=== PATIENT | female | born 1950 | race Caucasian/White ===

== ENCOUNTER 2020-05-11 16:07 | Outpatient (REF) | payer MEDICARE, MEDICAID, SELFPAY ==
[2020-05-11 16:42] LABS: Abs Immature Grans 0.05 10^3/uL (0.0-0.06); Absolute Basophil Count 0.07 10^3/uL (0.0-0.2); Absolute Eosinophil Count 0.31 10^3/uL (0.0-0.7); Absolute Lymphocyte Count 1.84 10^3/uL (1.2-3.4); Absolute Monocyte Count 1.27 10^3/uL (0.1-0.8); Absolute Neutrophil Count 8.41 10^3/uL (1.2-6.7); Basophils % 0.6; Eosinophils % 2.6; HCT 31.5 % (36.0-46.0); HGB 9.3 g/dL (11.2-15.7); Immature Grans % 0.4; Lymphocytes % 15.4; MCH 32.6 pg (27.0-33.0); MCHC 29.5 % (32.0-36.0); MCV 110.5 fL (80-95); MPV 12.6 fL (8.0-11.0); Monocytes % 10.6; Neutrophils % 70.4; Nucleated RBC 0 %; Platelet Count 266 10^3/uL (130-400); RBC 2.85 10^6/uL (3.93-5.22); RDW 16.9 % (11.7-14.6); RDW-SD 69.7 fL; Reticulocyte 2.5 % (0.5-2.4); WBC 11.95 10^3/uL (4.4-10.8)
[2020-05-11 16:58] LABS: Iron 27 ug/dL (50-170); Total Iron Binding Capacity 192 ug/dL (250-450); Transferrin Sat 14 % (15-50)
[2020-05-11 17:25] LABS: ALT 12 U/L (14-59); AST 16 U/L (15-37); Albumin 2.2 g/dL (3.4-5.0); Alkaline Phosphatase 156 U/L (46-116); Anion Gap 1.7 mmol/L (3-11); BUN 20 mg/dL (7-18); Bilirubin, Total 0.4 mg/dL (0.2-1.0); CO2 35.3 mmol/L (21.0-32.0); CREATININE 1.13 mg/dL (0.55-1.02); Calcium 9.4 mg/dL (8.5-10.1); Chloride 108 mmol/L (98-107); Estimated GFR 47.47 (mL/min/1.73m2); Glucose 121 mg/dL (74-106); Potassium 4.3 mmol/L (3.5-5.1); Sodium 145 mmol/L (136-145); Total Protein 6.4 g/dL (6.4-8.2); Vitamin B12 443 pg/mL (193-986)
[2020-05-11 17:36] LABS: Diff Comment RBC Morph Reviewed
[2020-05-11 17:37] LABS: Macrocytosis 2+; Polychromasia Present
== END 2020-05-11 16:27 ==
LOC: LBN 16:07
PROVIDERS: Visit Provider Family Medicine
DX: D50.0 Iron deficiency anemia secondary to blood loss (chronic) (principal); M62.81 Muscle weakness (generalized); J44.1 Chronic obstructive pulmonary disease with (acute) exacerbation; J96.11 Chronic respiratory failure with hypoxia; I10 Essential (primary) hypertension; I73.9 Peripheral vascular disease, unspecified
CPT/HCPCS: 80053; 82607; 82746; 83540; 83550; 85025; 85045

== ENCOUNTER 2020-05-13 14:53 | Outpatient (REF) | payer MEDICARE, MEDICAID, SELFPAY ==
[2020-05-14 16:48] LABS: COVID-19 RT-PCR Result Not Detected ((See Note))
== END 2020-05-13 15:13 ==
LOC: LBN 14:53
PROVIDERS: Visit Provider Family Medicine
DX: Z11.52 Encounter for screening for COVID-19 (principal)
CPT/HCPCS: U0003

== ENCOUNTER 2020-05-20 14:00 | Outpatient (REF) | payer MEDICARE, MEDICAID, SELFPAY ==
[2020-05-20 14:41] LABS: Abs Immature Grans 0.06 10^3/uL (0.0-0.06); Absolute Basophil Count 0.08 10^3/uL (0.0-0.2); Absolute Lymphocyte Count 2.18 10^3/uL (1.2-3.4); Absolute Monocyte Count 1.09 10^3/uL (0.1-0.8); Absolute Neutrophil Count 9.38 10^3/uL (1.2-6.7); Anion Gap 0.8 mmol/L (3-11); BUN 17 mg/dL (7-18); Basophils % 0.6; CO2 38.2 mmol/L (21.0-32.0); CREATININE 1.14 mg/dL (0.55-1.02); Calcium 9.4 mg/dL (8.5-10.1); Chloride 107 mmol/L (98-107); Estimated GFR 46.99 (mL/min/1.73m2); Glucose 113 mg/dL (74-106); HCT 33.3 % (36.0-46.0); Immature Grans % 0.5; Lymphocytes % 16.5; MCH 33.1 pg (27.0-33.0); MCV 110.3 fL (80-95); MPV 12.4 fL (8.0-11.0); Monocytes % 8.3; Neutrophils % 71.1; Nucleated RBC 1 %; Platelet Count 322 10^3/uL (130-400); Potassium 3.9 mmol/L (3.5-5.1); RBC 3.02 10^6/uL (3.93-5.22); RDW 16.6 % (11.7-14.6); RDW-SD 66.2 fL; Sodium 146 mmol/L (136-145); WBC 13.19 10^3/uL (4.4-10.8)
== END 2020-05-20 14:20 ==
LOC: LBN 14:00
PROVIDERS: Visit Provider Nurse Practitioner Gerontology
DX: L03.115 Cellulitis of right lower limb (principal); L03.116 Cellulitis of left lower limb
CPT/HCPCS: 80048; 85025

== ENCOUNTER 2020-05-21 11:09 | Inpatient (IN) | payer MEDICARE, MEDICAID, SELFPAY ==
[2020-05-21] VITALS (78 sets, daily range): BP systolic 72–138; BP diastolic 18–101; PULSE 62–143; RESP 7–24; TEMP 36.6–37.4; O2SAT 86–98
--- NOTE | 2020-05-21 11:00 | RT.EKG_ITS ---
APPROVED REPORT Exam: Resting ECG Patient Location: E HR:79 bpm ECG Measurements Heart Rate 79 AXIS HI 196 P 0 QRSd 125 QRS 5 QT 432 T 62 QTc 498 Conclusion Sinus rhythm...normal P axis, V-rate 60- 99 Ventricular premature complex...V complex w/ short R-R interval Nonspecific intraventricular conduction delay...QRSd >115mS, not LBBB/RBBB Abnrm T, consider ischemia, anterolateral lds...T <-0.20mV, I aVL V2-V6. Significant artifact. No STEMI. I have reviewed and interpreted ECG and agree with software generated interpretation.
--- NOTE | 2020-05-21 11:39 | W.ED.GENAD ---
Discharge Plan Disposition Patient Disposition: [facility] INPATIENT Condition: Stable Discharge Details Clinical Impression: Cellulitis of left leg, Chronic acquired lymphedema, Morbid obesity, Hypoxia Admit Date/Time: 05/21/20 12:08 Admit Provider: Per Mc Attending Provider: Per Mc Primary Care Provider: Unknown,Unknown ED Provider: Louann Fishman Discharge Data Discharge Date/Time-TO BE ENTERED AT DEPARTURE: 05/21/20 16:34 Medical Decision Making 69-year-old female with a history of morbid obesity, congestive heart failure, lymphedema, COPD chronically on nasal cannula oxygen who presents from the [facility] for left leg cellulitis and hypoxia today. The [facility] have reported that patient's oxygen saturation is normally 88 to 92% on 4 L, but was 86% on CPAP. EMS reported patient on CPAP in route and oxygen saturation mid to high 80s. Upon arrival to ED, patient noted to be on 4 L nasal cannula and oxygen saturation 100%. She was decreased to 1 L and oxygen saturation 97%. Patient complaining only of left leg pain. She denies any cough, shortness of breath or chest pain. Left lower extremity appears erythematous extending from left medial thigh down to left lower leg. She has bilateral lower extremity edema and lymphedema, worse on left side. Distal pulses intact. She has fine crackles in the bases bilaterally but otherwise no wheezing. EKG notes a rate of 79, sinus. There is significant artifact but no obvious ST ischemic findings. We will start IV clindamycin and IV vancomycin for left leg cellulitis. Will obtain screening labs, chest x-ray and bilateral Doppler ultrasound of lower extremities. Case discussed with hospitalist accepts patient for admission for IV antibiotics. Labs reviewed. White blood cell count 23. Hemoglobin 10. Lactate 1. Troponin 0.13, suspect demand ischemia. Chest x-ray suboptimal but no obvious consolidation, possible fluid overload. 2 view chest x-ray notes fluid overload. Patient appears hemodynamically stable and in no acute respiratory distress. Medical Records Medical records reviewed: Yes I reviewed the patient's medical records. Imaging Data Radiologic Study: Radiologist's impression: XR PORTABLE CHEST AP CLINICAL HISTORY: hypoxia, r/o acute disease TECHNIQUE: 2D digital imaging was performed. COMPARISON: CR XR CHEST PORTABLE from 01/24/2016 FINDINGS: Examination is suboptimal due to patient position and poor inspiration. MEDIASTINUM: There is prominence of the left hilum. This may be due to pulmonary vasculature and patient positioning. Pulmonary infiltrate or mass cannot be excluded. HEART: Mildly enlarged. PULMONARY VASCULATURE: There is prominence of the pulmonary vasculature. LUNGS: Increased interstitial markings are present in the lungs. PLEURAL SPACE: No pleural effusion or pneumothorax. BONE:Within normal limits for the patient's age. OTHER FINDINGS:Normal. IMPRESSION: 1. Suboptimal examination due to poor inspiration and patient positioning. 2. Findings suspicious for congestive heart failure/fluid overload. 3. Fullness of the left hilum. This may be due to patient positioning but hilar adenopathy, infiltrate, enlarged pulmonary vasculature or mass cannot be excluded. A repeat PA and lateral view of the chest within the department should be considered for further evaluation. XR CHEST 2V PA LATERAL CLINICAL HISTORY: hypoxia, r/o acute disease TECHNIQUE: 2D digital imaging was performed. COMPARISON: No exams were available for comparison FINDINGS: MEDIASTINUM: Normal. HEART: Heart size is mildly enlarged. PULMONARY VASCULATURE: There is prominence of the pulmonary vasculature suggesting venous congestion. LUNGS: Prominent interstitial markings are seen throughout the lungs. PLEURAL SPACE: There is possible blunting of the left costophrenic angle suggesting a small pleural effusion. No pneumothorax. BONE:Within normal limits for the patient's age. OTHER FINDINGS:Normal. IMPRESSION: Findings suggestive of congestive heart failure/fluid overload. Findings were discussed with the emergency department on the date of the examination. Lab Data Lab results reviewed: Yes I reviewed the patient's lab results. ECG Data Attestation: I personally reviewed and interpreted this ECG (s) as follows: Interpretation: #1 --Rate of 79, sinus, artifact, no acute ST elevation or depression. TX 1-6. QRS 125. QTc 498. #2 --Rate of 86, sinus, no acute ST elevation or depression. QRS 104. QTc 499. HPI General Mode of arrival: EMS. Date/Time Provider Initiated Documentation: 05/21/20 11:48. Limitations to Documentation: altered mental status and physical limitation. Information obtained by: patient and RN/MD. HPI Narrative: Patient is a 69-year-old female with a history of morbid obesity, congestive heart failure, obstructive sleep apnea, COPD chronically on nasal cannula oxygen and chronic lymphedema presents from the [facility] for left leg cellulitis and hypoxia. Patient was noted to have left medial thigh erythema at times yesterday for which she was started on Augmentin. Staff notes today that she has extending erythema to her left lower leg. They state that she also has baseline oxygen saturations around 88 to 92% on 4 L and that she was 86% on CPAP today. They also note that she has decreased mental status per her baseline. Patient denies any chest pain, shortness of breath or cough to me. She is complaining of left leg pain but otherwise denies any other acute complaints. Related Data Home Medications Medication Instructions Recorded Confirmed albuterol sulfate [Ventolin Hfa] 2 puff INHALATION PRN PRN 05/02/16 05/21/20 aspirin [Aspir 81] 2 tab PO DAILY 05/02/16 05/21/20 furosemide 1 tab PO DAILY 05/02/16 05/21/20 lisinopril 1 tab PO HS 05/02/16 05/21/20 omeprazole 1 tab PO BID 05/02/16 05/21/20 simvastatin 40 mg PO HS 05/02/16 05/21/20 Lactobacillus acidoph-L.bulgar 1 tab PO TID 05/21/20 05/21/20 [Lactinex] acetaminophen 650 mg PO QID 05/21/20 05/21/20 amoxicillin-pot clavulanate 1 tab PO Q12H 05/21/20 05/21/20 [Augmentin] calcium gluconate [Calcium and 500 mg PO DAILY 05/21/20 05/21/20 Eggshell Chelated] docusate sodium [Colace] 50 mg PO BID 05/21/20 05/21/20 enoxaparin [Lovenox] 40 mg SUBCUT Q12H 05/21/20 05/21/20 ferrous sulfate [Iron (ferrous 325 mg PO TID 05/21/20 05/21/20 sulfate)] gabapentin [Neurontin] 200 mg PO TID 05/21/20 05/21/20 ipratropium-albuterol [Combivent] 1 spray INHALATION QID 05/21/20 05/21/20 lidocaine 2 patch TOPICAL DAILY 05/21/20 05/21/20 mometasone 2 puff INHALATION BID 05/21/20 05/21/20 potassium chloride 20 meq PO DAILY 05/21/20 05/21/20 sertraline 150 mg PO DAILY 05/21/20 05/21/20 vitamin [id number] acid 1 tab SUBLINGUAL DAILY 05/21/20 05/21/20 Allergies Allergy/AdvReac Type Severity Reaction Status Date / Time codeine Allergy Unverified 05/21/20 13:39 pentazocine AdvReac Unknown unknown Unverified 05/21/20 13:40 General Stated Complaint: Cellulitis TATIANA: 3 Review of Systems All systems reviewed & are unremarkable except as noted in HPI and below Constitutional Constitutional: Reports as per HPI, Denies chills and Denies fever(s) Eyes Eyes: Denies blurry vision ENT Ears, Nose, Mouth, and Throat: Denies dizziness, Denies sore throat and Denies throat swelling Cardiovascular Cardiovascular: Denies chest pain and Denies dyspnea Respiratory Respiratory: Denies cough and Denies dyspnea Gastrointestinal Gastrointestinal: Denies abdominal pain, Denies diarrhea and Denies vomiting Genitourinary Genitourinary: Denies hematuria and Denies dysuria Musculoskeletal Musculoskeletal: Denies back pain and Denies numbness Integumentary/Breasts Skin/Breast: Denies lesions and Denies rash Neurologic Neurologic: Denies dizziness, Denies localized weakness, Denies numbness and Reports other (L leg redness, pain, swelling) Allergic/Immunologic Allergic/Immunologic: Denies throat swelling FOR[facility]LY [facility] Medical History (Updated 05/25/20 @ 12:25 by Rosa Elena Curtis MD) COPD (chronic obstructive pulmonary disease) Depression Lymphedema Morbid obesity Social History Smoking/Tobacco Use Status: Former Tobacco Use Smoking risk assessment performed?: Yes Alcohol Intake: former Substance use type: marijuana Do you feel safe at home: Yes Do you feel safe in your relationship?: Yes Additional Social history: resident @ [facility] H&R Exam Const General: cooperative, no acute distress and ill appearing chronically Nutritional Appearance: obese morbidly obese [facility] Head: normal to inspection Face and sinus: normal facial exam Mouth: mucous membranes dry Eyes General: appearance normal, both eyes and all related structures Pupils: PERRL EOM: EOM intact bilaterally Neck Neck: normal visual inspection and No submandibular swelling Lymphatic: no lymphadenopathy noted Chest Chest: normal inspection of the chest and no tenderness Resp Effort & Inspection: normal respiratory effort and able to speak in complete sentences Auscultation: clear to auscultation bilaterally Cardio Rate: regular rate Rhythm: regular rhythm GI Inspection: normal to inspection and obesity Palpation: soft, not firm, not rigid and nontender Auscultation: normal bowel sounds Back/Spine/Pelvis Pelvis: no pain with anterior-posterior compression Skin General skin exam: no rashes or lesions noted Neuro General: patient alert, patient awake and patient oriented x3 Cognition: normal cognition Speech: speech normal Motor: muscle tone normal throughout Sensory Exam: no sensory deficits noted Extrem Upper/lower leg/hip images: 1. Erythema 2. Erythema, edema. [place] peel like skin. 1+ pitting edema left lower extremity. Chronic lymphedema of legs bilaterally, worse on left side. Distal pulses intact. Psych Appearance: grossly normal Mental Status: mental status grossly normal Speech and Movement: speech and movement normal Affect: normal affect Course Vital Signs Vital signs: Vital Signs Temperature 99.3 F 05/21/20 11:14 Pulse 80 05/21/20 11:14 Respiratory Rate 19 05/21/20 11:14 Blood Pressure 115/101 H 05/21/20 11:14 Pulse Oximetry 94 05/21/20 11:14 Temperature 99.3 F 05/21/20 11:14 Temperature Source Skin 05/21/20 11:14 Pulse 80 05/21/20 11:14 Respiratory Rate 19 05/21/20 11:14 Blood Pressure 115/101 H 05/21/20 11:14 Blood Pressure Position Sitting 05/21/20 11:14 Pulse Oximetry 94 05/21/20 11:14 Oxygen Delivery Method Nasal Cannula 05/21/20 11:14 Oxygen Flow Rate 1 05/21/20 11:14 Pain Level 0 05/21/20 11:14 Lab/Test Results Lab/Test Results: 05/21/20 11:27 Blood Blood Culture - Pending 05/21/20 11:27 Blood Blood Culture - Pending
--- NOTE | 2020-05-21 11:45 | DI.RAD_ITS ---
EXAM: XR PORTABLE CHEST AP CLINICAL HISTORY: hypoxia, r/o acute disease TECHNIQUE: 2D digital imaging was performed. COMPARISON: CR XR CHEST PORTABLE from 01/24/2016 FINDINGS: Examination is suboptimal due to patient position and poor inspiration. MEDIASTINUM: There is prominence of the left hilum. This may be due to pulmonary vasculature and pat ient positioning. Pulmonary infiltrate or mass cannot be excluded. HEART: Mildly enlarged. PULMONARY VASCULATURE: There is prominence of the pulmonary vasculature. LUNGS: Increased interstitial markings are present in the lungs. PLEURAL SPACE: No pleural effusion or pneumothorax. BONE:Within normal limits for the patient's age. OTHER FINDINGS:Normal. IMPRESSION: 1. Suboptimal examination due to poor inspiration and patient positioning. 2. Findings suspicious for congestive heart failure/fluid overload. 3. Fullness of the left hilum. This may be due to patient positioning but hilar adenopathy, infiltra te, enlarged pulmonary vasculature or mass cannot be excluded. A repeat PA and lateral view of the c hest within the department should be considered for further evaluation. DATA REPOSITORY: RADIATION DOSE DELIVERED:
[2020-05-21] MEDS: Albuterol/Ipratropium 3 ML UPD VIAL (11:56)
--- NOTE | 2020-05-21 12:00 | DI.US_ITS ---
EXAM: US EXTREMITY VENOUS BI CLINICAL HISTORY: L leg pain/redness, b/l leg swelling. TECHNIQUE: Bilateral lower extremity venous ultrasound performed using grayscale, color-flow, and sp ectral Doppler analysis. COMPARISON: No exams were available for comparison FINDINGS: The bilateral common femoral, femoral and popliteal veins demonstrate normal compressibility, augment ation, and color Doppler. There is limited visualization of the posterior tibialis veins bilaterally. The saphenofemoral junctions are unremarkable. There is no evidence of a Cox's cyst. The soft tis sues are unremarkable. IMPRESSION: Right: Negative for DVT Left: Negative for DVT DATA REPOSITORY:
--- NOTE | 2020-05-21 12:10 | HPE_ITS ---
Date of service: 05/21/20 Time of Service: 12:10 Assessment and Plan Assessment and plan (1) Congestive heart failure: Status: Chronic Assessment and plan: admit to ICU BNP 535 which is in normal range for her age. CXR indicates pulmonary edema Hypoxic on 5L O2 with BiPAP Lasix 40mg IV now. (2) Elevated troponin: Status: Acute Assessment and plan: In setting of episode of hypoxia, UTI and LE cellulitis. Trop of 0.13. Will trend. No STEMI on EKG; possible NSTEMI/demand ischemia (3) Left leg cellulitis: Status: Acute Assessment and plan: admit to med/surg, elevate as much as possible during the day IV clindamycin and Vancomycin initiated in the ED UTI now dxd as well so will d/c clindamycin and start Zosyn. blood cultures pending (4) COPD (chronic obstructive pulmonary disease): Status: Inactive Assessment and plan: appears stable at this time cxr pending sob and hypoxia resolved. continue to closely monitor routine covid testing pending (5) DVT prophylaxis: Status: Acute Assessment and plan: heparin sq (6) Discharge planning issues: Status: Acute Assessment and plan: will discharge back to the [facility] once medically stable (7) TRINH (obstructive sleep apnea): Status: Chronic Assessment and plan: Severe. Uses CPAP. Respiratory therapy involved. (8) Acute and chronic respiratory failure with hypoxia: Status: Acute Assessment and plan: Normally on 4L supplemental O2 with saturations in the 88-92% range. Now more hypoxic. Likely d/t pulmonary edema. Uses CPAP but not consistent and there is a question of an adequately fitting mask. Now on BiPAP with O2 bled in. History of Present Illness History of Present Illness Chief Complaint: left lower extremity pain and redness Narrative: This is a 69 yo female that is residing at the [facility] who has a h/o morbid obesity, TRINH, lymphedema, COPD. She presents to the ED from the [facility] for c/o increased pain and redness of left lower extremity, work up in the ED was most consistent with cellulitis, no suspicion of necrotizing fascitis, not septic. started on vanco and clindamycin. No report of CP/palpitations, F/C, cough/sputum. also with reports of SOB which have resolved. On 4L O2 per NC on arrival; decreased to 1L with a saturation of 97%. W/U revealed a UTI as well. Troponin elevated at 0.13. No STEMI on EKG. CXR was suboptimal d/t body habitus/poor inspiration/positioning. Findings were suspicious for fluid overload. BNP was 535 which is in the normal range of <900 for her age. [facility] Medical History (Updated 05/21/20 @ 17:44 by Per Mc MD) COPD (chronic obstructive pulmonary disease) Depression Lymphedema Morbid obesity Social History Smoking/Tobacco Use Status: Former Tobacco Use Smoking risk assessment performed?: Yes Alcohol Intake: former Substance use type: marijuana Do you feel safe at home: Yes Do you feel safe in your relationship?: Yes Additional Social history: resident @ [facility] Home Medications and Allergies Home Medications Medication Instructions Recorded Confirmed Type albuterol sulfate [Ventolin Hfa] 2 puff INHALATION PRN PRN 05/02/16 05/21/20 History aspirin [Aspir 81] 2 tab PO DAILY 05/02/16 05/21/20 History furosemide 1 tab PO DAILY 05/02/16 05/21/20 History lisinopril 1 tab PO HS 05/02/16 05/21/20 History omeprazole 1 tab PO BID 05/02/16 05/21/20 History simvastatin 40 mg PO HS 05/02/16 05/21/20 History Lactobacillus acidoph-L.bulgar 1 tab PO TID 05/21/20 05/21/20 History [Lactinex] acetaminophen 650 mg PO QID 05/21/20 05/21/20 History amoxicillin-pot clavulanate 1 tab PO Q12H 05/21/20 05/21/20 History [Augmentin] calcium gluconate [Calcium and 500 mg PO DAILY 05/21/20 05/21/20 History Eggshell Chelated] docusate sodium [Colace] 50 mg PO BID 05/21/20 05/21/20 History enoxaparin [Lovenox] 40 mg SUBCUT Q12H 05/21/20 05/21/20 History ferrous sulfate [Iron (ferrous 325 mg PO TID 05/21/20 05/21/20 History sulfate)] gabapentin [Neurontin] 200 mg PO TID 05/21/20 05/21/20 History ipratropium-albuterol [Combivent] 1 spray INHALATION QID 05/21/20 05/21/20 History lidocaine 2 patch TOPICAL DAILY 05/21/20 05/21/20 History mometasone 2 puff INHALATION BID 05/21/20 05/21/20 History potassium chloride 20 meq PO DAILY 05/21/20 05/21/20 History sertraline 150 mg PO DAILY 05/21/20 05/21/20 History vitamin [id number] acid 1 tab SUBLINGUAL DAILY 05/21/20 05/21/20 History Allergies Allergy/AdvReac Type Severity Reaction Status Date / Time codeine Allergy Unverified 05/21/20 13:39 pentazocine AdvReac Unknown unknown Unverified 05/21/20 13:40 Exam Narrative Exam Narrative: Pt in ICU; supine. BiPAP. Const General: no acute distress Nutritional Appearance: obese Orientation: other (asleep) HENIN Head: normocephalic and atraumatic Results Labs Result diagrams: 05/21/20 12:45 05/21/20 12:45 Last Vital Signs Temp 37.4 C 05/21/20 11:14 Pulse 75 05/21/20 12:02 Resp 19 05/21/20 12:02 BP 108/66 05/21/20 12:02 Pulse Ox 98 05/21/20 12:02 COVID-19 Screening Have you, or household traveled for leisure in last 14 days?: No Had IN PERSON contact w/suspected or confirmed C-19 person: No
[2020-05-21 12:59] LABS: Abs Immature Grans 0.25 10^3/uL (0.0-0.06); Basophils % 0.3; Eosinophils % 0.8; HCT 33.5 % (36.0-46.0); Immature Grans % 1.1; Lymphocytes % 10.7; MCH 32.6 pg (27.0-33.0); MCHC 29.9 % (32.0-36.0); MCV 109.1 fL (80-95); MPV 11.6 fL (8.0-11.0); Monocytes % 3.8; Neutrophils % 83.3; Nucleated RBC 1 %; Platelet Count 320 10^3/uL (130-400); RBC 3.07 10^6/uL (3.93-5.22); RDW 16.2 % (11.7-14.6); RDW-SD 64.9 fL; WBC 23.09 10^3/uL (4.4-10.8)
[2020-05-21 13:07] LABS: ALT 7 U/L (14-59); AST 12 U/L (15-37); Absolute Basophil Count 0.07 10^3/uL (0.0-0.2); Absolute Eosinophil Count 0.18 10^3/uL (0.0-0.7); Absolute Lymphocyte Count 2.47 10^3/uL (1.2-3.4); Absolute Monocyte Count 0.88 10^3/uL (0.1-0.8); Absolute Neutrophil Count 19.23 10^3/uL (1.2-6.7); Albumin 2.1 g/dL (3.4-5.0); Alkaline Phosphatase 138 U/L (46-116); Anion Gap -0.6 mmol/L (3-11); BUN 18 mg/dL (7-18); Bilirubin, Total 0.6 mg/dL (0.2-1.0); CO2 38.6 mmol/L (21.0-32.0); CREATININE 1.25 mg/dL (0.55-1.02); Calcium 9.4 mg/dL (8.5-10.1); Chloride 106 mmol/L (98-107); Estimated GFR 42.25 (mL/min/1.73m2); Glucose 119 mg/dL (74-106); Magnesium 1.8 mg/dL (1.8-2.4); Sodium 144 mmol/L (136-145); Total Protein 7.2 g/dL (6.4-8.2)
[2020-05-21 13:11] LABS: Troponin I 0.13 ng/mL (<0.06)
[2020-05-21] MEDS: Normal Saline Flush 10 ML SYR IVP ×2 (13:17→18:01)
[2020-05-21] MEDS: Normal Saline 500 ML IV (13:17)
[2020-05-21] MEDS: CLINDAMYCIN 900 MG/50 ML BAG 50 MG IVPB (13:17)
[2020-05-21 13:23] LABS: INR 1.2 (0.9-1.1); PTT Activated 35.7 sec (21.0-27.5); Prothrombin Time 11.8 sec (9.3-11.0)
--- NOTE | 2020-05-21 13:30 | RT.EKG_ITS ---
APPROVED REPORT Exam: Resting ECG Patient Location: E HR:86 bpm ECG Measurements Heart Rate 86 AXIS GA 216 P 77 QRSd 104 QRS 1 QT 419 T 76 QTc 499 Conclusion Sinus rhythm...normal P axis, V-rate 60- 99 Ventricular premature complex...V complex w/ short R-R interval Aberrant conduction of SV complex(es)...aberrant shape, GA 80-220 Borderline prolonged GA interval...GA >212, V-rate 50- 90 Probable lateral infarct, old...Q>35mS, abnormal ST-T, V5-6 I aVL. Artifact. No STEMI. I have reviewed and interpreted ECG and agree with software generated interpretation.
[2020-05-21 14:04] LABS: BE 14 mmol/L (-2-3); HCO3 39 mmol/L (22-26); pH 7.35 (7.35-7.45); pO2 61 mmHg (80-105); sO2 91 % (95-98); tCO2 38 mmol/L (23-27)
[2020-05-21 14:08] LABS: FIO2L 2 L; Site Left Radial; pCO2 72 mmHg (35-45)
[2020-05-21 14:23] LABS: NT-proBNP 535 pg/mL (<300)
[2020-05-21 14:54] LABS: Procalcitonin 0.2 ng/mL
--- NOTE | 2020-05-21 15:18 | DI.RAD_ITS ---
EXAM: XR CHEST 2V PA LATERAL CLINICAL HISTORY: hypoxia, r/o acute disease TECHNIQUE: 2D digital imaging was performed. COMPARISON: No exams were available for comparison FINDINGS: MEDIASTINUM: Normal. HEART: Heart size is mildly enlarged. PULMONARY VASCULATURE: There is prominence of the pulmonary vasculature suggesting venous congestion. LUNGS: Prominent interstitial markings are seen throughout the lungs. PLEURAL SPACE: There is possible blunting of the left costophrenic angle suggesting a small pleural e ffusion. No pneumothorax. BONE:Within normal limits for the patient's age. OTHER FINDINGS:Normal. IMPRESSION: Findings suggestive of congestive heart failure/fluid overload. [place] [facility] [place] [place] the date of the examination. DATA REPOSITORY: RADIATION DOSE DELIVERED:
[2020-05-21] MEDS: VANCOMYCIN/WATER (PEG) 2 GM/400 ML BAG IVPB (16:02)
[2020-05-21 16:47] LABS: Troponin I 0.13 ng/mL (<0.06)
[2020-05-21] MEDS: Furosemide 40 MG/4 ML VIAL IVP (18:00)
[2020-05-21 18:06] LABS: Source Nasopharynx
[2020-05-21 18:44] LABS: Bilirubin Negative (Negative); Blood Moderate (Negative); Clarity Clear (Clear); Glucose Negative (Negative); Ketones Negative (Negative); Leukocyte Esterase Small (Negative); Nitrite Negative (Negative); Urobilinogen 0.2 EU/dL (Up TO 0.2); pH 5.5 (5-8)
[2020-05-21 19:17] LABS: Bacteria Moderate HPF (Negative); C & S Indicated? Yes; Crystals Negative HPF (Negative); Epithelial Cells Negative HPF (Negative); Mucus Negative (Negative); Other Cells Few Renal (Negative); WBC >50 HPF (0-5)
[2020-05-21] MEDS: PIPERACILLIN/TAZO 3.375 GM in Normal Saline 50 ML IVPB (19:38)
[2020-05-21 19:41] LABS: COVID-19 PCR Negative (Negative); Influenza A PCR Negative (Negative); Influenza B PCR Negative (Negative); RSV PCR Negative (Negative)
[2020-05-22] VITALS (20 sets, daily range): BP systolic 87–132; BP diastolic 42–109; PULSE 65–150; RESP 4–22; TEMP 36.5–36.9; O2SAT 81–94
[2020-05-22] MEDS: PIPERACILLIN/TAZO 3.375 GM in Normal Saline 50 ML IVPB ×4 (01:13→18:34)
[2020-05-22 06:57] LABS: Absolute Monocyte Count 0.99 10^3/uL (0.1-0.8); Absolute Neutrophil Count 14.19 10^3/uL (1.2-6.7); Basophils % 0.3; Eosinophils % 1.2; HCT 31.1 % (36.0-46.0); HGB 9.3 g/dL (11.2-15.7); Immature Grans % 0.6; Lymphocytes % 10.3; MCH 32.6 pg (27.0-33.0); MCHC 29.9 % (32.0-36.0); MCV 109.1 fL (80-95); MPV 12.2 fL (8.0-11.0); Monocytes % 5.7; Neutrophils % 81.9; Nucleated RBC 1 %; Platelet Count 256 10^3/uL (130-400); RBC 2.85 10^6/uL (3.93-5.22); RDW 16.2 % (11.7-14.6); RDW-SD 64.4 fL; WBC 17.33 10^3/uL (4.4-10.8)
[2020-05-22 07:04] LABS: Absolute Basophil Count 0.05 10^3/uL (0.0-0.2); Absolute Eosinophil Count 0.21 10^3/uL (0.0-0.7); Absolute Lymphocyte Count 1.78 10^3/uL (1.2-3.4)
[2020-05-22 07:12] LABS: Anion Gap 5.2 mmol/L (3-11); BUN 20 mg/dL (7-18); CO2 34.8 mmol/L (21.0-32.0); CREATININE 1.25 mg/dL (0.55-1.02); Calcium 9.2 mg/dL (8.5-10.1); Chloride 106 mmol/L (98-107); Estimated GFR 42.25 (mL/min/1.73m2); Glucose 94 mg/dL (74-106); Potassium 4.1 mmol/L (3.5-5.1); Sodium 146 mmol/L (136-145)
[2020-05-22] MEDS: Albuterol/Ipratropium 3 ML UPD VIAL UPD ×3 (07:56→21:52)
[2020-05-22] MEDS: Docusate Sodium 100 MG/10 ML CUP 50 MG PO (08:31)
[2020-05-22] MEDS: Potassium Chloride 20 MEQ TABCR PO (08:33)
[2020-05-22] MEDS: Aspirin E.C. 81 MG TABEC 162 MG PO (08:33)
[2020-05-22] MEDS: Gabapentin 100 MG CAP 200 MG PO ×2 (08:33→15:42)
[2020-05-22] MEDS: Sertraline 50 MG TAB 150 MG PO (08:33)
[2020-05-22] MEDS: Omeprazole 20 MG CAPCR 40 MG PO (08:34)
[2020-05-22] MEDS: Enoxaparin 40 MG/0.4 ML SYR SC (08:34)
[2020-05-22] MEDS: Furosemide 40 MG/4 ML VIAL IVP (08:35)
--- NOTE | 2020-05-22 09:49 | PDOC.CMIN ---
- If Service Date Differs Date of service: 05/22/20 Time of Service: 09:49 Care Management Initial Assess REASON FOR HOSPITALIZATION:: LE Cellulitis PAST MEDICAL HISTORY/PAST SURGICAL HISTORY:: COPD, Depression, lymphedema, morbid obesity PREVIOUS FUNCTIONAL STATUS/SOCIAL/FAMILY SUPPORTS:: Michelle was placed at the [facility] recently from [facility] for rehabiliation. She utilizes oxygen at baseline; 4L. CURRENT FUNCTIONAL STATUS:: Michelle is currently in the ICU being monitored and treated. [facility] ADVANCE DIRECTIVES:: None on file. Has patient been provided with info about the portal/API?: No Did the patient sign up for the portal?: No CODE STATUS:: Full Code INSURANCE COVERAGE / FINANCIAL ISSUES:: [facility]. [place] CURRENT HOME/COMMUNITY SERVICES/EQUIPMENT:: Resident at [facility], 4L O2 at baseline. [facility]. [facility] reports Michelle had skilled RN services prior to her admission to the [facility]. POTENTIAL DISCHARGE NEEDS:: Coordinated return to the [facility]. PATIENT/FAMILY EDUCATION NEEDS:: Review of discharge instructions, discuss [employer]. ANTICIPATED BARRIERS TO DISCHARGE:: None identified. TRANSPORTATION:: Via [facility] due to lack of transportation at the [facility]. PLAN:: Michelle continues to be closely monitored and treated. She will return to the [facility] once medically stable via RCT. CM continues to follow.
[2020-05-22] MEDS: Mometasone 220 MCG 14 DOSE INHALER 1 PUFF IH (10:00)
--- NOTE | 2020-05-22 13:22 | W.NUTCONSULT ---
Date of service: 05/22/20 Time of Service: 13:22 Nutritional Consult ASSESSMENT: 69 year old resident of [facility] admitted with acute respiratory failure, hypoxia, CHF, COPD, cellulitis of left thigh, lymphedema, morbid obesity with UTI. Met with Michelle today. She is endentulous, nursing reports coughing with breakfast today. Diet downgraded to minced and moist today at lunch, [employer] consult pending. Discussed with Michelle importance of adequate intake for optimal healing, she is wiling to take liquid protein supplements TID. Due to large size, will need supplemental protein to maintain lean body mass and support healing/immune system. NUTRITIONAL DIAGNOSIS: Increased nutrient needs in view cellulitis and high BMI INTERVENTION: Low sodium, minced and moist diet supplemented with liquid protein 1 oz TID MONITORING AND EVALUATION: po intake, labs, healing, weight Time Spent in Nutritional Counseling and Treatment: 10 min
--- NOTE | 2020-05-22 14:28 | PGE_ITS ---
Date of Service Date of service: 05/22/20 Time of Service: 10:28 Assessment and Plan Assessment and plan (1) Acute and chronic respiratory failure with hypoxia: Status: Acute Assessment and plan: Now back to baseline on 4L per NC with O2 saturations in the low 90's. Pulmonary edema noted on CXR; 40mg IV lasix daily. (2) Cellulitis of left leg: Status: Acute Assessment and plan: Improving erythema. She is on Zosyn and Vancomycin. Blood cultures pending. (3) Chronic acquired lymphedema: Status: Acute Assessment and plan: Risk factor for cellulitis / possibly lymphangitis. (4) Morbid obesity: Status: Acute Assessment and plan: Large panus and skin folds of legs. LIkely intertrigo of the popliteal fossa bilateral. Nystatin powder (5) TRINH (obstructive sleep apnea): Status: Chronic Assessment and plan: On CPAP. She endorsed issues with her mask. Did well on CPAP overnight last night. (6) UTI (urinary tract infection): Status: Acute Assessment and plan: Ruled out; culture growing mixed gram neg and gram postive reji all in < 10,000 cfu's. Subjective Subjective Patient reports: feels better and afebrile; denies nausea and vomiting Interval history since last seen: Patient is slow to respond to questions. States she is hungry. On oxymask and states her breathing is comfortable. Exam Narrative Exam Narrative: Morbidly obese female lying in bed. Const General: cooperative and no acute distress Nutritional Appearance: obese Orientation: alert and other (Oriented to person, place. Earlier was not clear on place.) Eyes Sclera: sclerae normal Pupils: PERRL Neck Neck: full ROM and no JVD Resp Effort & Inspection: normal respiratory effort (Has oxymask in place.) Auscultation: clear to auscultation bilaterally Cardio Rate: regular rate Rhythm: regular rhythm Heart Sounds: S1 normal and S2 normal GI Inspection: large pannus and obesity Palpation: soft and nontender Skin Full body images: 1. Erythema; improved. No lesions or open areas 2. mild erythema; venous stasis 3. Moist, erythema. Extrem General: no calf tenderness and edema Laterality: bilateral (lymphedema of BLEs and BUEs) Objective Last Vital Signs Temp 36.5 C 05/22/20 08:12 Pulse 72 05/22/20 14:17 Resp 16 05/22/20 14:17 BP 132/109 H 05/22/20 00:00 Pulse Ox 93 05/22/20 14:17 Laboratory Results - last 24 hr 05/21/20 05/21/20 05/21/20 12:45 13:08 16:20 WBC RBC Hgb Hct MCV MCH MCHC RDW Plt Count MPV Immature Gran % Neutrophils % Lymphocytes % Monocytes % Eosinophils % Basophils % Nucleated RBC % Absolute Neutrophils Absolute Lymphocytes Absolute Monocytes Absolute Eosinophils Absolute Basophils Sodium Potassium Chloride Carbon Dioxide Anion Gap BUN Creatinine Estimated GFR/1.73 m2 Glucose Uric Acid Calcium Troponin I 0.13 H* Procalcitonin 0.2 Urine Color Urine Clarity Urine pH Ur Specific Webster Urine Protein Urine Ketones Urine Blood Urine Nitrite Urine Bilirubin Urine Urobilinogen Ur Leukocyte Esterase Urine RBC Urine WBC Ur Epithelial Cells Urine Crystals Urine Bacteria Urine Casts Urine Mucus Urine Other Ur Culture Indicated? Urine Glucose COVID-19 Source SARS-CoV-2 (PCR) Cancelled Nasopharyn COVID-19 PCR Cancelled Influenza Type A (PCR) Influenza Type B (PCR) RSV (PCR) Ref Test Perform Site Cancelled 05/21/20 05/21/20 05/22/20 17:30 18:05 06:25 WBC RBC Hgb Hct MCV MCH MCHC RDW Plt Count MPV Immature Gran % Neutrophils % Lymphocytes % Monocytes % Eosinophils % Basophils % Nucleated RBC % Absolute Neutrophils Absolute Lymphocytes Absolute Monocytes Absolute Eosinophils Absolute Basophils Sodium 146 H Potassium 4.1 Chloride 106 Carbon Dioxide 34.8 H Anion Gap 5.2 BUN 20 H Creatinine 1.25 H Estimated GFR/1.73 m2 42.25 Glucose 94 Uric Acid Calcium 9.2 Troponin I Procalcitonin Urine Color Yellow Urine Clarity Clear Urine pH 5.5 Ur Specific Webster 1.020 Urine Protein Negative Urine Ketones Negative Urine Blood Moderate H Urine Nitrite Negative Urine Bilirubin Negative Urine Urobilinogen 0.2 Ur Leukocyte Esterase Small H Urine RBC 10-20 H Urine WBC >50 H Ur Epithelial Cells Negative Urine Crystals Negative Urine Bacteria Moderate Urine Casts 5-10 wbc Urine Mucus Negative Urine Other Few renal Ur Culture Indicated? Yes Urine Glucose Negative COVID-19 Source Nasopharynx SARS-CoV-2 (PCR) Negative Nasopharyn COVID-19 PCR Influenza Type A (PCR) Negative Influenza Type B (PCR) Negative RSV (PCR) Negative Ref Test Perform Site 05/22/20 05/22/20 06:25 09:27 WBC 17.33 H RBC 2.85 L Hgb 9.3 L Hct 31.1 L MCV 109.1 H MCH 32.6 MCHC 29.9 L RDW 16.2 H Plt Count 256 MPV 12.2 H Immature Gran % 0.6 Neutrophils % 81.9 Lymphocytes % 10.3 Monocytes % 5.7 Eosinophils % 1.2 Basophils % 0.3 Nucleated RBC % 1 Absolute Neutrophils 14.19 H Absolute Lymphocytes 1.78 Absolute Monocytes 0.99 H Absolute Eosinophils 0.21 Absolute Basophils 0.05 Sodium Potassium Chloride Carbon Dioxide Anion Gap BUN Creatinine Estimated GFR/1.73 m2 Glucose Uric Acid Cancelled Calcium Troponin I Procalcitonin Urine Color Urine Clarity Urine pH Ur Specific Webster Urine Protein Urine Ketones Urine Blood Urine Nitrite Urine Bilirubin Urine Urobilinogen Ur Leukocyte Esterase Urine RBC Urine WBC Ur Epithelial Cells Urine Crystals Urine Bacteria Urine Casts Urine Mucus Urine Other Ur Culture Indicated? Urine Glucose COVID-19 Source SARS-CoV-2 (PCR) Nasopharyn COVID-19 PCR Influenza Type A (PCR) Influenza Type B (PCR) RSV (PCR) Ref Test Perform Site
[2020-05-22] MEDS: Protein Nutritional Supplement 16 GM 1 OUNCE PACKET PO (15:42)
[2020-05-22] MEDS: Normal Saline Flush 10 ML SYR IVP ×2 (15:43→18:35)
[2020-05-22] MEDS: Simvastatin 20 MG TAB 40 MG PO (21:51)
[2020-05-22] MEDS: Lisinopril 20 MG TAB PO (21:51)
[2020-05-22] MEDS: Nystatin POWDER 60 GM JAR TP (21:51)
[2020-05-23] VITALS (14 sets, daily range): BP systolic 96–131; BP diastolic 59–71; PULSE 70–101; RESP 8–22; TEMP 36.4–38.6; O2SAT 87–97
[2020-05-23] MEDS: Enoxaparin 40 MG/0.4 ML SYR SC ×3 (00:04→20:19)
[2020-05-23] MEDS: PIPERACILLIN/TAZO 3.375 GM in Normal Saline 50 ML IVPB ×2 (02:53→08:51)
[2020-05-23] MEDS: Normal Saline Flush 10 ML SYR IVP ×3 (02:55→20:20)
[2020-05-23] MEDS: Mometasone 220 MCG 14 DOSE INHALER 1 PUFF IH ×2 (07:56→20:27)
[2020-05-23] MEDS: Nystatin POWDER 60 GM JAR TP ×2 (08:51→20:28)
[2020-05-23] MEDS: Docusate Sodium 100 MG/10 ML CUP 50 MG PO ×2 (08:52→20:18)
[2020-05-23] MEDS: Furosemide 40 MG/4 ML VIAL IVP (08:52)
[2020-05-23] MEDS: Protein Nutritional Supplement 16 GM 1 OUNCE PACKET PO ×3 (08:52→20:20)
[2020-05-23] MEDS: Aspirin E.C. 81 MG TABEC 162 MG PO (08:53)
[2020-05-23] MEDS: Sertraline 50 MG TAB 150 MG PO (08:54)
[2020-05-23] MEDS: Gabapentin 100 MG CAP 200 MG PO ×3 (08:54→20:19)
[2020-05-23] MEDS: Omeprazole 20 MG CAPCR 40 MG PO ×2 (08:54→20:18)
[2020-05-23] MEDS: Potassium Chloride 20 MEQ TABCR PO (08:54)
[2020-05-23 08:57] LABS: Abs Immature Grans 0.05 10^3/uL (0.0-0.06); Absolute Eosinophil Count 0.44 10^3/uL (0.0-0.7); Absolute Monocyte Count 1.01 10^3/uL (0.1-0.8); Basophils % 0.5; Eosinophils % 3.4; HCT 30.3 % (36.0-46.0); HGB 9.2 g/dL (11.2-15.7); Immature Grans % 0.4; Lymphocytes % 17.7; MCH 33.1 pg (27.0-33.0); MCHC 30.4 % (32.0-36.0); MPV 11.6 fL (8.0-11.0); Monocytes % 7.8; Neutrophils % 70.2; Nucleated RBC 1 %; Platelet Count 261 10^3/uL (130-400); RBC 2.78 10^6/uL (3.93-5.22); RDW-SD 63.6 fL; WBC 13.01 10^3/uL (4.4-10.8)
[2020-05-23 08:59] LABS: Absolute Basophil Count 0.07 10^3/uL (0.0-0.2); Absolute Neutrophil Count 9.13 10^3/uL (1.2-6.7)
[2020-05-23 09:09] LABS: Anion Gap 3.7 mmol/L (3-11); BUN 26 mg/dL (7-18); CO2 34.3 mmol/L (21.0-32.0); CREATININE 1.55 mg/dL (0.55-1.02); Calcium 9.2 mg/dL (8.5-10.1); Chloride 104 mmol/L (98-107); Estimated GFR 32.96 (mL/min/1.73m2); Glucose 118 mg/dL (74-106); Magnesium 1.9 mg/dL (1.8-2.4); Potassium 3.9 mmol/L (3.5-5.1); Sodium 142 mmol/L (136-145)
[2020-05-23 09:10] LABS: Diff Comment RBC Morph Reviewed; Macrocytosis 2+; Polychromasia Present
[2020-05-23] MEDS: Albuterol/Ipratropium 3 ML UPD VIAL UPD ×2 (11:07→20:21)
--- NOTE | 2020-05-23 11:26 | CMPROGNOTE_ITS ---
- If Service Date Differs Date of service: 05/23/20 Time of Service: 11:26 Care Management Progress Note S/O: Michelle was asleep for much of the day. CM met with her briefly but Michelle would only engage long enough to say the she was really tired. She stated that she did not sleep last night. She did participate in a PT consult and a recommendation for continues exercise for strengthening. At this point she is transfer with a mechanical device only.CM to [facility]. A: Michelle is a 69 year old woman admitted on 05/21/20 with cellulitis P: Michelle will return to the [facility] where she resides when medically cleared. She will follow up with the facility provider and plan of care. Michelle will transport either by ambulance or RCt depending on progress. CM will continue to support Michelle and her discharge needs.
--- NOTE | 2020-05-23 11:31 | PT.INIE ---
Date of service: 05/23/20 Time of Service: 11:15 PT Notes Visit Reasons: Cellulitis Inpatient Physical Therapy Evaluation Date: 05/23/20 Referring Doctor: Rosa Elena Curtis PT Orders: PT CONSULT: Limited Ability, evaluate and Treat Precautions: Standard, Fall risk Patient Profile/Admitting Diagnosis: Orders received for this 69-year-old female with history of morbid obesity and ambulatory despite. Patient has recently transferred from [facility] for which she is a current resident. Patient has been having any pain in the left lower extremity and was brought to the emergency department with a diagnosis of cellulitis. He has a history of COPD, acute respiratory failure. Patient states that at baseline she rarely gets out of bed and has recently been having trouble transferring from bed to wheelchair due to fall risk. PMHX: Medical History (Updated 05/21/20 @ 17:44 by Per Mc MD) COPD (chronic obstructive pulmonary disease) Depression Lymphedema Morbid obesity Social History/Home Situation: Patient currently resides in the following which she was transferred to from [facility][1] Equipment Owned/DME: Wheelchair for transport Subjective: Patient states she does not feel like getting out of bed Objective: Well oriented alert pleasant female who appears of stated age she is morbidly obese lying flat in bed head of bed to 20 IV placed in the right upper extremity. Nasal cannula Mental Status: Well oriented alert to person place and time Pain: Left lower extremity pain 4-10 ROM: Right Upper Extremity: Shoulder flexion 90 degrees, elbow range of motion within normal Left Upper Extremity: Shoulder flexion to 90 degrees with active assist, elbow flexion within normal Right Lower Extremity: Hip flexion to 80 degrees, knee flexion to 90, Left Lower Extremity: Hip flexion to 80 degrees, knee flexion to 90 Strength: Right Upper Extremity: Grossly 4+ out of 5 Left Upper Extremity: Shoulder flexion severely limited due to pain, elbow flexion 4+ out of 5, triceps 4+ out of 5, office clerk routine strength strong Right Lower Extremity: Grossly 4+ out of 5 Left Lower Extremity: Grossly 4+ out of 5 Bed Mobility/Transfers: Patient currently refuses out of bed transfer Gait: Not assessed Balance: Static Sitting: NA Dynamic Sitting: NA Static Standing:NA Dynamic Standing: NA Special Tests: Mobility Limitations Standardized Measure [facility]-PAC 6 clicks Basic Mobility Inpatient Short Form: Raw Score: 7 Standardized Score: 26.42 CMS Score: 92.36% Therapeutic exercise: Abdominal Crunch Elbow flexion Hip flexion Ankle pumps. Informed Consent/Education: Patient instructed in purpose of PT consult and plan of care. ASSESSMENT: Patient is a 69-year-old female with history of ambulatory morbid obesity Admitted with left lower extremity cellulitis, chronic respiratory failure, exacerbation of COPD Patient presents with the following impairment level findings: Limited ability for bed rolling, limited ability for transferring particularly supine to sit and sit to stand, pain with movements of the left lower extremity, left upper extremity Pt will benefit from skilled therapy intervention in order to remedy their functional limitations and restore patient to a more appropriate and stable functional level. Impairments are contributing to the following functional limitations: AMPAC score 92.36% Patient will most likely be requiring use of either require or the STEADY lift. Patient is assessed as a high complexity initial evaluation 59229 based on the following: History: see above Examination: see above Presentation: Unstable Decision Making: High due to antifactor 93.36% Goals: Goals X1 week 1. Supine-Sit Mod Assist x 1 2. Sit-Supine Mod Assist x 1 3. Sit-Stand Max x 2 4. Stand-Sit Max x 2 Plan of Care/Treatment Plan: 1-2x/day, 7 days/week x 1 week. Plan of care has been reviewed with the TIN RECOVERY WORKER providing the service under Physical Therapy direction. Initiate Physical Therapy intervention for strengthening, bed mobility, transfers, gait, stairs, balance training, use of assistive device. Will most likely require huy or Steady lift for transport to chair or wheelchair. Working up to max assist DISCHARGE RECOMMENDATIONS: Prolonged senior care facility care unless functional mobility makes drastic and unexpected improvement TREATMENT CODE/TIME: High complexity initial evaluation 49899 treatment 1115, 15 minutes of direct care [facility]
[2020-05-23] MEDS: ceFAZolin 2 GM/50 ML BAG IVPB (14:27)
--- NOTE | 2020-05-23 16:23 | PGE_ITS ---
Date of Service Date of service: 05/23/20 Time of Service: 16:23 Assessment and Plan Assessment and plan (1) Acute on chronic respiratory failure with hypoxia and hypercapnia: Status: Acute Assessment and plan: I have reviewed the patient's sleep study from 2018, when her BMI was 51. At that time, she qualified for CPAP. However, her BMI is now 58. Given appearance of her ABG, I think BiPAP needs to be considered. We will trial this here tonight. I will discuss the case with her regional agronomist on Monday. (2) Acute CHF: Status: Acute Assessment and plan: I do not have records of her echo results. Obtain echo. Continue furosemide Monitor I/O's and daily weights. (3) Cellulitis of left leg: Status: Acute Assessment and plan: Improving. Given ZUHAIR, will change zosyn to cefazolin. Continue vancomyin. Blood cultures with NGTD (4) ZUHAIR (acute kidney injury): Status: Acute Assessment and plan: ?due to combo of vanco/zosyn vs cardiorenal vs due to diuresis. Change abx to vanco/ancef. Check echo. Change to BiPAP. Do not change dose of lasix today. Monitor Cr, I/O's, daily weights. (5) Chronic acquired lymphedema: Status: Chronic Assessment and plan: Risk factor for cellulitis. Would benefit from lymphedema therapy. (6) TRINH (obstructive sleep apnea): Status: Chronic Assessment and plan: On CPAP at the [facility]. Read above. Trial BiPAP tonight. (7) Morbid obesity: Status: Chronic Assessment and plan: BMI up to 58 from 51 1 year ago. I think this could be affecting the prescription for her respiratory device. Will discuss with pulmonology. (8) UTI (urinary tract infection): Status: Ruled-out Assessment and plan: Ruled out; mixed cx with less than 10,000 CFU. (9) DVT prophylaxis: Status: Acute Assessment and plan: lovenox 40 mg SC BID (10) Discharge planning issues: Status: Acute Assessment and plan: Full code Consult palliative care Subjective Subjective Interval history since last seen: Ms Lindsay states her leg is feeling better today. She denies dizziness, chest pain, shortness of breath, nausea. Resting without CPAP on. Exam Narrative Exam Narrative: General: Obese female, sleeping without CPAP on, somewhat difficult to wake up HEENT: EOMI, MMM Heart: RRR, no m/r/g Lungs: coarse breath sounds B Abdomen: soft, nontender, nondistended Extremities: BLE lymphedema, RLE area of cellulitis distally. Objective Last Vital Signs Temp 36.4 C L 05/23/20 15:26 Pulse 76 05/23/20 15:26 Resp 18 05/23/20 15:26 BP 131/64 05/23/20 15:26 Pulse Ox 91 L 05/23/20 15:26 Laboratory Results - last 24 hr 05/23/20 05/23/20 08:50 08:50 WBC 13.01 H RBC 2.78 L Hgb 9.2 L Hct 30.3 L MCV 109.0 H MCH 33.1 H MCHC 30.4 L RDW 16.0 H Plt Count 261 MPV 11.6 H Immature Gran % 0.4 Neutrophils % 70.2 Lymphocytes % 17.7 Monocytes % 7.8 Eosinophils % 3.4 Basophils % 0.5 Nucleated RBC % 1 Absolute Neutrophils 9.13 H Absolute Lymphocytes 2.30 Absolute Monocytes 1.01 H Absolute Eosinophils 0.44 Absolute Basophils 0.07 RBC Morphology See below Polychromasia Present Macrocytosis 2+ Sodium 142 Potassium 3.9 Chloride 104 Carbon Dioxide 34.3 H Anion Gap 3.7 BUN 26 H Creatinine 1.55 H Estimated GFR/1.73 m2 32.96 Glucose 118 H Calcium 9.2 Magnesium 1.9
[2020-05-23] MEDS: Simvastatin 20 MG TAB 40 MG PO (20:28)
[2020-05-23] MEDS: Lisinopril 20 MG TAB PO (20:28)
[2020-05-23] MEDS: Acetaminophen 325 MG TAB 650 MG PO (20:28)
[2020-05-24] VITALS (13 sets, daily range): BP systolic 106–123; BP diastolic 55–72; PULSE 54–74; RESP 8–28; TEMP 36.1–36.6; O2SAT 92–100
--- NOTE | 2020-05-24 | DI.US_ITS ---
EXAM: US RENAL CLINICAL HISTORY: ZUHAIR TECHNIQUE: Ultrasound of both kidneys performed using standard protocol. COMPARISON: US US EXTREMITY VENOUS BI from 05/21/2020 FINDINGS: RIGHT KIDNEY: Measures 11 cm in length. There is a 2.1 x 1.8 centimeter midpole cyst. Normal cortical thickness an d corticomedullary differentiation .No solid masses No intrarenal calculi nor hydronephrosis. LEFT KIDNEY: Measures 10 cm in length. There is a solid 5 by 4.9 centimeter mass at the midpole level suspicious for malignancy. There are shadowing calculi in the lower pole of the left kidney. The largest of th chiki measures approximately 1.5 centimetres. No hydronephrosis. No perinephric fluid. URINARY BLADDER: Decompressed and not evaluated. IMPRESSION: 1. There is a 5 x 4.9 centimetres solid mass at the midpole level the left kidney, suspicious for re nal cell malignancy. Recommend CT scan follow-up. There also shadowing calculi in the lower pole of the left kidney also noted. 2. Benign midpole cyst in the opposite-right kidney. No solid lesions in the right kidney. There is no hydronephrosis on either side. DATA REPOSITORY:
[2020-05-24] MEDS: Normal Saline Flush 10 ML SYR IVP ×2 (02:16→23:30)
[2020-05-24] MEDS: ceFAZolin 2 GM/50 ML BAG IVPB ×2 (02:16→14:14)
[2020-05-24 07:27] LABS: Abs Immature Grans 0.06 10^3/uL (0.0-0.06); Absolute Basophil Count 0.08 10^3/uL (0.0-0.2); Absolute Eosinophil Count 0.56 10^3/uL (0.0-0.7); Absolute Lymphocyte Count 2.39 10^3/uL (1.2-3.4); Absolute Monocyte Count 0.82 10^3/uL (0.1-0.8); Absolute Neutrophil Count 5.71 10^3/uL (1.2-6.7); Basophils % 0.8; Eosinophils % 5.8; HCT 30.8 % (36.0-46.0); Immature Grans % 0.6; Lymphocytes % 24.8; MCH 32.5 pg (27.0-33.0); MCHC 29.2 % (32.0-36.0); MCV 111.2 fL (80-95); Monocytes % 8.5; Neutrophils % 59.5; Nucleated RBC 1 %; Platelet Count 271 10^3/uL (130-400); RBC 2.77 10^6/uL (3.93-5.22); RDW 16.2 % (11.7-14.6); RDW-SD 66.3 fL; WBC 9.62 10^3/uL (4.4-10.8)
[2020-05-24] MEDS: Mometasone 220 MCG 14 DOSE INHALER 1 PUFF IH ×2 (07:27→20:05)
[2020-05-24 07:37] LABS: Anion Gap 0.7 mmol/L (3-11); BUN 25 mg/dL (7-18); CO2 37.3 mmol/L (21.0-32.0); CREATININE 1.46 mg/dL (0.55-1.02); Calcium 8.9 mg/dL (8.5-10.1); Chloride 105 mmol/L (98-107); Estimated GFR 35.32 (mL/min/1.73m2); Glucose 76 mg/dL (74-106); Magnesium 2.1 mg/dL (1.8-2.4); Potassium 4.3 mmol/L (3.5-5.1); Sodium 143 mmol/L (136-145)
[2020-05-24 07:42] LABS: Iron 38 ug/dL (50-170); Total Iron Binding Capacity 174 ug/dL (250-450); Transferrin Sat 22 % (15-50)
[2020-05-24 08:00] LABS: BE 13 mmol/L (-2-3); HCO3 38 mmol/L (22-26); pH 7.36 (7.35-7.45); pO2 50 mmHg (80-105); sO2 85 % (95-98); tCO2 36 mmol/L (23-27)
[2020-05-24 08:00] LABS: Ferritin 121 ng/mL (8-252)
[2020-05-24 08:05] LABS: FIO2L 4 L; Site Left Radial; pCO2 68 mmHg (35-45)
[2020-05-24 08:09] LABS: Folate 7.4 ng/mL (8.6-20.0); Vitamin B12 615 pg/mL (193-986)
[2020-05-24] MEDS: Protein Nutritional Supplement 16 GM 1 OUNCE PACKET PO ×3 (08:52→20:04)
[2020-05-24] MEDS: Furosemide 40 MG/4 ML VIAL IVP (08:52)
[2020-05-24] MEDS: Enoxaparin 40 MG/0.4 ML SYR SC ×2 (08:54→20:04)
[2020-05-24] MEDS: Docusate Sodium 100 MG/10 ML CUP 50 MG PO ×2 (08:54→20:03)
[2020-05-24] MEDS: Aspirin E.C. 81 MG TABEC 162 MG PO (08:55)
[2020-05-24] MEDS: Potassium Chloride 20 MEQ TABCR PO (08:55)
[2020-05-24] MEDS: Sertraline 50 MG TAB 150 MG PO (08:55)
[2020-05-24] MEDS: Gabapentin 100 MG CAP 200 MG PO ×3 (08:55→20:02)
[2020-05-24] MEDS: Nystatin POWDER 60 GM JAR TP ×2 (08:55→20:05)
[2020-05-24] MEDS: Omeprazole 20 MG CAPCR 40 MG PO ×2 (08:55→20:02)
--- NOTE | 2020-05-24 09:58 | PDOC.CMPRO ---
- If Service Date Differs Date of service: 05/24/20 Time of Service: 09:58 Care Management Progress Note S/O: Michelle was much more awake and interactive today. She requested a book to read, preferably a [place]. CM was able to provide her with several options from the [employer]. Michelle also requested assistance with calling her sister which CM provided. She did state that she is feeling better. Last night she spent the night on bipap which the provider determined was beneficial. Michelle worked with PT today performing bed exercises. She is a huy lift for transfers. A: Michelle is a 69 year old woman admitted on 05/21/20 with cellulitis P: Michelle will return to the [facility] where she resides when medically cleared. She will follow up with the facility provider and plan of care. Michelle will transport either by ambulance or RCt depending on progress. CM will continue to support Michelle and her discharge needs.
--- NOTE | 2020-05-24 13:03 | PT.INTREAT ---
Date of service: 05/24/20 Time of Service: 09:25 PT Notes Visit Reasons: Cellulitis Inpatient Physical Therapy Treatment Note [facility] Date: 05/24/2020 PRECAUTIONS: Standard, Fall SUBJECTIVE: Stated she is good with trying the bed exercises today. Feeling a little better today. OBJECTIVE: PAIN: Left lower leg continues to be painful, right is not as bad. Instructed that transfers to chair were to be performed with Tyrell lift. Discussed this with nursing staff. THEREX: Performed bed exercises only today. This included bilateral ankle pumps, supine hip flexion bilaterally, hip abd/ adduction on the right only, rolling of legs in and out, abdominal and elbow flexion/ extension and shoulder IR/ER x 5 to 10 each. See flow sheet for details. ASSESSMENT: Tolerated exercise well with good effort given. PLAN: Continue with current POC with focus on improved ADL function. TREATMENT CODE/TIME: [id number], 9:25 to 9:45 (20')
[2020-05-24 15:07] LABS: Vancomycin, Trough 36.1 ug/mL (10.0-20.0)
--- NOTE | 2020-05-24 16:14 | W.PM.PROGNOT ---
Documented by User: Akosua Porras NP 05/24/20 16:53 Date of Service Date of service: 05/24/20 Time of Service: 16:14 Assessment and Plan Assessment and plan (1) Left renal mass: Start date: 05/24/20 Start time: 16:50 Status: Acute Assessment and plan: Patient found to have 4.9 cm left renal mass suspicious for renal cell carcinoma. Recommend renal CT. will wait for creatinine to improve (2) Acute on chronic respiratory failure with hypoxia and hypercapnia: Start date: 05/24/20 Start time: 16:21 Status: Acute Assessment and plan: Dr. Curtis reviewed the patient's sleep study from 2019, when her BMI was 51. At that time, she qualified for CPAP. However, her BMI is now 58. Given appearance of her ABG, she thinks BiPAP needs to be considered. We will trial this here tonight. Dr. Curtis will discuss the case with her irrigation equipment installer on Monday. (3) Acute CHF: Start date: 05/24/20 Start time: 16:22 Status: Acute Assessment and plan: No records echo. Obtain echo on Monday Continue furosemide Monitor I/O's and daily weights. (4) Cellulitis of left leg: Start date: 05/24/20 Start time: 16:24 Status: Acute Assessment and plan: Improving. Given ZUHAIR, will change zosyn to cefazolin. Continue vancomyin. Blood cultures with NGTD (5) ZUHAIR (acute kidney injury): Start date: 05/24/20 Status: Acute Assessment and plan: improving, continue to monitor (6) Chronic acquired lymphedema: Start date: 05/24/20 Start time: 16:44 Status: Chronic Assessment and plan: Risk factor for cellulitis. Would benefit from lymphedema therapy. (7) TRINH (obstructive sleep apnea): Start date: 05/24/20 Start time: 16:44 Status: Chronic Assessment and plan: On CPAP at the [facility]. Read above. Trial BiPAP tonight. (8) Morbid obesity: Start date: 05/24/20 Start time: 16:44 Status: Chronic Assessment and plan: BMI up to 58 from 51 1 year ago. I think this could be affecting the prescription for her respiratory device. Will discuss with pulmonology. (9) DVT prophylaxis: Start date: 05/24/20 Start time: 16:49 Status: Acute Assessment and plan: lovenox 40 mg SC BID (10) Discharge planning issues: Start date: 05/24/20 Start time: 16:49 Status: Acute Assessment and plan: Full code Consult palliative care above case discussed with Dr. Curtis Subjective Subjective Patient reports: no new complaints Interval history since last seen: lying in bed no new complaints. eating and drinking without complaints Exam Narrative Exam Narrative: General: Obese female, lying in bed awake, alert calm and cooperative HEENT: EOMI, MMM Heart: RRR, no m/r/g Lungs: coarse breath sounds B Abdomen: soft, nontender, nondistended Extremities: BLE lymphedema, LLE area of cellulitis distally improving. Objective Last Vital Signs Temp 36.5 C 05/24/20 07:37 Pulse 62 05/24/20 07:37 Resp 20 05/24/20 07:37 BP 123/72 05/24/20 07:37 Pulse Ox 97 05/24/20 07:37 Laboratory Results - last 24 hr 05/24/20 05/24/20 05/24/20 06:50 06:50 06:50 WBC 9.62 RBC 2.77 L Hgb 9.0 L Hct 30.8 L MCV 111.2 H MCH 32.5 MCHC 29.2 L RDW 16.2 H Plt Count 271 MPV 12.0 H Immature Gran % 0.6 Neutrophils % 59.5 Lymphocytes % 24.8 Monocytes % 8.5 Eosinophils % 5.8 Basophils % 0.8 Nucleated RBC % 1 Absolute Neutrophils 5.71 Absolute Lymphocytes 2.39 Absolute Monocytes 0.82 H Absolute Eosinophils 0.56 Absolute Basophils 0.08 ABG Sample Site ABG pH ABG pCO2 ABG pO2 ABG HCO3 ABG Total CO2 ABG O2 Saturation ABG Base Excess Oxygen Liter Flow Sodium 143 Potassium 4.3 Chloride 105 Carbon Dioxide 37.3 H Anion Gap 0.7 L BUN 25 H Creatinine 1.46 H Estimated GFR/1.73 m2 35.32 Glucose 76 Calcium 8.9 Magnesium 2.1 Iron 38 L TIBC 174 L Transferrin % Sat 22 Ferritin 121 Vitamin B12 Folate Vancomycin Trough 05/24/20 05/24/20 05/24/20 06:50 08:00 14:40 WBC RBC Hgb Hct MCV MCH MCHC RDW Plt Count MPV Immature Gran % Neutrophils % Lymphocytes % Monocytes % Eosinophils % Basophils % Nucleated RBC % Absolute Neutrophils Absolute Lymphocytes Absolute Monocytes Absolute Eosinophils Absolute Basophils ABG Sample Site Left radial ABG pH 7.36 ABG pCO2 68 H* ABG pO2 50 L ABG HCO3 38 H ABG Total CO2 36 H ABG O2 Saturation 85 L ABG Base Excess 13 H Oxygen Liter Flow 4 Sodium Potassium Chloride Carbon Dioxide Anion Gap BUN Creatinine Estimated GFR/1.73 m2 Glucose Calcium Magnesium Iron TIBC Transferrin % Sat Ferritin Vitamin B12 615 Folate 7.4 L Vancomycin Trough 36.1 H* Documented by User: Rosa Elena Curtis MD 05/25/20 12:18
--- NOTE | 2020-05-24 16:43 | DI.VRAD_ITS ---
Addendum created by Mireille Aranda MD on 05/24/2020 4:47:44 PM EST: The study was personally discussed on the telephone with Akosua Oliveros on 05/24/2020 4:47 PM EST. The results were understood and acknowledged. Initial report created on 05/24/2020 4:43:21 PM EST: PROCEDURE INFORMATION: Exam: US Retroperitoneal; Complete; Kidneys and Bladder Exam date and time: 05/24/2020 4:14 PM Age: 69 years old Clinical indication: Other: Oral TECHNIQUE: Imaging protocol: Real-time ultrasound of the retroperitoneum with image documentation. Complete exam focused on the kidneys and bladder. COMPARISON: No relevant prior studies available. FINDINGS: Right kidney: The right kidney measures 11.3 x 4.3 x 6.1 cm. Right interpolar 2.1 x 1.8 x 2.2 cm simple renal cyst. Left kidney: The left kidney measures 10.0 x 4.4 x 4.5 cm. The left kidney contains a 4.9 x 4.3 x 3.8 cm interpolar hypoechoic mass with hypervascularity worrisome for renal cell carcinoma. Multiple echogenic left lower pole renal collecting system calculi identified as well with the longest linear calcification measuring 1.5 cm. The smaller calcification measures 1.1 cm. Urinary bladder: The bladder was not evaluated due to decompression. IMPRESSION: 1. Left renal mass measuring 4.9 x 4.3 x 3.8 cm. Findings suspicious for renal cell carcinoma. Recommend CT or MRI renal mass protocol for evaluation. 2. Left lower pole renal calculi. The largest measures 1.5 cm. 3. Simple right interpolar 2.1 x 1.8 x 2.2 cm renal cyst. 4. No renal hydronephrosis. Dictated and Authenticated by: Mireille Aranda MD. Ordering:AURELIO Cuba MD
[2020-05-24] MEDS: Folic Acid 1 MG TAB PO (17:20)
[2020-05-24] MEDS: Albuterol/Ipratropium 3 ML UPD VIAL UPD ×2 (19:30→23:30)
[2020-05-24] MEDS: Simvastatin 20 MG TAB 40 MG PO (21:45)
[2020-05-24] MEDS: Lisinopril 20 MG TAB PO (21:45)
[2020-05-25] VITALS (11 sets, daily range): BP systolic 90–100; BP diastolic 55–62; PULSE 66–95; RESP 1–20; TEMP 36.6–37; O2SAT 88–97
--- NOTE | 2020-05-25 | DI.RAD_ITS ---
EXAM: XR PORTABLE CHEST AP CLINICAL HISTORY: follow up pulmonary edema. TECHNIQUE: 2D digital imaging was performed. COMPARISON: CR XR CHEST 2V PA LATERAL from 05/21/2020 FINDINGS: Mild cardiomegaly is again noted. Mediastinum unchanged Pulmonary venous hypertension pattern again noted but there is also some mild confluent infiltrate in the right midlung and now evident. Persistent left lower lobe infiltrate. Small left pleural effus ion. IMPRESSION: Slight further deterioration as detailed above.Also small left pleural effusion. Recommend nonportab le PA and lateral views when clinically possible or CT scan. DATA REPOSITORY: RADIATION DOSE DELIVERED:
[2020-05-25] MEDS: ceFAZolin 2 GM/50 ML BAG IVPB ×2 (01:40→14:32)
[2020-05-25] MEDS: Albuterol/Ipratropium 3 ML UPD VIAL UPD ×3 (06:01→18:55)
[2020-05-25 07:37] LABS: Abs Immature Grans 0.06 10^3/uL (0.0-0.06); Absolute Basophil Count 0.08 10^3/uL (0.0-0.2); Absolute Monocyte Count 1.06 10^3/uL (0.1-0.8); Basophils % 0.7; Eosinophils % 5.9; HCT 32.4 % (36.0-46.0); HGB 9.5 g/dL (11.2-15.7); Immature Grans % 0.5; Lymphocytes % 29.7; MCH 32.3 pg (27.0-33.0); MCHC 29.3 % (32.0-36.0); MCV 110.2 fL (80-95); MPV 12.4 fL (8.0-11.0); Monocytes % 9.3; Neutrophils % 53.9; Nucleated RBC 1 %; Platelet Count 256 10^3/uL (130-400); RBC 2.94 10^6/uL (3.93-5.22); RDW-SD 64.8 fL; WBC 11.44 10^3/uL (4.4-10.8)
[2020-05-25 07:38] LABS: Absolute Eosinophil Count 0.67 10^3/uL (0.0-0.7); Absolute Neutrophil Count 6.17 10^3/uL (1.2-6.7)
[2020-05-25] MEDS: Protein Nutritional Supplement 16 GM 1 OUNCE PACKET PO ×3 (07:45→20:21)
[2020-05-25] MEDS: Omeprazole 20 MG CAPCR 40 MG PO ×2 (07:45→20:19)
[2020-05-25] MEDS: Sertraline 50 MG TAB 150 MG PO (07:45)
[2020-05-25] MEDS: Potassium Chloride 20 MEQ TABCR PO (07:45)
[2020-05-25] MEDS: Gabapentin 100 MG CAP 200 MG PO ×3 (07:45→20:19)
[2020-05-25] MEDS: Aspirin E.C. 81 MG TABEC 162 MG PO (07:45)
[2020-05-25] MEDS: Acetaminophen 325 MG TAB 650 MG PO (07:45)
[2020-05-25] MEDS: Furosemide 40 MG/4 ML VIAL IVP (07:46)
[2020-05-25] MEDS: Docusate Sodium 100 MG/10 ML CUP 50 MG PO ×2 (07:46→20:20)
[2020-05-25] MEDS: Normal Saline Flush 10 ML SYR IVP (07:46)
[2020-05-25] MEDS: Enoxaparin 40 MG/0.4 ML SYR SC ×2 (07:46→20:21)
[2020-05-25] MEDS: Nystatin POWDER 60 GM JAR TP ×2 (07:46→20:22)
[2020-05-25] MEDS: Folic Acid 1 MG TAB PO (07:49)
--- NOTE | 2020-05-25 08:00 | DI.US_ITS ---
APPROVED REPORT EXAM: Comprehensive 2D, Doppler, and color-flow Echocardiogram Patient Location: In-Patient Room/Bed: 206 Corporate Representative: Elizabet Medina RDCS (AE) Indications: CHF Other Information Study Quality: Fair. Technically limited study due to body habitus, inability to position patient. Conclusion This is a technically limited study due to body habitus. Left Ventricle : The left ventricle is normal size. The left ventricular systolic function is normal. The left ventricular ejection fraction is within the normal range. Mild concentric left ventricular hypertrophy. There is discrete upper septal wall thickening. There appears to be a slight increase i n the LVOT gradient beyond what was measured. Valsalva was not done. There is normal LV segmental wa ll motion. Diastolic function is indeterminate. LVEF is 60%. The LV appears to be hyperdynamic with total obliteration of the cavity during systole. Right Ventricle : Right ventricle is not well visualized. Right ventricular systolic function could n ot be assessed. The RVSP is 30.9mmHg. Atria : The left atrium size is normal. Right atrium is not well visualized. Mitral Valve : Moderate mitral annular calcification. Mild mitral regurgitation. No evidence of les l valve stenosis. Great Vessels : The aortic root is normal in size. The ascending aorta is mildly dilated. Aortic arch is not well visualized. IVC is normal in size and collapses >50% with inspiration. Compared to study at [facility] from 05/21/2018, the estimated PA pressure has decreased slightly. Wall motion Left Ventricle The left ventricle is normal size. The left ventricular systolic function is normal. The left ventric ular ejection fraction is within the normal range. Mild concentric left ventricular hypertrophy. Ther e is discrete upper septal wall thickening. There appears to be a slight increase in the LVOT gradien t. Valsalva was not done. There is normal LV segmental wall motion. Diastolic function is indetermina te. There is no ventricular septal defect visualized. LVEF is 60%. The LV appears to be hyperdynamic with total obliteration of the cavity during systole. Right Ventricle Right ventricle is not well visualized. Right ventricular systolic function could not be assessed. Th e RVSP is 30.9mmHg. Atria The left atrium size is normal. Right atrium is not well visualized. The interatrial septum is intact with no evidence for an atrial septal defect. Aortic Valve The aortic valve is normal in structure. Aortic valve is trileaflet. No hemodynamically significant v alvular aortic stenosis. Not well-visualized. Mitral Valve Moderate mitral annular calcification. No evidence of mitral valve stenosis. Mild mitral regurgitatio n. Tricuspid Valve The tricuspid valve is normal in structure. There is no tricuspid valve stenosis. Mild tricuspid regu rgitation. Pulmonic Valve Pulmonic valve is not well visualized. There is no pulmonic valvular stenosis. Trace pulmonic regurgi tation. Great Vessels The aortic root is normal in size. The ascending aorta is mildly dilated. Aortic arch is not well vis ualized. IVC is normal in size and collapses >50% with inspiration. Pericardium There is no pericardial effusion. 2D Dimensions IVSD d PLAX 1.13 cm F: 0.6-1.0 LV Vol A2C d MOD 163.3 mL LVPW d PLAX 1.16 cm F: 0.6 - 1.0 LV Vol A4C d MOD 176.9 mL LVID d PLAX 4.67 cm F: 3.8 - 5.2 LV EF A4C MOD 63.7 % LVDs 3.15 cm F: 2.2 - 3.5 LV EF A2C MOD 58.0 % Ao Root d 3.07 cm F: 2.7 - 3.3 LV EF Biplane MOD 63.5 % Ao Asc Diam d 3.57 cm F: 2.3 - 3.1 SV 118.80 mL LV EF Teichholz 59.7 % SV Index 48.59 mL/m2 LVEF (Alexander's) 63.46 % F: 54 - 74 LV Volume 131.88 mL F: 46 - 106 LV Volume Index 54.04 mL/m2 F: 29 - 61 LV Vol Biplane MOD 187.2 mL FS 31.70 % M-Mode TAPSE 3.03 cm (M/F) >1.7 LV Diastology MV E' medial 0.106 (>0.07 m/s) E/A Ratio 1.2 LV E/e MED 12.85 (<14) MV E Vmax 1.37 (0.4-1.3 m/s) MV E' lateral 0.077 (>0.1 m/s) MV A Vmax 1.15 (0.4-1.3 m/s) LV E/e LAT 17.75 (<14) MV E/A Ratio 1.14 MV E/E' medial 12.86 MV E/E' lateral 17.76 Aortic Valve LVOT Area 3.12 cm2 AoV Area Vmax 2.30 cm2 LVOT Vmax 1.67 m/s AoV Area/ BSA (Vmax) 0.94 cm2/m2 LVOT Mean Eddie. 1.33 m/s LALO Mean Eddie. 2.11 cm2 LVOT Peak Grad 11.1 mmHg LALO Mean Eddie. Index 0.86 cm2/m2 LVOT Mean Grad 7.7 mmHg LVOT VTI 0.352 m LVOT Diam s 1.95 cm AoV Vmax 2.26 m/s Velocity Ratio 0.73 AoV Mean Eddie. 1.96 m/s AoV Peak Grad 20.5 mmHg LVOT SV 109.81 mL AoV Mean Grad 15.8 mmHg AoV VTI 0.560 m AoV Area VTI 1.96 cm2 AoV Area/ BSA (VTI) 0.80 cm/m2 Mitral Valve MV DT 316 (160-240 msec) MV PHT 92 msec MV Area PHT 2.40 cm2 MV VTI 0.479 m MV VTI Annulus 0.497 m MV Area VTI 2.38 (4.0-6.0 cm2) Pulmonary Valve PV Vmax 1.54 (0.5-1.5 m/s) RVOT Peak Gr. 4.99 mmHg PV Peak Grad 9.5 mmHg RVOT Mean Gr. 2.45 mmHg PV Mean Grad 5.2 mmHg RVOT VTI 0.227 m PV VTI 0.298 m RVOT Vmax 1.12 m/s Tricuspid Valve TR Peak Grad 27.8 mmHg TR Vmax 2.64 m/s RA Pressure 3.00 mmHg RVSP (TR) 30.9 mmHg
[2020-05-25 09:00] LABS: Anion Gap 0.6 mmol/L (3-11); BUN 26 mg/dL (7-18); CO2 37.4 mmol/L (21.0-32.0); CREATININE 1.45 mg/dL (0.55-1.02); Calcium 9.5 mg/dL (8.5-10.1); Chloride 104 mmol/L (98-107); Glucose 98 mg/dL (74-106); Potassium 3.7 mmol/L (3.5-5.1); Sodium 142 mmol/L (136-145)
[2020-05-25] MEDS: Mometasone 220 MCG 14 DOSE INHALER 1 PUFF IH ×2 (09:45→20:22)
[2020-05-25 10:37] LABS: C Diff PCR Negative (Negative)
--- NOTE | 2020-05-25 12:19 | PGE_ITS ---
Date of Service Date of service: 05/25/20 Time of Service: 12:19 Assessment and Plan Assessment and plan (1) Acute on chronic respiratory failure with hypoxia and hypercapnia: Status: Acute Assessment and plan: Clinically improved with lasix and BiPAP in place of CPAP. I suspect this is primarily due to fluid overload. Repeat CXR. 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 (sleep study from 2019, when her BMI was 51, qualified her for CPAP. BMI is now 58.) (2) Acute CHF: Status: Acute Assessment and plan: Await echo read. Continue furosemide, BiPAP at night/when asleep Monitor I/O's and daily weights. (3) Bilateral lower leg cellulitis: Status: Acute Assessment and plan: With patches of redness on the right and more confluent erythema on the left, with lymphedema in the background. Improving on vancomycin/cefazolin. Continue current abx. (4) ZUHAIR (acute kidney injury): Status: Acute Assessment and plan: ?due to combo of vanco/zosyn vs cardiorenal vs due to diuresis. There is also a finding of the L renal mass (?renal cell ca). Continue lasix as Cr is stable. Consult urology. Monitor Cr, I/O's, daily weights. (5) Chronic acquired lymphedema: Status: Chronic Assessment and plan: Risk factor for cellulitis. Would benefit from lymphedema therapy. (6) TRINH (obstructive sleep apnea): Status: Chronic Assessment and plan: [place] [facility] [place] Read above. Awaiting call back from pulmonology. (7) Morbid obesity: Status: Chronic Assessment and plan: BMI up to 58 from 51 1 year ago. I think this could be affecting the prescription for her respiratory device. Awaiting pulmonology consult. (8) UTI (urinary tract infection): Status: Ruled-out Assessment and plan: Ruled out; mixed cx with less than 10,000 CFU. (9) DVT prophylaxis: Status: Acute Assessment and plan: lovenox 40 mg SC BID (10) Discharge planning issues: Status: Acute Assessment and plan: Full code await palliative care consult. Subjective Subjective Interval history since last seen: Ms Lindsay had 1 bout of diarrhea today - per nursing, it looked like C.Diff. C.Diff test is pending. The patient is not aware that she has been having diarrhea. She denies dizziness, chest pain, shortness of breath, nausea, abdominal pain. She spent the night on our BiPAP machine which she tolerated very well. Renal US is showing a L renal mass - awaiting urology consult. Exam Narrative Exam Narrative: General: Obese female, awake, eating lunch, looks more alert and interactive than when I first met her on 05/23/2020. HEENT: EOMI, MMM Heart: RRR, no m/r/g Lungs: coarse breath sounds B, but improved from 05/23/2020 Abdomen: soft, nontender, nondistended Extremities: BLE lymphedema, RLE area of cellulitis distally has improved. Objective Last Vital Signs Temp 36.6 C 05/25/20 07:29 Pulse 72 05/25/20 11:37 Resp 12 05/25/20 11:37 BP 100/62 05/25/20 07:29 Pulse Ox 97 05/25/20 11:37 Laboratory Results - last 24 hr 05/24/20 05/25/20 05/25/20 14:40 06:50 08:10 WBC 11.44 H RBC 2.94 L Hgb 9.5 L Hct 32.4 L MCV 110.2 H MCH 32.3 MCHC 29.3 L RDW 16.0 H Plt Count 256 MPV 12.4 H Immature Gran % 0.5 Neutrophils % 53.9 Lymphocytes % 29.7 Monocytes % 9.3 Eosinophils % 5.9 Basophils % 0.7 Nucleated RBC % 1 Absolute Neutrophils 6.17 Absolute Lymphocytes 3.40 Absolute Monocytes 1.06 H Absolute Eosinophils 0.67 Absolute Basophils 0.08 Sodium 142 Potassium 3.7 Chloride 104 Carbon Dioxide 37.4 H Anion Gap 0.6 L BUN 26 H Creatinine 1.45 H Estimated GFR/1.73 m2 35.60 Glucose 98 Calcium 9.5 Magnesium 2.0 Stl C.difficile Tox PCR Vancomycin Trough 36.1 H* 05/25/20 09:30 WBC RBC Hgb Hct MCV MCH MCHC RDW Plt Count MPV Immature Gran % Neutrophils % Lymphocytes % Monocytes % Eosinophils % Basophils % Nucleated RBC % Absolute Neutrophils Absolute Lymphocytes Absolute Monocytes Absolute Eosinophils Absolute Basophils Sodium Potassium Chloride Carbon Dioxide Anion Gap BUN Creatinine Estimated GFR/1.73 m2 Glucose Calcium Magnesium Stl C.difficile Tox PCR Negative Vancomycin Trough Objective Narrative Objective Narrative: US renal: 1. There is a 5 x 4.9 centimetres solid mass at the midpole level the left kidney, suspicious for renal cell malignancy. Recommend CT scan follow-up. There also shadowing calculi in the lower pole of the left kidney also noted. 2. Benign midpole cyst in the opposite-right kidney. No solid lesions in the right kidney. CXR pending Echo pending
--- NOTE | 2020-05-25 14:43 | PDOC.CMPRO ---
Care Management Progress Note S/O: Michelle hung up the phone when another staff member entered the room. Michelle continues to be closely monitored and treated. She is being trialed on BIPVITA-MD to consult Michelle's pulmonogist re: respiratory treatment plan upon discharge. IV ABX treatment of cellulitis-remains on cefazolin and vanco. Palliative consult ordered-anticipate she will follow up post discharge at the [facility]. Michelle requires max assist with [facility] for transfers at this time, PT consult continues-MD recommending lymphedema therapy. Awaiting consults from Urology (renal mass) Pulmonology ([id number]), Palliative Care (Code Status) and continued PT for discharge planning considerations. C.Diff culture pending as well. CM continues to follow. A: Michelle is a 69 year old woman admitted on 05/21/20 with cellulitis P: Michelle will return to the [facility] where she resides when medically cleared. She will follow up with the facility provider and plan of care. Michelle will likely transport via EMS. CM will continue to support Michelle and her discharge needs.
--- NOTE | 2020-05-25 15:11 | PTTR_ITS ---
Date of service: 05/25/20 Time of Service: 14:10 PT Notes Visit Reasons: Cellulitis Inpatient Physical Therapy Treatment Note [facility] Date: 05/25/2020 PRECAUTIONS: Activity as Tolerated SUBJECTIVE: Alexa is pleasant and agreeable to participating in PT. She reports that she has not walked in about a month, since she was admitted at [facility], prior to her admission to the [facility]. She did state that she would like to walk again. OBJECTIVE: PAIN: Patient c/o L shoulder pain with movement and to touch BED MOBILITY/TRANSFERS Rolling to R: Mod A GAIT: Unable VITALS: SaO2: 84-92% on 5L O2 with activity THEREX: Patient was instructed in an UE and LE strengthening program, in a supine position, as per flow sheet. She requires rests between exercises due to SOB with exertion. She was unable to complete any exercises involving the L shoulder due to pain and weakness. ASSESSMENT: Patient tolerated session with increased SOB with exertion, requiring rests between exercises. She requires cueing for appropriate breathing techniques during ther ex completion. PLAN: Continue with global strengthening and potential progression to bed mobility and transfer training, if appropriate. TREATMENT CODE/TIME: 30 minutes; 63239 x2
--- NOTE | 2020-05-25 15:54 | UCONE_ITS ---
Date of service: 05/25/20 Time of Service: 15:54 Assessment and Plan Assessment and plan (1) Left renal mass: Status: Acute Assessment and plan: I was able to begin reviewing her [facility] urology records. Her renal masses have been evaluated with biopsies. One mass that was found to have renal cell carcinoma was treated with radiofrequency ablation. 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 Last year's imaging order was faxed to [facility], but the patient is unsure as to whether or not she actually had her scan done last year. I will work on getting a hold of the [facility] scan if it was done. In any event, she is likely due for a CT of the abdomen and pelvis this year to monitor her known renal masses. If the masses seem to be increasing in size, I can contact her [facility] urology providers to see if either a repeat biopsy would be helpful History of Present Illness History of Present Illness Chief Complaint: Renal mass Narrative: This is a 69-year-old woman who is currently admitted with acute and chronic respiratory issues. I have been asked to see her due to a solid renal mass identified on her left kidney. The patient is somewhat unclear in terms of her past urologic history, but she tells me that she thinks she has been told about a mass on one of her kidneys previously. She has not had any prior renal imaging at our facility. She tells me that she has spent quite a bit of time in the hospital at [facility] in some time at [facility] in [place] as well. She admits to some low back pain but no flank pain. She tells me that she did have gross hematuria in the past, but that she has not seen any blood in the urine recently. The gross hematuria improved with what she believes was a treatment for a precancerous finding. She could not tell me if that finding was in the bladder or in the kidneys. I do not have access to records from [facility] (but I did ask my office staff to obtain them). I do have access to [facility]'s urology records and they were fairly extensive. Apparently, in 2017, the patient had a chest CT and was found to have indeterminate renal masses. Later on in her records, there is mention that these lesions had grown since a prior scan in November 2014. 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 Later that year, she underwent percutaneous biopsies of 2 masses on the left kidney. An upper pole lateral renal mass was found to be renal cell carcinoma. 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 Recommendation was made for genetic testing of the patient. I am not sure about the results of the genetic testing. She then underwent radiofrequency ablation of the renal cell carcinoma. The plan was observation of the oncocytoma with yearly CT scans. Her last CT of the abdomen and pelvis at [facility] was done in July 2018. The treated left lateral upper pole renal mass measured 2.3 x 2.7 cm and had surrounding inflammatory stranding consistent with the recent ablation. There was some peripheral nodular enhancement in the ablated lesion. The biopsy- proven left posterior interpolar oncocytoma measured 3.5 x 3.7 mm at that time. There was a request and an order placed for a CT of the abdomen and pelvis to be done for the patient at [facility] in early 2019. The patient is not sure if that CT scan was accomplished. Her follow-up appointment with the urology team at [facility] did not occur as it was scheduled during the lockdown period for [facility]. Review of Systems Constitutional Constitutional: Denies chills and Denies fever(s) Cardiovascular Cardiovascular: Denies chest pain and Reports dyspnea on exertion Respiratory Respiratory: Denies hemoptysis and Reports dyspnea on exertion Neurologic Neurologic: Denies convulsions [facility] Medical History (Updated 05/26/20 @ 07:23 by Qasim Orellana MD) COPD (chronic obstructive pulmonary disease) Depression Lymphedema Morbid obesity Oncocytoma Renal cell carcinoma Social History Smoking/Tobacco Use Status: Former Tobacco Use Smoking risk assessment performed?: Yes Alcohol Intake: former Substance use type: marijuana Do you feel safe at home: Yes Do you feel safe in your relationship?: Yes Additional Social history: resident @ [facility] Exam Narrative Exam Narrative: She is an obese woman seen at the bedside She does not appear septic or toxic Her abdomen is obese but soft with no masses. There is no guarding or rebound tenderness She is awake and alert Results Last Vital Signs Temp 36.6 C 05/25/20 07:29 Pulse 72 05/25/20 11:37 Resp 12 05/25/20 11:37 BP 100/62 05/25/20 07:29 Pulse Ox 93 05/25/20 15:30 Labs Result diagrams: 05/25/20 06:50 05/25/20 08:10 Labs: Laboratory Results - last 24 hr 05/25/20 05/25/20 05/25/20 06:50 08:10 09:30 WBC 11.44 H RBC 2.94 L Hgb 9.5 L Hct 32.4 L MCV 110.2 H MCH 32.3 MCHC 29.3 L RDW 16.0 H Plt Count 256 MPV 12.4 H Immature Gran % 0.5 Neutrophils % 53.9 Lymphocytes % 29.7 Monocytes % 9.3 Eosinophils % 5.9 Basophils % 0.7 Nucleated RBC % 1 Absolute Neutrophils 6.17 Absolute Lymphocytes 3.40 Absolute Monocytes 1.06 H Absolute Eosinophils 0.67 Absolute Basophils 0.08 Sodium 142 Potassium 3.7 Chloride 104 Carbon Dioxide 37.4 H Anion Gap 0.6 L BUN 26 H Creatinine 1.45 H Estimated GFR/1.73 m2 35.60 Glucose 98 Calcium 9.5 Magnesium 2.0 Stl C.difficile Tox PCR Negative
[2020-05-25] MEDS: Simvastatin 20 MG TAB 40 MG PO (21:55)
[2020-05-25] MEDS: Lisinopril 20 MG TAB PO (21:56)
[2020-05-26] VITALS (18 sets, daily range): BP systolic 111–122; BP diastolic 68–81; PULSE 67–87; RESP 1–24; TEMP 36.5–37; O2SAT 72–98
[2020-05-26] MEDS: Albuterol/Ipratropium 3 ML UPD VIAL UPD ×5 (00:58→23:15)
[2020-05-26] MEDS: ceFAZolin 2 GM/50 ML BAG IVPB ×2 (01:00→14:30)
[2020-05-26 07:45] LABS: Absolute Basophil Count 0.07 10^3/uL (0.0-0.2); Absolute Eosinophil Count 0.56 10^3/uL (0.0-0.7); Absolute Monocyte Count 1.23 10^3/uL (0.1-0.8); Basophils % 0.5; Eosinophils % 4.1; HCT 30.6 % (36.0-46.0); HGB 9.2 g/dL (11.2-15.7); Immature Grans % 0.7; Lymphocytes % 27.8; MCH 32.5 pg (27.0-33.0); MCHC 30.1 % (32.0-36.0); MCV 108.1 fL (80-95); MPV 12.3 fL (8.0-11.0); Neutrophils % 57.9; Nucleated RBC 1 %; Platelet Count 262 10^3/uL (130-400); RBC 2.83 10^6/uL (3.93-5.22); RDW 15.8 % (11.7-14.6); RDW-SD 61.7 fL; WBC 13.65 10^3/uL (4.4-10.8)
[2020-05-26 07:47] LABS: Anion Gap 1.8 mmol/L (3-11); BUN 35 mg/dL (7-18); CO2 35.2 mmol/L (21.0-32.0); CREATININE 1.49 mg/dL (0.55-1.02); Calcium 9.7 mg/dL (8.5-10.1); Chloride 105 mmol/L (98-107); Glucose 108 mg/dL (74-106); Magnesium 2.2 mg/dL (1.8-2.4); Potassium 4.1 mmol/L (3.5-5.1); Sodium 142 mmol/L (136-145)
[2020-05-26] MEDS: Furosemide 40 MG/4 ML VIAL IVP ×2 (07:47→16:19)
[2020-05-26] MEDS: Docusate Sodium 100 MG/10 ML CUP 50 MG PO ×2 (07:47→20:04)
[2020-05-26] MEDS: Aspirin E.C. 81 MG TABEC 162 MG PO (07:47)
[2020-05-26] MEDS: Protein Nutritional Supplement 16 GM 1 OUNCE PACKET PO ×3 (07:47→20:05)
[2020-05-26] MEDS: Enoxaparin 40 MG/0.4 ML SYR SC ×2 (07:47→20:05)
[2020-05-26] MEDS: Normal Saline Flush 10 ML SYR IVP ×2 (07:47→16:19)
[2020-05-26] MEDS: Sertraline 50 MG TAB 150 MG PO (07:48)
[2020-05-26] MEDS: Gabapentin 100 MG CAP 200 MG PO ×3 (07:48→20:07)
[2020-05-26] MEDS: Acetaminophen 325 MG TAB 650 MG PO (07:48)
[2020-05-26] MEDS: Potassium Chloride 20 MEQ TABCR PO (07:49)
[2020-05-26] MEDS: Folic Acid 1 MG TAB PO (07:49)
[2020-05-26] MEDS: Omeprazole 20 MG CAPCR 40 MG PO ×2 (07:49→20:06)
[2020-05-26] MEDS: Nystatin POWDER 60 GM JAR TP ×2 (07:49→20:07)
[2020-05-26 07:50] LABS: Absolute Lymphocyte Count 3.79 10^3/uL (1.2-3.4)
[2020-05-26] MEDS: Mometasone 220 MCG 14 DOSE INHALER 1 PUFF IH ×2 (08:05→20:05)
[2020-05-26 08:39] LABS: C-Reactive Protein 4.48 mg/dL (0.0-0.3)
[2020-05-26 09:00] LABS: Procalcitonin 0.2 ng/mL
--- NOTE | 2020-05-26 14:16 | PT.INTREAT ---
Date of service: 05/26/20 Time of Service: 11:00 PT Notes Visit Reasons: Cellulitis Inpatient Physical Therapy Treatment Note [facility] Date: 05/26/2020 PRECAUTIONS: Fall SUBJECTIVE: Michelle is pleasant and agreeable to participating in PT. She would like to try to get up to sit in the chair and is agreeable to utilizing STEDY lift for assist. OBJECTIVE: PAIN: Patient c/o minimal B LE pain with [id number] transfer out of STEDY into recliner in a.m.; no c/o pain in p.m. BED MOBILITY/TRANSFERS Rolling L/R: Min A Supine-sit: Min A with HOB at 30 degrees Sit-supine: Mod A x3 with HOB flat Sit-stand: Mod A x3 with STEDY in a.m.; Min A x3 with STEDY in p.m. Stand-sit: Min A x3 with STEDY in a.m.; CGA x2 with STEDY in p.m. Bed-Chair: STEDY with SBA x3 Chair-bed: STEDY with SBA x3 GAIT: Unable THEREX: Patient was instructed in ankle pumps, glute sets, and quad sets in both a.m. and p.m., performed in a long-sitting position in a.m. and supine position in p.m., as per flow sheet. She also performed heels slide exercise x2 in p.m. ASSESSMENT: Patient tolerated session with c/o increased B LE pain in a.m. and B shoulder pain in p.m., with transfers with STEDY lift. She requires significant assist at this time for bed mobility and transfers, although most likely this is due to her self-reported immobility over the past month or so. PLAN: Continue with light strengthening and bed mobility and transfer training for improved mobility and activity tolerance. TREATMENT CODE/TIME: Session 1: 45 minutes; 89608 x2, [id number] Session 2: 30 minutes; [id number], [id number]
--- NOTE | 2020-05-26 15:39 | W.PM.PROGNOT ---
Date of Service Date of service: 05/26/20 Time of Service: 15:39 Assessment and Plan Assessment and plan (1) Acute on chronic respiratory failure with hypoxia and hypercapnia: Status: Acute Assessment and plan: Clinically improved with lasix and BiPAP in place of CPAP. I suspect this is primarily due to fluid overload. However, CXR worse. Increase lasix. BiPAP as above. (2) Acute CHF: Status: Acute Assessment and plan: EF 60%, diastolic function indeterminate, RVSP 30.9 mmHg. Increase furosemide, continue BiPAP at night/when asleep Monitor I/O's and daily weights. (3) Bilateral lower leg cellulitis: Status: Acute Assessment and plan: With patches of redness on the right and more confluent erythema on the left, with lymphedema in the background. Today I think this is worse, and her leucocytosis and procalcitonin are not improving. Change back to vancomycin/zosyn. (4) ZUHAIR (acute kidney injury): Status: Acute Assessment and plan: I think this is cardiorenal. Monitor Cr with increased dose of lasix. Renall mass is less likely related and will need outpatient follow up. Monitor Cr, I/O's, daily weights. (5) Chronic acquired lymphedema: Status: Chronic Assessment and plan: Risk factor for cellulitis. Would benefit from lymphedema therapy. (6) TRINH (obstructive sleep apnea): Status: Chronic Assessment and plan: On CPAP at the [facility]. Read above. Switching to bipap on discharge with above settings. (7) Morbid obesity: Status: Chronic Assessment and plan: BMI up to 58 from 51 1 year ago. BiPAP required on discharge - needs an outpatient titration study. (8) UTI (urinary tract infection): Status: Ruled-out Assessment and plan: Ruled out; mixed cx with less than 10,000 CFU. (9) DVT prophylaxis: Status: Acute Assessment and plan: lovenox 40 mg SC BID (10) Discharge planning issues: Status: Acute Assessment and plan: Full code await palliative care consult. Subjective Subjective Interval history since last seen: Ms Lindsay is asleep with BiPAP on today when I came to see her. She awakes but then falls right back asleep - I let her rest. MAXWELL, per nursing, but did have a harder time keeping the BiPAP on yesterday. Discussed case with Dr Gallo: recommends BiPAP settings of exp max of 22, inspiratory min of 10, pressure support of 4 and sleep clinic follow up for a titration study. Exam Narrative Exam Narrative: General: Obese female, asleep with BiPAP on HEENT: EOMI, MMM Heart: RRR, no m/r/g Lungs: coarse breath sounds B with sounds of BiPAP leak Abdomen: soft, nontender, nondistended Extremities: BLE lymphedema, RLE area of cellulitis distally has improved, LLE cellulitis unchanged to worse Objective Last Vital Signs Temp 36.7 C 05/26/20 15:37 Pulse 67 05/26/20 15:37 Resp 12 05/26/20 15:37 BP 111/70 05/26/20 15:37 Pulse Ox 98 05/26/20 15:37 Laboratory Results - last 24 hr 05/26/20 05/26/20 05/26/20 06:52 06:52 06:52 WBC 13.65 H RBC 2.83 L Hgb 9.2 L Hct 30.6 L MCV 108.1 H MCH 32.5 MCHC 30.1 L RDW 15.8 H Plt Count 262 MPV 12.3 H Immature Gran % 0.7 Neutrophils % 57.9 Lymphocytes % 27.8 Monocytes % 9.0 Eosinophils % 4.1 Basophils % 0.5 Nucleated RBC % 1 Absolute Neutrophils 7.90 H Absolute Lymphocytes 3.79 H Absolute Monocytes 1.23 H Absolute Eosinophils 0.56 Absolute Basophils 0.07 Sodium 142 Potassium 4.1 Chloride 105 Carbon Dioxide 35.2 H Anion Gap 1.8 L BUN 35 H D Creatinine 1.49 H Estimated GFR/1.73 m2 34.50 Glucose 108 H Calcium 9.7 Magnesium 2.2 C-Reactive Protein 4.48 H Procalcitonin 0.2
[2020-05-26] MEDS: VANCOMYCIN/WATER (PEG) 1 GM/200 ML BAG IV (16:23)
--- NOTE | 2020-05-26 17:01 | PDOC.CMPRO ---
Care Management Progress Note S/O: Michelle continues to be closely monitored and treated. Michelle requires max assist with huy for transfers at this time, but she has goals of wanting to walk again and is participating well with PT. CM continues to follow. A: Michelle is a 69 year old woman admitted on 05/21/20 with cellulitis P: Michelle will return to the [facility] where she resides when medically cleared. She will follow up with the facility provider and plan of care. recommending lymphedema therapy and new BiPap for discharge-CM supported coordination with RT, MD and Beverly at the [facility]. She will also follow up with Palliative Care. Michelle will likely transport via EMS. CM will continue to support Michelle and her discharge needs.
[2020-05-26] MEDS: PIPERACILLIN/TAZO 3.375 GM in Normal Saline 50 ML IVPB ×2 (18:29→23:15)
[2020-05-26] MEDS: Lisinopril 20 MG TAB PO (23:14)
[2020-05-26] MEDS: Simvastatin 20 MG TAB 40 MG PO (23:14)
[2020-05-27] VITALS (14 sets, daily range): BP systolic 96–103; BP diastolic 63–68; PULSE 66–77; RESP 5–20; TEMP 36.6–36.9; O2SAT 84–97
[2020-05-27] MEDS: Albuterol/Ipratropium 3 ML UPD VIAL UPD ×3 (05:39→17:06)
[2020-05-27] MEDS: PIPERACILLIN/TAZO 3.375 GM in Normal Saline 50 ML IVPB ×3 (05:40→18:28)
[2020-05-27] MEDS: Normal Saline Flush 10 ML SYR IVP ×2 (05:40→10:41)
[2020-05-27 07:13] LABS: Abs Immature Grans 0.07 10^3/uL (0.0-0.06); Absolute Eosinophil Count 0.59 10^3/uL (0.0-0.7); Absolute Lymphocyte Count 2.68 10^3/uL (1.2-3.4); Absolute Monocyte Count 1.04 10^3/uL (0.1-0.8); Absolute Neutrophil Count 6.65 10^3/uL (1.2-6.7); Basophils % 0.5; Eosinophils % 5.3; HCT 29.9 % (36.0-46.0); HGB 8.7 g/dL (11.2-15.7); Immature Grans % 0.6; Lymphocytes % 24.2; MCH 31.9 pg (27.0-33.0); MCHC 29.1 % (32.0-36.0); MCV 109.5 fL (80-95); MPV 12.3 fL (8.0-11.0); Monocytes % 9.4; Nucleated RBC 1 %; Platelet Count 301 10^3/uL (130-400); RBC 2.73 10^6/uL (3.93-5.22); RDW-SD 64.3 fL; WBC 11.08 10^3/uL (4.4-10.8)
[2020-05-27 07:18] LABS: Absolute Basophil Count 0.06 10^3/uL (0.0-0.2)
[2020-05-27 07:28] LABS: Anion Gap 0.8 mmol/L (3-11); BUN 37 mg/dL (7-18); C-Reactive Protein 3.08 mg/dL (0.0-0.3); CO2 37.2 mmol/L (21.0-32.0); CREATININE 1.47 mg/dL (0.55-1.02); Calcium 9.7 mg/dL (8.5-10.1); Chloride 105 mmol/L (98-107); Estimated GFR 35.04 (mL/min/1.73m2); Glucose 96 mg/dL (74-106); Magnesium 2.2 mg/dL (1.8-2.4); Potassium 4.3 mmol/L (3.5-5.1); Sodium 143 mmol/L (136-145)
[2020-05-27] MEDS: Enoxaparin 40 MG/0.4 ML SYR SC ×2 (08:26→19:29)
[2020-05-27] MEDS: Protein Nutritional Supplement 16 GM 1 OUNCE PACKET PO ×3 (08:26→19:28)
[2020-05-27] MEDS: Aspirin E.C. 81 MG TABEC 162 MG PO (08:26)
[2020-05-27] MEDS: Docusate Sodium 100 MG/10 ML CUP 50 MG PO ×2 (08:26→19:28)
[2020-05-27] MEDS: Sertraline 50 MG TAB 150 MG PO (08:27)
[2020-05-27] MEDS: Gabapentin 100 MG CAP 200 MG PO ×3 (08:27→19:30)
[2020-05-27] MEDS: Folic Acid 1 MG TAB PO (08:28)
[2020-05-27] MEDS: Omeprazole 20 MG CAPCR 40 MG PO ×2 (08:28→19:30)
[2020-05-27] MEDS: Nystatin POWDER 60 GM JAR TP ×2 (08:28→19:30)
[2020-05-27] MEDS: Potassium Chloride 20 MEQ TABCR PO (08:28)
--- NOTE | 2020-05-27 08:36 | PHA.REVIEW ---
Pharmacy Admission Review - Admission Clinical Review (Last Updated 05/26/20 @ 07:23 by Qasim Orellana MD) Bilateral lower leg cellulitis (Acute) Left renal mass (Acute) ZUHAIR (acute kidney injury) (Acute) Acute CHF (Acute) Acute on chronic respiratory failure with hypoxia and hypercapnia (Acute) Hypoxia (Acute) Acute and chronic respiratory failure with hypoxia (Acute) Elevated troponin (Acute) Cellulitis of left leg (Acute) Discharge planning issues (Acute) DVT prophylaxis (Acute) Left leg cellulitis (Acute) codeine Allergy (Unverified 05/21/20 13:39) pentazocine Adverse Reaction (Unknown, Unverified 05/21/20 13:40) unknown Height 5 ft 4 in Weight 153.4 kg CELLULITIS, ZUHAIR - Comments Comments/Follow Ups: BMI>50, oxygen @ 4L/min, wt unchanged from admission, on Lasix for acute CHF, Scr about the same, H/H down today, Procalcitonin 0.2 on 05/26, C-reactive protein down a bit, Micro urine: <10K, Micro blood no growth, Midline placed today - Renal Dosing Renal Dosing: BUN 37 mg/dL (7-18) H 05/27/20 06:15 Creatinine 1.47 mg/dL (0.55-1.02) H 05/27/20 06:15 CrCl~30ml/min (improved 05/27/20) Medications needing adjustments: Reviewed (Jozef Lee...BMI>50 (Vanco dc'd 05/27/20) CrCl is 52ml/min Adjusted body weight) - Anticoagulation Anticoagulation: Hgb 8.7 g/dL (11.2-15.7) L 05/27/20 06:15 Hct 29.9 % (36.0-46.0) L 05/27/20 06:15 Plt Count 301 10^3/uL (130-400) 05/27/20 06:15 INR 1.2 (0.9-1.1) H 05/21/20 12:45 Creatinine 1.47 mg/dL (0.55-1.02) H 05/27/20 06:15 DVT Prohphylaxis: Reviewed Medications: Enoxaparin (FOR BMI>50; up to date recommends Lovenox 40mg sc BID; MD aware) - Opiate Usage Evaluate Pain Scale/Pains Meds: N/A - Relevant Labs Sodium 143 mmol/L (136-145) 05/27/20 06:15 Potassium 4.3 mmol/L (3.5-5.1) 05/27/20 06:15 Chloride 105 mmol/L (98-107) 05/27/20 06:15 Magnesium 2.2 mg/dL (1.8-2.4) 05/27/20 06:15 C-Reactive Protein 3.08 mg/dL (0.0-0.3) H 05/27/20 06:15 Electrolytes, C-Reactive P, ESR: Reviewed (K-dur 20mq daily) - DM Control DM Control: Glucose 96 mg/dL (74-106) 05/27/20 06:15 Insulin Dosing: N/A - Heart Failure/CT Heart Failure/CT: Troponin I 0.13 ng/mL (<0.06) H* 05/21/20 16:20 NT-Pro-B Natriuret Pep 535 pg/mL (<300) H 05/21/20 12:45 EF%, GUY's, B-Blockers, Diuretics: Reviewed (Lasix, Lisinopril) - BP Control BP Control: Blood Pressure 103/68 Blood Pressure 122/81 - Qtc Review If Elevated: Reviewed (QTC 498 (Sertraline 150mg daily)) - IV to PO Switch IV Medications: Reviewed (IV Lasix) - Home Meds Relevent Home Meds Not ordered & why?: Iron, Vit B12 Antibiotic Activity - Pharmacy Antibiotic Review Pharmacy Antibiotic Activity: Antibiotic de-escalation (Zosyn for severe bilateral cellulitis, no improvement on Cefazolin) - Antibiotic Information Antibiotic Review Info: JOZEF Lara'wisam, patient was not improving on Cefazolin, changed to Zosyn
[2020-05-27] MEDS: Mometasone 220 MCG 14 DOSE INHALER 1 PUFF IH ×2 (09:06→19:30)
[2020-05-27] MEDS: Furosemide 40 MG/4 ML VIAL IVP ×2 (10:40→16:49)
--- NOTE | 2020-05-27 12:33 | PT.INTREAT ---
Date of service: 05/27/20 Time of Service: 07:45 PT Notes Visit Reasons: Cellulitis Inpatient Physical Therapy Treatment Note [facility] Date: 05/27/2020 PRECAUTIONS: Fall SUBJECTIVE: Michelle is pleasant and agreeable to participating in PT. She would like to try to get up to sit in the chair and is agreeable to utilizing STEDY lift for assist. OBJECTIVE: PAIN: Patient c/o minimal B LE and L shoulder pain with [id number] transfer out of STEDY into recliner BED MOBILITY/TRANSFERS Rolling L/R: Min A Supine-sit: Min A with HOB at 30 degrees Sit-supine: Mod A x2 with HOB flat Sit-stand: Min A x2 with STEDY in a.m.; CGA x2 with STEDY in p.m. Stand-sit: SBA x2 with STEDY Bed-Chair: STEDY with SBA x2 Chair-bed: STEDY with SBA x2 GAIT: Unable THEREX: Patient was instructed in ankle pumps, LAQ, and functional [id number] (in STEDY) exercises, as per flow sheet. Refused ther ex in p.m. ASSESSMENT: Patient tolerated session with c/o increased B LE and L shoulder pain with transfers with STEDY lift. She requires decreased assist assist at this time for bed mobility and transfers. PLAN: Continue with light strengthening and bed mobility and transfer training for improved mobility and activity tolerance. TREATMENT CODE/TIME: Session 1: 30 minutes; [id number], [id number] Session 2: 10 minutes; [id number]
--- NOTE | 2020-05-27 14:58 | CHAPLAIN ---
Michelle was in bed when I visited. She said she is ok at the moment. She easily engaged in conversation and shared some personal history.
--- NOTE | 2020-05-27 16:49 | CMPROGNOTE_ITS ---
- If Service Date Differs Date of service: 05/27/20 Time of Service: 16:49 Care Management Progress Note S/O: Michelle was sitting up in bed when CM met with her. She stated that she feels good and that she continues to work with PT. On Monday she told PT, when CM was present, that she has not walked in a couple of months but hopes to be able to do so again. Dr. Christensen saw Michelle for a palliative care consult today. Dr. Christensen spent a long time talking with her but Michelle was unable to make the decisions that would need to be made to complete a COLST form. CM asked chaplain Jacqui, to see her to encourage conversation about spiritual areas that Michelle has questions about. A: Michelle is a 69 year old woman admitted on 05/21/20 with cellulitis P: Michelle will return to the [facility] where she resides when medically cleared. She will follow up with the facility provider and plan of care. MD recommending lymphedema therapy and new BiPap for discharge-CM supported coordination with RT, MD and Beverly at the [facility]. She will also follow up with Palliative Care. Michelle will likely transport via EMS. CM will continue to support Michelle and her discharge needs.
--- NOTE | 2020-05-27 17:00 | PGE_ITS ---
Date of Service Date of service: 05/27/20 Time of Service: 17:00 Assessment and Plan Assessment and plan (1) Acute on chronic respiratory failure with hypoxia and hypercapnia: Status: Acute Assessment and plan: Clinically improved with lasix and BiPAP in place of CPAP. I suspect this is primarily due to fluid overload. However, CXR worse yesterday. Continue increased dose of lasix. BiPAP settings on discharge Insp max: 22, exp min of 10, pressure support of 4 (2) Acute CHF: Status: Acute Assessment and plan: EF 60%, diastolic function indeterminate, RVSP 30.9 mmHg. Continue increased dose of furosemide, continue BiPAP at night/when asleep Monitor I/O's and daily weights. (3) Bilateral lower leg cellulitis: Status: Acute Assessment and plan: With patches of redness on the right and more confluent erythema on the left, with lymphedema in the background. Worse clinically today, but we did just switch antibiotics yesterday. Her CRP and WBC are improving. Continue vanco/zosyn. (4) ZUHAIR (acute kidney injury): Status: Acute Assessment and plan: I think this is cardiorenal. Cr stable with increased dose of lasix. Renall mass is less likely related and will need outpatient follow up. Monitor Cr, I/O's, daily weights. (5) Chronic acquired lymphedema: Status: Chronic Assessment and plan: Risk factor for cellulitis. Would benefit from lymphedema therapy. (6) TRINH (obstructive sleep apnea): Status: Chronic Assessment and plan: On CPAP at the [facility]. Read above. Switching to bipap on discharge with above settings. (7) Morbid obesity: Status: Chronic Assessment and plan: BMI up to 58 from 51 1 year ago. BiPAP required on discharge - needs an outpatient titration study. (8) UTI (urinary tract infection): Status: Ruled-out Assessment and plan: Ruled out; mixed cx with less than 10,000 CFU. (9) DVT prophylaxis: Status: Acute Assessment and plan: lovenox 40 mg SC BID (10) Discharge planning issues: Status: Acute Assessment and plan: Full code palliative care consulted. Subjective Subjective Interval history since last seen: Ms Lindsay states she thinks she is feeling better. Her legs are tender to touch. She denies dizziness, chest pain, shortness of breath, nausea. Exam Narrative Exam Narrative: General: Obese female, asleep without BiPAP, easily arouses HEENT: EOMI, MMM Heart: RRR, no m/r/g Lungs: diminished anterior breath sounds B Abdomen: soft, nontender, nondistended Extremities: BLE lymphedema, RLE area of cellulitis distally is worse today, LLE cellulitis worse today Objective Last Vital Signs Temp 36.6 C 05/27/20 15:47 Pulse 72 05/27/20 15:47 Resp 20 05/27/20 15:47 BP 96/63 L 05/27/20 15:47 Pulse Ox 95 05/27/20 15:47 Laboratory Results - last 24 hr 05/27/20 05/27/20 06:15 06:15 WBC 11.08 H RBC 2.73 L Hgb 8.7 L Hct 29.9 L MCV 109.5 H MCH 31.9 MCHC 29.1 L RDW 16.0 H Plt Count 301 MPV 12.3 H Immature Gran % 0.6 Neutrophils % 60.0 Lymphocytes % 24.2 Monocytes % 9.4 Eosinophils % 5.3 Basophils % 0.5 Nucleated RBC % 1 Absolute Neutrophils 6.65 Absolute Lymphocytes 2.68 Absolute Monocytes 1.04 H Absolute Eosinophils 0.59 Absolute Basophils 0.06 Sodium 143 Potassium 4.3 Chloride 105 Carbon Dioxide 37.2 H Anion Gap 0.8 L BUN 37 H Creatinine 1.47 H Estimated GFR/1.73 m2 35.04 Glucose 96 Calcium 9.7 Magnesium 2.2 C-Reactive Protein 3.08 H
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
[2020-05-27] MEDS: Lachydrin 12% LOTION 225 GM BTL TP (19:29)
[2020-05-27] MEDS: Normal Saline Flush 10 ML SYR 20 ML IVP (19:29)
[2020-05-27] MEDS: Simvastatin 20 MG TAB 40 MG PO (22:26)
[2020-05-27] MEDS: Lisinopril 20 MG TAB PO (22:26)
[2020-05-28] VITALS (10 sets, daily range): BP systolic 88–107; BP diastolic 53–68; PULSE 63–92; RESP 1–20; TEMP 36.8–37.2; O2SAT 82–98
[2020-05-28] MEDS: PIPERACILLIN/TAZO 3.375 GM in Normal Saline 50 ML IVPB ×5 (06:31→23:26)
[2020-05-28 07:08] LABS: Abs Immature Grans 0.09 10^3/uL (0.0-0.06); Absolute Basophil Count 0.05 10^3/uL (0.0-0.2); Absolute Eosinophil Count 0.63 10^3/uL (0.0-0.7); Absolute Lymphocyte Count 2.14 10^3/uL (1.2-3.4); Absolute Monocyte Count 1.05 10^3/uL (0.1-0.8); Absolute Neutrophil Count 9.39 10^3/uL (1.2-6.7); Basophils % 0.4; Eosinophils % 4.7; HCT 29.5 % (36.0-46.0); HGB 8.5 g/dL (11.2-15.7); Immature Grans % 0.7; MCH 31.8 pg (27.0-33.0); MCHC 28.8 % (32.0-36.0); MCV 110.5 fL (80-95); MPV 12.1 fL (8.0-11.0); Monocytes % 7.9; Neutrophils % 70.3; Nucleated RBC 1 %; Platelet Count 304 10^3/uL (130-400); RBC 2.67 10^6/uL (3.93-5.22); RDW 16.1 % (11.7-14.6); RDW-SD 65.3 fL; WBC 13.35 10^3/uL (4.4-10.8)
[2020-05-28 07:18] LABS: Anion Gap 0.8 mmol/L (3-11); BUN 40 mg/dL (7-18); C-Reactive Protein 2.42 mg/dL (0.0-0.3); CO2 36.2 mmol/L (21.0-32.0); CREATININE 1.46 mg/dL (0.55-1.02); Calcium 9.3 mg/dL (8.5-10.1); Chloride 105 mmol/L (98-107); Estimated GFR 35.32 (mL/min/1.73m2); Glucose 87 mg/dL (74-106); Magnesium 1.9 mg/dL (1.8-2.4); Potassium 4.1 mmol/L (3.5-5.1); Sodium 142 mmol/L (136-145)
[2020-05-28] MEDS: Mometasone 220 MCG 14 DOSE INHALER 1 PUFF IH ×2 (07:59→20:02)
[2020-05-28 08:52] LABS: Bilirubin Negative (Negative); Blood Trace-intact (Negative); Clarity Cloudy (Clear); Glucose Negative (Negative); Ketones Negative (Negative); Leukocyte Esterase Small (Negative); Nitrite Negative (Negative); Specific Gravity 1.015 (1.005-1.025); Urobilinogen 0.2 EU/dL (Up TO 0.2); pH 5.5 (5-8)
[2020-05-28] MEDS: Aspirin E.C. 81 MG TABEC 162 MG PO (09:03)
[2020-05-28] MEDS: Acetaminophen 325 MG TAB 650 MG PO ×2 (09:03→15:22)
[2020-05-28] MEDS: Protein Nutritional Supplement 16 GM 1 OUNCE PACKET PO ×3 (09:03→20:03)
[2020-05-28 09:04] LABS: Epithelial Cells Negative HPF (Negative)
[2020-05-28] MEDS: Potassium Chloride 20 MEQ TABCR PO (09:04)
[2020-05-28] MEDS: Gabapentin 100 MG CAP 200 MG PO ×3 (09:04→20:04)
[2020-05-28] MEDS: Furosemide 40 MG/4 ML VIAL IVP (09:04)
[2020-05-28] MEDS: Sertraline 50 MG TAB 150 MG PO (09:04)
[2020-05-28 09:05] LABS: Bacteria Few HPF (Negative); Crystals Negative HPF (Negative); Mucus Negative (Negative)
[2020-05-28] MEDS: Omeprazole 20 MG CAPCR 40 MG PO ×2 (09:05→20:04)
[2020-05-28] MEDS: Folic Acid 1 MG TAB PO (09:05)
[2020-05-28] MEDS: Lachydrin 12% LOTION 225 GM BTL TP ×2 (09:05→20:02)
[2020-05-28] MEDS: Enoxaparin 40 MG/0.4 ML SYR SC ×2 (09:05→20:03)
[2020-05-28 09:06] LABS: C & S Indicated? C&S Done As Ordered; Casts Negative LPF (Negative)
[2020-05-28] MEDS: Normal Saline Flush 10 ML SYR 20 ML IVP ×2 (09:06→20:03)
[2020-05-28] MEDS: Nystatin POWDER 60 GM JAR TP ×2 (09:06→20:03)
--- NOTE | 2020-05-28 09:46 | CMPROGNOTE_ITS ---
Care Management Progress Note S/O: Per MD, labs showed rising WBC-therefore UA will be collected. No change to overall plan. Michelle continues to work with PT, and will further explore decision making (COLST) with Care Transition Coordinator prior to completing with Palliative Care, who will continue to follow as outpatient. CM continues to follow. A: Michelle is a 69 year old woman admitted on 05/21/20 with cellulitis P: Michelle will return to the [facility] where she resides when medically cleared. She will follow up with the facility provider and plan of care. MD recommending lymphedema therapy and new BiPap for discharge-CM supported coordination with RT, MD and Beverly at the [facility]. She will also follow up with Palliative Care. Michelle will likely transport via EMS. CM will continue to support Michelle and her discharge needs.
--- NOTE | 2020-05-28 11:20 | PT.INTREAT ---
Date of service: 05/28/20 Time of Service: 08:50 PT Notes Visit Reasons: Cellulitis Inpatient Physical Therapy Treatment Note [facility] Date: 05/28/2020 PRECAUTIONS: Fall SUBJECTIVE: Michelle states that she is not feeling well today. She doesn't feel herself. OBJECTIVE: Hold OOB activities in p.m., per nursing, due to edema in pt's B LEs. PAIN: Patient c/o B LE and L shoulder pain with [id number] transfer into and out of STEDY BED MOBILITY/TRANSFERS Rolling L/R: Mod A in a.m.; Min A to R + Mod A to L in p.m. Sit-supine: Max A x2 with HOB flat Sit-stand: Mod A x3 with STEDY Stand-sit: Mod A x2 with STEDY Chair-bed: STEDY with CGA x2 Static borough coordinator STEDY x2 minutes with CGA x2 GAIT: Unable THEREX: Patient unable to participate in ther ex in a.m. due to not feeling well and needing to use the bed pena. In p.m., patient completed a LE strengthening program, in a supine position, tolerating a progression in her program, performing increased reps for all exercises, as per flow sheet. She also completes bicep curls, bilaterally, and punch ups on R. TOILETING: Patient toileted using bed pena, requiring Max A for care and Min-Mod A for rolling. ASSESSMENT: Patient tolerated session with c/o increased B LE and L shoulder pain with transfers with STEDY lift. She is requiring increased assist at this time with bed mobility and transfers, most likely due to her not feeling well today. PLAN: Continue with light strengthening and bed mobility and transfer training for improved mobility and activity tolerance, as tolerated. TREATMENT CODE/TIME: Session 1: 15 minutes; 16600 Session 2: 25 minutes; 55364 x2
--- NOTE | 2020-05-28 12:00 | W.PM.PROGNOT ---
Date of Service Date of service: 05/28/20 Time of Service: 12:01 Assessment and Plan Assessment and plan (1) Acute on chronic respiratory failure with hypoxia and hypercapnia: Status: Acute Assessment and plan: Clinically, this is worse today. Increase lasix to 60 mg IV BID. Continue BiPAP. Consider ABG if mental status deteriorates today. Consider repeat CXR. BiPAP settings on discharge planned to be: Insp max: 22, exp min of 10, pressure support of 4 (2) Acute CHF: Status: Acute Assessment and plan: EF 60%, diastolic function indeterminate, RVSP 30.9 mmHg. Increase lasix, continue BiPAP at night/when asleep Monitor I/O's and daily weights. (3) Bilateral lower leg cellulitis: Status: Acute Assessment and plan: With patches of redness on the right and more confluent erythema on the left, with lymphedema in the background. I think that this is getting better. Continue vanco/zosyn. (4) ZUHAIR (acute kidney injury): Status: Acute Assessment and plan: I think this is cardiorenal. Monitor Cr now that we are increasing lasix. Renall mass is less likely related and will need outpatient follow up. Monitor Cr, I/O's, daily weights. (5) Chronic acquired lymphedema: Status: Chronic Assessment and plan: Risk factor for cellulitis. Would benefit from lymphedema therapy. (6) TRINH (obstructive sleep apnea): Status: Chronic Assessment and plan: On CPAP at the [facility]. Read above. On BiPAP at our facility which she is tolerating well. Switching to bipap on discharge with above settings. (7) Morbid obesity: Status: Chronic Assessment and plan: BMI up to 58 from 51 1 year ago. BiPAP required on discharge - needs an outpatient titration study. (8) UTI (urinary tract infection): Status: Ruled-out Assessment and plan: Ruled out again today. (9) DVT prophylaxis: Status: Acute Assessment and plan: lovenox 40 mg SC BID (10) Discharge planning issues: Status: Acute Assessment and plan: Full code palliative care consulted. Subjective Subjective Interval history since last seen: Ms Lindsay's nursing states that she is just not herself today - more lethargic. She has been sleeping a lot - with her BiPAP on. She denies dizziness, endorses midsternal chest pain (which I am able to reproduce with palpation), denies shortness of breath, endorses cough productive of brownish sputum, denies n/v. Her BLEs are about to be wrapped. They do hurt. Exam Narrative Exam Narrative: General: Obese female, asleep with BiPAP on, arouses slowly, does appear slightly dyspneic when laying flat, does seem to be slower to respond than yesterday HEENT: EOMI, MMM Heart: RRR, JUDY Lungs: crackles at B bases Abdomen: soft, nontender, nondistended Extremities: BLE lymphedema, RLE area of cellulitis distally is slightly better, LLE cellulitis better Objective Last Vital Signs Temp 37.2 C 05/28/20 07:30 Pulse 92 H 05/28/20 07:30 Resp 19 05/28/20 07:30 BP 107/68 05/28/20 07:30 Pulse Ox 93 05/28/20 11:11 Laboratory Results - last 24 hr 05/28/20 05/28/20 05/28/20 06:30 06:30 08:05 WBC 13.35 H RBC 2.67 L Hgb 8.5 L Hct 29.5 L MCV 110.5 H MCH 31.8 MCHC 28.8 L RDW 16.1 H Plt Count 304 MPV 12.1 H Immature Gran % 0.7 Neutrophils % 70.3 Lymphocytes % 16.0 Monocytes % 7.9 Eosinophils % 4.7 Basophils % 0.4 Nucleated RBC % 1 Absolute Neutrophils 9.39 H Absolute Lymphocytes 2.14 Absolute Monocytes 1.05 H Absolute Eosinophils 0.63 Absolute Basophils 0.05 Sodium 142 Potassium 4.1 Chloride 105 Carbon Dioxide 36.2 H Anion Gap 0.8 L BUN 40 H Creatinine 1.46 H Estimated GFR/1.73 m2 35.32 Glucose 87 Calcium 9.3 Magnesium 1.9 C-Reactive Protein 2.42 H Urine Color Yellow Urine Clarity Cloudy Urine pH 5.5 Ur Specific [place] 1.015 Urine Protein 30 H Urine Ketones Negative Urine Blood Trace-intact H Urine Nitrite Negative Urine Bilirubin Negative Urine Urobilinogen 0.2 Ur Leukocyte Esterase Small H Urine RBC Urine WBC 5-10 Ur Epithelial Cells Negative Urine Crystals Negative Urine Bacteria Few Urine Casts Negative Urine Mucus Negative Urine Other Many yeast Ur Culture Indicated? C&s done as ordered Urine Glucose Negative
[2020-05-28] MEDS: Albuterol/Ipratropium 3 ML UPD VIAL UPD ×2 (13:20→18:35)
--- NOTE | 2020-05-28 13:56 | PGE_ITS ---
Date of Service Date of service: 05/28/20 Time of Service: 13:56 Assessment and Plan Assessment and plan (1) Left renal mass: Status: Acute Assessment and plan: Knowing that her renal masses have been previously worked up and that she is in a monitoring situation, I do not think we need to arrange for a biopsy of her mass. I would suggest a CT of the abdomen and pelvis with and without contrast if her serum creatinine is adequate. The scan can either be done while she is in the hospital or can be done as an outpatient. I will then arrange to have the films pushed down to [facility] and ask their urology and radiology team to compare our more recent films to their previous films. If the mass seems to be increasing in size, a repeat biopsy can be considered. Subjective Subjective Interval history since last seen: My office staff was able to obtain imaging reports from [facility]. The patient never had her CT of the abdomen and pelvis that was ordered by the providers at [facility]. I suspect that the scheduling was disrupted by the onset of the Covid pandemic. The only imaging studies that we can obtain from [facility] were chest x-rays. Exam Narrative Exam Narrative: She is in no current distress. She does not appear septic or toxic Her vital signs are documented elsewhere She is a and alert Objective Last Vital Signs Temp 37.2 C 05/28/20 07:30 Pulse 92 H 05/28/20 07:30 Resp 19 05/28/20 07:30 BP 107/68 05/28/20 07:30 Pulse Ox 93 05/28/20 11:11 Laboratory Results - last 24 hr 05/28/20 05/28/20 05/28/20 06:30 06:30 08:05 WBC 13.35 H RBC 2.67 L Hgb 8.5 L Hct 29.5 L MCV 110.5 H MCH 31.8 MCHC 28.8 L RDW 16.1 H Plt Count 304 MPV 12.1 H Immature Gran % 0.7 Neutrophils % 70.3 Lymphocytes % 16.0 Monocytes % 7.9 Eosinophils % 4.7 Basophils % 0.4 Nucleated RBC % 1 Absolute Neutrophils 9.39 H Absolute Lymphocytes 2.14 Absolute Monocytes 1.05 H Absolute Eosinophils 0.63 Absolute Basophils 0.05 Sodium 142 Potassium 4.1 Chloride 105 Carbon Dioxide 36.2 H Anion Gap 0.8 L BUN 40 H Creatinine 1.46 H Estimated GFR/1.73 m2 35.32 Glucose 87 Calcium 9.3 Magnesium 1.9 C-Reactive Protein 2.42 H Urine Color Yellow Urine Clarity Cloudy Urine pH 5.5 Ur Specific [place] 1.015 Urine Protein 30 H Urine Ketones Negative Urine Blood Trace-intact H Urine Nitrite Negative Urine Bilirubin Negative Urine Urobilinogen 0.2 Ur Leukocyte Esterase Small H Urine RBC Urine WBC 5-10 Ur Epithelial Cells Negative Urine Crystals Negative Urine Bacteria Few Urine Casts Negative Urine Mucus Negative Urine Other Many yeast Ur Culture Indicated? C&s done as ordered Urine Glucose Negative
[2020-05-28] MEDS: Furosemide 40 MG/4 ML VIAL 60 MG IVP (15:22)
[2020-05-28] MEDS: Docusate Sodium 100 MG/10 ML CUP 50 MG PO (20:03)
[2020-05-28] MEDS: Simvastatin 20 MG TAB 40 MG PO (21:52)
[2020-05-28] MEDS: Lisinopril 20 MG TAB PO (21:53)
[2020-05-29] VITALS (20 sets, daily range): BP systolic 92–119; BP diastolic 57–73; PULSE 66–91; RESP 1–22; TEMP 36.6–37.1; O2SAT 87–100
[2020-05-29] MEDS: PIPERACILLIN/TAZO 3.375 GM in Normal Saline 50 ML IVPB ×4 (06:00→23:42)
[2020-05-29] MEDS: Albuterol/Ipratropium 3 ML UPD VIAL UPD ×4 (06:00→23:41)
[2020-05-29 07:50] LABS: Abs Immature Grans 0.08 10^3/uL (0.0-0.06); Absolute Eosinophil Count 0.67 10^3/uL (0.0-0.7); Absolute Lymphocyte Count 2.92 10^3/uL (1.2-3.4); Basophils % 0.6; Eosinophils % 4.7; HCT 28.5 % (36.0-46.0); HGB 8.3 g/dL (11.2-15.7); Immature Grans % 0.6; Lymphocytes % 20.6; MCH 32.4 pg (27.0-33.0); MCHC 29.1 % (32.0-36.0); MCV 111.3 fL (80-95); MPV 11.8 fL (8.0-11.0); Monocytes % 7.3; Neutrophils % 66.2; Nucleated RBC 0 %; Platelet Count 303 10^3/uL (130-400); RBC 2.56 10^6/uL (3.93-5.22); RDW-SD 65.9 fL; WBC 14.19 10^3/uL (4.4-10.8)
[2020-05-29 07:53] LABS: Absolute Basophil Count 0.09 10^3/uL (0.0-0.2); Absolute Monocyte Count 1.04 10^3/uL (0.1-0.8); Absolute Neutrophil Count 9.39 10^3/uL (1.2-6.7)
[2020-05-29 08:03] LABS: Anion Gap 0.3 mmol/L (3-11); BUN 45 mg/dL (7-18); C-Reactive Protein 4.09 mg/dL (0.0-0.3); CO2 36.7 mmol/L (21.0-32.0); CREATININE 1.5 mg/dL (0.55-1.02); Calcium 9.5 mg/dL (8.5-10.1); Chloride 107 mmol/L (98-107); Estimated GFR 34.23 (mL/min/1.73m2); Glucose 91 mg/dL (74-106); Magnesium 2.1 mg/dL (1.8-2.4); Sodium 144 mmol/L (136-145)
--- NOTE | 2020-05-29 08:09 | PDOC.CMPRO ---
Care Management Progress Note S/O: Michelle was unable to engage today due to increased fatigue-MD attributes to not wearing her BIPAP through the night. No change to overall plan. Michelle continues to work with PT, and will further explore decision making (COLST) with Development Architect prior to completing with Palliative Care, who will continue to follow as outpatient. CM will discuss with Michelle and her family who she would like to be consulted with decision-making. CM continues to follow. A: Michelle is a 69 year old woman admitted on 05/21/20 with cellulitis P: Michelle will return to the [facility] where she resides when medically cleared. She will follow up with the facility provider and plan of care. MD recommending lymphedema therapy and new BiPap for discharge-CM supported coordination with RT, MD and Beverly at the [facility]. She will also follow up with Palliative Care. Michelle will likely transport via EMS. CM will continue to support Michelle and her discharge needs.
[2020-05-29 08:13] LABS: Anisocytosis 1+; Basophilic Stippling Present; Diff Comment RBC Morph Reviewed; Macrocytosis 3+; Polychromasia Present
[2020-05-29] MEDS: Mometasone 220 MCG 14 DOSE INHALER 1 PUFF IH (08:23)
[2020-05-29] MEDS: Docusate Sodium 100 MG/10 ML CUP 50 MG PO ×2 (08:27→21:40)
[2020-05-29] MEDS: Aspirin E.C. 81 MG TABEC 162 MG PO (08:27)
[2020-05-29] MEDS: Enoxaparin 40 MG/0.4 ML SYR SC ×2 (08:27→19:44)
[2020-05-29] MEDS: Folic Acid 1 MG TAB PO (08:27)
[2020-05-29] MEDS: Protein Nutritional Supplement 16 GM 1 OUNCE PACKET PO ×3 (08:27→21:40)
[2020-05-29] MEDS: Sertraline 50 MG TAB 150 MG PO (08:27)
[2020-05-29] MEDS: Gabapentin 100 MG CAP 200 MG PO ×3 (08:28→21:41)
[2020-05-29] MEDS: Omeprazole 20 MG CAPCR 40 MG PO ×2 (08:28→21:41)
[2020-05-29] MEDS: Furosemide 40 MG/4 ML VIAL 60 MG IVP ×2 (08:28→16:08)
[2020-05-29] MEDS: Potassium Chloride 20 MEQ TABCR PO (08:28)
[2020-05-29] MEDS: Normal Saline Flush 10 ML SYR 20 ML IVP ×2 (08:29→19:45)
[2020-05-29] MEDS: Lachydrin 12% LOTION 225 GM BTL TP (08:31)
[2020-05-29] MEDS: Nystatin POWDER 60 GM JAR TP ×2 (08:31→19:44)
[2020-05-29 08:34] LABS: Poikilocytes 2+
--- NOTE | 2020-05-29 08:38 | PT.INTREAT ---
Date of service: 05/29/20 Time of Service: 07:50 PT Notes Visit Reasons: Cellulitis Inpatient Physical Therapy Treatment Note [facility] Date: 05/29/2020 PRECAUTIONS: Fall SUBJECTIVE: Michelle reports that she continues to not feel well today. She remains pleasant and agreeable to participating in PT. OBJECTIVE: PAIN: Patient c/o B LE and L shoulder pain with [id number] transfer into and out of STEDY BED MOBILITY/TRANSFERS Supine-sit: Mod A x2 with HOB at 40 degrees Sit-stand: Mod A + Min A with STEDY Stand-sit: Min A x2 with STEDY Bed-chair: STEDY with CGA x2 Static linen checker STEDY x4 minutes with CGA x2 GAIT: Unable THEREX: Patient was instructed in ankle pumps and circles, although refused to do all other exercises, as per flow sheet. TOILETING: Patient was incontinent of stool, requiring Max A for care. ASSESSMENT: Patient tolerated session with c/o increased B LE and L shoulder pain with transfers with STEDY lift. She is requiring increased assist at this time with bed mobility and transfers, most likely due to her not feeling well today. PLAN: Continue with light strengthening and bed mobility and transfer training for improved mobility and activity tolerance, as tolerated. TREATMENT CODE/TIME: 30 minutes; 80717 x2
[2020-05-29 08:46] LABS: Procalcitonin 0.2 ng/mL
[2020-05-29 09:32] LABS: BE 7 mmol/L (-2-3); FIO2 NC; FIO2L 4 L; HCO3 33 mmol/L (22-26); Site Left Radial; TCO2 34 mmol/L (23-27); pCO2 59 mmHg (35-45); pH 7.35 (7.35-7.45); pO2 49 mmHg (80-105); sO2 81 % (95-98)
--- NOTE | 2020-05-29 09:59 | DI.RAD_ITS ---
EXAM: XR PORTABLE CHEST AP CLINICAL HISTORY: cencern for pneumonia. TECHNIQUE: 2D digital imaging was performed. COMPARISON: CR XR PORTABLE CHEST AP from 05/25/2020 FINDINGS: Mild cardiomegaly, unchanged. Mediastinum is not widened. There is infiltrate in the left lower lobe. Also infiltrate in the lower right lung field. Also inf iltrate in the right upper lung. Pulmonary venous hypertension pattern but no airspace pulmonary seven ma. No obvious pleural effusions. Chronic left shoulder deformity. IMPRESSION: Bilateral infiltrates as described above. DATA REPOSITORY: RADIATION DOSE DELIVERED:
--- NOTE | 2020-05-29 10:24 | W.NUTRFU ---
Date of service: 05/29/20 Time of Service: 10:24 Nutritional Follow up NOTE: Michelle continues on Low sodium minced and moist meal plan with excellent intake. Meds include MVI and liquid protein - 1 oz TID providing additional 45 g protein to provide additional protein need for healing in view of high BMI. Currently meeting nutrient and fluid requirements to maintain lean body mass and support healing. Will continue to follow. Time Spent in Nutritional Counseling and Treatment: 5min
--- NOTE | 2020-05-29 10:36 | PT.INPN ---
Date of service: 05/29/20 Time of Service: 10:36 PT Notes Visit Reasons: Cellulitis Inpatient Physical Therapy Progress Note Date: 05/29/20 Date of service: 05/23/2020 through 05/29/2020 Precautions: Standard, Fall risk Patient Profile/Admitting Diagnosis: Orders received for this 69-year-old female with history of morbid obesity and ambulatory despite. Patient has recently transferred from [facility] for which she is a current resident. Patient has been having any pain in the left lower extremity and was brought to the emergency department with a diagnosis of cellulitis. He has a history of COPD, acute respiratory failure. Patient states that at baseline she rarely gets out of bed and has recently been having trouble transferring from bed to wheelchair due to fall risk. Subjective: Michelle appears significantly drowsy for this session but was agreeable with B LE girth measurement and placement of compression garment to B legs as ordered by hospitalist. Objective: Morbidly obese. Supine in bed. BiPAP machine in place. Mental Status: Lethargic but able to comprehend instrcutions. Pain: Nodded head when asked about B LE being tender to palpation. EDEMA measurements: Serial girth measurements taken in centimeters L LE R LE Around MTP 26.9 25.5 Around forefoot at medial arch 28.0 26.0 Around heel 35.1 33.9 Smallest ankle 29.9 30.5 Largest calf 64.5 63.5 Around popliteal crease 68.6 69.0 Around largest thigh 91.5 86.2 ROM: Right Upper Extremity: Shoulder flexion 90 degrees, elbow range of motion within normal Left Upper Extremity: Shoulder flexion to 90 degrees with active assist, elbow flexion within normal Right Lower Extremity: Hip flexion to 80 degrees, knee flexion to 90 Left Lower Extremity: Hip flexion to 80 degrees, knee flexion to 90 Strength: Right Upper Extremity: Grossly 3-/5 Left Upper Extremity: Grossly 3-/5 Right Lower Extremity: Grossly 3-/5 Left Lower Extremity: Grossly 3-/5 Bed Mobility/Transfers: NT for this session. Per RESIDENTIAL AIR SEALING TECHNICIAN, patient has needed STEDY lift for all transfers. Patient has been non-ambulatory for a long time as a SNF resident. Gait: N/A. Patient is non-mabulatory. Balance: Static Sitting: NT Dynamic Sitting: NT Static Standing: NT Dynamic Standing: NT Special Tests: Mobility Limitations Standardized Measure [facility] AM-PAC 6 clicks Basic Mobility Inpatient Short Form: Raw Score: 6 Standardized Score: 100% deficit Informed Consent/Education: Patient instructed in purpose of PT consult and plan of care and is agreeable to managing B LE swelling in addition to existing PT plan of care. ASSESSMENT: Lethargic for this session. Unable to fully assess mobility level due to decreased level of alertness. Patient will require use of doubled tubigrips to B legs and feet, GUY wraps done in a figure-8 manner around the foot and ankles are needed to reinforce fluid mobilization off of B feet/ankles while securing foot ends of tubigrips. Nurse Ricardo notified about the plan and nurse Michelle advised about use of said garments. Garments on during the day and off at night. Prognosis for achieving goals is poor to fair due to morbid obesity, long-standing non-ambulatory status, and declining medical condition. Patient continues to present with clinical signs and symptoms consistent with current/admitting diagnoses that have resulted to mobility limitations, gait instability, generalized weakness, and impairment of motor control as demonstrated by the following impairment level findings: 1. Decreased strength to B UE/B LE major muscle groups 2. Impaired sitting/standing balance 3. Decreased activity tolerance 4. Limitation of joint range of motion in B UE/LE 5. Morbid obesity 6. Decreased level of alertness 6. Long-standing edema to B LE Impairments are contributing to the following functional limitations: 1. Dependent bed mobility skills 2. Increased dependence with transfers 3. Inability to ambulate 4. Increased risk for skin breakdown 5. Increased fall risk Patient is assessed as a 63546 high complexity based on the following: History: 69-year-old female with past medical history, functional limitations, and impairment level findings as listed above Examination:Demonstrable impairment in strength, balance, and range of motion with underlying impairments and functional limitations as documented above Presentation: Evolving Decision Makin high complexity Goals: Goals X1 week 1. Supine-Sit Mod Assist x 1 NOT MET 2. Sit-Supine Mod Assist x 1 NOT MET 3. Sit-Stand Max x 2 NOT MET. DISCONTINUE. 4. Stand-Sit Max x 2 NOT MET. DISCONTINUE. 5. Increase sitting tolerance and balance while at edge of bed to 10 minutes without pain nor dyspnea NEW GOAL 6. Increase static standing balance and tolerance to 5 minutes to increase safety of STEDY lift transfers without pain or dyspnea NEW GOAL Plan of Care/Treatment Plan: 1-2x/day, 7 days/week x 1 week. Plan of care has been reviewed with the RESIDENTIAL AIR SEALING TECHNICIAN providing the service under Physical Therapy direction. Initiate Physical Therapy intervention for strengthening, bed mobility, transfers, gait, stairs, balance training, use of assistive device. Will most likely require huy or Steady lift for transport to chair or wheelchair. Working up to max assist DISCHARGE RECOMMENDATIONS: Return to previous SNF residence whenever medically cleared by hospitalist. Continue with lymphedema management by lymphedema therapist at [facility]. Consider procurement of CircAid/ready wraps for patient for easy donning and doffing. No equipment needs at this time. TREATMENT CODE/TIME: 99539 x 48 minutes beginning at 10:36 AM.
[2020-05-29] MEDS: VANCOMYCIN/WATER (PEG) 1.25 GM/250 ML BAG IV (11:02)
--- NOTE | 2020-05-29 12:00 | PGE_ITS ---
Date of Service Date of service: 05/29/20 Time of Service: 12:00 Assessment and Plan Assessment and plan (1) Acute on chronic respiratory failure with hypoxia and hypercapnia: Status: Acute Assessment and plan: Clinically, worse - probably related to not sleeping with BiPAP and having wrong settings on BiPAP this morning. I also cannot rule out a new pneumonia. She is doing better now with correct settings. Continue lasix to 60 mg IV BID. Continue BiPAP. I added levofloxacin to vanco/zosyn. BiPAP settings on discharge planned to be: Insp max: 22, exp min of 10, pressure support of 4 (2) Acute CHF: Status: Acute Assessment and plan: EF 60%, diastolic function indeterminate, RVSP 30.9 mmHg. Continue BiPAP, lasix 60 mg IV BID, continue BiPAP at night/when asleep Monitor I/O's and daily weights. (3) Bilateral lower leg cellulitis: Status: Acute Assessment and plan: Worse. Continue vanco/zosyn. Add levofloxacin. Continue diuresis, compression. (4) ZUHAIR (acute kidney injury): Status: Acute Assessment and plan: I think this is cardiorenal. D/c lisinopril. Monitor Cr now that we are increasing lasix. Renall mass is less likely related and will need outpatient follow up. Monitor Cr, I/O's, daily weights. (5) Chronic acquired lymphedema: Status: Chronic Assessment and plan: Risk factor for cellulitis. Would benefit from lymphedema therapy. (6) TRINH (obstructive sleep apnea): Status: Chronic Assessment and plan: On CPAP at the [facility]. Read above. On BiPAP at our facility which she is tolerating well. Switching to bipap on discharge with above settings. (7) Morbid obesity: Status: Chronic Assessment and plan: BMI up to 58 from 51 1 year ago. BiPAP required on discharge - needs an outpatient titration study. (8) UTI (urinary tract infection): Status: Ruled-out Assessment and plan: Ruled out again today. (9) DVT prophylaxis: Status: Acute Assessment and plan: lovenox 40 mg SC BID (10) Discharge planning issues: Status: Acute Assessment and plan: Full code palliative care consulted. Subjective Subjective Interval history since last seen: Ms Lindsay's breathing is of concern this morning. Evidently, she did not spend the night on BiPAP. Settings on BiPAP were incorrect this morning; now transitioned to a parisa. Apneic spells now resolved. She is arousable, reports no pain, shortness of breath, but falls right back asleep. Exam Narrative Exam Narrative: General: Siginificantly more lethargic elderly Female (prior to BiPAP), Arousable, doing much better with BiPAP on. HEENT: EOMI, MMM Heart: RRR, JUDY Lungs: crackles at B bases Abdomen: soft, nontender, nondistended Extremities: BLE lymphedema, RLE area of cellulitis distally is slightly better, LLE cellulitis looks worse today. Objective Last Vital Signs Temp 37.1 C 05/29/20 07:12 Pulse 78 05/29/20 11:41 Resp 14 05/29/20 11:41 BP 119/73 05/29/20 07:12 Pulse Ox 94 05/29/20 11:41 Laboratory Results - last 24 hr 05/29/20 05/29/20 05/29/20 07:15 07:15 07:15 WBC 14.19 H RBC 2.56 L Hgb 8.3 L Hct 28.5 L MCV 111.3 H MCH 32.4 MCHC 29.1 L RDW 16.0 H Plt Count 303 MPV 11.8 H Immature Gran % 0.6 Neutrophils % 66.2 Lymphocytes % 20.6 Monocytes % 7.3 Eosinophils % 4.7 Basophils % 0.6 Nucleated RBC % 0 Absolute Neutrophils 9.39 H Absolute Lymphocytes 2.92 Absolute Monocytes 1.04 H Absolute Eosinophils 0.67 Absolute Basophils 0.09 RBC Morphology See below Polychromasia Present Poikilocytosis 2+ Basophilic Stippling Present Anisocytosis 1+ Macrocytosis 3+ Sample Site ABG Sample Site ABG pH ABG pCO2 ABG pO2 ABG HCO3 ABG Total CO2 ABG O2 Saturation ABG Base Excess Oxygen Liter Flow FiO2 FiO2 (liters per min) Sodium 144 Potassium 4.0 Chloride 107 Carbon Dioxide 36.7 H Anion Gap 0.3 L BUN 45 H Creatinine 1.5 H Estimated GFR/1.73 m2 34.23 Glucose 91 Calcium 9.5 Magnesium 2.1 C-Reactive Protein 4.09 H Procalcitonin 0.2 05/29/20 05/29/20 08:46 09:15 WBC RBC Hgb Hct MCV MCH MCHC RDW Plt Count MPV Immature Gran % Neutrophils % Lymphocytes % Monocytes % Eosinophils % Basophils % Nucleated RBC % Absolute Neutrophils Absolute Lymphocytes Absolute Monocytes Absolute Eosinophils Absolute Basophils RBC Morphology Polychromasia Poikilocytosis Basophilic Stippling Anisocytosis Macrocytosis Sample Site Left radial ABG Sample Site Cancelled ABG pH Cancelled 7.35 ABG pCO2 Cancelled 59 H ABG pO2 Cancelled 49 L ABG HCO3 Cancelled 33 H ABG Total CO2 Cancelled 34 H ABG O2 Saturation Cancelled 81 L ABG Base Excess Cancelled 7 H Oxygen Liter Flow Cancelled FiO2 Cancelled Nc FiO2 (liters per min) 4 Sodium Potassium Chloride Carbon Dioxide Anion Gap BUN Creatinine Estimated GFR/1.73 m2 Glucose Calcium Magnesium C-Reactive Protein Procalcitonin CXR: There is infiltrate in the left lower lobe. Also infiltrate in the lower right lung field. Also infiltrate in the right upper lung. Pulmonary venous hy pertension pattern but no airspace pulmonary edema. No obvious pleural effusions.
[2020-05-29 12:20] LABS: pH 7.31 (7.35-7.45)
[2020-05-29 12:21] LABS: BE 9 mmol/L (-2-3); FIO2 30%; HCO3 35 mmol/L (22-26); Site Left Radial; TCO2 37 mmol/L (23-27); pCO2 70 mmHg (35-45); pO2 73 mmHg (80-105); sO2 92 % (95-98)
[2020-05-29] MEDS: levoFLOXacin 500 MG/100 ML BAG 100 MG IVPB (14:34)
--- NOTE | 2020-05-29 14:46 | DI.RAD_ITS ---
EXAM: XR PORTABLE CHEST AP CLINICAL HISTORY: aspiration. TECHNIQUE: 2D digital imaging was performed. COMPARISON: CR XR PORTABLE CHEST AP from 05/25/2020 FINDINGS: Heart size is unchanged. Mediastinum is not widened. Pulmonary venous hypertension pattern again no torin. Left lower lobe infiltrate again noted. Also increased markings in the right upper lobe. No obvious pleural effusions IMPRESSION: Minimal change. Recommend upright PA and lateral non portable views when clinically possible. DATA REPOSITORY: RADIATION DOSE DELIVERED:
[2020-05-29 15:29] LABS: BE 10 mmol/L (-2-3); HCO3 36 mmol/L (22-26); pH 7.32 (7.35-7.45); pO2 64 mmHg (80-105); sO2 93 % (95-98); tCO2 35 mmol/L (23-27)
[2020-05-29 15:35] LABS: FIO2 30 %; Site Left Radial; pCO2 69 mmHg (35-45)
--- NOTE | 2020-05-29 15:52 | CHAPLAIN ---
I visited with Michelle this morning. She had her oxygen on but was willing to talk. She told me that she needs to talk with someone about tenriism and I told her I'd be happy to do that with her, but then she said she wants to wait until Monday to talk. I told I was available anytime, and that she can let the nurses know and they can contact me. I will check in with her tomorrow too. Michelle told me about taking care of her mom, who of ALS, and that her mom was put on a ventilator, then taken off and family members wanted her put back on, but Michelle said her mom shook her head no, so they didn't. She talked about how hard it was to follow her mom's wishes, especially when some family members didn't agree. I'll visit again tomorrow.
[2020-05-29] MEDS: methylPREDNISolone SUCC 125 MG VIAL IVP (16:08)
[2020-05-29 17:38] LABS: BE 10 mmol/L (-2-3); HCO3 36 mmol/L (22-26); pH 7.32 (7.35-7.45); pO2 71 mmHg (80-105); sO2 95 % (95-98); tCO2 35 mmol/L (23-27)
[2020-05-29 17:44] LABS: FIO2 30 %; Site Left Radial; pCO2 69 mmHg (35-45)
--- NOTE | 2020-05-29 18:01 | W.PM.PROGNOT ---
Date of Service Date of service: 05/29/20 Time of Service: 18:01 Subjective Subjective Interval history since last seen: The patient has had worsening of her mental status today. She did not wear her BiPAP last night. Having apneic episodes improved with BiPAP on. Her ABG is c/w with worsening both respiratory and metabolic acidoses. 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 She aspirated when trying to have lunch. I think that we need to treat her for aspiration pneumonitis. Abx: vanco/zosyn/levofloxacin. Start steroids. We will continue to adjust BiPAP. NPO until mental status is appropriate for PO intake. Per my conversation with speech therapy tonight: When patient's mental status is appropriate for PO, recommendations are to: Start pureed solids, thin liquids, full assist via tea spoon. Small sips by cup. Oral Care at least 4 x/day before and after any PO. She will reevaluate the patient on Monday. Objective Last Vital Signs Temp 36.7 C 05/29/20 15:57 Pulse 70 05/29/20 16:00 Resp 15 05/29/20 16:00 BP 92/57 L 05/29/20 15:57 Pulse Ox 92 05/29/20 16:00 Laboratory Results - last 24 hr 05/29/20 05/29/20 05/29/20 07:15 07:15 07:15 WBC 14.19 H RBC 2.56 L Hgb 8.3 L Hct 28.5 L MCV 111.3 H MCH 32.4 MCHC 29.1 L RDW 16.0 H Plt Count 303 MPV 11.8 H Immature Gran % 0.6 Neutrophils % 66.2 Lymphocytes % 20.6 Monocytes % 7.3 Eosinophils % 4.7 Basophils % 0.6 Nucleated RBC % 0 Absolute Neutrophils 9.39 H Absolute Lymphocytes 2.92 Absolute Monocytes 1.04 H Absolute Eosinophils 0.67 Absolute Basophils 0.09 RBC Morphology See below Polychromasia Present Poikilocytosis 2+ Basophilic Stippling Present Anisocytosis 1+ Macrocytosis 3+ Sample Site ABG Sample Site ABG pH ABG pCO2 ABG pO2 ABG HCO3 ABG Total CO2 ABG O2 Saturation ABG Base Excess Oxygen Liter Flow FiO2 FiO2 (liters per min) Sodium 144 Potassium 4.0 Chloride 107 Carbon Dioxide 36.7 H Anion Gap 0.3 L BUN 45 H Creatinine 1.5 H Estimated GFR/1.73 m2 34.23 Glucose 91 Calcium 9.5 Magnesium 2.1 C-Reactive Protein 4.09 H Procalcitonin 0.2 05/29/20 05/29/20 05/29/20 08:46 09:15 11:57 WBC RBC Hgb Hct MCV MCH MCHC RDW Plt Count MPV Immature Gran % Neutrophils % Lymphocytes % Monocytes % Eosinophils % Basophils % Nucleated RBC % Absolute Neutrophils Absolute Lymphocytes Absolute Monocytes Absolute Eosinophils Absolute Basophils RBC Morphology Polychromasia Poikilocytosis Basophilic Stippling Anisocytosis Macrocytosis Sample Site Left radial ABG Sample Site Cancelled Cancelled ABG pH Cancelled 7.35 Cancelled ABG pCO2 Cancelled 59 H Cancelled ABG pO2 Cancelled 49 L Cancelled ABG HCO3 Cancelled 33 H Cancelled ABG Total CO2 Cancelled 34 H Cancelled ABG O2 Saturation Cancelled 81 L Cancelled ABG Base Excess Cancelled 7 H Cancelled Oxygen Liter Flow Cancelled Cancelled FiO2 Cancelled Nc Cancelled FiO2 (liters per min) 4 Sodium Potassium Chloride Carbon Dioxide Anion Gap BUN Creatinine Estimated GFR/1.73 m2 Glucose Calcium Magnesium C-Reactive Protein Procalcitonin 05/29/20 05/29/20 05/29/20 12:10 15:30 17:30 WBC RBC Hgb Hct MCV MCH MCHC RDW Plt Count MPV Immature Gran % Neutrophils % Lymphocytes % Monocytes % Eosinophils % Basophils % Nucleated RBC % Absolute Neutrophils Absolute Lymphocytes Absolute Monocytes Absolute Eosinophils Absolute Basophils RBC Morphology Polychromasia Poikilocytosis Basophilic Stippling Anisocytosis Macrocytosis Sample Site Left radial ABG Sample Site Left radial Left radial ABG pH 7.31 L 7.32 L 7.32 L ABG pCO2 70 H* 69 H* 69 H* ABG pO2 73 L 64 L 71 L ABG HCO3 35 H 36 H 36 H ABG Total CO2 37 H 35 H 35 H ABG O2 Saturation 92 L 93 L 95 ABG Base Excess 9 H 10 H 10 H Oxygen Liter Flow Cordelia bipap 14/5 Cordelia bipap 16/5 FiO2 30% 30 30 FiO2 (liters per min) 10/5 Sodium Potassium Chloride Carbon Dioxide Anion Gap BUN Creatinine Estimated GFR/1.73 m2 Glucose Calcium Magnesium C-Reactive Protein Procalcitonin
[2020-05-29] MEDS: methylPREDNISolone SUCC 125 MG VIAL 60 MG IVP (19:44)
--- NOTE | 2020-05-29 20:01 | NUR.NOTE ---
Nursing Note: Did speak to the patients son this afternoon and updated him on his mothers condition. He expressed his concerns, including increased incidence of choking while at home, he is told that speech consult will take place
[2020-05-29] MEDS: Simvastatin 20 MG TAB 40 MG PO (21:42)
[2020-05-30] VITALS (13 sets, daily range): BP systolic 123–146; BP diastolic 67–79; PULSE 70–83; RESP 8–24; TEMP 36.7–36.9; O2SAT 92–98
[2020-05-30] MEDS: methylPREDNISolone SUCC 125 MG VIAL 60 MG IVP ×3 (04:43→21:40)
[2020-05-30] MEDS: PIPERACILLIN/TAZO 3.375 GM in Normal Saline 50 ML IVPB ×2 (05:19→12:20)
[2020-05-30] MEDS: Albuterol/Ipratropium 3 ML UPD VIAL UPD ×3 (05:19→17:48)
[2020-05-30] MEDS: VANCOMYCIN/WATER (PEG) 1.25 GM/250 ML BAG IV (05:57)
[2020-05-30 07:11] LABS: Abs Immature Grans 0.21 10^3/uL (0.0-0.06); Absolute Basophil Count 0.03 10^3/uL (0.0-0.2); Absolute Lymphocyte Count 1.22 10^3/uL (1.2-3.4); Absolute Monocyte Count 0.47 10^3/uL (0.1-0.8); Absolute Neutrophil Count 9.57 10^3/uL (1.2-6.7); Basophils % 0.3; HCT 28.9 % (36.0-46.0); HGB 8.4 g/dL (11.2-15.7); Immature Grans % 1.8; Lymphocytes % 10.6; MCH 31.9 pg (27.0-33.0); MCHC 29.1 % (32.0-36.0); MCV 109.9 fL (80-95); MPV 12.1 fL (8.0-11.0); Monocytes % 4.1; Neutrophils % 83.2; Nucleated RBC 1 %; Platelet Count 308 10^3/uL (130-400); RBC 2.63 10^6/uL (3.93-5.22); RDW 15.8 % (11.7-14.6); RDW-SD 63.6 fL
[2020-05-30 07:23] LABS: Anion Gap 4.4 mmol/L (3-11); BUN 49 mg/dL (7-18); CO2 33.6 mmol/L (21.0-32.0); CREATININE 1.7 mg/dL (0.55-1.02); Calcium 9.6 mg/dL (8.5-10.1); Chloride 104 mmol/L (98-107); Estimated GFR 29.63 (mL/min/1.73m2); Glucose 191 mg/dL (74-106); Potassium 3.7 mmol/L (3.5-5.1); Sodium 142 mmol/L (136-145)
[2020-05-30 07:37] LABS: Anisocytosis 1+; Basophilic Stippling Present; Diff Comment Diff Reviewed; Hypochromasia 2+; Macrocytosis 2+; Polychromasia Present
[2020-05-30 07:38] LABS: Poikilocytes 2+
[2020-05-30] MEDS: Normal Saline Flush 10 ML SYR 20 ML IVP ×2 (08:05→19:24)
[2020-05-30] MEDS: Nystatin POWDER 60 GM JAR TP ×2 (08:05→19:27)
[2020-05-30] MEDS: Lachydrin 12% LOTION 225 GM BTL TP ×2 (08:05→19:28)
[2020-05-30] MEDS: Mometasone 220 MCG 14 DOSE INHALER 1 PUFF IH ×2 (08:09→19:30)
[2020-05-30] MEDS: Folic Acid 1 MG TAB PO (08:11)
[2020-05-30] MEDS: Omeprazole 20 MG CAPCR 40 MG PO ×2 (08:12→19:27)
[2020-05-30] MEDS: Sertraline 50 MG TAB 150 MG PO (08:12)
[2020-05-30] MEDS: Gabapentin 100 MG CAP 200 MG PO ×3 (08:12→19:26)
[2020-05-30] MEDS: Potassium Chloride 20 MEQ TABCR PO (08:13)
[2020-05-30] MEDS: Docusate Sodium 100 MG/10 ML CUP 50 MG PO ×2 (08:13→19:25)
[2020-05-30] MEDS: Protein Nutritional Supplement 16 GM 1 OUNCE PACKET PO ×3 (08:13→19:25)
--- NOTE | 2020-05-30 10:08 | PTTR_ITS ---
Date of service: 05/30/20 Time of Service: 10:08 PT Notes Visit Reasons: Cellulitis 05/30/2020 SUBJECTIVE: Donnalee stating she is very fatigued. She refuses out of bed this morning. OBJECTIVE: 61209 Rolling: Mod A x 2 for cleaning TRANSFERS: Refused THEREX: Supine UE/LE bed exercises as noted on flow sheet. ASSESSMENT: Pt refusing standing today in the STEDY lift. Will attempt to perform this tomorrow. Good effort with bed exercises. PLAN: Continue current POC. Treatment time: 10' Inna Leyva PTA Clinic location: [facility] [place], [place]
--- NOTE | 2020-05-30 12:12 | NUR.NOTE ---
MD is aware of 6 bloody stools with clot present
[2020-05-30] MEDS: levoFLOXacin 250 MG/50 ML BAG 50 MG IVPB (13:54)
--- NOTE | 2020-05-30 16:19 | PGE_ITS ---
Date of Service Date of service: 05/30/20 Time of Service: 16:19 Assessment and Plan Assessment and plan (1) Acute on chronic respiratory failure with hypoxia and hypercapnia: Start date: 05/30/20 Start time: 16:27 Status: Acute Assessment and plan: Improving today, she would be a great candidate for trilogy. Clinically she is AAO x 3 she is doing purse lipped breathing She has a net deficit and not requiring lasix drip therefore with worsening creatinine it is being dcd She will be on amoxicillin and doxy po likely for up to 4 weeks, for lungs levaquin po q 48 hours and cellulitis in addition to amoxicillin and doxy for cellulitis as given lymphedema this will take longer to recover, bc with no growth (2) Left renal mass: Start date: 05/30/20 Start time: 16:25 Status: Acute Assessment and plan: Patient found to have 4.9 cm left renal mass suspicious for renal cell carcinoma. Recommend renal CT. will wait for creatinine to improve (3) Acute CHF: Start date: 05/30/20 Start time: 16:36 Status: Acute Assessment and plan: EF 60 % with moderate PHTN, will continue her lasix bid dosing, creatinine up to 1.7 will monitor. When baseline will order renal ct (4) Cellulitis of left leg: Start date: 05/30/20 Start time: 16:37 Status: Acute Assessment and plan: Improving. On amoxicillin and doxy and monitor over 24-48 hours (5) ZUHAIR (acute kidney injury): Start date: 05/30/20 Start time: 16:42 Status: Acute Assessment and plan: worsened d/t lasix drip however overall improved from admission will continue to monitor (6) Chronic acquired lymphedema: Start date: 05/30/20 Start time: 16:43 Status: Chronic Assessment and plan: Risk factor for cellulitis. Would benefit from lymphedema therapy. (7) TRINH (obstructive sleep apnea): Start date: 05/30/20 Start time: 16:43 Status: Chronic Assessment and plan: On CPAP at the [facility]. Read above. Transitioned to Bipap (8) DVT prophylaxis: Start date: 05/30/20 Start time: 16:44 Status: Acute Assessment and plan: due to hematocheza enoxaparin dcd and asa dcd, monitor h/h (9) Discharge planning issues: Start date: 05/30/20 Start time: 16:44 Status: Acute Assessment and plan: Full code Consult palliative care above case discussed with Dr. Macario Subjective Subjective Patient reports: feels better Interval history since last seen: Sitting up right in bed stating she is feeling much better though she does appear to be SOB, she does not feel it. We will place her on bipap for a short time. She would benefit from trilogy and I think she would like this more. Lasix drip stopped. Levaquin 750 every 48 hours. she will need to be on this for longer duration due to cellulitis. BC negative. Lymphedema present. She does not appear overly dry, likely to be discharged in a day or 2. LS diminished, start tapering steroids. Exam Narrative Exam Narrative: General: Awake alert oriented, talkative, stating she feels great, did not like the purred food. HEENT: EOMI, MMM Heart: RRR, JUDY Lungs: LS diminished Abdomen: soft, nontender, nondistended Extremities: BLE lymphedema, RLE improving, LLE cellulitis looks improving, will require longer course of antibiotics due to lymphedema. Objective Last Vital Signs Temp 36.8 C 05/30/20 08:44 Pulse 70 05/30/20 12:03 Resp 18 05/30/20 12:03 BP 146/67 H 05/30/20 08:44 Pulse Ox 93 05/30/20 12:03 Laboratory Results - last 24 hr 05/29/20 05/30/20 05/30/20 17:30 06:25 06:25 WBC 11.50 H RBC 2.63 L Hgb 8.4 L Hct 28.9 L MCV 109.9 H MCH 31.9 MCHC 29.1 L RDW 15.8 H Plt Count 308 MPV 12.1 H Immature Gran % 1.8 Neutrophils % 83.2 Lymphocytes % 10.6 Monocytes % 4.1 Eosinophils % 0.0 Basophils % 0.3 Nucleated RBC % 1 Absolute Neutrophils 9.57 H Absolute Lymphocytes 1.22 Absolute Monocytes 0.47 Absolute Eosinophils 0.00 Absolute Basophils 0.03 RBC Morphology See below Polychromasia Present Hypochromasia 2+ Poikilocytosis 2+ Basophilic Stippling Present Anisocytosis 1+ Macrocytosis 2+ ABG Sample Site Left radial ABG pH 7.32 L ABG pCO2 69 H* ABG pO2 71 L ABG HCO3 36 H ABG Total CO2 35 H ABG O2 Saturation 95 ABG Base Excess 10 H Oxygen Liter Flow Cordelia bipap 16/5 FiO2 30 Sodium 142 Potassium 3.7 Chloride 104 Carbon Dioxide 33.6 H Anion Gap 4.4 BUN 49 H Creatinine 1.7 H Estimated GFR/1.73 m2 29.63 Glucose 191 H D Calcium 9.6 Magnesium 2.0
[2020-05-30] MEDS: Furosemide 40 MG TAB PO (16:27)
[2020-05-30] MEDS: levoFLOXacin 500 MG/100 ML BAG 100 MG IV (16:28)
--- NOTE | 2020-05-30 18:23 | CMPROGNOTE_ITS ---
- If Service Date Differs Date of service: 05/30/20 Time of Service: 18:23 Care Management Progress Note S/O: Michelle remains acute at this time. Per report, she is improving today from a respiratory standpoint. She is reported to be a good candidate for trilogy. She is a penitentiary resident at the [facility], which could interfere with her receiving a trilogy machine, if she is able to be stabilized with a CPAP or BIPAP. She may need penitentiary IV abx. CM will continue to follow. A: Michelle is a 69 year old woman admitted on 05/21/20 with cellulitis P: Michelle will return to the [facility] where she resides when medically cleared. She will follow up with the facility provider and plan of care. MD recommending lymphedema therapy and new BiPap for discharge-CM supported coordination with RT, MD and Beverly at the [facility]. She will also follow up with Palliative Care. Michelle will likely transport via EMS. CM will continue to support Michelle and her discharge needs.
[2020-05-30] MEDS: Simvastatin 20 MG TAB 40 MG PO (21:41)
[2020-05-30] MEDS: Normal Saline Flush 10 ML SYR IVP (21:41)
[2020-05-31] VITALS (9 sets, daily range): BP systolic 151–173; BP diastolic 78–98; PULSE 63–85; RESP 1–20; TEMP 36.1–36.9; O2SAT 89–99
[2020-05-31] MEDS: Albuterol/Ipratropium 3 ML UPD VIAL UPD ×3 (00:25→19:58)
[2020-05-31 07:31] LABS: Anion Gap 5.1 mmol/L (3-11); BUN 53 mg/dL (7-18); CO2 32.9 mmol/L (21.0-32.0); CREATININE 1.7 mg/dL (0.55-1.02); Calcium 9.9 mg/dL (8.5-10.1); Chloride 106 mmol/L (98-107); Estimated GFR 29.63 (mL/min/1.73m2); Glucose 172 mg/dL (74-106); Potassium 3.9 mmol/L (3.5-5.1); Sodium 144 mmol/L (136-145)
[2020-05-31 07:39] LABS: C-Reactive Protein 2.28 mg/dL (0.0-0.3)
[2020-05-31] MEDS: Potassium Chloride 20 MEQ TABCR PO (07:59)
[2020-05-31] MEDS: Sertraline 50 MG TAB 150 MG PO (07:59)
[2020-05-31] MEDS: Folic Acid 1 MG TAB PO (07:59)
[2020-05-31] MEDS: Gabapentin 100 MG CAP 200 MG PO ×3 (07:59→20:25)
[2020-05-31] MEDS: Furosemide 40 MG TAB PO (07:59)
[2020-05-31] MEDS: Omeprazole 20 MG CAPCR 40 MG PO (07:59)
[2020-05-31] MEDS: Protein Nutritional Supplement 16 GM 1 OUNCE PACKET PO ×3 (07:59→20:25)
[2020-05-31] MEDS: Normal Saline Flush 10 ML SYR 20 ML IVP ×2 (08:00→20:24)
[2020-05-31] MEDS: Lachydrin 12% LOTION 225 GM BTL TP (08:01)
[2020-05-31] MEDS: Nystatin POWDER 60 GM JAR TP ×2 (08:01→20:25)
[2020-05-31 08:15] LABS: HGB 8.4 g/dL (11.2-15.7); MCH 32.2 pg (27.0-33.0); MCV 107.3 fL (80-95); Platelet Count 321 10^3/uL (130-400); RBC 2.61 10^6/uL (3.93-5.22); RDW 15.6 % (11.7-14.6); RDW-SD 61.3 fL; WBC 13.34 10^3/uL (4.4-10.8)
[2020-05-31] MEDS: Mometasone 220 MCG 14 DOSE INHALER 1 PUFF IH ×2 (08:27→20:25)
[2020-05-31] MEDS: Normal Saline 250 ML IV (08:35)
[2020-05-31 09:06] LABS: Procalcitonin 0.1 ng/mL
--- NOTE | 2020-05-31 09:25 | W.PM.PROGNOT ---
Date of Service Date of service: 05/31/20 Time of Service: 09:25 Assessment and Plan Assessment and plan (1) GI bleed: Start date: 05/31/20 Start time: 09:51 Status: Chronic Assessment and plan: Was on enoxaparin BID dosing during this admission now having melena stools, all anticoagulants on held asa on held, protonix IV BID, carafate and clear liquid diet, consider consult to surgery if continues (2) Acute on chronic respiratory failure with hypoxia and hypercapnia: Start date: 05/31/20 Start time: 09:45 Status: Acute Assessment and plan: Improving, she would be a great candidate for trilogy. Clinically she is AAO x 3 she is doing purse lipped breathing She was narrowed down to levaquin for both lungs and cellulitis she will likely need a longer duration due to q 48 hour dosing (3) Left renal mass: Start date: 05/31/20 Start time: 09:46 Status: Acute Assessment and plan: Patient found to have 4.9 cm left renal mass suspicious for renal cell carcinoma. Recommend renal CT. will wait for creatinine to improve continues to be 1.7, will give 250 ns bolus, hold lasix at this time and monitor for volume overload (4) Acute CHF: Start date: 05/31/20 Start time: 09:48 Status: Suspected Assessment and plan: EF 60 % with moderate PHTN, Holding lasix in setting of elevated creatinine, would like to get a renal CT on patient when creatinine is baseline (5) Cellulitis of left leg: Start date: 05/31/20 Start time: 09:49 Status: Acute Assessment and plan: Improving. Levaquin (6) ZUHAIR (acute kidney injury): Start date: 05/31/20 Start time: 09:50 Status: Acute Assessment and plan: no improvement, as above (7) Chronic acquired lymphedema: Start date: 05/31/20 Start time: 09:51 Status: Chronic Assessment and plan: Risk factor for cellulitis. Would benefit from lymphedema therapy. (8) TRINH (obstructive sleep apnea): Start date: 05/31/20 Start time: 09:51 Status: Chronic Assessment and plan: On CPAP at the [facility]. Read above. Transitioned to Bipap (9) DVT prophylaxis: Start date: 05/31/20 Start time: 09:51 Status: Acute Assessment and plan: due to hematocheza enoxaparin dcd and asa dcd, monitor h/h (10) Discharge planning issues: Start date: 05/31/20 Start time: 09:51 Status: Acute Assessment and plan: Full code Consult palliative care above case discussed with Dr. Macario Subjective Subjective Patient reports: no new complaints Interval history since last seen: Patient states she is feeling ok today. She has been narrowed down to levaquin IV q 48 at this time for both lungs and cellulitis. She is having melena stools, BID enoxaparin dcd and, bowel meds held, lasix held at this time she is being given 250 normal saline bolus, clear diet. protonix bid IV with carafate, will see if stools slow down or better overnight if not consider consulting surgery. Also she needs a renal CT for possible carcinoma when renal function is at baseline this should be considered. Exam Narrative Exam Narrative: General: Awake alert oriented, she did wear bipap overnight she was able to sit up for me to listen to her lungs. HEENT: EOMI, MMM Heart: RRR, JUDY Lungs: LS diminished, rales bilaterally at bases Abdomen: soft, nontender, nondistended Extremities: BLE lymphedema, RLE improving, LLE cellulitis looks improving, will require longer course of antibiotics due to lymphedema. Objective Last Vital Signs Temp 36.1 C L 05/31/20 07:31 Pulse 85 05/31/20 07:31 Resp 20 05/31/20 07:31 BP 151/89 H 05/31/20 07:31 Pulse Ox 94 05/31/20 07:31 Laboratory Results - last 24 hr 05/31/20 05/31/20 05/31/20 06:55 06:55 06:55 WBC 13.34 H RBC 2.61 L Hgb 8.4 L Hct 28.0 L MCV 107.3 H MCH 32.2 MCHC 30.0 L RDW 15.6 H Plt Count 321 MPV 12.0 H Sodium 144 Potassium 3.9 Chloride 106 Carbon Dioxide 32.9 H Anion Gap 5.1 BUN 53 H Creatinine 1.7 H Estimated GFR/1.73 m2 29.63 Glucose 172 H Calcium 9.9 Magnesium 2.0 C-Reactive Protein 2.28 H Procalcitonin 0.1
[2020-05-31] MEDS: methylPREDNISolone SUCC 125 MG VIAL 60 MG IVP ×2 (10:05→21:30)
[2020-05-31] MEDS: Pantoprazole 40 MG VIAL 80 MG IVP (10:05)
[2020-05-31] MEDS: Normal Saline Flush 10 ML SYR IVP ×2 (10:06→20:24)
--- NOTE | 2020-05-31 10:11 | PT.INTREAT ---
Date of service: 05/31/20 Time of Service: 10:11 PT Notes Visit Reasons: Cellulitis 05/31/2020 SUBJECTIVE: Donnalee stating she was up all night with diarrhea. She is refusing OOB or sitting EOB because every time she moves she has a bowel movement. She is agreeable to PT exercises in bed. OBJECTIVE: 22025m0 TRANSFERS/GAIT: Not assessed THEREX: Supine LE strengthening as noted on flow sheet. Able to do active SLR bilaterally but with minimal elevated. See flow sheet for specifics. ASSESSMENT: Refusing to transfer today due to fear of having bowel movement. Good effort put forth with strengthening exercises. PLAN: Continue current POC. Treatment time: 15' Inna Leyva PTA Clinic location: [facility] [place], [place]
[2020-05-31] MEDS: Sucralfate 1 GM TAB PO ×3 (12:31→21:29)
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
[2020-05-31] MEDS: Acetaminophen 325 MG TAB 650 MG PO (15:51)
--- NOTE | 2020-05-31 16:29 | CMPROGNOTE_ITS ---
- If Service Date Differs Date of service: 05/31/20 Time of Service: 16:29 Care Management Progress Note S/O: Michelle was lying in bed when CM met with her. She stated that she is feeling better than she was previously. She stated that she cannot read her book because her reading glasses are at the [facility]. CM stated that if it looks like she will remain at [facility] past this weekend, CM can call the [facility] and request that they are brought to [facility]. Per report, she has been having blood in her sto ol. Surgical consult may be placed, if her H&H drops. The provider would like her to be seen by Palliative Care again, if possible. CM will continue to follow. A: Michelle is a 69 year old woman admitted on 05/21/20 with cellulitis P: Michelle will return to the [facility] where she resides when medically cleared. She will follow up with the facility provider and plan of care. MD recommending lymphedema therapy and new BiPap for discharge-CM supported coordination with RT, MD and Beverly at the [facility]. She will also follow up with Palliative Care. Michelle will likely transport via EMS. CM will continue to support Michelle and her discharge needs.
[2020-05-31] MEDS: Pantoprazole 40 MG VIAL IVP (20:22)
[2020-05-31] MEDS: Simvastatin 20 MG TAB 40 MG PO (21:29)
[2020-06-01] VITALS (11 sets, daily range): BP systolic 132–157; BP diastolic 76–89; PULSE 68–96; RESP 1–22; TEMP 36.3–36.9; O2SAT 93–98
[2020-06-01] MEDS: Albuterol/Ipratropium 3 ML UPD VIAL UPD ×4 (00:45→18:04)
[2020-06-01] MEDS: Mometasone 220 MCG 14 DOSE INHALER 1 PUFF IH ×2 (08:07→20:16)
[2020-06-01] MEDS: Lachydrin 12% LOTION 225 GM BTL TP ×2 (09:14→20:18)
[2020-06-01] MEDS: Nystatin POWDER 60 GM JAR TP ×2 (09:14→20:17)
[2020-06-01] MEDS: Gabapentin 100 MG CAP 200 MG PO ×3 (09:15→20:17)
[2020-06-01] MEDS: Folic Acid 1 MG TAB PO (09:15)
[2020-06-01] MEDS: Pantoprazole 40 MG VIAL IVP ×2 (09:15→20:17)
[2020-06-01] MEDS: methylPREDNISolone SUCC 125 MG VIAL 60 MG IVP ×2 (09:15→23:02)
[2020-06-01] MEDS: Protein Nutritional Supplement 16 GM 1 OUNCE PACKET PO ×3 (09:15→20:16)
[2020-06-01] MEDS: Potassium Chloride 20 MEQ TABCR PO (09:15)
[2020-06-01] MEDS: Sucralfate 1 GM TAB PO ×4 (09:15→23:02)
[2020-06-01] MEDS: Sertraline 50 MG TAB 150 MG PO (09:15)
[2020-06-01] MEDS: Normal Saline Flush 10 ML SYR 20 ML IVP ×2 (09:16→20:17)
[2020-06-01] MEDS: Normal Saline Flush 10 ML SYR IVP ×2 (09:16→20:17)
--- NOTE | 2020-06-01 10:06 | CMPROGNOTE_ITS ---
Care Management Progress Note S/O: Michelle remains acute at this time. CM notified [facility] of her request to have her glasses delivered. Per report, she has been having blood in her stool. Surgical consult may be placed, if her H&H drops. The provider would like her to be seen by Palliative Care again, if possible. CM will continue to follow. A: Michelle is a 69 year old woman admitted on 05/21/20 with cellulitis P: Michelle will return to the [facility] where she resides when medically cleared. She will follow up with the facility provider and plan of care. MD recommending lymphedema therapy and new BiPap for discharge-CM supported coordination with RT, MD and Beverly at the [facility]. She will also follow up with Palliative Care. Michelle will likely transport via EMS. CM will continue to support Michelle and her discharge needs.
[2020-06-01 10:20] LABS: Abs Immature Grans 0.21 10^3/uL (0.0-0.06); Absolute Basophil Count 0.01 10^3/uL (0.0-0.2); Absolute Lymphocyte Count 1.73 10^3/uL (1.2-3.4); Absolute Monocyte Count 0.88 10^3/uL (0.1-0.8); Basophils % 0.1; HCT 27.5 % (36.0-46.0); HGB 8.4 g/dL (11.2-15.7); Immature Grans % 1.8; Lymphocytes % 14.9; MCH 32.4 pg (27.0-33.0); MCHC 30.5 % (32.0-36.0); MCV 106.2 fL (80-95); MPV 11.6 fL (8.0-11.0); Monocytes % 7.6; Neutrophils % 75.6; Nucleated RBC 1 %; Platelet Count 317 10^3/uL (130-400); RBC 2.59 10^6/uL (3.93-5.22); RDW 15.8 % (11.7-14.6); RDW-SD 61.6 fL; WBC 11.62 10^3/uL (4.4-10.8)
[2020-06-01 10:22] LABS: Absolute Neutrophil Count 8.78 10^3/uL (1.2-6.7)
[2020-06-01 10:29] LABS: Diff Comment RBC Morph Reviewed; Macrocytosis 2+
[2020-06-01 10:30] LABS: Anion Gap 5.8 mmol/L (3-11); BUN 51 mg/dL (7-18); Basophilic Stippling Present; CO2 32.2 mmol/L (21.0-32.0); CREATININE 1.8 mg/dL (0.55-1.02); Calcium 9.8 mg/dL (8.5-10.1); Chloride 103 mmol/L (98-107); Estimated GFR 27.74 (mL/min/1.73m2); Glucose 199 mg/dL (74-106); Poikilocytes 2+; Polychromasia Present; Potassium 3.7 mmol/L (3.5-5.1); Sodium 141 mmol/L (136-145)
[2020-06-01] MEDS: Acetaminophen 325 MG TAB 650 MG PO (12:10)
--- NOTE | 2020-06-01 12:52 | W.PM.PROGNOT ---
Date of Service Date of service: 06/01/20 Time of Service: 12:52 Assessment and Plan Assessment and plan (1) GI bleed: Status: Chronic Assessment and plan: Was on enoxaparin BID dosing during this admission then began having melena stools, all anticoagulants continue to be on hold asa on held, H&H now stable continue protonix IV BID, carafate and advance diet, consider consult to surgery if continues (2) Acute on chronic respiratory failure with hypoxia and hypercapnia: Status: Acute Assessment and plan: Improving, she would be a great candidate for trilogy. Clinically she is AAO x 3 she is doing purse lipped breathing She was narrowed down to levaquin for both lungs and cellulitis she will likely need a longer duration due to q 48 hour dosing (3) Left renal mass: Status: Acute Assessment and plan: Patient found to have 4.9 cm left renal mass suspicious for renal cell carcinoma. Recommend renal CT. will wait for creatinine to improve continues to be 1.7, will give 250 ns bolus, continue to hold lasix at this time and monitor for volume overload (4) Acute CHF: Status: Suspected Assessment and plan: EF 60 % with moderate PHTN, Holding lasix in setting of elevated creatinine, would like to get a renal CT on patient when creatinine is baseline (5) Cellulitis of left leg: Status: Acute Assessment and plan: Improving. Levaquin (6) ZUHAIR (acute kidney injury): Status: Acute Assessment and plan: no improvement, as above (7) Chronic acquired lymphedema: Status: Chronic Assessment and plan: Risk factor for cellulitis. Would benefit from lymphedema therapy. (8) TRINH (obstructive sleep apnea): Status: Chronic Assessment and plan: On CPAP at the [facility]. Read above. Transitioned to Bipap (9) DVT prophylaxis: Status: Acute Assessment and plan: due to hematocheza enoxaparin dcd and asa dcd, monitor h/h (10) Discharge planning issues: Status: Acute Assessment and plan: Full code Consult palliative care above case discussed with Dr. Macario Subjective Subjective Patient reports: no new complaints, feels better, tolerating liquids well, bowel movement, diarrhea (2 episodes overnight of bloody stool, none today) and blood in stool Interval history since last seen: denies lightheadedness or nausea/vomiting. requesting diet advanced. labs show stable H&H. hemodynamically has been stable. Exam Const Orientation: alert, awake, oriented to person and oriented to place [facility] Head: normocephalic and atraumatic General nose exam: external nose normal Face and sinus: normal facial exam and face symmetric Teeth and gingiva: edentulous Eyes Conjunctivae: conjunctivae normal Resp Effort & Inspection: normal respiratory effort and able to speak in complete sentences GI Auscultation: hypoactive bowel sounds Skin General skin exam: dry skin and ecchymosis Rashes: rashes noted (left lower extremity, well within skin markings) Hair: general thinning Nails: clubbing Neuro General: patient alert and patient awake Motor: strength abnormal Extrem General: no calf tenderness, clubbing, edema and muscle atrophy Psych Appearance: disheveled Speech and Movement: delayed speech and slowed movement Mood: anxious mood Affect: anxious affect Attitude: cooperative Thought Process: impoverished Thought Content: phobias Insight: limited Judgment: limited Objective Last Vital Signs Temp 36.9 C 06/01/20 11:55 Pulse 68 06/01/20 11:55 Resp 19 06/01/20 11:55 BP 152/85 H 06/01/20 11:55 Pulse Ox 94 06/01/20 11:55 Laboratory Results - last 24 hr 06/01/20 06/01/20 10:00 10:00 WBC 11.62 H RBC 2.59 L Hgb 8.4 L Hct 27.5 L MCV 106.2 H MCH 32.4 MCHC 30.5 L RDW 15.8 H Plt Count 317 MPV 11.6 H Immature Gran % 1.8 Neutrophils % 75.6 Lymphocytes % 14.9 Monocytes % 7.6 Eosinophils % 0.0 Basophils % 0.1 Nucleated RBC % 1 Absolute Neutrophils 8.78 H Absolute Lymphocytes 1.73 Absolute Monocytes 0.88 H Absolute Eosinophils 0.00 Absolute Basophils 0.01 RBC Morphology See below Polychromasia Present Poikilocytosis 2+ Basophilic Stippling Present Macrocytosis 2+ Sodium 141 Potassium 3.7 Chloride 103 Carbon Dioxide 32.2 H Anion Gap 5.8 BUN 51 H Creatinine 1.8 H Estimated GFR/1.73 m2 27.74 Glucose 199 H Calcium 9.8
--- NOTE | 2020-06-01 13:48 | EVALE_ITS ---
Date of service: 06/01/20 Time of Service: 13:48 Speech Therapy Evaluation Referring Provider Referring Provider:: Rosa Elena Curtis MD Note: Clinical (Bedside) Swallow Evaluation Speech Language Pathology VAMP STITCHER Orders: 'swallow eval, one time only. patient chokes frequently with food, she does eat too rapidly' Precautions: Full code HPI: Pt is a 69 year old female admitted with acute respiratory failure, hypoxia, CHF, COPD, cellulitis of left thigh, lymphedema, morbid obesity with UTI. Patient had previous episode of difficulty with soup (mixed consistency, chunks of potato) during which RT reports suctioning had to be used; RT states patient was observed tilting head posteriorly when ingesting this. When alert and seated upright, pt has otherwise been tolerating IDDSI Level 5 - minced/moist solids and 0 - thin liquids with excellent intake. PMHx: COPD, Depression, lymphedema, morbid obesity Social History/Home Situation: Resident at [facility], 4L O2 at baseline. [facility]. [facility] reports Michelle had skilled RN services prior to her admission to the [facility]. SUBJECTIVE: Patient received alert, seated upright, agreeable to evaluation, able to communicate wants/needs effectively; able to demonstrate comprehension of recommendations for safe p.o. intake upon discharge once deemed medically stable. Pt states she is looking forward to returning to eating solids foods. Able to state okay, small sips from now on during motivational interview/education with VAMP STITCHER. OBJECTIVE: Predisposing dysphagia risk factors: CHF, COPD, edentulous status Clinical signs of possible chronic dysphagia: cough with po intake Precipitating dysphagia risk factors / triggering event: cellulitis, respiratory difficulties Temp: 97.9 F Sp02: 94% RR: 20 / oxygen Cranial nerve exam / Oral Motor: CN V: facial sensation intact to LT; labial protrusion - symmetrical; labial coordination/ROM - WFL CN VII: WFL CN IX/X: palatal elevation - symmetrical; VQ WFL CN XII: Intact b/l Dentition/Oral Structures/Hygiene: edentulous; oral hygiene appears fair, however could be improved with friction based approach with use of toothrbrush (vs sponge toothette) Language: verbal expression/fluency, naming, repetition, and auditory comprehension WF Hearing: [facility] Mental Status: AAOx3, recall of current events intact Speech: WFL Laryngeal function exam: Secretions: WFL Vocal quality: WFL MPT: DNT S/Z ratio: DNT Pitch range: WFL Cough: (volitional) perceptually WFL PO intake IDDSI 0: thin liquids via cup sip and straw (overt s/s + with straw, - with instruction to take small sips via straw) IDDSI 4: pureed solid [place] Swallow Protocol: Pass IMPRESSIONS: Patient is at low-moderate risk for aspiration-related pulmonary complication, given COPD, hx of pna, adequate oral hygiene, & presumed immunocompetence; improvements in physical mobility, overall pulmonary function, and adherence to risk management as outlined below likely to further reduce this risk. Provided education to re: anatomy/physiology of swallowing mechanism, overt s/sx to monitor for re: potential aspiration of food/liquids, recommendations for improved oral care to reduce likelihood of recurrent pna (ie, oral care with toothbrush; written on whiteboard also), relationship between respiratory functi on changes and deglutition, and importance of allowing her respiratory system to catch up before taking subsequent bite or sip No further VAMP STITCHER services warranted at this time; please re-consult PRN. Please see recommendations below. PLAN: Instrumentation: N/A Diet recommendation: IDDSI Level 5-Minced & Moist / Level 0 - thin liquids via cup sip and/or small volumes via straw Solid food level to be upgraded as tolerated/pending available use of dentures for adequate mastication while on unit. Transitional solids appropriate (eg, small bites of soft/moistened pancake). See [email or web address].org/IDDSI/media/[email or web address] for further details re: IDDSI transitional solids Risk management: Oral hygiene before/after to po intake as outlined, using friction with toothbrush on all oral structures as tolerated (patient able to teachback with return demonstration today). Verbal cues for reduced volume/rate of intake. HOB upright as tolerated; Encourage physical mobility as tolerated. Specialist referrals: N/A Ancillary tests: N/A Therapy: N/A Goal: N/A Please feel free to contact me with any questions. Cintia Feng MA CCC-VAMP STITCHER [phone] VAMP STITCHER CPT Code: 65179 Clinical Swallowing Evaluation
--- NOTE | 2020-06-01 14:26 | PT.INTREAT ---
Date of service: 06/01/20 Time of Service: 14:26 PT Notes Visit Reasons: Cellulitis Inpatient Physical Therapy Note Date: 06/01/20 Precautions: Standard. Fall risk. Subjective: Agreeable to both sessions in the morning and afternoon. Reported fatigue and discomfort in B legs and B knees during ambulation activity and manual lymphatic drainage. Objective: Morbidly obese. Mittal catheter in place. Skin to B legs significantly less erythematous. Mental Status: Alert and oriented x4 Pain: B legs to palpation and B knees during ambulation activity. Bed Mobility/Transfers: Minimal to moderate assist of 3 for sit to supine. Gait: Verbally cued and physically assisted patient with transfer and ambulation activity from bedside recliner to bed. She tolerated 8 feet + 1 turn + 2 step backs using bariatric front-wheeled walker with assist of this PT, Nurse Cramer, and reclining chair follow by BRITTNEE Nj. Patient demonstrated instability x 2 due to bilateral knee pain. Denies chest pain, but did demonstrate increased shortness of breath after activity. Gait wide-based. Zaina significantly reduced. Moderate verbal cueing given for walker management, directional change, and safe gait pattern. Both Nurse Cramer and BRITTNEE Nj assisted with sit>supine and patient repositioning in bed for comfort. Manual therapy: MLD to clear B LE performed for patient prior to rewrapping B legs. Patient's uniqu limb shape and increased edema pose difficulty with limiting rolling down lymphedema wraps. Reported tenderness to palpation in B legs. Balance: Static Sitting: Good Dynamic Sitting: Fair Static Standing: Poor Dynamic Standing: Poor ASSESSMENT: Greatest improvement in mobility level achieved today since hospital admission. Patient's ability to perform transfer and ambulation tasks today was limited by pain in bilateral knees, shortness of breath, and morbid obesity. Will continue to benefit from services in order to achieve highest mobility level with use of bariatric front wheeled walker. DISCHARGE RECOMMENDATIONS: Return to previous SNF residence whenever medically cleared by hospitalist. Continue with lymphedema management by lymphedema therapist at [facility]. Consider procurement of CircAid/ready wraps for patient for easy donning and doffing. No equipment needs at this time. TREATMENT CODE/TIME: Session 1??9753 0x40, 9711 0x20 beginning at 10:40 AM session 2??22879 x 25 minutes, 29081 x 30 minutes beginning at 14:26 PM.
[2020-06-01] MEDS: levoFLOXacin 750 MG/150 ML BAG 100 MG IV (17:00)
[2020-06-01] MEDS: Simvastatin 20 MG TAB 40 MG PO (23:02)
[2020-06-02] MEDS: Albuterol/Ipratropium 3 ML UPD VIAL UPD ×3 (00:26→12:05)
[2020-06-02 07:15] VITALS: BP 153/81; PULSE 75; RESP 18; TEMP 36.8; O2SAT 97
[2020-06-02 07:50] VITALS: O2SAT 93
[2020-06-02] MEDS: Mometasone 220 MCG 14 DOSE INHALER 1 PUFF IH (07:52)
[2020-06-02 07:55] VITALS: RESP 16
[2020-06-02] MEDS: Protein Nutritional Supplement 16 GM 1 OUNCE PACKET PO (07:55)
[2020-06-02] MEDS: Acetaminophen 325 MG TAB 650 MG PO (07:55)
[2020-06-02] MEDS: Folic Acid 1 MG TAB PO (07:55)
[2020-06-02] MEDS: Potassium Chloride 20 MEQ TABCR PO (07:56)
[2020-06-02] MEDS: Gabapentin 100 MG CAP 200 MG PO (07:56)
[2020-06-02] MEDS: Sucralfate 1 GM TAB PO ×2 (07:56→11:17)
[2020-06-02] MEDS: Lachydrin 12% LOTION 225 GM BTL TP (07:56)
[2020-06-02] MEDS: Pantoprazole 40 MG VIAL IVP (07:56)
[2020-06-02] MEDS: Sertraline 50 MG TAB 150 MG PO (07:56)
[2020-06-02] MEDS: Normal Saline Flush 10 ML SYR 20 ML IVP (07:57)
[2020-06-02] MEDS: Nystatin POWDER 60 GM JAR TP (07:57)
--- NOTE | 2020-06-02 10:27 | CMDISCH_ITS ---
LACE Index Scoring Tool - Questions: Length of Stay (in days): 7 - 13 Acuity (Admit via E.D.?): Yes Comorbidities: Chronic Pulmonary Disease, Any Tumor E.D. Visits: 1 - Answers: Total Score: 14 Risk of Readmission: High Risk Care Management Discharge Reason for Hospitalization: LE Cellulitis Discharge Plan: Michelle will return to the [facility] where she resides when medically cleared. MD recommending lymphedema therapy and new BiPAP for discharge-CM supported coordination with RT, MD and Beverly at the [facility]. She will also follow up with Palliative Care re: COLST form completion. Michelle will transport via [facility]. Patient/Family Education Needs: Review discharge instructions, discuss Ask Me Three. Services Needed at Discharge: [facility]way Facility ([facility] ), Transportation ([facility] )
--- NOTE | 2020-06-02 11:08 | W.PM.DS.N ---
Date of service: 06/02/20 Time of Service: 11:08 DS: Diagnosis Discharge Diagnosis (1) GI bleed: Status: Chronic Asessment and Plan: stopped since lovenox discontinued. H&H stable. outpatient general surgery referral (2) Acute on chronic respiratory failure with hypoxia and hypercapnia: Status: Acute Asessment and Plan: stable on bipap. RT discussed with DR Huntley with recommendations for home settings of 19/02, orders sent accordingly, [place] to adjust her unit upon discharge (3) Left renal mass: Status: Acute Asessment and Plan: Patient found to have 4.9 cm left renal mass suspicious for renal cell carcinoma. Recommend renal CT. outpatient referral to IR for biopsy as her kidney function will not support CT imaging. (4) Acute CHF: Status: Suspected Asessment and Plan: stable (5) Cellulitis of left leg: Status: Acute Asessment and Plan: resolving, complete 14 days of levaquin q48 hours on odd days, tomorrow dose due (on odd days) through 06/11/20. (6) ZUHAIR (acute kidney injury): Status: Acute Asessment and Plan: ? new baseline of 1.7-1.8 electrolytes normal, continue to follow outpatient (7) Chronic acquired lymphedema: Status: Chronic Asessment and Plan: Risk factor for cellulitis. Would benefit from lymphedema therapy. (8) TRINH (obstructive sleep apnea): Status: Chronic Asessment and Plan: setting changes to home unit as directed Discharge Plan Disposition Patient Disposition: SNF (LEVEL 1) [facility] Condition: Stable Discharge Details Reason For Visit: CELLULITIS Admit Date/Time: 05/21/20 12:08 Admit Provider: Per Mc Attending Provider: Per Mc Primary Care Provider: Unknown,Unknown Home Meds and New Rx's Prescriptions: New sucralfate 1 gram Tablet 1 g PO AC & HS Qty: 120 RF: 0 Phlexy-Vits Packet 1 oz PO TID Qty: 90 RF: 0 levofloxacin 750 mg tablet 750 mg PO Q48H Qty: 5 RF: 0 prednisone 10 mg tablet 40 mg PO DAILY Qty: 60 RF: 0 Continued omeprazole 40 MG capsule,delayed release(DR/EC) 1 tab PO BID RF: 0 simvastatin 20 MG tablet 40 mg PO HS RF: 0 albuterol sulfate [Ventolin HFA] 60 PUFF HFA aerosol inhaler 2 puff Inhalation PRN PRNRF: 0 docusate sodium 50 mg/5 mL Liquid 50 mg PO BID RF: 0 acetaminophen 325 mg Tablet 650 mg PO QID RF: 0 sertraline 100 mg Tablet 150 mg PO DAILY RF: 0 ferrous sulfate [Iron (ferrous sulfate)] 325 mg (65 mg iron) Tablet 325 mg PO TID RF: 0 lidocaine 5 % Adhesive Patch,Medicated 2 patch TOPICAL DAILY RF: 0 gabapentin [Neurontin] 100 mg Capsule 200 mg PO TID RF: 0 ipratropium-albuterol 18-103 mcg/actuation Aerosol 1 spray INHALATION QID RF: 0 calcium gluconate 500 mg Tablet 500 mg PO DAILY RF: 0 Lactinex 1 million cell Tablet,Chewable 1 tab PO TID RF: 0 vitamin Z70-ffrot acid 1,000-400 mcg Tablet, Sublingual 1 tab SUBLINGUAL DAILY RF: 0 potassium chloride 20 mEq Tablet Extended Release 20 meq PO DAILY RF: 0 mometasone 100 mcg/actuation Hfa Aerosol Inhaler 2 puff INHALATION BID RF: 0 Discontinued lisinopril 20 MG tablet 1 tab PO HS RF: 0 aspirin [Aspir-81] 81 MG tablet,delayed release (DR/EC) 2 tab PO DAILY RF: 0 furosemide 80 MG tablet 1 tab PO DAILY RF: 0 amoxicillin-pot clavulanate [Augmentin] 875-125 mg Tablet 1 tab PO Q12H RF: 0 enoxaparin [Lovenox] 40 mg/0.4 mL Syringe 40 mg SUBCUT Q12H RF: 0 Discharge Instructions Instructions: Gastrointestinal Bleeding (DC), Cellulitis (DC) Additional Instructions: continue to hold lasix and lisinopril until instructed by your pcp. hold asa. recheck blood work on June. taper prednsione 40 mg daily for 3 days, 30 mg daily for 3 days, 20 mg daily for 3 days, 10 mg daily for 3 days, 5 mg daily for 3 days then stop. Stand Alone Forms: Nursing Discharge Form Referrals: Unknown,Unknown [Primary Care Provider] - (follow up with pcp per routine) Activity:: Activity as Tolerated Equipment/Supplies:: No Equipment Needed Diet:: Low Sodium Discharge Orders Discharge Orders: Discharge Order (Routine); Ordered 06/02/20 Ordered By: Shereen Payne Other Ambulatory Orders: Basic Metabolic Panel (Routine) Timeframe: 20200604 Location: None Selected Ordered By: Shereen Payne Complete Blood Count w/Diff (Routine) Timeframe: 20200604 Location: None Selected Ordered By: Shereen Payne Discharge Data Discharge Date/Time-TO BE ENTERED AT DEPARTURE: 06/02/20 13:22 DS: Summary Time Spent with Patient providing and/or coordinating discharge services: Greater than 30 minutes Status at Discharge Functional status at discharge: bed bound Overall status at discharge: patient is back to baseline Mental Status: mental status grossly normal (cognitive impairment at baseline) Speech and Movement: delayed speech and slowed movement Mood: anxious mood Affect: anxious affect Exam Const Orientation: alert, awake, oriented to person and oriented to place HENTN Head: normocephalic and atraumatic General nose exam: external nose normal Face and sinus: normal facial exam and face symmetric Teeth and gingiva: edentulous Eyes Conjunctivae: conjunctivae normal Resp Effort & Inspection: normal respiratory effort and able to speak in complete sentences GI Auscultation: hypoactive bowel sounds Skin General skin exam: dry skin and ecchymosis Rashes: rashes noted (left lower extremity, well within skin markings) Hair: general thinning Nails: clubbing Neuro General: patient alert and patient awake Motor: strength abnormal Extrem General: no calf tenderness, clubbing, edema and muscle atrophy Psych Appearance: disheveled Speech and Movement: delayed speech and slowed movement Mood: anxious mood Affect: anxious affect Attitude: cooperative Insight: limited Judgment: limited DS: Data Vitals/I&O Vitals and I&O: Vital Signs Temperature 36.8 C 06/02/20 07:15 Temperature Source Tympanic 06/02/20 07:15 Pulse 75 06/02/20 07:15 Pulse Rhythm Irregular 06/02/20 03:17 Pulse 66 05/22/20 01:40 Respiratory Rate 18 06/02/20 07:15 Respiratory Effort 06/02/20 03:17 Respiratory Depth Normal 06/02/20 03:17 Respiratory Pattern Normal 06/02/20 03:17 Blood Pressure 153/81 H 06/02/20 07:15 Blood Pressure Mean 113 05/22/20 00:00 Blood Pressure Position Supine 05/22/20 08:12 Pulse Oximetry 93 06/02/20 07:50 Oxygen Delivery Method Nasal Cannula 06/02/20 07:50 Oxygen Flow Rate 2 06/02/20 07:50 Fraction of Inspired Oxygen (FIO2) 30 06/02/20 07:55 Pain Level 2 06/02/20 07:55 Comment 05/29/20 21:29 Intake & Output 06/01/20 06/01/20 06/02/20 11:59 23:59 11:59 Intake Total 270 / 1410 1140 / 1410 240 / 240 Output Total 850 / 850 1100 / 1100 Balance 270 / 560 290 / 560 -860 / -860 Weight 154.9 kg Intake: IV 20 / 320 300 / 320 Oral 250 / 1090 840 / 1090 240 / 240 Output: Urine 850 / 850 1100 / 1100 Other: Urine Color Yellow Yellow Yellow Urine Appearance Clear Clear Clear Stool Occult Blood Positive Stool Size Moderate Moderate Moderate Stool Characteristics Liquid Liquid Liquid Black Black Bloody Bloody Data Completed and Pending Labs on day of discharge: Labs from last 24 hours 05/29/20 07:15 Path Cons Comment See comment Preliminary micro results at discharge 05/28/20 12:55 Blood Culture - Preliminary Blood NO GROWTH 96 HOURS 05/28/20 12:45 Blood Culture - Preliminary Blood NO GROWTH 96 HOURS [facility] Medical History (Updated 05/31/20 @ 09:51 by Akosua Porras NP) Anxiety about health Avoidance coping COPD (chronic obstructive pulmonary disease) Depression Generalized weakness Goals of care, counseling/discussion Low-level of literacy Lymphedema Morbid obesity group home resident Oncocytoma Palliative care patient Renal cell carcinoma Family History (Updated 05/27/20 @ 19:20 by Rocio Christensen MD) Son No problems noted. Son No problems noted. Son No problems noted. Mother , of ALS age 63 ALS (amyotrophic lateral sclerosis) Father , of lung cancer age 70 heavy smoker Lung cancer Smoker Sister No problems noted. Sister No problems noted. Sister No problems noted. Sister No problems noted. Sister No problems noted. Brother , older brother doesn't know how he No problems noted. Brother No problems noted. 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 Pets and animals: No Current gender identity: female What is your relationship status?: How often do you talk on the phone with friends or family?: once per week How often do you get together with friends or relatives?: never Panel score (0-1 are the most socially isolated patients): 0 What type of physical activity do you participate in: none, bed-bound, sedentary lifestyle and wheelchair-bound Special alysha needs: No Seatbelt use: always Water heater temp set <120 deg: Yes Working smoke detector in home: Yes Fire extinguisher in home: Yes Firearms in home: No Do you feel safe at home: Yes Do you feel safe in your relationship?: Yes Additional Social history: resident @ [facility]. Was living in [facility] until her legs gave out all of a sudden and I couldn't walk. [facility] was in [place], run by her son's best friend and his . Prior to living in [facility], lived on her own in [facility], where she lived for many years. She has one son in [facility], one son in [facility], and one son in [place], [place]. She tells me she knows her memory is getting worse. Sometimes I just black out. She has never filled out a COLST form. She can't tell me which of her sons is her DPOA.
[2020-06-02] MEDS: methylPREDNISolone SUCC 125 MG VIAL 60 MG IVP (11:16)
--- NOTE | 2020-06-02 11:37 | PT.INTREAT ---
Date of service: 06/02/20 Time of Service: 07:45 PT Notes Visit Reasons: Cellulitis Inpatient Physical Therapy Treatment Note [facility] Date: 06/02/2020 PRECAUTIONS: Fall, activity as tolerated SUBJECTIVE: Alexa is pleasant and agreeable to participating in PT. She states that she is nervous about walking, but is willing to give it a try. OBJECTIVE: PAIN: Patient complains of calf pain with pressure BED MOBILITY/TRANSFERS Supine-sit: Mod A with HOB at 40 degrees Sit-supine: Max A x6 with rolling board assist Sit-stand: CGA x2 from elevated bed surface in a.m.; Mod A x2 from recliner chair surface Stand-sit: CGA x2 in a.m.; Mod A x2 in p.m. Bed-Chair: Min A + CGA Chair-bed: Max A x6 with rolling board assist GAIT Assistive Device: Bariatric FWW Weight bearing: Full Assist: Min A + CGA Distance: 5' + 1 turn on left + 3 steps backward in a.m.; 1 step forward/backward Deviation: Chair follow, wobbly knees, unsteady THEREX: Patient was instructed in a LE strengthening program, while seated at the EOB, as per flow sheet. ASSESSMENT: Patient tolerated session with increased SOB with activity. She demonstrated significant weakness during p.m. session, demonstrating an inability to participate in gait training with FWW. She required Max A x6 with rolling board assist to transfer from recliner chair to bed for safety. PLAN: Continue with global strengthening, gait and transfer training at SNF level rehab upon discharge. TREATMENT CODE/TIME: Session 1: 25 minutes; 46525, [id number] Session 2: 20 minutes; 23128
[2020-06-02 12:07] VITALS: RESP 8
[2020-06-02] MEDS: Bacitracin 1 PACKET (12:48)
--- NOTE | 2020-06-02 13:59 | W.PALPGNOTE ---
Date of service: 06/02/20 Time of Service: 13:05 Assessment and Plan Assessment and plan (1) senior living resident: Status: Chronic Assessment and plan: Michelle returned to the [facility] after our visit. She was anxious about this change. Likely will be a resident there for the rest of her life. (2) Generalized weakness: Status: Chronic Assessment and plan: She told me she couldn't stand at all; her INSPECTOR PACKAGER, Nils, who worked with her quite a bit during this admission, told me she stood well this am and was able to help with getting dressed, etc. She can do more than she admits to being able to do, it the consensus. She was hoping that IF she couldn't care for herself, she would be able to stay as an inpatient. (3) Avoidance coping: Status: Chronic Assessment and plan: I was very impressed with Michelle's ability to talk about hard things at my first meeting with her last week. If given time and space, I think she could make hard decisions as she needs to. (4) Low-level of literacy: Status: Chronic Assessment and plan: I suspect that she reads at a lower than 8th grade level, though she did show an ability to reason and remember re: her mother. (5) Goals of care, counseling/discussion: Status: Acute Assessment and plan: Still an unfinished conversation, in terms of what she wants medically. Her overall life wishes seem unrealistic: she wants to live alone again, down in [place], where she is from. She wants to leave the [facility]. She wants to drive again. Subjective Subjective Patient reports: nausea Interval history since last seen: Michelle was returning to the [facility] soon after my visit. She was upset by this. She wanted to stay in the hospital longer. She said she was feeling rushed and not ready. She does not do well with changes. She's an anxious person at baseline. I was hoping that she would be ready today to finish our COLST discussion and fill out paperwork. I reminded her of our conversation about her decision to extubate her mother in keeping with her mother's wishes, even though it made her siblings mad at her. I asked if she'd thought more about what she wanted for herself. She changed the topic to why she wasn't ready to go back to the [facility]. I do recommend that the CORN CUTTER at the [facility], or the medical record librarian, continue this conversation with her. She did seem open to addressing her wishes, and changing them to DNR/DNI. Please see my initial consult from last week. Exam Const Orientation: alert, awake, oriented to person and oriented to place HENMO Head: normocephalic and atraumatic General nose exam: external nose normal Face and sinus: normal facial exam and face symmetric Teeth and gingiva: edentulous Eyes Conjunctivae: conjunctivae normal Resp Effort & Inspection: normal respiratory effort and able to speak in complete sentences GI Auscultation: hypoactive bowel sounds Skin General skin exam: dry skin and ecchymosis Rashes: rashes noted (left lower extremity, well within skin markings) Hair: general thinning Nails: clubbing Neuro General: patient alert and patient awake Motor: strength abnormal Extrem General: no calf tenderness, clubbing, edema and muscle atrophy Psych Appearance: disheveled Speech and Movement: delayed speech and slowed movement Mood: anxious mood Affect: anxious affect Attitude: cooperative Thought Process: impoverished Thought Content: phobias Insight: limited Judgment: limited Objective Last Vital Signs Temp 98.2 F 06/02/20 07:15 Pulse 75 06/02/20 07:15 Resp 18 06/02/20 07:15 BP 153/81 H 06/02/20 07:15 Pulse Ox 93 06/02/20 07:50 Laboratory Results - last 24 hr 05/29/20 07:15 Path Cons Comment See comment
--- NOTE | 2020-06-02 16:08 | PT.INDS ---
Date of service: 06/02/20 Time of Service: 16:09 PT Notes Visit Reasons: Cellulitis Physical Therapy Inpatient Discharge Summary Date: 06/02/20 Date of service: 05/23/2020 through 06/02/2020 This is a clinical summary of care provided on the duration of dates listed above. No charge was made in the completion of this documentation. Precautions: Standard, Fall risk Patient Profile/Admitting Diagnosis: Orders received for this 69-year-old female with history of morbid obesity and ambulatory despite. Patient has recently transferred from [facility] for which she is a current resident. Patient has been having any pain in the left lower extremity and was brought to the emergency department with a diagnosis of cellulitis. He has a history of COPD, acute respiratory failure. Patient states that at baseline she rarely gets out of bed and has recently been having trouble transferring from bed to wheelchair due to fall risk. Subjective: NT. See most recent COMPUTER APPLICATIONS ENGINEER notes. Objective: NT. See most recent COMPUTER APPLICATIONS ENGINEER notes. Mental Status: NT. See most recent COMPUTER APPLICATIONS ENGINEER notes. Pain: NT. See most recent COMPUTER APPLICATIONS ENGINEER notes.. EDEMA measurements: Serial girth measurements taken in centimeters L LE R LE Around MTP 26.9 25.5 Around forefoot at medial arch 28.0 26.0 Around heel 35.1 33.9 Smallest ankle 29.9 30.5 Largest calf 64.5 63.5 Around popliteal crease 68.6 69.0 Around largest thigh 91.5 86.2 ROM: Right Upper Extremity: Shoulder flexion 90 degrees, elbow range of motion within normal Left Upper Extremity: Shoulder flexion to 90 degrees with active assist, elbow flexion within normal Right Lower Extremity: Hip flexion to 80 degrees, knee flexion to 90 Left Lower Extremity: Hip flexion to 80 degrees, knee flexion to 90 Strength: Right Upper Extremity: Grossly 3-/5 Left Upper Extremity: Grossly 3-/5 Right Lower Extremity: Grossly 3-/5 Left Lower Extremity: Grossly 3-/5 Bed Mobility/Transfers: NT for this session. Per COMPUTER APPLICATIONS ENGINEER, patient has needed STEDY lift for all transfers. Patient has been non-ambulatory for a long time as a SNF resident. Gait: Now able to tolerate up to 8 feet of short distance level ambulation using bariatric front wheeled walker with full weight bearing on BUE/LE with moderate assist of 2 and reclining chair followed by a third person for safety. Reports pain in bilateral knees for which contributes to her instability and decreased self-confidence. Gait wide-based. Balance: Static Sitting: Good Dynamic Sitting: Fair Static Standing: Poor Dynamic Standing: Poor ASSESSMENT: Michelle demonstrated improved ability with sitting and standing balance/tolerance as well as performing short distance ambulation from chair to bedside. She will continue to benefit from PT services for functional mobility retraining and lymphedema management at the [facility]. Patient continues to present with clinical signs and symptoms consistent with current/admitting diagnoses that have resulted to mobility limitations, gait instability, generalized weakness, and impairment of motor control as demonstrated by the following impairment level findings: 1. Decreased strength to B UE/B LE major muscle groups 2. Impaired sitting/standing balance 3. Decreased activity tolerance 4. Limitation of joint range of motion in B UE/LE 5. Morbid obesity 6. Decreased level of alertness 6. Long-standing lymphedema to B LE Impairments are contributing to the following functional limitations: 1. Dependent bed mobility skills 2. Increased dependence with transfers 3. Inability to ambulate 4. Increased risk for skin breakdown 5. Increased fall risk Goals: Goals X1 week 1. Supine-Sit Mod Assist x 1 NOT MET 2. Sit-Supine Mod Assist x 1 NOT MET 3. Sit-Stand Max x 2 NOT MET 4. Stand-Sit Max x 2 NOT MET 5. Increase sitting tolerance and balance while at edge of bed to 10 minutes without pain nor dyspnea NEW GOAL 6. Increase static standing balance and tolerance to 5 minutes to increase safety of STEDY lift transfers without pain or dyspnea NEW GOAL DISCHARGE RECOMMENDATIONS: Return to previous SNF residence whenever medically cleared by hospitalist. Continue with lymphedema management by lymphedema therapist at SNF. Consider procurement of CircAid/ready wraps for patient for easy donning and doffing. No equipment needs at this time. TREATMENT CODE/TIME:NC. Thank you for the opportunity to participate in the care of this patient. Karuna Chilel PT, DPT, CLT [facility] [place], [place]
== END 2020-06-02 13:22 | disposition skilled nursing facility (03) | DRG 602 ==
LOC: ER 13:19 → ICU 16:40 → MS 05-22 14:56
PROVIDERS: Internal Medicine; Nurse Practitioner Acute Care; Nurse Practitioner Family; Admitting Provider Family Medicine; Emergency Provider Physician Assistant; Visit Provider Family Medicine
DX: L03.116 Cellulitis of left lower limb (principal); J96.21 Acute and chronic respiratory failure with hypoxia; J69.0 Pneumonitis due to inhalation of food and vomit; J96.22 Acute and chronic respiratory failure with hypercapnia; Z68.43 Body mass index [BMI] 50.0-59.9, adult; N17.9 Acute kidney failure, unspecified; C64.2 Malignant neoplasm of left kidney, except renal pelvis; E87.2 Acidosis; K92.1 Melena; I50.9 Heart failure, unspecified; J44.9 Chronic obstructive pulmonary disease, unspecified; G47.33 Obstructive sleep apnea (adult) (pediatric); E66.01 Morbid (severe) obesity due to excess calories; F32.9 Major depressive disorder, single episode, unspecified; I89.0 Lymphedema, not elsewhere classified; L30.4 Erythema intertrigo; D30.02 Benign neoplasm of left kidney; I27.20 Pulmonary hypertension, unspecified; Z99.81 Dependence on supplemental oxygen
CPT/HCPCS: 36410; 36415; 76770; 80048; 80053; 82803; 82805; 84145; 85027; 87040; 87081; 87493; 93005; 93306; 94640; 96361; 96365; 97110; 97140; 97163; 97530; 99223; 99232; 99233; 99239; 99255; 99285; J1650; NC; U0003; 36600; 71045; 71046; 80202; 81003; 81015; 82272; 82607; 82728; 82746; 83540; 83550; 83605; 83735; 83880; 84484; 84550; 85025; 85610; 85730; 86140; 87086; 93010; 93970; 94660; J0690; J1940; J1956; J2543; J2930; J7620

== ENCOUNTER 2020-06-03 16:07 | Outpatient (REF) | payer MEDICARE, MEDICAID, SELFPAY ==
[2020-06-03 17:55] LABS: Potassium 3.6 mmol/L (3.5-5.1)
[2020-06-04 12:07] LABS: ALT 13 U/L (14-59); AST 12 U/L (15-37); Albumin 2.4 g/dL (3.4-5.0); Alkaline Phosphatase 108 U/L (46-116); Anion Gap 7.3 mmol/L (3-11); BUN 51 mg/dL (7-18); Bilirubin, Total 0.2 mg/dL (0.2-1.0); CO2 29.7 mmol/L (21.0-32.0); CREATININE 1.4 mg/dL (0.55-1.02); Calcium 10.2 mg/dL (8.5-10.1); Chloride 108 mmol/L (98-107); Estimated GFR 37.07 (mL/min/1.73m2); Glucose 165 mg/dL (74-106); Magnesium 2.2 mg/dL (1.8-2.4); Potassium 3.6 mmol/L (3.5-5.1); Sodium 145 mmol/L (136-145); Total Protein 6.4 g/dL (6.4-8.2)
[2020-06-04 14:57] LABS: COVID-19 RT-PCR Result Not Detected ((See Note))
== END 2020-06-03 16:08 | disposition home or self-care (01) ==
LOC: NCHCN 16:07
PROVIDERS: Nurse Practitioner Gerontology; Visit Provider Family Medicine
DX: I50.9 Heart failure, unspecified (principal); E87.8 Other disorders of electrolyte and fluid balance, not elsewhere classified; J44.1 Chronic obstructive pulmonary disease with (acute) exacerbation; Z11.52 Encounter for screening for COVID-19
CPT/HCPCS: 80053; U0003; U0005; 83735; 84132

== ENCOUNTER 2020-06-09 19:34 | Outpatient (REF) | payer MEDICARE, MEDICAID, SELFPAY ==
[2020-06-09 18:25] LABS: Abs Immature Grans 0.03 10^3/uL (0.0-0.06); Absolute Basophil Count 0.06 10^3/uL (0.0-0.2); Absolute Eosinophil Count 0.63 10^3/uL (0.0-0.7); Absolute Lymphocyte Count 1.82 10^3/uL (1.2-3.4); Absolute Monocyte Count 1.03 10^3/uL (0.1-0.8); Absolute Neutrophil Count 6.23 10^3/uL (1.2-6.7); Basophils % 0.6; Eosinophils % 6.4; HCT 27.8 % (36.0-46.0); HGB 8.4 g/dL (11.2-15.7); Immature Grans % 0.3; Lymphocytes % 18.6; MCH 32.9 pg (27.0-33.0); MCHC 30.2 % (32.0-36.0); MPV 12.7 fL (8.0-11.0); Monocytes % 10.5; Neutrophils % 63.6; Nucleated RBC 0 %; Platelet Count 258 10^3/uL (130-400); RBC 2.55 10^6/uL (3.93-5.22); RDW-SD 64.6 fL
[2020-06-09 18:37] LABS: ALT 16 U/L (14-59); AST 12 U/L (15-37); Albumin 2.2 g/dL (3.4-5.0); Alkaline Phosphatase 110 U/L (46-116); BUN 21 mg/dL (7-18); Bilirubin, Total 0.3 mg/dL (0.2-1.0); CREATININE 1.2 mg/dL (0.55-1.02); Calcium 9.6 mg/dL (8.5-10.1); Chloride 112 mmol/L (98-107); Estimated GFR 44.29 (mL/min/1.73m2); Glucose 117 mg/dL (74-106); Potassium 4.5 mmol/L (3.5-5.1); Sodium 148 mmol/L (136-145); Total Protein 5.8 g/dL (6.4-8.2)
[2020-06-09 19:30] LABS: Diff Comment RBC Morph Reviewed; Macrocytosis 3+
== END 2020-06-09 19:35 | disposition home or self-care (01) ==
LOC: LBN 19:34
PROVIDERS: Visit Provider Family Medicine
DX: J44.1 Chronic obstructive pulmonary disease with (acute) exacerbation (principal); L03.116 Cellulitis of left lower limb; F41.1 Generalized anxiety disorder; I50.9 Heart failure, unspecified; N28.89 Other specified disorders of kidney and ureter; I11.0 Hypertensive heart disease with heart failure
CPT/HCPCS: 80053; 85025

== ENCOUNTER 2020-06-15 16:13 | Outpatient (REF) | payer MEDICARE, MEDICAID, SELFPAY ==
[2020-06-15 14:29] LABS: Abs Immature Grans 0.01 10^3/uL (0.0-0.06); Absolute Basophil Count 0.07 10^3/uL (0.0-0.2); Absolute Eosinophil Count 0.47 10^3/uL (0.0-0.7); Absolute Lymphocyte Count 2.11 10^3/uL (1.2-3.4); Absolute Monocyte Count 0.92 10^3/uL (0.1-0.8); Basophils % 0.9; Eosinophils % 5.9; HCT 27.7 % (36.0-46.0); HGB 8.3 g/dL (11.2-15.7); Immature Grans % 0.1; Lymphocytes % 26.4; MCH 31.8 pg (27.0-33.0); MCV 106.1 fL (80-95); MPV 12.6 fL (8.0-11.0); Monocytes % 11.5; Neutrophils % 55.2; Nucleated RBC 0 %; Platelet Count 223 10^3/uL (130-400); RBC 2.61 10^6/uL (3.93-5.22); RDW 15.8 % (11.7-14.6); WBC 7.98 10^3/uL (4.4-10.8)
[2020-06-15 14:34] LABS: Anion Gap 2.7 mmol/L (3-11); BUN 19 mg/dL (7-18); CO2 33.3 mmol/L (21.0-32.0); CREATININE 1.1 mg/dL (0.55-1.02); Calcium 9.6 mg/dL (8.5-10.1); Chloride 109 mmol/L (98-107); Estimated GFR 48.96 (mL/min/1.73m2); Glucose 91 mg/dL (74-106); Potassium 4.2 mmol/L (3.5-5.1); Sodium 145 mmol/L (136-145)
== END 2020-06-15 16:14 | disposition home or self-care (01) ==
LOC: NCHCN 16:13
PROVIDERS: Visit Provider Family Medicine
DX: I10 Essential (primary) hypertension (principal); N28.89 Other specified disorders of kidney and ureter; I50.9 Heart failure, unspecified; J44.1 Chronic obstructive pulmonary disease with (acute) exacerbation; L03.116 Cellulitis of left lower limb; F41.1 Generalized anxiety disorder
CPT/HCPCS: 80048; 85025

== ENCOUNTER 2020-06-20 08:41 | Outpatient (REF) | payer MEDICARE, MEDICAID, SELFPAY ==
[2020-06-20 08:53] LABS: Abs Immature Grans 0.01 10^3/uL (0.0-0.06); Absolute Basophil Count 0.05 10^3/uL (0.0-0.2); Absolute Lymphocyte Count 2.33 10^3/uL (1.2-3.4); Absolute Monocyte Count 0.74 10^3/uL (0.1-0.8); Absolute Neutrophil Count 3.82 10^3/uL (1.2-6.7); Basophils % 0.7; Eosinophils % 6.7; HGB 8.5 g/dL (11.2-15.7); Immature Grans % 0.1; Lymphocytes % 31.3; MCH 31.7 pg (27.0-33.0); MCHC 30.4 % (32.0-36.0); MCV 104.5 fL (80-95); MPV 12.4 fL (8.0-11.0); Monocytes % 9.9; Neutrophils % 51.3; Nucleated RBC 0 %; Platelet Count 212 10^3/uL (130-400); RBC 2.68 10^6/uL (3.93-5.22); RDW 15.6 % (11.7-14.6); RDW-SD 60.7 fL; WBC 7.45 10^3/uL (4.4-10.8)
[2020-06-20 09:02] LABS: Anion Gap 5.8 mmol/L (3-11); BUN 16 mg/dL (7-18); CO2 33.2 mmol/L (21.0-32.0); CREATININE 1.2 mg/dL (0.55-1.02); Calcium 9.4 mg/dL (8.5-10.1); Chloride 108 mmol/L (98-107); Estimated GFR 44.29 (mL/min/1.73m2); Glucose 80 mg/dL (74-106); Sodium 147 mmol/L (136-145)
== END 2020-06-20 08:42 | disposition home or self-care (01) ==
LOC: NCHCN 08:41
PROVIDERS: Visit Provider Family Medicine
DX: N28.89 Other specified disorders of kidney and ureter (principal); I89.0 Lymphedema, not elsewhere classified; R60.0 Localized edema; E66.01 Morbid (severe) obesity due to excess calories; J44.1 Chronic obstructive pulmonary disease with (acute) exacerbation
CPT/HCPCS: 80048; 85025

== ENCOUNTER 2020-07-01 13:34 | Inpatient (IN) | payer MEDICARE, MEDICAID, SELFPAY ==
[2020-07-01] VITALS (61 sets, daily range): BP systolic 103–182; BP diastolic 65–139; PULSE 73–109; RESP 13–30; TEMP 36.3–36.6; O2SAT 78–96
--- NOTE | 2020-07-01 13:15 | RT.EKG_ITS ---
APPROVED REPORT Exam: Resting ECG Patient Location: E HR:94 bpm ECG Measurements Heart Rate 94 AXIS NY 215 P 66 QRSd 104 QRS 21 QT 371 T 6 QTc 465 Conclusion Sinus rhythm...normal P axis, V-rate 60- 99 Prolonged NY interval...NY >215, V-rate 91-120 Probable left ventricular hypertrophy...multiple LVH criteria Nonspecific T abnormalities, lateral leads...T <-0.10mV, I aVL V5 V6
--- NOTE | 2020-07-01 13:23 | DI.CT_ITS ---
EXAM: CT CHEST PE ABD PELVIS W CLINICAL HISTORY: short of breath and hypoxia. TECHNIQUE: Imaging Protocol: Axial CT angiography was performed with multi-slice acquisition and mu lti-planar and/or 3D reconstructions. CONTRAST MATERIAL: Intravenous: Omnipaque 350 Contrast volume:100 mL COMPARISON: No exams were available for comparison FINDINGS: The examination is limited due to patient motion artifact. CHEST: Pulmonary Arteries: No evidence of filling defect to suggest pulmonary emboli. Tracheobronchial tree: Patent where visualized. Mediastinum and Katerina: No dominant adenopathy or fluid collection. Moderate hiatal hernia. Pulmonary parenchyma: There consolidations in the lower lobes bilaterally and the right upper lobe. No architectural distortion. Pleura: There are moderate bilateral pleural effusions. No pneumothorax. Heart: Cardiomegaly. Mild coronary artery calcification. No pericardial effusion. Aorta: Thoracic aorta non-dilated. Atherosclerosis. Bones: Degenerative changes. Tubes, Catheters, and Lines: The left central venous catheter terminates in the brachiocephalic vein. ABDOMEN: Liver: Normal density. There are several hypodense lesions seen within the liver. There are nonspeci fic. Portal, Superior Mesenteric, and Splenic Veins: Unremarkable. Note is made of a portosystemic shunt c onnecting the SMV to the IVC. Gallbladder and Biliary Tract: No radiodense calculus or dilation. Pancreas: Normal density, no abnormal calcifications or inflammatory process. There is a 4.48 cm soft tissue mass at the tail of the pancreas. Spleen: Absent spleen. Adrenals: There are bilateral adrenal nodules. The right adrenal nodule measures 1.3 cm. The left a drenal nodule measures 1.9 cm. Kidneys: Normal size, contour and axis. No radiodense stones or obstructive uropathy. Is a 4.5 x 4.5 cm mass at the posterior aspect of the lower pole of the left kidney. The finding is most suspicious for renal cell carcinoma. There also appears to be a right renal pelvic mass measuring 1.8 cm. Are bilateral hypodensities seen within the kidneys which are too small for further characterization but likely reflect cysts. There is a 2.9 cm staghorn calculus in the lower pole of the left kidney. No hydronephrosis. Abdominal Aorta: Abdominal portion non-dilated. Atherosclerosis. Bowel: No obstruction or bowel wall thickening. No evidence of acute appendicitis. There is a modera te hiatal hernia. There is diverticulosis seen in the sigmoid colon but no evidence of acute diverti culitis. There is a midline anterior abdominal wall hernia containing an unremarkable loop of transv erse colon. Peritoneal Cavity: No ascites, collection or mesenteric inflammatory response. Lymph Nodes: Within normal limits. Bones: Degenerative changes seen throughout the thoracic and lumbar spine. Soft Tissues: Fat containing bilateral inguinal hernia are noted. PELVIS: Bladder: Bladder is not distended. There is a Mittal catheter in place. Reproductive Organs: Unremarkable as visualized. Lymph Nodes: Within normal limits. Bones: Please see above. IMPRESSION: 1. No evidence of pulmonary embolism or thoracic aortic dissection. 2. Bilateral pulmonary infiltrates and pleural effusions. 3. Bilateral renal masses. The largest is in the lower pole of the left kidney measures 4.5 cm. The findings are suspicious for multifocal renal cell carcinoma. 4. 4.8 cm pancreatic tail mass. Neoplasm should be excluded. 5. Bilateral adrenal gland masses. Metastatic disease versus adenoma. 6. 2.9 cm left lower pole staghorn calculus. No evidence of hydronephrosis. 7. Midline ventral hernia containing an unremarkable loop of transverse colon. 8. Absent spleen. 9. Portosystemic shunt connecting the SMV to the IVC. RADIATION DOSE DELIVERED: 4,828.4mGy.cm Total DLP 4,828.4mGy.cm Total DLP DATA REPOSITORY: All CT scans at this facility are submitted to the National Radiology Data Registry (NRDR) Dose Index Registry (DIR) with the [employer] (A[employer]). RADIATION OPTIMIZATION: All CT scans at this facility use at least one of these dose optimization te chniques: automated exposure control; mA and/or kV adjustment per patient size (includes targeted exa ms where dose is matched to clinical indication); or iterative reconstruction.
--- NOTE | 2020-07-01 14:25 | W.ED.GENAD ---
Discharge Plan Disposition Patient Disposition: [facility] INPATIENT Condition: Serious Discharge Details Clinical Impression: Difficult intravenous access, Shortness of breath, Urinary tract infection, Aspiration pneumonia of both lungs Admit Date/Time: 07/01/20 18:45 Admit Provider: Caesar Khan Attending Provider: Caesar Khan Primary Care Provider: Lucia Mckeon ED Provider: Levi Treviño Medical Decision Making <Yony Bhandari MD - Last Filed: 07/01/20 14:49> 69 yo female with hx of copd, morbid obesety, recent diagnosis of renal cell carcinoma comes in with ems after the [facility] noticed her short of breath and they checked her oxygen saturation and it was 60% per ems and ems noted an oxygen saturation in the low 80's. She arrives on cpap stating she feels short of breath but otherwise no complaints. She is able to speak in 3-4 word sentences and is in the mid 90's once on our bipap. She denies chest pain, abdominal pain, vomit, fevers. She has diffuse wheezing bilaterally on exam, no jvd. She was supposed to have a follow up CT this morning to follow up on her renal cancer but they were unable to place the IV and ems states she was not this short of breath earlier. Given exam findings will treat as possible copd with nebulizer and steroids. No chest pain or pressure so unlikely acs. Given the renal cell carcinoma feel she requires CTA to evaluate for PE. Nursing unable to place IV. I was unable to find a vein suitable for IV access with the ultrasound due to patient's habitus. Given need for imaging and labs feel she requires central line at this point. Will try fem given I do not feel she would tolerate recumbent position well. She is caox4 and gives verbal consent to have this done after being explained risks and benefits. She remains hemodynamically stable and states she is feeling better since having nebulizer and being on our bipap. Unable to place femoral line partly due to patient's habitus and having significant pannus. Given I have attempted multiple times and she is hemodynamically stable consulted Dr. Ash who will evaluate for central access. Dr. Ash was successful placing central line, will order xray to confirm and ua consistent with likely uti vs colonization from the sen, will treat with ceftriaxone while labs and ct pending Differential Diagnosis Differential Diagnosis: Pe, pna, copd, chf Medical Records Medical records reviewed: Yes I reviewed the patient's medical records. ECG Data Attestation: I personally reviewed and interpreted this ECG (s) as follows: <Levi Treviño MD - Last Filed: 07/01/20 22:41> Received signout from Dr. Bhandari. Portable chest x-ray following central line placement shows line in adequate position with no evidence of pneumothorax. Patient has had positive elevated troponins in the past and again today at 0.21, with repeat of 0.23. She also has persistent and chronic hypernatremia sodium of 149 today. Potassium 2.9 and supplemented in the emergency department. CT of the chest, abdomen, pelvis obtained: This notes bilateral aspiration pneumonias left greater than right with small pleural effusions. Abdominal imaging with bilateral renal masses, pancreatic mass, please see formal report. Patient is improved and able to eat a meal on her own. Will discuss admission with Dr. Khan Lab Data Lab results reviewed: Yes I reviewed the patient's lab results. Labs: Laboratory Results - last 24 hr 07/01/20 07/01/20 07/01/20 14:13 14:25 15:04 WBC RBC Hgb Hct MCV MCH MCHC RDW Plt Count MPV Immature Gran % Neutrophils % Lymphocytes % Monocytes % Eosinophils % Basophils % Nucleated RBC % Absolute Neutrophils Absolute Lymphocytes Absolute Monocytes Absolute Eosinophils Absolute Basophils PT INR APTT Sodium 149 H Potassium 2.9 L Chloride 107 Carbon Dioxide 39.0 H Anion Gap 3.0 BUN 16 Creatinine 1.1 H Estimated GFR/1.73 m2 48.96 Glucose 97 Calcium 9.8 Magnesium 1.8 Total Bilirubin 0.4 AST 12 L ALT 9 L Alkaline Phosphatase 161 H Troponin I 0.21 H* NT-Pro-B Natriuret Pep 924 H Total Protein 7.2 Albumin 2.5 L Urine Color Yellow Urine Clarity Cloudy Urine pH 7.0 Ur Specific Keystone 1.020 Urine Protein 100 H Urine Ketones Negative Urine Blood Small H Urine Nitrite Negative Urine Bilirubin Negative Urine Urobilinogen 0.2 Ur Leukocyte Esterase Small H Urine RBC Not Applicable Urine WBC >50 H Ur Epithelial Cells Not Applicable Urine Crystals Not Applicable Urine Bacteria Urine Mucus Not Applicable Ur Culture Indicated? Yes Urine Glucose Negative COVID-19 Source Nasopharyx 07/01/20 07/01/20 15:04 15:04 WBC 15.03 H RBC 3.28 L Hgb 10.2 L Hct 34.2 L MCV 104.3 H MCH 31.1 MCHC 29.8 L RDW 15.4 H Plt Count 360 D MPV 11.8 H Immature Gran % 0.5 Neutrophils % 75.7 Lymphocytes % 13.2 Monocytes % 8.5 Eosinophils % 1.7 Basophils % 0.4 Nucleated RBC % 0 Absolute Neutrophils 11.38 H Absolute Lymphocytes 1.98 Absolute Monocytes 1.28 H Absolute Eosinophils 0.26 Absolute Basophils 0.06 PT 11.1 H INR 1.1 APTT 27.2 Sodium Potassium Chloride Carbon Dioxide Anion Gap BUN Creatinine Estimated GFR/1.73 m2 Glucose Calcium Magnesium Total Bilirubin AST ALT Alkaline Phosphatase Troponin I NT-Pro-B Natriuret Pep Total Protein Albumin Urine Color Urine Clarity Urine pH Ur Specific Keystone Urine Protein Urine Ketones Urine Blood Urine Nitrite Urine Bilirubin Urine Urobilinogen Ur Leukocyte Esterase Urine RBC Urine WBC Ur Epithelial Cells Urine Crystals Urine Bacteria Urine Mucus Ur Culture Indicated? Urine Glucose COVID-19 Source HPI <Yony Bhandari MD - Last Filed: 07/01/20 14:49> General Mode of arrival: EMS. Date/Time Provider Initiated Documentation: 07/01/20 13:57. Limitations to Documentation: no limitations. Information obtained by: patient. History of Present Illness 69 year old F presents to the emergency department with the chief complaint of short of breath, described as moderate, and it has been constant. No relieving factors improve symptom(s), No exacerbating factors reported . Patient did receive the following treatments prior to arrival, none Related Data Home Medications Medication Instructions Recorded Confirmed albuterol sulfate [Ventolin HFA] 2 puff INHALATION PRN PRN 05/02/16 07/01/20 omeprazole 1 tab PO BID 05/02/16 07/01/20 simvastatin 40 mg PO HS 05/02/16 07/01/20 Lactinex 1 tab PO TID 05/21/20 07/01/20 acetaminophen 650 mg PO QID 05/21/20 07/01/20 calcium gluconate 500 mg PO DAILY 05/21/20 07/01/20 ferrous sulfate [Iron (ferrous 325 mg PO TID 05/21/20 07/01/20 sulfate)] gabapentin [Neurontin] 300 mg PO TID 05/21/20 07/01/20 ipratropium-albuterol 1 spray INHALATION QID 05/21/20 07/01/20 lidocaine 2 patch TOPICAL DAILY 05/21/20 07/01/20 mometasone 2 puff INHALATION BID 05/21/20 07/01/20 vitamin G28-qcmha acid 1 tab SUBLINGUAL DAILY 05/21/20 07/01/20 sucralfate 1 g PO AC & HS #120 tab 06/02/20 07/01/20 folic acid 1 mg PO DAILY 07/01/20 07/01/20 furosemide 60 mg PO DAILY 07/01/20 07/01/20 polyethylene glycol 3350 [Miralax] 17 g PO DAILY 07/01/20 07/01/20 sertraline 100 mg PO 5XW 07/01/20 07/01/20 Previous Rx's Medication Instructions Recorded sucralfate 1 g PO AC & HS #120 tab 06/02/20 Allergies Allergy/AdvReac Type Severity Reaction Status Date / Time codeine Allergy Unverified 05/21/20 13:39 pentazocine AdvReac Unknown unknown Unverified 05/21/20 13:40 General Stated Complaint: SOB TATIANA: 1 Review of Systems <Yony Bhandari MD - Last Filed: 07/01/20 14:49> All systems reviewed & are unremarkable except as noted in HPI and below Constitutional Constitutional: Denies chills, Denies fever(s) and Denies weakness Cardiovascular Cardiovascular: Denies chest pain Respiratory Respiratory: Denies cough Gastrointestinal Gastrointestinal: Denies abdominal pain, Denies nausea and Denies vomiting Integumentary/Breasts Skin/Breast: Denies rash Neurologic Neurologic: Denies weakness Psychiatric Psychiatric: Denies depression [facility] <Yony Bhandari MD - Last Filed: 07/01/20 14:49> Medical History Anxiety about health Avoidance coping COPD (chronic obstructive pulmonary disease) Depression Generalized weakness Goals of care, counseling/discussion Low-level of literacy Lymphedema Morbid obesity correction resident Oncocytoma Palliative care patient Renal cell carcinoma Family History Son No problems noted. Son No problems noted. Son No problems noted. Mother , of ALS age 63 ALS (amyotrophic lateral sclerosis) Father , of lung cancer age 70 heavy smoker Lung cancer Smoker Sister No problems noted. Sister No problems noted. Sister No problems noted. Sister No problems noted. Sister No problems noted. Brother , older brother doesn't know how he No problems noted. Brother No problems noted. 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 Pets and animals: No Current gender identity: female What is your relationship status?: How often do you talk on the phone with friends or family?: once per week How often do you get together with friends or relatives?: never Panel score (0-1 are the most socially isolated patients): 0 What type of physical activity do you participate in: none, bed-bound, sedentary lifestyle and wheelchair-bound Special alysha needs: No Seatbelt use: always Water heater temp set <120 deg: Yes Working smoke detector in home: Yes Fire extinguisher in home: Yes Firearms in home: No Do you feel safe at home: Yes Do you feel safe in your relationship?: Yes Additional Social history: resident [facility]. Was living in [facility] until her legs gave out all of a sudden and I couldn't walk. [facility] was in [place], run by her son's best friend and his . Prior to living in [facility], lived on her own in [facility], where she lived for many years. She has one son in [facility], one son in [facility], and one son in [place], [place]. She tells me she knows her memory is getting worse. Sometimes I just black out. She has never filled out a [employer] form. She can't tell me which of her sons is her DPOA. Exam <Yony Bhandari MD - Last Filed: 07/01/20 14:49> Const General: in distress Orientation: alert HENCA Head: normal to inspection Ears: external ears normal General nose exam: external nose normal Mouth: moist mucous membranes Eyes General: appearance normal, both eyes and all related structures Neck Neck: normal visual inspection Resp Effort & Inspection: respiratory distress Cardio Rate: regular rate Skin General skin exam: no rashes or lesions noted Neuro General: patient alert and patient oriented x3 Extrem General: normal to inspection Psych Mental Status: mental status grossly normal Course <Yony Bhandari MD - Last Filed: 07/01/20 14:49> Vital Signs Vital signs: Vital Signs Temperature 36.6 C 07/01/20 13:28 Pulse 99 H 07/01/20 13:28 Respiratory Rate 24 07/01/20 13:28 Pulse Oximetry 84 L 07/01/20 13:28 Temperature 36.6 C 07/01/20 13:28 Pulse 99 H 07/01/20 13:28 Respiratory Rate 21 07/01/20 13:40 Respiratory Effort 07/01/20 13:40 Respiratory Depth Deep 07/01/20 13:40 Respiratory Pattern Tachypnea 07/01/20 13:40 Pulse Oximetry 84 L 07/01/20 13:28 Oxygen Delivery Method Cpap 07/01/20 13:28 Pain Level 0 07/01/20 13:28 Lab/Test Results Lab/Test Results: Laboratory Tests Range/Units 07/01/20 14:25 COVID-19 Source Nasopharyx Sign Out <Yony Bhandari MD - Last Filed: 07/01/20 14:49> Sign Out Data: Sign Out Comment: 69 yo female resident of the [facility] was supposed to have renal CT done today but they were unable to obtain IV access (morbid obesity and CT was follow up on renal cell carcinoma). Apparently at baseline has shortness of breath but increased at the [facility] and they reported oxygen saturation of 70%. On arrival was speaking in 3-4 word sentences and was 80% and improved to 95% on bipap. Very difficult access, unable to place femoral line so Nilsa consulted who placed right infraclavicular line. Pending CTA of the chest for PE and labs, did improve after duoneb as well. Will likely need admission for copd with hypoxia even if cta is negative Last updated by Yony Bhandari MD at 07/01/20 14:58
[2020-07-01 14:30] LABS: Bilirubin Negative (Negative); Blood Small (Negative); Clarity Cloudy (Clear); Glucose Negative (Negative); Ketones Negative (Negative); Leukocyte Esterase Small (Negative); Nitrite Negative (Negative); Urobilinogen 0.2 EU/dL (Up TO 0.2)
[2020-07-01 14:39] LABS: WBC >50 HPF (0-5)
[2020-07-01 14:40] LABS: C & S Indicated? Yes
--- NOTE | 2020-07-01 15:14 | SCONE_ITS ---
Date of service: 07/01/20 Time of Service: 15:30 History of Present Illness History of Present Illness Chief Complaint: Need for IV access Narrative: 69 yo female with hx of copd, morbid obesety, recent diagnosis of renal cell carcinoma comes in with ems after the [facility] noticed her short of breath and they checked her oxygen saturation and it was 60% per ems and ems noted an oxygen saturation in the low 80's. She arrives on cpap stating she feels short of breath but otherwise no complaints. She is able to speak in 3-4 word sentences and is in the mid 90's once on our bipap. She denies chest pain, abdominal pain, vomit, fevers. She has diffuse wheezing bilaterally on exam, no jvd. She was supposed to have a follow up CT this morning to follow up on her renal cancer but they were unable to place the IV and ems states she was not this short of breath earlier. Dr. Bhandari attempted to place an IV but was unsuccesful. I was asked to place a central line so they could draw blood and do a CT scan. Patient is laying in bed with her head elevated and on Cpap. I discussed the placement of the subclavian central line and she gave me verbal consent to place it. Consults Consult date: 07/01/20 Requesting physician: Yony Bhandari [facility] Medical History (Updated 07/01/20 @ 14:49 by Yony Bhandari MD) Anxiety about health Avoidance coping COPD (chronic obstructive pulmonary disease) Depression Generalized weakness Goals of care, counseling/discussion Low-level of literacy Lymphedema Morbid obesity pen[facility]iary resident Oncocytoma Palliative care patient Renal cell carcinoma Family History (Updated 05/27/20 @ 19:20 by Rocio Christensen MD) Son No problems noted. Son No problems noted. Son No problems noted. Mother , of ALS age 63 ALS (amyotrophic lateral sclerosis) Father , of lung cancer age 70 heavy smoker Lung cancer Smoker Sister No problems noted. Sister No problems noted. Sister No problems noted. Sister No problems noted. Sister No problems noted. Brother , older brother doesn't know how he No problems noted. Brother No problems noted. 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 Pets and animals: No Current gender identity: female What is your relationship status?: How often do you talk on the phone with friends or family?: once per week How often do you get together with friends or relatives?: never Panel score (0-1 are the most socially isolated patients): 0 What type of physical activity do you participate in: none, bed-bound, sedentary lifestyle and wheelchair-bound Special alysha needs: No Seatbelt use: always Water heater temp set <120 deg: Yes Working smoke detector in home: Yes Fire extinguisher in home: Yes Firearms in home: No Do you feel safe at home: Yes Do you feel safe in your relationship?: Yes Additional Social history: resident @ [facility]. Was living in [facility] until her legs gave out all of a sudden and I couldn't walk. [facility] was in [place], run by her son's best friend and his . Prior to living in [facility], lived on her own in [facility], where she lived for many years. She has one son in [facility], one son in [facility], and one son in [place], [place]. She tells me she knows her memory is getting worse. Sometimes I just black out. She has never filled out a COLST form. She can't tell me which of her sons is her DPOA. Exam Const General: cooperative and comfortable Orientation: alert and oriented x3 HENMT Head: normocephalic and atraumatic Resp Effort & Inspection: other (On Cpap) Results Last Vital Signs Temp 97.9 F 07/01/20 13:28 Pulse 85 07/01/20 15:05 Resp 25 H 07/01/20 15:05 BP 159/87 H 07/01/20 15:05 Pulse Ox 90 L 07/01/20 15:01 Labs Result diagrams: 07/01/20 15:04 07/01/20 15:04 Labs: Laboratory Results - last 24 hr 07/01/20 07/01/20 14:13 14:25 Urine Color Yellow Urine Clarity Cloudy Urine pH 7.0 Ur Specific [place] 1.020 Urine Protein 100 H Urine Ketones Negative Urine Blood Small H Urine Nitrite Negative Urine Bilirubin Negative Urine Urobilinogen 0.2 Ur Leukocyte Esterase Small H Urine RBC Not Applicable Urine WBC >50 H Ur Epithelial Cells Not Applicable Urine Crystals Not Applicable Urine Bacteria Urine Mucus Not Applicable Ur Culture Indicated? Yes Urine Glucose Negative COVID-19 Source Nasopharyx Procedures Central Line Placement Left SC: Time out performed: Yes Patient placed on monitor/pulse ox: Yes MD prep: mask, gown and gloves Central line prep: Chlorhexidine scrub and sterile drapes applied Local anesthesia used: lidocaine 1% Amount of anesthesia used (ml): 15 Ultrasound used for placement: No Central line lumen inserted: triple Post procedure: sutured in place, good blood return, all ports aspirated, flushed, capped and sterile dressing applied Post procedure x-ray: tip of catheter in good position and no pneumothorax seen Patient tolerated procedure: well Complications: none Additional comments: After informed consent was obtained the patient was placed in a supine position on her bed. The head of the bed was lowered. A time out was done and her name, and procedure to be done were reviewed. Sharps were counted. The left chest wall was then prepped and draped in a standard fashion with chlorhexidine. Next 10 cc of 1% Lidocaine was injected into the dermis and subcutaneous tissue along the left clavicle. The introducer needle was then slowly advanced into the subclavian vein. Once I was able to pull venous blood into the syringe, the syringe was removed from the needle. The guidewire was then placed easily without resistance into the subclavian vein. The needle was removed. A small incision was made with an 11 blade next to the guidewire. The dilator was then placed over the guidewire into the vein. The dilator was removed and the tripple lumen cather was placed over the guidewire into the vein to 16 cm. The guidewire was removed and needless valves were placed on each lumen. Each lumen was then aspirated and flushed with sterile saline. The Central line was then secured in place with 2-0 silk suture. The skin was cleaned and dried and an antibiotic wheel was applied at the skin entrance. An occlusive dressing was then applied. The drapes were removed. Sharps were counted and were correct at the end of the procedure. The patient tolerated the procedure well. Stat CXR was ordered and was pending at the time of this dictation.
--- NOTE | 2020-07-01 15:18 | DI.RAD_ITS ---
EXAM: XR PORTABLE CHEST AP CLINICAL HISTORY: s/p line placement TECHNIQUE: 2D digital imaging was performed. COMPARISON: CR XR PORTABLE CHEST AP from 05/29/2020 FINDINGS: MEDIASTINUM: Normal. HEART: Normal. PULMONARY VASCULATURE: Normal. LUNGS: Bilateral pulmonary infiltrates are present. PLEURAL SPACE: No pleural effusion or pneumothorax. BONE:Within normal limits for the patient's age. OTHER FINDINGS:A left-sided subclavian central venous catheter is in place. The tip is seen just dis lana to the junction of the subclavian veins the superior vena cava. IMPRESSION: 1. Tip of the central venous catheter is in good position in the superior vena cava. 2. Bilateral pulmonary infiltrates. 3. Findings were discussed with the emergency department on the date of the examination. DATA REPOSITORY: RADIATION DOSE DELIVERED:
[2020-07-01 15:20] LABS: BE (Venous) 14 mmol/L (-2-3); HCO3 (Venous) 40 mmol/L (23-28); TCO2 (Venous) 37 mmol/L (24-29); pH (Venous) 7.38 (7.31-7.41); pO2 (Venous) 50 mmHg
[2020-07-01 15:21] LABS: O2 Sat (Venous) 85 %
[2020-07-01] MEDS: cefTRIAXone 2 GM/50 ML BAG IVPB (15:22)
[2020-07-01] MEDS: methylPREDNISolone SUCC 125 MG VIAL IVP (15:22)
[2020-07-01 15:24] LABS: Abs Immature Grans 0.07 10^3/uL (0.0-0.06); Absolute Basophil Count 0.06 10^3/uL (0.0-0.2); Absolute Monocyte Count 1.28 10^3/uL (0.1-0.8); Absolute Neutrophil Count 11.38 10^3/uL (1.2-6.7); Basophils % 0.4; Eosinophils % 1.7; HCT 34.2 % (36.0-46.0); HGB 10.2 g/dL (11.2-15.7); Immature Grans % 0.5; Lymphocytes % 13.2; MCH 31.1 pg (27.0-33.0); MCHC 29.8 % (32.0-36.0); MCV 104.3 fL (80-95); MPV 11.8 fL (8.0-11.0); Monocytes % 8.5; Neutrophils % 75.7; Nucleated RBC 0 %; Platelet Count 360 10^3/uL (130-400); RBC 3.28 10^6/uL (3.93-5.22); RDW 15.4 % (11.7-14.6); RDW-SD 58.8 fL; WBC 15.03 10^3/uL (4.4-10.8)
[2020-07-01 15:27] LABS: Absolute Eosinophil Count 0.26 10^3/uL (0.0-0.7); Absolute Lymphocyte Count 1.98 10^3/uL (1.2-3.4)
[2020-07-01 15:35] LABS: INR 1.1 (0.9-1.1); PTT Activated 27.2 sec (21.0-27.5); Prothrombin Time 11.1 sec (9.3-11.0)
[2020-07-01 15:42] LABS: ALT 9 U/L (14-59); AST 12 U/L (15-37); Albumin 2.5 g/dL (3.4-5.0); Alkaline Phosphatase 161 U/L (46-116); BUN 16 mg/dL (7-18); Bilirubin, Total 0.4 mg/dL (0.2-1.0); CREATININE 1.1 mg/dL (0.55-1.02); Calcium 9.8 mg/dL (8.5-10.1); Chloride 107 mmol/L (98-107); Estimated GFR 48.96 (mL/min/1.73m2); Glucose 97 mg/dL (74-106); Magnesium 1.8 mg/dL (1.8-2.4); NT-proBNP 924 pg/mL (<300); Sodium 149 mmol/L (136-145); Total Protein 7.2 g/dL (6.4-8.2)
[2020-07-01 15:46] LABS: Potassium 2.9 mmol/L (3.5-5.1)
[2020-07-01 15:47] LABS: Troponin I 0.21 ng/mL (<0.06)
--- NOTE | 2020-07-01 16:25 | NUR.NOTE ---
Nursing Note: Patient found to be on bedpan from [facility] upon arrival to ED. Bedpan removed. Will monitor for any pressure errors. Nursing Note:
[2020-07-01] MEDS: POTASSIUM CHLORIDE 20 MEQ/100 ML BAG 50 MEQ IVPB (17:17)
[2020-07-01] MEDS: Omnipaque 350 MG/ML 50 ML BTL 100 ML IJ (17:19)
[2020-07-01] MEDS: Normal Saline - Diluent 50 ML VIAL 100 ML IV (17:21)
--- NOTE | 2020-07-01 17:38 | RESPIRATORY ---
Pt biba after having sats in the 50's at the [facility]. In ER pt has the rescuer cpap on with an sp02 of 87, although mask does not have a good seal and is likely only giving o2, not cpap. Pt placed on bipap and initially 16/8 50% and is tolerating well but MV is 70-80. Titrated down to 10/5 and MV is still 70-80, Volumes reaching 2000. Changed to cpap and pt is tolerating very well, still maintaining volumes over 700, sp02 @98.
--- NOTE | 2020-07-01 17:55 | DI.VRAD_ITS ---
PROCEDURE INFORMATION: Exam: CT Angiography Chest With Contrast Exam date and time: 07/01/2020 4:03 PM Age: 69 years old Clinical indication: Other: Short of breath and hypoxia; Patient HX: Morbidly obese PT, included 5 minute delay per doctor TECHNIQUE: Imaging protocol: Computed tomographic angiography of the chest with contrast. 3D rendering (Not supervised by radiologist): MIP and/or 3D reconstructed images were created by the technologist. Radiation optimization: All CT scans at this facility use at least one of these dose optimization techniques: automated exposure control; mA and/or kV adjustment per patient size (includes targeted exams where dose is matched to clinical indication); or iterative reconstruction. Contrast material: OMNIPAQUE 350; Contrast volume: 100 ml; Contrast route: INTRAVENOUS (IV); Other contrast: 25ml visipaque 320; COMPARISON: CR XR PORTABLE CHEST AP 07/01/2020 3:00 PM FINDINGS: Tubes, catheters and devices: Left central venous catheter terminates in the brachiocephalic vein. Pulmonary arteries: Contrast fills the pulmonary artery and its branch vessels satisfactorily. No intraluminal filling defect to suggest pulmonary embolism. Aorta: Unremarkable. No aortic aneurysm. No aortic dissection. Lungs: Bilateral lower lobe aspiration pneumonias and adjacent small effusions. Right upper lobe consolidation representing an additional focus of pneumonia. Pleural spaces: Unremarkable. No pneumothorax. No pleural effusion. Heart: Dense mitral annular calcifications and mild coronary artery calcifications. Cardiomegaly. Mediastinal space: Moderate size hiatal hernia. Lymph nodes: Unremarkable. No enlarged lymph nodes. Bones/joints: Severe bilateral degenerative changes in the shoulder joints. Soft tissues: Unremarkable. IMPRESSION: 1. No pulmonary embolism. 2. Bilateral aspiration pneumonias with adjacent small pleural effusions. PROCEDURE INFORMATION: Exam: CT Angiography Abdomen With Contrast Exam date and time: 07/01/2020 4:03 PM Age: 69 years old Clinical indication: Other: Short of breath and hypoxia; Patient HX: Morbidly obese PT, included 5 minute delay per doctor TECHNIQUE: Imaging protocol: Computed tomographic angiography images of the abdomen with intravenous contrast material. 3D rendering (Not supervised by radiologist): MIP and/or 3D reconstructed images were created by the technologist. Radiation optimization: All CT scans at this facility use at least one of these dose optimization techniques: automated exposure control; mA and/or kV adjustment per patient size (includes targeted exams where dose is matched to clinical indication); or iterative reconstruction. Contrast material: OMNIPAQUE 350; Contrast volume: 100 ml; Contrast route: INTRAVENOUS (IV); Other contrast: 25ml visipaque 320; COMPARISON: CR XR PORTABLE CHEST AP 07/01/2020 3:00 PM FINDINGS: Tubes, catheters and devices: Decompressed urinary bladder with Mittal catheter balloon within. Aorta: No aortic aneurysm. No aortic dissection. Celiac trunk and mesenteric arteries: Atherosclerotic calcification of the celiac artery origin as well as in the SMA proximally with mild to moderate SMA stenosis. THANIA is patent. Renal arteries: No occlusion or significant stenosis. Inferior vena cava: Incidental note is made of a portosystemic shunt from the left wall of the SMV coursing behind the aorta into the IVC. Finding may the related to splenectomy. Liver: Multiple subcentimeter hypodensities throughout the liver likely representing cysts versus hemangiomas. Gallbladder and bile ducts: Normal. No calcified stones. No ductal dilation. Pancreas: Large lobulated 4.8 cm pancreatic tail mass. No ductal dilation. Spleen: Absent spleen. Adrenals: Bilateral adrenal gland nodularity. Largest right adrenal gland nodule measures 1.3 cm. The largest left adrenal gland nodule measures 1.9 cm. Kidneys and ureters: Large 2.9 cm left lower pole renal staghorn calculus. Posterior left lower pole renal mass measuring 4.5 cm, renal cell carcinoma. Right renal pelvic mass measuring 2.7 cm. Exophytic anteromedial right upper pole cortical mass measuring 1.8 cm. The remainder of the hypodense findings throughout the cortex of both kidneys likely represent small simple cysts. On the delayed phase imaging, there is bilateral symmetric excretion of contrast from the collecting systems along the near midline ureters into the urinary bladder. Stomach and bowel: Ventral hernia with transverse colon loop within and omental fat but no evidence for bowel distress at this time. Sigmoid diverticula. Lymph nodes: Unremarkable. No enlarged lymph nodes. Intraperitoneal space: Unremarkable. No free air. No significant fluid collection. Bones/joints: Multilevel moderate to severe degenerative changes in the thoracic and lumbar spine. No suspicious lytic or blastic osseous lesion. Soft tissues: Subcutaneous edema in the lateral and anterior right thigh. Bilateral fat containing inguinal hernias without evidence for bowel involvement. IMPRESSION: 1. Bilateral renal masses suspicious for multifocal renal cell carcinoma. The largest left lower pole mass measures 4.5 cm. 2. Large 2.9 cm left lower pole staghorn calculus. 3. Large pancreatic tail 4.8 cm mass. 4. Large ventral hernia with loop of transverse colon and omental fat within but no evidence for bowel distress at this time. Bilateral fat containing inguinal hernias without evidence for bowel wall thickening. 5. Bilateral adrenal gland masses, left greater than right. 6. Sigmoid diverticulosis. No diverticulitis. 7. 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 8. Anterior and lateral right thigh a subcutaneous edema. 9. Small to moderate size hiatal hernia. The study was personally discussed on the telephone with Dr. MELENDEZ on 07/01/2020 5:50 PM EST. The results were understood and acknowledged. Dictated and Authenticated by: Mireille Aranda MD. Ordering:FARIDEH Bhakta MD
[2020-07-01 17:57] LABS: Troponin I 0.23 ng/mL (<0.06)
[2020-07-01] MEDS: Aspirin 325 MG TAB PO (18:07)
[2020-07-01 18:11] LABS: pCO2 (Venous) 66 mmHg (41-51)
[2020-07-01 18:19] LABS: COVID-19 PCR Negative (Negative)
--- NOTE | 2020-07-01 18:26 | NUR.NOTE ---
PATIENT ON 10L NC FOR DINNER. AT REST WITH NO MOVEMENT SPO2 RANGING FROM 88-91%. WITH ANY MOVEMENT SPO2 RANGING 83-87%. DINNER FINISHED AND PLACED BACK ON CPAP 10, 40%. RT NOTIFIED. Nursing Note:
--- NOTE | 2020-07-01 18:27 | HPE_ITS ---
Date of service: 07/01/20 Time of Service: 18:27 Assessment and Plan Assessment and plan (1) Shortness of breath: Status: Acute Assessment and plan: I think this is largely COPD exacerbation (perhaps br ought on by aspiration event) as manifested by rapid turnaround. Probably an infectious component (viz, pneumonia). Likely an element of demand ischemia as well. Will continue updrafts and steroids and will broaden antibiotic coverage to Zosyn. Would consider further broadening given [facility]iary residence as well as recent hospitalization but patient seems to be doing considerably better already. COPD: steroids and updrafts, supplemental O2 Pneumonia: Zosyn, consider broaden coverage Demand ischemia: complete troponin series. Hypokalemia: replace and track Pyuria, presumed UTI. Zosyn as above, await culture History of Present Illness History of Present Illness Chief Complaint: SOB Narrative: 69 female resident Janny, with COPD and multiple problems. Became acutely SOB today brought to ER with sats low 80s and tachypneic. Diffuse wheezing noted. Given updraft an solumedrol with marked improvement. W/U notable for white count 15, K 2.9, CTA neg for PE but demonstrating bilateral pneumonitis c/w aspiration, first and second troponin 0.21 and 0.23, and EKG without ischemic changes. Incidental pyuria. Given [place] and potassium and admitted for further management. Patient states she feels back to baseline, has no c/o at present. Review of Systems All systems reviewed & are unremarkable except as noted in HPI and below PFSH Medical History Anxiety about health Avoidance coping COPD (chronic obstructive pulmonary disease) Depression Generalized weakness Goals of care, counseling/discussion Low-level of literacy Lymphedema Morbid obesity long-term resident Oncocytoma Palliative care patient Renal cell carcinoma Family History Son No problems noted. Son No problems noted. Son No problems noted. Mother , of ALS age 63 ALS (amyotrophic lateral sclerosis) Father , of lung cancer age 70 heavy smoker Lung cancer Smoker Sister No problems noted. Sister No problems noted. Sister No problems noted. Sister No problems noted. Sister No problems noted. Brother , older brother doesn't know how he No problems noted. Brother No problems noted. 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 Pets and animals: No Current gender identity: female What is your relationship status?: How often do you talk on the phone with friends or family?: once per week How often do you get together with friends or relatives?: never Panel score (0-1 are the most socially isolated patients): 0 What type of physical activity do you participate in: none, bed-bound, sedentary lifestyle and wheelchair-bound Special alysha needs: No Seatbelt use: always Water heater temp set <120 deg: Yes Working smoke detector in home: Yes Fire extinguisher in home: Yes Firearms in home: No Do you feel safe at home: Yes Do you feel safe in your relationship?: Yes Additional Social history: resident [facility]. Was living in [facility] until her legs gave out all of a sudden and I couldn't walk. [facility] was in [place], run by her son's best friend and his . Prior to living in [facility], lived on her own in [facility], where she lived for many years. She has one son in [facility], one son in [facility], and one son in [place], [place]. She tells me she knows her memory is getting worse. Sometimes I just black out. She has never filled out a COLST form. She can't tell me which of her sons is her DPOA. Meds Home Medications and Allergies Allergies Allergy/AdvReac Type Severity Reaction Status Date / Time codeine Allergy Unverified 05/21/20 13:39 pentazocine AdvReac Unknown unknown Unverified 05/21/20 13:40 Home Medications Medication Instructions Recorded Confirmed Type albuterol sulfate [Ventolin HFA] 2 puff INHALATION PRN PRN 05/02/16 05/21/20 History omeprazole 1 tab PO BID 05/02/16 05/21/20 History simvastatin 40 mg PO HS 05/02/16 05/21/20 History Lactinex 1 tab PO TID 05/21/20 05/21/20 History acetaminophen 650 mg PO QID 05/21/20 05/21/20 History calcium gluconate 500 mg PO DAILY 05/21/20 05/21/20 History docusate sodium 50 mg PO BID 05/21/20 05/21/20 History ferrous sulfate [Iron (ferrous 325 mg PO TID 05/21/20 05/21/20 History sulfate)] gabapentin [Neurontin] 200 mg PO TID 05/21/20 05/21/20 History ipratropium-albuterol 1 spray INHALATION QID 05/21/20 05/21/20 History lidocaine 2 patch TOPICAL DAILY 05/21/20 05/21/20 History mometasone 2 puff INHALATION BID 05/21/20 05/21/20 History potassium chloride 20 meq PO DAILY 05/21/20 05/21/20 History sertraline 150 mg PO DAILY 05/21/20 05/21/20 History vitamin U00-[id number] acid 1 tab SUBLINGUAL DAILY 05/21/20 05/21/20 History levofloxacin 750 mg PO Q48H #5 tab 06/02/20 Rx nutritional supplements 1 oz PO TID #90 ea 06/02/20 Rx [Phlexy-Vits] prednisone 40 mg PO DAILY #60 tab 06/02/20 Rx sucralfate 1 g PO AC & HS #120 tab 06/02/20 Rx Exam Narrative Exam Narrative: 103/88, 98, 36.6, 20, 78 (last recorded. During my visit sats 88-94% on 6L). Sitting in stretcher eating dinner. HEENT atraumatic; neck supple; lungs diminished, scattered wheeze; hear distant but RRR; abdomen soft and NT; extremities chronic lymphedema with 1+ pitting edema as well; neuro Ox3, moves all 4s. Results Labs Result diagrams: 07/01/20 15:04 07/01/20 15:04 Labs: Laboratory Results - last 24 hr 07/01/20 07/01/20 07/01/20 14:13 14:25 15:04 WBC RBC Hgb Hct MCV MCH MCHC RDW Plt Count MPV Immature Gran % Neutrophils % Lymphocytes % Monocytes % Eosinophils % Basophils % Nucleated RBC % Absolute Neutrophils Absolute Lymphocytes Absolute Monocytes Absolute Eosinophils Absolute Basophils PT INR APTT VBG pH VBG pCO2 VBG pO2 VBG HCO3 VBG Total CO2 VBG O2 Saturation VBG Base Excess Sodium 149 H Potassium 2.9 L Chloride 107 Carbon Dioxide 39.0 H Anion Gap 3.0 BUN 16 Creatinine 1.1 H Estimated GFR/1.73 m2 48.96 Glucose 97 Calcium 9.8 Magnesium 1.8 Total Bilirubin 0.4 AST 12 L ALT 9 L Alkaline Phosphatase 161 H Troponin I 0.21 H* NT-Pro-B Natriuret Pep 924 H Total Protein 7.2 Albumin 2.5 L Urine Color Yellow Urine Clarity Cloudy Urine pH 7.0 Ur Specific [place] 1.020 Urine Protein 100 H Urine Ketones Negative Urine Blood Small H Urine Nitrite Negative Urine Bilirubin Negative Urine Urobilinogen 0.2 Ur Leukocyte Esterase Small H Urine RBC Not Applicable Urine WBC >50 H Ur Epithelial Cells Not Applicable Urine Crystals Not Applicable Urine Bacteria Urine Mucus Not Applicable Ur Culture Indicated? Yes Urine Glucose Negative COVID-19 Source Nasopharyx SARS-CoV-2 (PCR) Negative 07/01/20 07/01/20 07/01/20 15:04 15:04 15:04 WBC 15.03 H RBC 3.28 L Hgb 10.2 L Hct 34.2 L MCV 104.3 H MCH 31.1 MCHC 29.8 L RDW 15.4 H Plt Count 360 D MPV 11.8 H Immature Gran % 0.5 Neutrophils % 75.7 Lymphocytes % 13.2 Monocytes % 8.5 Eosinophils % 1.7 Basophils % 0.4 Nucleated RBC % 0 Absolute Neutrophils 11.38 H Absolute Lymphocytes 1.98 Absolute Monocytes 1.28 H Absolute Eosinophils 0.26 Absolute Basophils 0.06 PT 11.1 H INR 1.1 APTT 27.2 VBG pH 7.38 VBG pCO2 66 H* VBG pO2 50 VBG HCO3 40 H VBG Total CO2 37 H VBG O2 Saturation 85 VBG Base Excess 14 H Sodium Potassium Chloride Carbon Dioxide Anion Gap BUN Creatinine Estimated GFR/1.73 m2 Glucose Calcium Magnesium Total Bilirubin AST ALT Alkaline Phosphatase Troponin I NT-Pro-B Natriuret Pep Total Protein Albumin Urine Color Urine Clarity Urine pH Ur Specific [place] Urine Protein Urine Ketones Urine Blood Urine Nitrite Urine Bilirubin Urine Urobilinogen Ur Leukocyte Esterase Urine RBC Urine WBC Ur Epithelial Cells Urine Crystals Urine Bacteria Urine Mucus Ur Culture Indicated? Urine Glucose COVID-19 Source SARS-CoV-2 (PCR) 07/01/20 17:14 WBC RBC Hgb Hct MCV MCH MCHC RDW Plt Count MPV Immature Gran % Neutrophils % Lymphocytes % Monocytes % Eosinophils % Basophils % Nucleated RBC % Absolute Neutrophils Absolute Lymphocytes Absolute Monocytes Absolute Eosinophils Absolute Basophils PT INR APTT VBG pH VBG pCO2 VBG pO2 VBG HCO3 VBG Total CO2 VBG O2 Saturation VBG Base Excess Sodium Potassium Chloride Carbon Dioxide Anion Gap BUN Creatinine Estimated GFR/1.73 m2 Glucose Calcium Magnesium Total Bilirubin AST ALT Alkaline Phosphatase Troponin I 0.23 H* NT-Pro-B Natriuret Pep Total Protein Albumin Urine Color Urine Clarity Urine pH Ur Specific [place] Urine Protein Urine Ketones Urine Blood Urine Nitrite Urine Bilirubin Urine Urobilinogen Ur Leukocyte Esterase Urine RBC Urine WBC Ur Epithelial Cells Urine Crystals Urine Bacteria Urine Mucus Ur Culture Indicated? Urine Glucose COVID-19 Source SARS-CoV-2 (PCR) Last Vital Signs Temp 36.6 C 07/01/20 13:28 Pulse 98 H 07/01/20 18:02 Resp 20 07/01/20 18:02 BP 103/88 07/01/20 18:02 Pulse Ox 78 L 07/01/20 18:02 COVID-19 Screening Have you, or household traveled for leisure in last 14 days?: No Had IN PERSON contact w/suspected or confirmed C-19 person: No
[2020-07-01] MEDS: Potassium Chloride 20 MEQ TABCR PO ×2 (20:37→22:09)
--- NOTE | 2020-07-01 20:38 | RESPIRATORY ---
Pt has decreasing MV (8) and volumes (500) while sleeping (also concerns of apnea with previous visits) so she is placed on bipap instead of cpap for the night and tolerating well.
[2020-07-01] MEDS: PIPERACILLIN/TAZO 4.5 GM in Normal Saline 100 ML IVPB (22:07)
[2020-07-01] MEDS: Normal Saline Flush 10 ML SYR IVP ×2 (22:08→23:26)
[2020-07-01] MEDS: Albuterol/Ipratropium 3 ML UPD VIAL UPD (22:09)
[2020-07-01] MEDS: methylPREDNISolone SUCC 40 MG VIAL IVP (22:09)
[2020-07-01 22:49] LABS: Troponin I 0.24 ng/mL (<0.06)
[2020-07-02] VITALS (11 sets, daily range): BP systolic 158–174; BP diastolic 80–97; PULSE 71–90; RESP 2–24; TEMP 37–37.3; O2SAT 91–96
[2020-07-02] MEDS: Albuterol/Ipratropium 3 ML UPD VIAL UPD ×3 (02:51→15:26)
[2020-07-02] MEDS: PIPERACILLIN/TAZO 4.5 GM in Normal Saline 100 ML IVPB ×4 (02:52→21:33)
[2020-07-02] MEDS: Normal Saline Flush 10 ML SYR IVP ×8 (02:53→21:39)
[2020-07-02] MEDS: methylPREDNISolone SUCC 40 MG VIAL IVP ×3 (05:30→21:35)
[2020-07-02 06:57] LABS: HCT 30.1 % (36.0-46.0); HGB 9.1 g/dL (11.2-15.7); MCH 30.8 pg (27.0-33.0); MCHC 30.2 % (32.0-36.0); MPV 11.8 fL (8.0-11.0); Platelet Count 340 10^3/uL (130-400); RBC 2.95 10^6/uL (3.93-5.22); RDW 15.2 % (11.7-14.6); RDW-SD 56.2 fL; WBC 9.43 10^3/uL (4.4-10.8)
[2020-07-02 07:18] LABS: Anion Gap 3.2 mmol/L (3-11); BUN 18 mg/dL (7-18); CO2 36.8 mmol/L (21.0-32.0); CREATININE 1.1 mg/dL (0.55-1.02); Calcium 9.8 mg/dL (8.5-10.1); Chloride 108 mmol/L (98-107); Estimated GFR 48.96 (mL/min/1.73m2); Glucose 152 mg/dL (74-106); Potassium 3.4 mmol/L (3.5-5.1); Sodium 148 mmol/L (136-145)
[2020-07-02 07:26] LABS: Troponin I 0.21 ng/mL (<0.06)
[2020-07-02] MEDS: Potassium Chloride 20 MEQ TABCR PO ×2 (08:13→21:36)
[2020-07-02] MEDS: Acetaminophen 325 MG TAB 650 MG PO (08:27)
[2020-07-02] MEDS: Furosemide 40 MG/4 ML VIAL IVP ×2 (10:47→16:33)
[2020-07-02] MEDS: Sucralfate 1 GM TAB PO ×3 (11:50→21:37)
[2020-07-02] MEDS: Lidocaine 5% Patch 2 PATCH TP (11:50)
--- NOTE | 2020-07-02 12:36 | PGE_ITS ---
Date of Service Date of service: 07/02/20 Time of Service: 12:36 Assessment and Plan Assessment and plan (1) Acute on chronic respiratory failure with hypoxia and hypercapnia: Status: Acute Assessment and plan: Multifactorial - due to acute exacerbation of COPD triggered by bilateral aspiration pneumonia in addition to fluid overload due to combination of acute on chronic CHFpEF and pulmonary hypertension. Continue empiric zosyn, nebs, systemic steroids, furosemide, Bipap. Wean steroids as tolerated. (2) Aspiration pneumonia of both lungs: Status: Acute Assessment and plan: As above COVID-19 negative. (3) Acute exacerbation of chronic obstructive pulmonary disease (COPD): Status: Acute Assessment and plan: As above (4) (HFpEF) heart failure with preserved ejection fraction: Status: Acute Assessment and plan: As above. Monitor I/O's and daily weights (5) Pulmonary hypertension: Status: Acute Assessment and plan: As above (6) Elevated troponin: Status: Chronic Assessment and plan: The patient has chronic troponinemia. In this case, it was also likely triggered by hypoxia and CHF. There is no ACS. (7) Urinary tract infection: Status: Acute Assessment and plan: Present on admission. Urine C&S with GNR, speciation pending. Await urine C&S. Continue empiric zosyn (8) TRINH (obstructive sleep apnea): Status: Chronic Assessment and plan: Continue BiPAp QHS (9) DVT prophylaxis: Status: Acute Assessment and plan: Chemical DVT ppx is contraindicated due to h/o GI bleeding (10) Discharge planning issues: Status: Acute Assessment and plan: Full code Continues to require hospitalization Subjective Subjective Interval history since last seen: Ms Lindsay states that her breathing is feeling better, but it is not back to normal. She denies dizziness, endorses chest pain on the right side of her chest which is very tender to touch (she jumps). She endorses nausea. Was able to eat at least a half of her lunch. Denies abdominal pain. Reports left leg pain is especially bad today and is worst at left knee. Exam Narrative Exam Narrative: General: Obese female, laying nearly flat in bed, mildly dyspneic, A&Ox3, very interactive/appropriate HEENT: EOMI, MMM Heart: RRR, no m/r/g; R chest extremely TTP. Lungs: Diminished breath sounds anteriorly; dyspneic Abdomen: soft, obese, nontender Extremities: BLE lymphedema; no erythema/swelling over L knee, TTP. Objective Last Vital Signs Temp 37 C 07/02/20 07:47 Pulse 80 07/02/20 09:58 Resp 20 07/02/20 07:47 BP 160/82 H 07/02/20 07:47 Pulse Ox 95 07/02/20 09:58 Laboratory Results - last 24 hr 07/01/20 07/01/20 07/01/20 14:13 14:25 15:04 WBC RBC Hgb Hct MCV MCH MCHC RDW Plt Count MPV Immature Gran % Neutrophils % Lymphocytes % Monocytes % Eosinophils % Basophils % Nucleated RBC % Absolute Neutrophils Absolute Lymphocytes Absolute Monocytes Absolute Eosinophils Absolute Basophils PT INR APTT VBG pH VBG pCO2 VBG pO2 VBG HCO3 VBG Total CO2 VBG O2 Saturation VBG Base Excess Sodium 149 H Potassium 2.9 L Chloride 107 Carbon Dioxide 39.0 H Anion Gap 3.0 BUN 16 Creatinine 1.1 H Estimated GFR/1.73 m2 48.96 Glucose 97 Calcium 9.8 Magnesium 1.8 Total Bilirubin 0.4 AST 12 L ALT 9 L Alkaline Phosphatase 161 H Troponin I 0.21 H* NT-Pro-B Natriuret Pep 924 H Total Protein 7.2 Albumin 2.5 L Urine Color Yellow Urine Clarity Cloudy Urine pH 7.0 Ur Specific [place] 1.020 Urine Protein 100 H Urine Ketones Negative Urine Blood Small H Urine Nitrite Negative Urine Bilirubin Negative Urine Urobilinogen 0.2 Ur Leukocyte Esterase Small H Urine RBC Not Applicable Urine WBC >50 H Ur Epithelial Cells Not Applicable Urine Crystals Not Applicable Urine Bacteria Urine Mucus Not Applicable Ur Culture Indicated? Yes Urine Glucose Negative COVID-19 Source Nasopharyx SARS-CoV-2 (PCR) Negative 07/01/20 07/01/20 07/01/20 15:04 15:04 15:04 WBC 15.03 H RBC 3.28 L Hgb 10.2 L Hct 34.2 L MCV 104.3 H MCH 31.1 MCHC 29.8 L RDW 15.4 H Plt Count 360 D MPV 11.8 H Immature Gran % 0.5 Neutrophils % 75.7 Lymphocytes % 13.2 Monocytes % 8.5 Eosinophils % 1.7 Basophils % 0.4 Nucleated RBC % 0 Absolute Neutrophils 11.38 H Absolute Lymphocytes 1.98 Absolute Monocytes 1.28 H Absolute Eosinophils 0.26 Absolute Basophils 0.06 PT 11.1 H INR 1.1 APTT 27.2 VBG pH 7.38 VBG pCO2 66 H* VBG pO2 50 VBG HCO3 40 H VBG Total CO2 37 H VBG O2 Saturation 85 VBG Base Excess 14 H Sodium Potassium Chloride Carbon Dioxide Anion Gap BUN Creatinine Estimated GFR/1.73 m2 Glucose Calcium Magnesium Total Bilirubin AST ALT Alkaline Phosphatase Troponin I NT-Pro-B Natriuret Pep Total Protein Albumin Urine Color Urine Clarity Urine pH Ur Specific [place] Urine Protein Urine Ketones Urine Blood Urine Nitrite Urine Bilirubin Urine Urobilinogen Ur Leukocyte Esterase Urine RBC Urine WBC Ur Epithelial Cells Urine Crystals Urine Bacteria Urine Mucus Ur Culture Indicated? Urine Glucose COVID-19 Source SARS-CoV-2 (PCR) 07/01/20 07/01/20 07/02/20 17:14 22:10 06:10 WBC RBC Hgb Hct MCV MCH MCHC RDW Plt Count MPV Immature Gran % Neutrophils % Lymphocytes % Monocytes % Eosinophils % Basophils % Nucleated RBC % Absolute Neutrophils Absolute Lymphocytes Absolute Monocytes Absolute Eosinophils Absolute Basophils PT INR APTT VBG pH VBG pCO2 VBG pO2 VBG HCO3 VBG Total CO2 VBG O2 Saturation VBG Base Excess Sodium 148 H Potassium 3.4 L Chloride 108 H Carbon Dioxide 36.8 H Anion Gap 3.2 BUN 18 Creatinine 1.1 H Estimated GFR/1.73 m2 48.96 Glucose 152 H Calcium 9.8 Magnesium Total Bilirubin AST ALT Alkaline Phosphatase Troponin I 0.23 H* 0.24 H* NT-Pro-B Natriuret Pep Total Protein Albumin Urine Color Urine Clarity Urine pH Ur Specific [place] Urine Protein Urine Ketones Urine Blood Urine Nitrite Urine Bilirubin Urine Urobilinogen Ur Leukocyte Esterase Urine RBC Urine WBC Ur Epithelial Cells Urine Crystals Urine Bacteria Urine Mucus Ur Culture Indicated? Urine Glucose COVID-19 Source SARS-CoV-2 (PCR) 07/02/20 07/02/20 06:10 06:10 WBC 9.43 D RBC 2.95 L Hgb 9.1 L Hct 30.1 L MCV 102.0 H MCH 30.8 MCHC 30.2 L RDW 15.2 H Plt Count 340 MPV 11.8 H Immature Gran % Neutrophils % Lymphocytes % Monocytes % Eosinophils % Basophils % Nucleated RBC % Absolute Neutrophils Absolute Lymphocytes Absolute Monocytes Absolute Eosinophils Absolute Basophils PT INR APTT VBG pH VBG pCO2 VBG pO2 VBG HCO3 VBG Total CO2 VBG O2 Saturation VBG Base Excess Sodium Potassium Chloride Carbon Dioxide Anion Gap BUN Creatinine Estimated GFR/1.73 m2 Glucose Calcium Magnesium Total Bilirubin AST ALT Alkaline Phosphatase Troponin I 0.21 H* NT-Pro-B Natriuret Pep Total Protein Albumin Urine Color Urine Clarity Urine pH Ur Specific [place] Urine Protein Urine Ketones Urine Blood Urine Nitrite Urine Bilirubin Urine Urobilinogen Ur Leukocyte Esterase Urine RBC Urine WBC Ur Epithelial Cells Urine Crystals Urine Bacteria Urine Mucus Ur Culture Indicated? Urine Glucose COVID-19 Source SARS-CoV-2 (PCR)
[2020-07-02] MEDS: Lidocaine 5% Patch 1 PATCH TP ×2 (14:02→15:38)
[2020-07-02] MEDS: Gabapentin 300 MG CAP PO ×2 (14:03→21:36)
[2020-07-02] MEDS: Omeprazole 20 MG CAPCR 40 MG PO ×2 (14:03→21:36)
[2020-07-02] MEDS: Ferrous Sulfate 325 MG TAB PO ×2 (14:03→21:37)
--- NOTE | 2020-07-02 14:57 | INITIAL_ITS ---
- If Service Date Differs Date of service: 07/02/20 Time of Service: 17:54 Care Management Initial Assess REASON FOR HOSPITALIZATION:: COPD, Pneumonia PAST MEDICAL HISTORY/PAST SURGICAL HISTORY:: Anxiety about Health, Avoidance coping, COPD, depression, generalized weakness, low level of literacy, lymphedema, morbid obesity, oncocytoma, Palliative Care patient, renal cell carcinoma, TRINH, left renal mass, heart failure with preserved EF, pulmonary hypertension, GI bleed, aspiration pneumonia, CHF, ZUHAIR, UTIs, DVT prophylaxis PREVIOUS FUNCTIONAL STATUS/SOCIAL/FAMILY SUPPORTS:: Michelle was placed at the [facility] recently from [facility] for rehabiliation. This is her second admission at [facility] this year. CURRENT FUNCTIONAL STATUS:: Michelle remains on bedrest, she is utilizing her BIPAP when CM attempts to meet with her. She continues to be closely monitored and treated and followed by Respiratory at this time. CM continues to follow. Has patient been provided with info about the portal/API?: No Did the patient sign up for the portal?: No CODE STATUS:: Full Code INSURANCE COVERAGE / FINANCIAL ISSUES:: Medicare. Medicaid CURRENT HOME/COMMUNITY SERVICES/EQUIPMENT:: Resident at [facility], 2L O2 at baseline. CPAP. [facility] reports Michelle had skilled RN services prior to her admission to the [facility]. PRIMARY CARE PHYSICIAN:: Lucia Mckeon POTENTIAL DISCHARGE NEEDS:: Coordinated return to the [facility]. PATIENT/FAMILY EDUCATION NEEDS:: Review of discharge instructions, discuss Ask Me Three. ANTICIPATED BARRIERS TO DISCHARGE:: None identified. TRANSPORTATION:: Via RCT due to lack of transportation at the [facility]. PLAN:: Michelle continues to be closely monitored and treated. She will return to the [facility] once medically stable via RCT. CM continues to follow.
--- NOTE | 2020-07-02 14:59 | PHA.REVIEW ---
Pharmacy Admission Review - Admission Clinical Review (Last Reviewed 07/01/20 @ 18:33 by Caesar Khan MD) Shortness of breath (Acute) Urinary tract infection (Acute) Aspiration pneumonia of both lungs (Acute) Difficult intravenous access (Acute) Acute on chronic respiratory failure with hypoxia and hypercapnia (Acute) Elevated troponin (Acute) Discharge planning issues (Acute) DVT prophylaxis (Acute) codeine Allergy (Unverified 05/21/20 13:39) pentazocine Adverse Reaction (Unknown, Unverified 05/21/20 13:40) unknown Height 5 ft 3 in Weight 161 kg COPD,ASPIRATION PNEUMONIA - Comments Comments/Follow Ups: From [facility], reviewed med list from the [facility] in patient chart for clarification of some orders. Left leg Pain 12/08, Lidocaine patches for both her back and knees, IV steroids, 4L oxygen @ baseline. Micro urine: >100k colonies, has sen, watch for sensitivities (Zosyn is for Aspiration Pneumonia as well as UTI). Watch SCr closely, if worsens, may need Zosyn interval adjustment. Watch weight/diuresis, repeat chest xray - Renal Dosing Renal Dosing: BUN 18 mg/dL (7-18) 07/02/20 06:10 Creatinine 1.1 mg/dL (0.55-1.02) H 07/02/20 06:10 Medications needing adjustments: Reviewed (CrCl~39ml/min...Zosyn dosing is borderline between Q6h and Q8h, if worsens, will need intervention) - Anticoagulation Anticoagulation: Hgb 9.1 g/dL (11.2-15.7) L 07/02/20 06:10 Hct 30.1 % (36.0-46.0) L 07/02/20 06:10 Plt Count 340 10^3/uL (130-400) 07/02/20 06:10 INR 1.1 (0.9-1.1) 07/01/20 15:04 Creatinine 1.1 mg/dL (0.55-1.02) H 07/02/20 06:10 DVT Prohphylaxis: Reviewed (not ordered, will ask , repositioning) - Opiate Usage Evaluate Pain Scale/Pains Meds: N/A - Relevant Labs Sodium 148 mmol/L (136-145) H 07/02/20 06:10 Potassium 3.4 mmol/L (3.5-5.1) L 07/02/20 06:10 Chloride 108 mmol/L (98-107) H 07/02/20 06:10 Magnesium 1.8 mg/dL (1.8-2.4) 07/01/20 15:04 Electrolytes, C-Reactive P, ESR: Reviewed (Potassium repleting orally, Probnp 924) - DM Control DM Control: Glucose 152 mg/dL (74-106) H 07/02/20 06:10 Insulin Dosing: N/A - Heart Failure/RI Heart Failure/RI: Troponin I 0.21 ng/mL (<0.06) H* 07/02/20 06:10 NT-Pro-B Natriuret Pep 924 pg/mL (<300) H 07/01/20 15:04 EF%, GUY's, B-Blockers, Diuretics: Reviewed (Troponin's positive x4, Lasix 40mg IV BID) - BP Control BP Control: Blood Pressure 160/82 Blood Pressure 164/81 - Qtc Review If Elevated: Reviewed (QTC 465 (Sertraline, Ondansetron QTC prolonging meds)) - IV to PO Switch IV Medications: Reviewed (IV steroids, IV Antibiotic)
--- NOTE | 2020-07-02 16:59 | CHAPLAIN ---
Michelle and I remember each other from previous admissions. She said she's hear because of her breathing. She talked about her three sons, one in [place], [place], one in [place], [place], and on in the assisted in [place], [place]. She said they are all good boys and she teases them that they are all still my babies.
[2020-07-02] MEDS: Sertraline 50 MG TAB 150 MG PO (18:54)
[2020-07-02] MEDS: Normal Saline 500 ML 30 ML IV (21:34)
[2020-07-02] MEDS: Simvastatin 40 MG TAB PO (21:36)
[2020-07-02] MEDS: Mometasone 220 MCG 14 DOSE INHALER 2 PUFF IH (21:37)
[2020-07-02] MEDS: Ipratropium/Albuterol 4 GM 120 PUFF INH IH (21:37)
[2020-07-03] MEDS: PIPERACILLIN/TAZO 4.5 GM in Normal Saline 100 ML IVPB ×4 (01:55→20:15)
[2020-07-03 07:10] LABS: Absolute Basophil Count 0.01 10^3/uL (0.0-0.2); Absolute Lymphocyte Count 0.95 10^3/uL (1.2-3.4); Absolute Monocyte Count 0.71 10^3/uL (0.1-0.8); Basophils % 0.1; HCT 31.3 % (36.0-46.0); HGB 9.3 g/dL (11.2-15.7); Immature Grans % 0.8; MCH 30.1 pg (27.0-33.0); MCHC 29.7 % (32.0-36.0); MCV 101.3 fL (80-95); MPV 11.8 fL (8.0-11.0); Neutrophils % 85.1; Nucleated RBC 0 %; Platelet Count 338 10^3/uL (130-400); RBC 3.09 10^6/uL (3.93-5.22); RDW 15.3 % (11.7-14.6); WBC 11.87 10^3/uL (4.4-10.8)
[2020-07-03 07:23] LABS: Anion Gap 5.3 mmol/L (3-11); BUN 20 mg/dL (7-18); CO2 35.7 mmol/L (21.0-32.0); CREATININE 1.3 mg/dL (0.55-1.02); Calcium 9.7 mg/dL (8.5-10.1); Chloride 104 mmol/L (98-107); Estimated GFR 40.38 (mL/min/1.73m2); Glucose 139 mg/dL (74-106); Potassium 4.2 mmol/L (3.5-5.1); Sodium 145 mmol/L (136-145)
[2020-07-03 08:06] VITALS: BP 195/82; PULSE 78; RESP 24; TEMP 37; O2SAT 90
[2020-07-03] MEDS: Mometasone 220 MCG 14 DOSE INHALER 2 PUFF IH (08:29)
[2020-07-03] MEDS: Ipratropium/Albuterol 4 GM 120 PUFF INH IH ×4 (08:29→20:26)
[2020-07-03] MEDS: methylPREDNISolone SUCC 40 MG VIAL IVP ×2 (09:27→23:26)
[2020-07-03] MEDS: Normal Saline Flush 10 ML SYR IVP ×4 (09:28→23:28)
[2020-07-03] MEDS: Furosemide 40 MG/4 ML VIAL IVP ×2 (09:28→16:09)
[2020-07-03] MEDS: Lidocaine 5% Patch 1 PATCH TP (09:29)
[2020-07-03] MEDS: Lidocaine 5% Patch 2 PATCH TP (09:29)
[2020-07-03] MEDS: Gabapentin 300 MG CAP PO ×3 (09:30→20:30)
[2020-07-03] MEDS: Ferrous Sulfate 325 MG TAB PO ×2 (09:30→14:34)
[2020-07-03] MEDS: Potassium Chloride 20 MEQ TABCR PO (09:30)
[2020-07-03] MEDS: Omeprazole 20 MG CAPCR 40 MG PO ×2 (09:30→20:29)
[2020-07-03] MEDS: Folic Acid 1 MG TAB PO (09:30)
[2020-07-03] MEDS: Sucralfate 1 GM TAB PO ×4 (09:30→23:29)
--- NOTE | 2020-07-03 10:06 | PDOC.CMPRO ---
Care Management Progress Note S/O: Michelle remains on bedrest and continues to utilize her bipap. No change to overall plan, CM continues to follow. A: 69 year old female admitted to [facility] 07/01/20 for COPD, Pneumonia P: Michelle continues to be closely monitored and treated. She will return to the [facility] once medically stable via RCT. CM continues to follow.
--- NOTE | 2020-07-03 12:27 | W.NUTRFU ---
Date of service: 07/03/20 Time of Service: 12:27 Nutritional Follow up NOTE: 69 year old female admitted from SNF for respiratory failure, PNA with hx of COPD and morbid obesity. Following low sodium diet with excellent intake (>75% of meals). Glucose elevated due to steriod use. Currently not at nutritional risk. Will continue to follow. Time Spent in Nutritional Counseling and Treatment: 0
[2020-07-03 15:20] VITALS: BP 194/96; PULSE 77; RESP 18; TEMP 37.2; O2SAT 88
[2020-07-03 15:22] VITALS: O2SAT 94
--- NOTE | 2020-07-03 15:37 | W.PM.PROGNOT ---
Date of Service Date of service: 07/03/20 Time of Service: 15:37 Assessment and Plan Assessment and plan (1) Acute on chronic respiratory failure with hypoxia and hypercapnia: Status: Acute Assessment and plan: Multifactorial - due to acute exacerbation of COPD triggered by bilateral aspiration pneumonia in addition to fluid overload due to combination of acute on chronic CHFpEF and pulmonary hypertension. Continue zosyn, nebs, furosemide, Bipap. Taper steroids. (2) Aspiration pneumonia of both lungs: Status: Acute Assessment and plan: As above COVID-19 negative. (3) Acute exacerbation of chronic obstructive pulmonary disease (COPD): Status: Acute Assessment and plan: As above (4) (HFpEF) heart failure with preserved ejection fraction: Status: Acute Assessment and plan: As above. Monitor I/O's and daily weights (5) Pulmonary hypertension: Status: Acute Assessment and plan: As above (6) Elevated troponin: Status: Chronic Assessment and plan: The patient has chronic troponinemia. In this case, it was also likely triggered by hypoxia and CHF. There is no ACS. (7) Urinary tract infection: Status: Acute Assessment and plan: Present on admission. Urine C&S with E. coli, sensitivities pending. Continue empiric zosyn (8) TRINH (obstructive sleep apnea): Status: Chronic Assessment and plan: Continue BiPAp QHS (9) DVT prophylaxis: Status: Acute Assessment and plan: Chemical DVT ppx is contraindicated due to h/o GI bleeding (10) Discharge planning issues: Status: Acute Assessment and plan: Full code Continues to require hospitalization Subjective Subjective Interval history since last seen: Ms Lindsay states that her right leg is really bothering her right now. She denies dizziness, states she had one episode of the same chest pain as yesterday (musculoskeletal) today so far, states her breathing is better. She has been using vibrapep and states that it is helping. She is not nauseated. She is saturating in the 90s. Used bipap last night. On 3.5 L now (her baseline). Exam Narrative Exam Narrative: General: Obese female, mildly dyspneic but better than yesterday, A&Ox3, very interactive/appropriate HEENT: EOMI, MMM Heart: RRR, no m/r/g; R chest extremely TTP. Lungs: Diminished breath sounds anteriorly Abdomen: soft, obese, nontender Extremities: BLE lymphedema; no erythema/swelling over L knee, TTP. Objective Last Vital Signs Temp 37.2 C 07/03/20 15:20 Pulse 77 07/03/20 15:20 Resp 18 07/03/20 15:20 BP 194/96 H 07/03/20 15:20 Pulse Ox 94 07/03/20 15:22 Laboratory Results - last 24 hr 07/03/20 07/03/20 06:40 06:40 WBC 11.87 H RBC 3.09 L Hgb 9.3 L Hct 31.3 L MCV 101.3 H MCH 30.1 MCHC 29.7 L RDW 15.3 H Plt Count 338 MPV 11.8 H Immature Gran % 0.8 Neutrophils % 85.1 Lymphocytes % 8.0 Monocytes % 6.0 Eosinophils % 0.0 Basophils % 0.1 Nucleated RBC % 0 Absolute Neutrophils 10.10 H Absolute Lymphocytes 0.95 L Absolute Monocytes 0.71 Absolute Eosinophils 0.00 Absolute Basophils 0.01 Sodium 145 Potassium 4.2 D Chloride 104 Carbon Dioxide 35.7 H Anion Gap 5.3 BUN 20 H Creatinine 1.3 H Estimated GFR/1.73 m2 40.38 Glucose 139 H Calcium 9.7 Magnesium 2.0
[2020-07-03] MEDS: Acetaminophen 325 MG TAB 650 MG PO (16:09)
[2020-07-03] MEDS: Normal Saline 500 ML 30 ML IV (20:15)
[2020-07-03] MEDS: Budesonide/Formoterol 160/4.5 6 GM 60 PUFF INH IH (20:18)
[2020-07-03 20:25] VITALS: BP 179/94
[2020-07-03] MEDS: Simvastatin 40 MG TAB PO (23:29)
[2020-07-03 23:43] VITALS: BP 164/97; PULSE 75; RESP 19; TEMP 36.7; O2SAT 93
[2020-07-04] MEDS: PIPERACILLIN/TAZO 4.5 GM in Normal Saline 100 ML IVPB ×4 (02:02→22:02)
[2020-07-04] MEDS: Normal Saline Flush 10 ML SYR IVP ×3 (06:13→22:15)
[2020-07-04 06:42] LABS: Abs Immature Grans 0.13 10^3/uL (0.0-0.06); Absolute Basophil Count 0.01 10^3/uL (0.0-0.2); Absolute Lymphocyte Count 1.07 10^3/uL (1.2-3.4); Absolute Monocyte Count 0.81 10^3/uL (0.1-0.8); Basophils % 0.1; HCT 31.6 % (36.0-46.0); HGB 9.5 g/dL (11.2-15.7); Immature Grans % 1.1; Lymphocytes % 8.8; MCH 30.6 pg (27.0-33.0); MCHC 30.1 % (32.0-36.0); MCV 101.9 fL (80-95); MPV 11.6 fL (8.0-11.0); Monocytes % 6.6; Neutrophils % 83.4; Nucleated RBC 0 %; Platelet Count 324 10^3/uL (130-400); RDW 15.1 % (11.7-14.6); RDW-SD 56.2 fL; WBC 12.21 10^3/uL (4.4-10.8)
[2020-07-04 06:45] LABS: Absolute Neutrophil Count 10.18 10^3/uL (1.2-6.7)
[2020-07-04 06:51] LABS: Anion Gap 4.3 mmol/L (3-11); BUN 23 mg/dL (7-18); CO2 35.7 mmol/L (21.0-32.0); CREATININE 1.4 mg/dL (0.55-1.02); Calcium 9.5 mg/dL (8.5-10.1); Chloride 104 mmol/L (98-107); Estimated GFR 37.07 (mL/min/1.73m2); Glucose 187 mg/dL (74-106); Potassium 3.9 mmol/L (3.5-5.1); Sodium 144 mmol/L (136-145)
[2020-07-04 07:42] VITALS: BP 185/100; PULSE 71; RESP 22; TEMP 36.2; O2SAT 90
[2020-07-04] MEDS: Furosemide 40 MG/4 ML VIAL IVP (07:56)
[2020-07-04] MEDS: Sucralfate 1 GM TAB PO ×4 (07:57→22:13)
[2020-07-04] MEDS: Gabapentin 300 MG CAP PO ×3 (07:57→22:13)
[2020-07-04] MEDS: Potassium Chloride 20 MEQ TABCR PO (07:57)
[2020-07-04] MEDS: predniSONE 20 MG TAB 40 MG PO (07:57)
[2020-07-04] MEDS: Folic Acid 1 MG TAB PO (07:57)
[2020-07-04] MEDS: Sertraline 50 MG TAB 150 MG PO (07:57)
[2020-07-04] MEDS: Acetaminophen 325 MG TAB 650 MG PO ×2 (07:57→14:36)
[2020-07-04] MEDS: Omeprazole 20 MG CAPCR 40 MG PO ×2 (07:57→22:13)
[2020-07-04 08:30] VITALS: O2SAT 93
[2020-07-04] MEDS: Ipratropium/Albuterol 4 GM 120 PUFF INH IH ×4 (08:46→22:16)
[2020-07-04] MEDS: Budesonide/Formoterol 160/4.5 6 GM 60 PUFF INH IH ×2 (08:46→22:16)
[2020-07-04] MEDS: Lidocaine 5% Patch 2 PATCH TP (11:26)
[2020-07-04] MEDS: amLODIPine 2.5 MG TAB PO (11:26)
[2020-07-04] MEDS: Lidocaine 5% Patch 1 PATCH TP (11:27)
--- NOTE | 2020-07-04 11:49 | PGE_ITS ---
Date of Service Date of service: 07/04/20 Time of Service: 12:00 Assessment and Plan Assessment and plan (1) Aspiration pneumonia of both lungs: Status: Acute Assessment and plan: Improving on Zosyn. SOB near baseline. Cough improving, no longer producing sputum. feels wheezy, no wheezing on exam. Her oxygen saturation is 90% on 3.5 lpm, which she is chronically on. Continue to taper steroids. Continue Zosyn which will also cover UTI. (2) Acute exacerbation of chronic obstructive pulmonary disease (COPD): Status: Acute Assessment and plan: Improving as above (3) (HFpEF) heart failure with preserved ejection fraction: Status: Acute Assessment and plan: She appears euvolemic to slightly dry. Her kidney function is at baseline. Transition back to home oral lasix dose tomorrow morning. Continue to monitor I/O's and daily weights as well as BMP. (4) Pulmonary hypertension: Status: Acute Assessment and plan: As above (5) Urinary tract infection: Status: Acute Assessment and plan: Present on admission. Urine C&S with E. coli, ESBL reported by lab today, sensitive to Zosyn. Continue empiric zosyn. (6) Elevated troponin: Status: Chronic Assessment and plan: The patient has chronic troponinemia. In this case, it was also likely triggered by hypoxia and CHF. There is no ACS. (7) TRINH (obstructive sleep apnea): Status: Chronic Assessment and plan: Continue BiPAp QHS (8) Renal cell carcinoma: Status: Acute Assessment and plan: New Dx. Review of her record indicates that this is a recurrence. CT 07/01/20 shows bilateral masses, the largest is a 4.5 cm mass to the lower pole of the left kidney. Also with a 4.8 cm pancreatic tail mass. She is followed by Dr. Orellana. Follow up as an outpatient. (9) DVT prophylaxis: Status: Acute Assessment and plan: Chemical DVT ppx is contraindicated due to h/o GI bleeding (10) Discharge planning issues: Status: Acute Assessment and plan: Full code Return to the [facility] when ready for discharge. Follow up with Dr. Christensen, Palliative as an outpatient. Subjective Subjective Interval history since last seen: Michelle reports that she is chronically on oxygen at 4 lpm. She is always SOB, her breathing is near baseline. She continues to cough, she has not produced any sputum today. Her sputum was yellow. She feels wheezy. Her mouth is dry. Her lower extremity edema has improved. She is eating and drinking and tolerating her diet. Denies N/V. She is no longer constipated since she stopped taking iron. She has a chronic indwelling sen catheter. She does not walk at baseline, she is wheelchair bound. She lives at the [facility]. She wants to get back home. She is from [place] where she lived with a friend/caregiver. Exam Narrative Exam Narrative: General: elderly, obese female, laying in bed, watching TV, in NAD. HEENT: normocephalic, atraumatic, wearing glasses, mucous membranes dry. Neck: supple. +left central line. Cardiovascular: HR regular, + 3/6 murmur noted at RSB. Respiratory: wearing oxygen, respirations appear unlabored, lung sounds are clear throughout. GI: large, obese abdomen, +BS, nontender on palpation. Extremities: +lymphedema to BLEs, wrinkled skin to BLEs, +pedal pulses. Objective Last Vital Signs Temp 36.2 C L 07/04/20 07:42 Pulse 71 07/04/20 07:42 Resp 22 07/04/20 07:42 BP 185/100 H 07/04/20 07:42 Pulse Ox 90 L 07/04/20 07:42 Laboratory Results - last 24 hr 07/04/20 07/04/20 06:30 06:30 WBC 12.21 H RBC 3.10 L Hgb 9.5 L Hct 31.6 L MCV 101.9 H MCH 30.6 MCHC 30.1 L RDW 15.1 H Plt Count 324 MPV 11.6 H Immature Gran % 1.1 Neutrophils % 83.4 Lymphocytes % 8.8 Monocytes % 6.6 Eosinophils % 0.0 Basophils % 0.1 Nucleated RBC % 0 Absolute Neutrophils 10.18 H Absolute Lymphocytes 1.07 L Absolute Monocytes 0.81 H Absolute Eosinophils 0.00 Absolute Basophils 0.01 Sodium 144 Potassium 3.9 Chloride 104 Carbon Dioxide 35.7 H Anion Gap 4.3 BUN 23 H Creatinine 1.4 H Estimated GFR/1.73 m2 37.07 Glucose 187 H Calcium 9.5 Magnesium 2.0
--- NOTE | 2020-07-04 12:38 | PDOC.CMPRO ---
- If Service Date Differs Date of service: 07/04/20 Time of Service: 12:38 Care Management Progress Note S/O: No change in plan. Per provider's note, Michelle remains on Zosyn and her cough continues to improve. A urine culture done 07/01/20 returns positive for E. coli. The plan is to stay the course as the E. coli bacteria is responsive to Zosyn. CM continues to follow. A: Michelle is a 69 year old female admitted to [facility] on 07/01/20 for COPD and Pneumonia. P: No change in plan. Michelle continues to be closely monitored and treated. She will return to the [facility] once medically stable via RCT and will follow up with Palliative Care as an outpatient. CM continues to follow.
[2020-07-04 14:48] VITALS: BP 179/85
[2020-07-04 15:10] VITALS: BP 181/90; PULSE 79; RESP 20; TEMP 37.1; O2SAT 95
[2020-07-04 15:21] VITALS: BP 180/94
[2020-07-04 20:33] VITALS: BP 178/83; PULSE 75; RESP 20; TEMP 37; O2SAT 93
[2020-07-04] MEDS: Normal Saline 500 ML 30 ML IV (22:11)
[2020-07-04] MEDS: Simvastatin 20 MG TAB PO (22:13)
[2020-07-04] MEDS: Ferrous Sulfate 325 MG TAB PO (22:13)
[2020-07-05] MEDS: PIPERACILLIN/TAZO 4.5 GM in Normal Saline 100 ML IVPB ×4 (02:18→19:38)
[2020-07-05 02:53] VITALS: BP 176/100; PULSE 72; RESP 20; TEMP 36.2; O2SAT 93
[2020-07-05] MEDS: Normal Saline Flush 10 ML SYR IVP ×3 (07:29→19:39)
[2020-07-05 07:30] VITALS: BP 171/96; PULSE 82; RESP 22; TEMP 36.5; O2SAT 90
[2020-07-05 07:45] LABS: HCT 31.6 % (36.0-46.0); HGB 9.5 g/dL (11.2-15.7); MCH 30.7 pg (27.0-33.0); MCHC 30.1 % (32.0-36.0); MCV 102.3 fL (80-95); MPV 11.3 fL (8.0-11.0); Platelet Count 314 10^3/uL (130-400); RBC 3.09 10^6/uL (3.93-5.22); RDW-SD 56.5 fL; WBC 12.72 10^3/uL (4.4-10.8)
[2020-07-05 08:08] LABS: Anion Gap 3.3 mmol/L (3-11); BUN 22 mg/dL (7-18); CO2 37.7 mmol/L (21.0-32.0); CREATININE 1.2 mg/dL (0.55-1.02); Calcium 9.5 mg/dL (8.5-10.1); Chloride 104 mmol/L (98-107); Estimated GFR 44.29 (mL/min/1.73m2); Glucose 105 mg/dL (74-106); Potassium 3.5 mmol/L (3.5-5.1); Sodium 145 mmol/L (136-145)
[2020-07-05] MEDS: Budesonide/Formoterol 160/4.5 6 GM 60 PUFF INH IH ×2 (08:19→19:41)
[2020-07-05] MEDS: Ipratropium/Albuterol 4 GM 120 PUFF INH IH ×4 (08:20→19:41)
[2020-07-05] MEDS: Gabapentin 300 MG CAP PO ×3 (09:22→19:41)
[2020-07-05] MEDS: Omeprazole 20 MG CAPCR 40 MG PO ×2 (09:22→19:41)
[2020-07-05] MEDS: Folic Acid 1 MG TAB PO (09:22)
[2020-07-05] MEDS: Sucralfate 1 GM TAB PO ×4 (09:22→22:45)
[2020-07-05] MEDS: Furosemide 20 MG TAB 60 MG PO (09:22)
[2020-07-05] MEDS: Ferrous Sulfate 325 MG TAB PO ×2 (09:22→13:42)
[2020-07-05] MEDS: amLODIPine 2.5 MG TAB 5 MG PO (09:23)
[2020-07-05] MEDS: predniSONE 20 MG TAB 40 MG PO (09:23)
[2020-07-05] MEDS: Sertraline 50 MG TAB 150 MG PO (09:23)
[2020-07-05] MEDS: Potassium Chloride 20 MEQ TABCR PO ×2 (09:23→16:25)
[2020-07-05] MEDS: Lidocaine 5% Patch 1 PATCH TP (09:24)
[2020-07-05] MEDS: Lidocaine 5% Patch 2 PATCH TP (09:25)
[2020-07-05 11:15] VITALS: RESP 13
[2020-07-05] MEDS: Lactobacillus Acidophilus CAP 1 CAP PO ×2 (13:42→19:42)
[2020-07-05 15:40] VITALS: BP 175/94; PULSE 79; RESP 19; TEMP 37.6; O2SAT 95
--- NOTE | 2020-07-05 15:51 | W.PM.PROGNOT ---
Date of Service Date of service: 07/05/20 Time of Service: 15:51 Assessment and Plan Assessment and plan (1) Aspiration pneumonia of both lungs: Status: Acute Assessment and plan: She continues on Zosyn. Her oxygen status is at baseline at 3.5 L/min. Her sats are in the 90+ percent range. Overall clinical course appears stable. (2) Acute exacerbation of chronic obstructive pulmonary disease (COPD): Status: Acute Assessment and plan: Longstanding chronic shortness of breath. She likely has a component of hypercapnia from her obesity as well. Continue nocturnal and as needed BiPAP. (3) (HFpEF) heart failure with preserved ejection fraction: Status: Acute Assessment and plan: She transition to p.o. Lasix today. Urine output appears good. Increase potassium replacement to 20 mEq twice daily. Monitor electrolytes closely. (4) Pulmonary hypertension: Status: Acute Assessment and plan: Likely on the basis of her obstructive sleep apnea, morbid obesity, chronic heart failure. (5) Urinary tract infection: Status: Acute Assessment and plan: She has ESBL in her urine sensitive to Zosyn. Complete course of the Zosyn. Appropriate precautions are being observed. (6) Renal cell carcinoma: Status: Acute Assessment and plan: Recurrence of her renal cell carcinoma. Further follow-up as an outpatient. Palliative care consult to discuss her overall health status with accumulating medical issues and overall deteriorating status. (7) Difficult intravenous access: Status: Acute Assessment and plan: She has a triple-lumen catheter in the left subclavian that appears stable. Subjective Subjective Patient reports: no new complaints Interval history since last seen: Patient feels she is gradually improving. She does not describe air hunger or shortness of breath. Minimal cough. She continues to complain of lower extremity weakness and sensitivity in her lower legs. She remains nonambulatory. Exam Narrative Exam Narrative: On exam she is quite massively obese. She appears to have somewhat labored breathing though denies feeling short of breath. V shaped from marked adipose tissue. They taper down to her ankles. There is some sensitivity on the right lateral lower ankle region that has some overlying venous stasis changes. Otherwise well perfused. Objective Last Vital Signs Temp 37.6 C H 07/05/20 15:40 Pulse 79 07/05/20 15:40 Resp 19 07/05/20 15:40 BP 175/94 H 07/05/20 15:40 Pulse Ox 95 07/05/20 15:40 Laboratory Results - last 24 hr 07/05/20 07/05/20 07:30 07:30 WBC 12.72 H RBC 3.09 L Hgb 9.5 L Hct 31.6 L MCV 102.3 H MCH 30.7 MCHC 30.1 L RDW 15.0 H Plt Count 314 MPV 11.3 H Sodium 145 Potassium 3.5 Chloride 104 Carbon Dioxide 37.7 H Anion Gap 3.3 BUN 22 H Creatinine 1.2 H Estimated GFR/1.73 m2 44.29 Glucose 105 D Calcium 9.5
--- NOTE | 2020-07-05 19:11 | PDOC.CMPRO ---
- If Service Date Differs Date of service: 07/05/20 Time of Service: 19:11 Care Management Progress Note S/O: No change in plan. Per provider's note, Michelle is feeling improved but she continues to be nonambulatory. Her O2 sats are in the 90s on 3.5L of oxygen, which is reportedly her baseline. She continues on Zosyn. Michelle is improving but she continues to require inpatient level of care. CM continues to follow. A: Michelle is a 69 year old female admitted to [facility] on 07/01/20 for COPD and Pneumonia. P: No change in plan. Michelle continues to be closely monitored and treated. She will return to the [facility] once medically stable via RCT and will follow up with Palliative Care as an outpatient. CM continues to follow.
[2020-07-05] MEDS: Simvastatin 20 MG TAB PO (22:45)
[2020-07-06] VITALS (9 sets, daily range): BP systolic 150–165; BP diastolic 76–95; PULSE 8–80; RESP 13–20; TEMP 36.4–37.4; O2SAT 94–100
[2020-07-06] MEDS: PIPERACILLIN/TAZO 4.5 GM in Normal Saline 100 ML IVPB ×4 (02:12→19:23)
[2020-07-06] MEDS: Normal Saline 500 ML 30 ML IV (02:12)
[2020-07-06] MEDS: Normal Saline Flush 10 ML SYR IVP ×4 (06:18→19:12)
[2020-07-06 06:50] LABS: Abs Immature Grans 0.09 10^3/uL (0.0-0.06); Absolute Basophil Count 0.01 10^3/uL (0.0-0.2); Absolute Lymphocyte Count 1.96 10^3/uL (1.2-3.4); Absolute Monocyte Count 1.36 10^3/uL (0.1-0.8); Basophils % 0.1; Eosinophils % 0.8; HCT 30.5 % (36.0-46.0); Immature Grans % 0.8; Lymphocytes % 16.5; MCH 30.1 pg (27.0-33.0); MCHC 29.5 % (32.0-36.0); MPV 11.7 fL (8.0-11.0); Monocytes % 11.4; Neutrophils % 70.4; Nucleated RBC 1 %; Platelet Count 292 10^3/uL (130-400); RBC 2.99 10^6/uL (3.93-5.22); RDW 15.2 % (11.7-14.6); RDW-SD 56.8 fL; WBC 11.89 10^3/uL (4.4-10.8)
[2020-07-06 06:51] LABS: Absolute Neutrophil Count 8.37 10^3/uL (1.2-6.7)
[2020-07-06 07:03] LABS: Anion Gap 1.6 mmol/L (3-11); BUN 22 mg/dL (7-18); CO2 37.4 mmol/L (21.0-32.0); CREATININE 1.3 mg/dL (0.55-1.02); Calcium 9.3 mg/dL (8.5-10.1); Chloride 106 mmol/L (98-107); Estimated GFR 40.38 (mL/min/1.73m2); Glucose 132 mg/dL (74-106); Potassium 3.8 mmol/L (3.5-5.1); Sodium 145 mmol/L (136-145)
[2020-07-06] MEDS: Budesonide/Formoterol 160/4.5 6 GM 60 PUFF INH IH ×2 (09:20→19:12)
[2020-07-06] MEDS: Ipratropium/Albuterol 4 GM 120 PUFF INH IH ×4 (09:20→19:12)
[2020-07-06] MEDS: Polyethylene Glycol 3350 17 GM PACKET PO (09:40)
[2020-07-06] MEDS: Lactobacillus Acidophilus CAP 1 CAP PO ×3 (09:41→19:13)
[2020-07-06] MEDS: Furosemide 20 MG TAB 60 MG PO (09:41)
[2020-07-06] MEDS: Gabapentin 300 MG CAP PO ×3 (09:41→19:13)
[2020-07-06] MEDS: Lidocaine 5% Patch 1 PATCH TP (09:41)
[2020-07-06] MEDS: Ferrous Sulfate 325 MG TAB PO (09:42)
[2020-07-06] MEDS: Sucralfate 1 GM TAB PO ×4 (09:42→21:56)
[2020-07-06] MEDS: Sertraline 50 MG TAB 150 MG PO (09:42)
[2020-07-06] MEDS: predniSONE 20 MG TAB 40 MG PO (09:42)
[2020-07-06] MEDS: amLODIPine 2.5 MG TAB 5 MG PO (09:43)
[2020-07-06] MEDS: Potassium Chloride 20 MEQ TABCR PO ×2 (09:43→15:54)
[2020-07-06] MEDS: Folic Acid 1 MG TAB PO (09:43)
[2020-07-06] MEDS: Omeprazole 20 MG CAPCR 40 MG PO ×2 (09:43→19:13)
--- NOTE | 2020-07-06 09:44 | CMPROGNOTE_ITS ---
Care Management Progress Note S/O: Per provider's note, Michelle appears to be at her baseline, per provider. She will finish her fifth day of IV Zosyn today, and return to the [facility] tomorrow, as planned. Palliative consult ordered; anticipate she will connect with Dr. Branch today. CM notified facility of discharge plan. CM continues to follow. A: Michelle is a 69 year old female admitted to [facility] on 07/01/20 for COPD and Pneumonia. P: Michelle continues to be closely monitored and treated. She will return to the [facility] once medically stable via EMS. CM continues to follow.
[2020-07-06] MEDS: Lidocaine 5% Patch 2 PATCH TP (09:45)
--- NOTE | 2020-07-06 12:55 | W.PALLCONSUL ---
Date of service: 07/06/20 Time of Service: 18:55 History of Present Illness Narrative: From H and P: History of Present Illness History of Present Illness Chief Complaint: SOB Narrative: 69 female resident Janny, with COPD and multiple problems. Became acutely SOB today brought to ER with sats low 80s and tachypneic. Diffuse wheezing noted. Given updraft an solumedrol with marked improvement. W/U notable for white count 15, K 2.9, CTA neg for PE but demonstrating bilateral pneumonitis c/w aspiration, first and second troponin 0.21 and 0.23, and EKG without ischemic changes. Incidental pyuria. Given Rocpehin and potassium and admitted for further management. Patient states she feels back to baseline, has no c/o at present. Consults Consult date: 07/06/20 Requesting physician: Rosa Elena Curtis [facility] Medical History (Updated 07/04/20 @ 13:12 by Tenisha Sandra NP) Anxiety about health Avoidance coping COPD (chronic obstructive pulmonary disease) Depression Generalized weakness Goals of care, counseling/discussion Low-level of literacy Lymphedema Morbid obesity longterm resident Oncocytoma Palliative care patient Renal cell carcinoma Family History Son No problems noted. Son No problems noted. Son No problems noted. Mother , of ALS age 63 ALS (amyotrophic lateral sclerosis) Father , of lung cancer age 70 heavy smoker Lung cancer Smoker Sister No problems noted. Sister No problems noted. Sister No problems noted. Sister No problems noted. Sister No problems noted. Brother , older brother doesn't know how he No problems noted. Brother No problems noted. 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 Pets and animals: No Current gender identity: female What is your relationship status?: How often do you talk on the phone with friends or family?: once per week How often do you get together with friends or relatives?: never Panel score (0-1 are the most socially isolated patients): 0 What type of physical activity do you participate in: none, bed-bound, sedentary lifestyle and wheelchair-bound Special alysha needs: No Seatbelt use: always Water heater temp set <120 deg: Yes Working smoke detector in home: Yes Fire extinguisher in home: Yes Firearms in home: No Do you feel safe at home: Yes Do you feel safe in your relationship?: Yes Additional Social history: resident @ [facility]. Was living in community nursing home until her legs gave out all of a sudden and I couldn't walk. [facility] was in [place], run by her son's best friend and his . Prior to living in [facility], lived on her own in [facility], where she lived for many years. She has one son in [facility], one son in [facility], and one son in [place], [place]. She tells me she knows her memory is getting worse. Sometimes I just black out. She has never filled out a COLST form. She can't tell me which of her sons is her DPOA. Exam Narrative Exam Narrative: Laboratory Tests 07/01/20 07/01/20 07/01/20 14:25 15:04 15:04 WBC Hgb Plt Count INR 1.1 VBG pH 7.38 VBG pCO2 66 H* VBG pO2 50 Carbon Dioxide Creatinine SARS-CoV-2 (PCR) Negative 07/06/20 07/06/20 06:26 06:26 WBC 11.89 H Hgb 9.0 L Plt Count 292 INR VBG pH VBG pCO2 VBG pO2 Carbon Dioxide 37.4 H Creatinine 1.3 H SARS-CoV-2 (PCR) 07/01/20 am(s) a CT:CT chest PE abd & pelvis w EXAM: CT CHEST PE ABD PELVIS W CLINICAL HISTORY: short of breath and hypoxia. TECHNIQUE: Imaging Protocol: Axial CT angiography was performed with multi-slice acquisition and multi-planar and/or 3D reconstructions. CONTRAST MATERIAL: Intravenous: Omnipaque 350 Contrast volume:100 mL COMPARISON: No exams were available for comparison FINDINGS: The examination is limited due to patient motion artifact. CHEST: Pulmonary Arteries: No evidence of filling defect to suggest pulmonary emboli. Tracheobronchial tree: Patent where visualized. Mediastinum and Katerina: No dominant adenopathy or fluid collection. Moderate hiatal hernia. Pulmonary parenchyma: There consolidations in the lower lobes bilaterally and the right upper lobe. No architectural distortion. Pleura: There are moderate bilateral pleural effusions. No pneumothorax. Heart: Cardiomegaly. Mild coronary artery calcification. No pericardial effusion. Aorta: Thoracic aorta non-dilated. Atherosclerosis. Bones: Degenerative changes. Tubes, Catheters, and Lines: The left central venous catheter terminates in the brachiocephalic vein. ABDOMEN: Liver: Normal density. There are several hypodense lesions seen within the liver. There are nonspecific. Portal, Superior Mesenteric, and Splenic Veins: Unremarkable. Note is made of a portosystemic shunt connecting the SMV to the IVC. Gallbladder and Biliary Tract: No radiodense calculus or dilation. Pancreas: Normal density, no abnormal calcifications or inflammatory process. There is a 4.48 cm soft tissue mass at the tail of the pancreas. Spleen: Absent spleen. Adrenals: There are bilateral adrenal nodules. The right adrenal nodule measures 1.3 cm. The left adrenal nodule measures 1.9 cm. Kidneys: Normal size, contour and axis. No radiodense stones or obstructive uropathy. Is a 4.5 x 4.5 cm mass at the posterior aspect of the lower pole of the left kidney. The finding is most suspicious for renal cell carcinoma. There also appears to be a right renal pelvic mass measuring 1.8 cm. Are bilateral hypodensities seen within the kidneys which are too small for further characterization but likely reflect cysts. There is a 2.9 cm staghorn calculus in the lower pole of the left kidney. No hydronephrosis. Abdominal Aorta: Abdominal portion non-dilated. Atherosclerosis. Bowel: No obstruction or bowel wall thickening. No evidence of acute appendicitis. There is a moderate hiatal hernia. There is diverticulosis seen in the sigmoid colon but no evidence of acute diverticulitis. There is a midline anterior abdominal wall hernia containing an unremarkable loop of transverse colon. Peritoneal Cavity: No ascites, collection or mesenteric inflammatory response. Lymph Nodes: Within normal limits. Bones: Degenerative changes seen throughout the thoracic and lumbar spine. Soft Tissues: Fat containing bilateral inguinal hernia are noted. PELVIS: Bladder: Bladder is not distended. There is a Mittal catheter in place. Reproductive Organs: Unremarkable as visualized. Lymph Nodes: Within normal limits. Bones: Please see above. IMPRESSION: 1. No evidence of pulmonary embolism or thoracic aortic dissection. 2. Bilateral pulmonary infiltrates and pleural effusions. 3. Bilateral renal masses. The largest is in the lower pole of the left kidney measures 4.5 cm. The findings are suspicious for multifocal renal cell carcinoma. 4. 4.8 cm pancreatic tail mass. Neoplasm should be excluded. 5. Bilateral adrenal gland masses. Metastatic disease versus adenoma. 6. 2.9 cm left lower pole staghorn calculus. No evidence of hydronephrosis. 7. Midline ventral hernia containing an unremarkable loop of transverse colon. 8. Absent spleen. 9. Portosystemic shunt connecting the SMV to the IVC. Results Last Vital Signs Temp 97.5 F L 07/06/20 08:15 Pulse 62 07/06/20 08:17 Resp 15 07/06/20 08:17 BP 161/95 H 07/06/20 08:15 Pulse Ox 97 07/06/20 09:15 Labs Result diagrams: 07/06/20 06:26 07/06/20 06:26 Labs: Laboratory Results - last 24 hr 07/06/20 07/06/20 06:26 06:26 WBC 11.89 H RBC 2.99 L Hgb 9.0 L Hct 30.5 L MCV 102.0 H MCH 30.1 MCHC 29.5 L RDW 15.2 H Plt Count 292 MPV 11.7 H Immature Gran % 0.8 Neutrophils % 70.4 Lymphocytes % 16.5 Monocytes % 11.4 Eosinophils % 0.8 Basophils % 0.1 Nucleated RBC % 1 Absolute Neutrophils 8.37 H Absolute Lymphocytes 1.96 Absolute Monocytes 1.36 H Absolute Eosinophils 0.10 Absolute Basophils 0.01 Sodium 145 Potassium 3.8 Chloride 106 Carbon Dioxide 37.4 H Anion Gap 1.6 L BUN 22 H Creatinine 1.3 H Estimated GFR/1.73 m2 40.38 Glucose 132 H Calcium 9.3
[2020-07-06 13:54] LABS: Bilirubin Negative (Negative); Blood Small (Negative); Clarity Clear (Clear); Glucose Negative (Negative); Ketones Negative (Negative); Leukocyte Esterase Negative (Negative); Nitrite Negative (Negative); Specific Gravity 1.025 (1.005-1.025); Urobilinogen 0.2 EU/dL (Up TO 0.2)
[2020-07-06 14:06] LABS: Bacteria Few HPF (Negative); Casts 5-10 Hyaline LPF (Negative); Crystals Negative HPF (Negative); Epithelial Cells Few HPF (Negative); Mucus Trace (Negative); Other Cells Few Renal (Negative)
[2020-07-06 14:07] LABS: C & S Indicated? Yes
--- NOTE | 2020-07-06 15:43 | PGE_ITS ---
Date of Service Date of service: 07/06/20 Time of Service: 15:44 Assessment and Plan Assessment and plan (1) Aspiration pneumonia of both lungs: Status: Acute Assessment and plan: Breathing appears to be near baseline. Her oxygen saturation is 97% on 4 lpm, which she is chronically on. Taper steroids to 20 mg tomorrow morning. Complete 5 day course of Zosyn after today. (2) Acute exacerbation of chronic obstructive pulmonary disease (COPD): Status: Acute Assessment and plan: Improving as above (3) (HFpEF) heart failure with preserved ejection fraction: Status: Acute Assessment and plan: She is on her home Lasix dose. Her kidney function is at baseline. Continue to monitor I/O's and daily weights as well as BMP. (4) Pulmonary hypertension: Status: Acute Assessment and plan: As above (5) Urinary tract infection: Status: Acute Assessment and plan: With ESBL, sensitive to Zosyn. Complete 5 day course of zosyn today. UA improved today, no leukocytes or nitrites. Monitor urine Cx. (6) Elevated troponin: Status: Chronic Assessment and plan: The patient has chronic troponinemia. In this case, it was also likely triggered by hypoxia and CHF. No ACS. (7) TRINH (obstructive sleep apnea): Status: Chronic Assessment and plan: Continue BiPAp QHS (8) Renal cell carcinoma: Status: Acute Assessment and plan: New Dx. Review of her record indicates that this is a recurrence. CT 07/01/20 shows bilateral masses, the largest is a 4.5 cm mass to the lower pole of the left kidney. Also with a 4.8 cm pancreatic tail mass. She is followed by Dr. Orellana. Follow up as an outpatient. Palliative consulted. (9) DVT prophylaxis: Status: Acute Assessment and plan: Chemical DVT ppx is contraindicated due to h/o GI bleeding (10) Discharge planning issues: Status: Acute Assessment and plan: Full code Likely to return to the [facility] tomorrow. Follow up with Dr. Christensen, Palliative as an outpatient. Subjective Subjective Interval history since last seen: Michelle reports that she is feeling better. Her breathing is near baseline, she continues to have mild SOB. Her cough has improved, she continues to have intermittent wheezing. She is on oxygen at baseline. She is eating and drinking and tolerating her diet. She is moving her bowels. Her sen catheter was changed today. UA improved. She is wheelchair bound at baseline. Exam Narrative Exam Narrative: General: elderly, obese female, laying in bed, watching TV, in NAD. HEENT: normocephalic, atraumatic, wearing glasses, mucous membranes moist. Neck: supple. +left central line. Cardiovascular: HR regular, + 3/6 murmur noted at RSB. Respiratory: wearing oxygen, respirations appear unlabored, lung sounds are clear throughout. GI: large, obese abdomen, +BS, tender on palpation of left side of abdomen. Extremities: +lymphedema to BLEs, wrinkled skin to BLEs, +pedal pulses. Objective Last Vital Signs Temp 36.4 C L 07/06/20 08:15 Pulse 62 07/06/20 08:17 Resp 15 07/06/20 08:17 BP 161/95 H 07/06/20 08:15 Pulse Ox 97 07/06/20 09:15 Laboratory Results - last 24 hr 07/06/20 07/06/20 07/06/20 06:26 06:26 13:30 WBC 11.89 H RBC 2.99 L Hgb 9.0 L Hct 30.5 L MCV 102.0 H MCH 30.1 MCHC 29.5 L RDW 15.2 H Plt Count 292 MPV 11.7 H Immature Gran % 0.8 Neutrophils % 70.4 Lymphocytes % 16.5 Monocytes % 11.4 Eosinophils % 0.8 Basophils % 0.1 Nucleated RBC % 1 Absolute Neutrophils 8.37 H Absolute Lymphocytes 1.96 Absolute Monocytes 1.36 H Absolute Eosinophils 0.10 Absolute Basophils 0.01 Sodium 145 Potassium 3.8 Chloride 106 Carbon Dioxide 37.4 H Anion Gap 1.6 L BUN 22 H Creatinine 1.3 H Estimated GFR/1.73 m2 40.38 Glucose 132 H Calcium 9.3 Urine Color Yellow Urine Clarity Clear Urine pH 7.0 Ur Specific [place] 1.025 Urine Protein Negative Urine Ketones Negative Urine Blood Small H Urine Nitrite Negative Urine Bilirubin Negative Urine Urobilinogen 0.2 Ur Leukocyte Esterase Negative Urine RBC 3-5 H Urine WBC 5-10 Ur Epithelial Cells Few Urine Crystals Negative Urine Bacteria Few Urine Casts 5-10 hyaline Urine Mucus Trace Urine Other Few renal Ur Culture Indicated? Yes Urine Glucose Negative
[2020-07-06] MEDS: Simvastatin 20 MG TAB PO (21:56)
[2020-07-07] MEDS: Normal Saline Flush 10 ML SYR IVP (01:45)
[2020-07-07] MEDS: PIPERACILLIN/TAZO 4.5 GM in Normal Saline 100 ML IVPB ×2 (01:45→09:06)
[2020-07-07 07:04] LABS: HCT 29.9 % (36.0-46.0); MCH 30.7 pg (27.0-33.0); MCHC 30.1 % (32.0-36.0); MPV 12.1 fL (8.0-11.0); Platelet Count 289 10^3/uL (130-400); RBC 2.93 10^6/uL (3.93-5.22); RDW 15.4 % (11.7-14.6); RDW-SD 57.5 fL; WBC 11.75 10^3/uL (4.4-10.8)
[2020-07-07 07:49] VITALS: BP 168/74; PULSE 76; RESP 19; TEMP 36.9; O2SAT 95
[2020-07-07 08:15] VITALS: RESP 13
[2020-07-07 08:17] VITALS: O2SAT 95
[2020-07-07] MEDS: Potassium Chloride 20 MEQ TABCR PO (09:06)
[2020-07-07] MEDS: predniSONE 20 MG TAB PO (09:06)
[2020-07-07] MEDS: Lidocaine 5% Patch 2 PATCH TP (09:06)
[2020-07-07] MEDS: Omeprazole 20 MG CAPCR 40 MG PO (09:06)
[2020-07-07] MEDS: Folic Acid 1 MG TAB PO (09:06)
[2020-07-07] MEDS: Lactobacillus Acidophilus CAP 1 CAP PO (09:06)
[2020-07-07] MEDS: Sucralfate 1 GM TAB PO (09:06)
[2020-07-07] MEDS: Lidocaine 5% Patch 1 PATCH TP (09:06)
[2020-07-07] MEDS: amLODIPine 2.5 MG TAB 5 MG PO (09:06)
[2020-07-07] MEDS: Gabapentin 300 MG CAP PO (09:06)
[2020-07-07] MEDS: Sertraline 50 MG TAB 150 MG PO (09:06)
[2020-07-07] MEDS: Furosemide 20 MG TAB 60 MG PO (09:06)
[2020-07-07] MEDS: Ipratropium/Albuterol 4 GM 120 PUFF INH IH ×2 (09:30→12:59)
[2020-07-07] MEDS: Budesonide/Formoterol 160/4.5 6 GM 60 PUFF INH IH (09:30)
[2020-07-07 10:25] VITALS: O2SAT 95
--- NOTE | 2020-07-07 11:29 | CMDISCH_ITS ---
LACE Index Scoring Tool - Questions: Length of Stay (in days): 4 - 6 Acuity (Admit via E.D.?): Yes Comorbidities: Chronic Pulmonary Disease, Any Tumor E.D. Visits: 2 - Answers: Total Score: 14 Risk of Readmission: High Risk Care Management Discharge Reason for Hospitalization: COPD, Pneumonia Discharge Plan: Michelle will return to the [facility]. She will transport via EMS: [facility], coordinated by this engineering writer. Patient/Family Education Needs: Review discharge instructions, discuss Ask Me Three. Services Needed at Discharge: Long-Term Facility (Return to [facility]), Transportation ([facility] )
[2020-07-07 13:56] LABS: Anion Gap 2.7 mmol/L (3-11); BUN 23 mg/dL (7-18); CO2 36.3 mmol/L (21.0-32.0); CREATININE 1.1 mg/dL (0.55-1.02); Calcium 9.5 mg/dL (8.5-10.1); Chloride 106 mmol/L (98-107); Estimated GFR 48.96 (mL/min/1.73m2); Glucose 123 mg/dL (74-106); Potassium 4.4 mmol/L (3.5-5.1); Sodium 145 mmol/L (136-145)
--- NOTE | 2020-07-07 14:20 | DSE_ITS ---
Date of service: 07/07/20 Time of Service: 14:20 DS: Diagnosis Discharge Diagnosis (1) Aspiration pneumonia of both lungs: Status: Acute (2) Acute exacerbation of chronic obstructive pulmonary disease (COPD): Status: Acute (3) (HFpEF) heart failure with preserved ejection fraction: Status: Acute (4) Pulmonary hypertension: Status: Acute (5) Urinary tract infection: Status: Acute Asessment and Plan: ESBL, thought to be contaminant from chronic Mittal (6) Elevated troponin: Status: Chronic Asessment and Plan: Peak of 0.2 (7) TRINH (obstructive sleep apnea): Status: Chronic (8) Renal cell carcinoma: Status: Acute Asessment and Plan: Evidence of recurrence on CT scan, new pancreatic lesion Discharge Plan Disposition Patient Disposition: SNF (LEVEL 1) [facility] Condition: Improving Discharge Details Reason For Visit: COPD, PNEUMONIA Admit Date/Time: 07/01/20 18:45 Admit Provider: Caesar Khan Attending Provider: Caesar Khan Primary Care Provider: Lucia Mckeon Hospital Course Hospital Course: 69-year-old female transferred from the [facility] on 07/01/2020. She became acutely short of breath, her sats were in the low 80s, she was tachypneic. In the emergency room she improved with an updraft and oxygen replacement. She had a white count of 15,000 with a potassium of 2.9. She had a chest CT that showed bilateral pneumonitis consistent with aspiration. She was empiricly started on Rocephin. It was presumed she also had an exacerbation of her COPD triggered by the bilateral pneumonia. She was started on corticosteroids, continued her furosemide, supported with BiPAP. She had a mild bump in her troponins 0.2. At 1 point her Rocephin was switched to Zosyn for broader coverage. Her urine ended up growing out ESBL E. coli. That was felt to be due to contamination and her Mittal catheter was changed. A UA is pending. By hospital day 5 she was feeling quite a bit better, close to baseline. She still was requiring 3.5 L/min oxygen which is what she uses at baseline. She remained nonambulatory. She is transferred back to the [facility] for ongoing long-term care. No further antibiotics. Follow-up as an outpatient with Dr. Orellana regarding new findings that could represent recurrence of her renal cell carcinoma and a pancreatic lesion which may be related. Home Meds and New Rx's Prescriptions: Continued omeprazole 40 MG capsule,delayed release(DR/EC) 1 tab PO BID RF: 0 simvastatin 20 MG tablet 40 mg PO HS RF: 0 albuterol sulfate [Ventolin HFA] 60 PUFF HFA aerosol inhaler 2 puff Inhalation PRN PRNRF: 0 acetaminophen 325 mg Tablet 650 mg PO QID RF: 0 ferrous sulfate [Iron (ferrous sulfate)] 325 mg (65 mg iron) Tablet 325 mg PO TID RF: 0 lidocaine 5 % Adhesive Patch,Medicated 2 patch TOPICAL DAILY RF: 0 gabapentin [Neurontin] 100 mg Capsule 300 mg PO TID RF: 0 ipratropium-albuterol 18-103 mcg/actuation Aerosol 1 spray INHALATION QID RF: 0 calcium gluconate 500 mg Tablet 500 mg PO DAILY RF: 0 Lactinex 1 million cell Tablet,Chewable 1 tab PO TID RF: 0 vitamin R73-kudxg acid 1,000-400 mcg Tablet, Sublingual 1 tab SUBLINGUAL DAILY RF: 0 mometasone 100 mcg/actuation Hfa Aerosol Inhaler 2 puff INHALATION BID RF: 0 sucralfate 1 gram Tablet 1 g PO AC & HS Qty: 120 RF: 0 sertraline 100 mg tablet 100 mg PO 5XW RF: 0 folic acid 1 mg Tablet 1 mg PO DAILY RF: 0 furosemide 20 mg tablet 60 mg PO DAILY RF: 0 polyethylene glycol 3350 [Miralax] 17 gram/dose Powder 17 g PO DAILY RF: 0 Discharge Instructions Instructions: Aspiration Pneumonia (DC) Activity:: Activity as Tolerated Equipment/Supplies:: Oxygen (L/min Below) Diet:: As Tolerated Discharge Orders Discharge Orders: Discharge Order (Routine); Ordered 07/07/20 Ordered By: Yony Smallwood Discharge Data Discharge Date/Time-TO BE ENTERED AT DEPARTURE: 07/07/20 13:09 DS: Summary Time Spent with Patient providing and/or coordinating discharge services: Greater than 30 minutes Status at Discharge Functional status at discharge: bed bound Overall status at discharge: patient is progressing back to baseline Mental Status: mental status grossly normal Speech and Movement: speech and movement normal Mood: congruent mood Affect: normal affect Exam Narrative Exam Narrative: On exam patient is lying nearly flat in bed without any respiratory difficulty. She has nasal cannula oxygen in place. She is alert and conversant. She has a full affect. She did not have any respiratory distress. She described being back to baseline. Psych Mental Status: mental status grossly normal Speech and Movement: speech and movement normal Mood: congruent mood Affect: normal affect DS: Data Vitals/I&O Vitals and I&O: Vital Signs Temperature 36.9 C 07/07/20 07:49 Temperature Source Tympanic 07/07/20 07:49 Pulse 76 07/07/20 07:49 Pulse Rhythm Regular 07/07/20 08:30 Pulse 75 07/01/20 19:31 Respiratory Rate 19 07/07/20 07:49 Respiratory Effort 07/07/20 08:30 Respiratory Depth Normal 07/07/20 08:30 Respiratory Pattern Normal 07/07/20 08:30 Blood Pressure 168/74 H 07/07/20 07:49 Blood Pressure Mean 83 07/01/20 19:31 Pulse Oximetry 95 07/07/20 07:49 Respiratory End-tidal CO2 15 07/01/20 13:26 Oxygen Delivery Method Nasal Cannula 07/07/20 07:49 Oxygen Flow Rate 3 07/07/20 07:49 Fraction of Inspired Oxygen (FIO2) 30 07/06/20 22:15 Pain Level 5 07/07/20 07:49 Comment 07/03/20 20:25 Intake & Output 07/06/20 07/07/20 07/07/20 23:59 11:59 23:59 Intake Total 1370.5 / 2170.5 920 / 1280 360 / 1280 Output Total 1250 / 1999 1450 / 1450 Balance 120.5 / 170.5 920 / -170 -1090 / -170 Weight 155.9 kg Intake: IV 650.5 / 850.5 110 / 110 Oral 720 / 1320 810 / 1170 360 / 1170 Output: Urine 1250 / 2000 1450 / 1450 Other: Urine Color Pale Pale Yellow Urine Appearance Clear Clear Clear Stool Size Moderate Large Stool Characteristics Soft Soft Brown Formed Data Completed and Pending Labs on day of discharge: Labs from last 24 hours 07/07/20 07/07/20 06:30 06:30 WBC 11.75 H RBC 2.93 L Hgb 9.0 L Hct 29.9 L MCV 102.0 H MCH 30.7 MCHC 30.1 L RDW 15.4 H Plt Count 289 MPV 12.1 H Sodium 145 Potassium 4.4 Chloride 106 Carbon Dioxide 36.3 H Anion Gap 2.7 L BUN 23 H Creatinine 1.1 H Estimated GFR/1.73 m2 48.96 Glucose 123 H Calcium 9.5 Preliminary micro results at discharge 07/06/20 13:30 Urine Culture - Preliminary Urine - Reflex from Ua Gram Positive Josefina PFSH Medical History Anxiety about health Avoidance coping COPD (chronic obstructive pulmonary disease) Depression Generalized weakness Goals of care, counseling/discussion Low-level of literacy Lymphedema Morbid obesity correction resident Oncocytoma Palliative care patient Renal cell carcinoma Family History Son No problems noted. Son No problems noted. Son No problems noted. Mother , of ALS age 63 ALS (amyotrophic lateral sclerosis) Father , of lung cancer age 70 heavy smoker Lung cancer Smoker Sister No problems noted. Sister No problems noted. Sister No problems noted. Sister No problems noted. Sister No problems noted. Brother , older brother doesn't know how he No problems noted. Brother No problems noted. 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 Pets and animals: No Current gender identity: female What is your relationship status?: How often do you talk on the phone with friends or family?: once per week How often do you get together with friends or relatives?: never Panel score (0-1 are the most socially isolated patients): 0 What type of physical activity do you participate in: none, bed-bound, sedentary lifestyle and wheelchair-bound Special alysha needs: No Seatbelt use: always Water heater temp set <120 deg: Yes Working smoke detector in home: Yes Fire extinguisher in home: Yes Firearms in home: No Do you feel safe at home: Yes Do you feel safe in your relationship?: Yes Additional Social history: resident @ [facility] until her legs gave out all of a sudden and I couldn't walk. [facility] was in [place], run by her son's best friend and his . Prior to living in [facility], lived on her own in [facility] [place], where she lived for many years. She has one son in [facility] [place] [facility], one son in [facility], and one son in [place], [place]. She tells me she knows her memory is getting worse. Sometimes I just black out. She has never filled out a COLST form. She can't tell me which of her sons is her DPOA.
== END 2020-07-07 13:09 | disposition skilled nursing facility (03) | DRG 204 ==
LOC: ER 20:06 → MS 20:08
PROVIDERS: Emergency Medicine; Family Medicine; Internal Medicine; Nurse Practitioner; Admitting Provider General Practice; Emergency Provider Emergency Medicine; PCP Family Medicine; Visit Provider General Practice
DX: R06.02 Shortness of breath (principal); J69.0 Pneumonitis due to inhalation of food and vomit; J96.21 Acute and chronic respiratory failure with hypoxia; J96.22 Acute and chronic respiratory failure with hypercapnia; I50.31 Acute diastolic (congestive) heart failure; J44.1 Chronic obstructive pulmonary disease with (acute) exacerbation; N39.0 Urinary tract infection, site not specified; Z68.44 Body mass index [BMI] 60.0-69.9, adult; C64.2 Malignant neoplasm of left kidney, except renal pelvis; E87.6 Hypokalemia; F32.9 Major depressive disorder, single episode, unspecified; I89.0 Lymphedema, not elsewhere classified; E66.01 Morbid (severe) obesity due to excess calories; Z20.822 Contact with and (suspected) exposure to COVID-19; I27.20 Pulmonary hypertension, unspecified; B96.20 Unspecified Escherichia coli [E. coli] as the cause of diseases classified elsewhere; G47.33 Obstructive sleep apnea (adult) (pediatric); R74.8 Abnormal levels of other serum enzymes
CPT/HCPCS: 36415; 36556; 71275; 74177; 80048; 80053; 82805; 85027; 87077; 93005; 94640; 96365; 96366; 96367; 96375; 99221; 99222; 99232; 99233; 99239; 99252; 99285; 71045; 81003; 81015; 83735; 83880; 84484; 85025; 85610; 85730; 87086; 87186; 93010; 94660; 94668; J1940; J2543; J2930; J3480; J3490; J7512; J7620; Q9967

== ENCOUNTER 2020-07-09 08:57 | Outpatient (REF) | payer SELFPAY ==
--- NOTE | 2020-07-09 | DI.RAD_ITS ---
EXAM: XR CHEST 2V PA LATERAL CLINICAL HISTORY: COPD, CHOKING EVENT, CHF TECHNIQUE: 2D digital imaging was performed. COMPARISON: CR XR CHEST 2V PA LATERAL from 05/21/2020 FINDINGS: MEDIASTINUM: Normal. HEART: Upper limits of normal to mildly enlarged. PULMONARY VASCULATURE: There is prominence of the pulmonary vasculature. LUNGS: Prominent interstitial markings are seen in the lungs. PLEURAL SPACE: No pleural effusion or pneumothorax. BONE:Within normal limits for the patient's age. OTHER FINDINGS:Normal. IMPRESSION: Pulmonary venous congestion and prominent interstitial markings suggesting pulmonary edema. Findings are suggestive of CHF. DATA REPOSITORY: RADIATION DOSE DELIVERED:
== END 2020-07-09 09:17 ==
LOC: DI 08:57
PROVIDERS: PCP Family Medicine; Visit Provider Nurse Practitioner Gerontology
DX: J44.9 Chronic obstructive pulmonary disease, unspecified (principal); I50.9 Heart failure, unspecified
CPT/HCPCS: 71046

== ENCOUNTER 2020-07-10 14:41 | Outpatient (REF) | payer MEDICARE, MEDICAID, SELFPAY ==
[2020-07-10 15:22] LABS: Abs Immature Grans 0.05 10^3/uL (0.0-0.06); Absolute Basophil Count 0.04 10^3/uL (0.0-0.2); Absolute Eosinophil Count 0.36 10^3/uL (0.0-0.7); Absolute Lymphocyte Count 2.64 10^3/uL (1.2-3.4); Absolute Monocyte Count 1.08 10^3/uL (0.1-0.8); Absolute Neutrophil Count 6.63 10^3/uL (1.2-6.7); Basophils % 0.4; Eosinophils % 3.3; HGB 10.1 g/dL (11.2-15.7); Immature Grans % 0.5; Lymphocytes % 24.4; MCH 30.4 pg (27.0-33.0); MCHC 29.7 % (32.0-36.0); MCV 102.4 fL (80-95); MPV 12.5 fL (8.0-11.0); Neutrophils % 61.4; Nucleated RBC 1 %; Platelet Count 299 10^3/uL (130-400); RBC 3.32 10^6/uL (3.93-5.22); RDW 15.9 % (11.7-14.6)
[2020-07-10 15:26] LABS: Anion Gap 3.6 mmol/L (3-11); BUN 22 mg/dL (7-18); CO2 36.4 mmol/L (21.0-32.0); CREATININE 1.1 mg/dL (0.55-1.02); Calcium 9.9 mg/dL (8.5-10.1); Chloride 107 mmol/L (98-107); Estimated GFR 48.96 (mL/min/1.73m2); Glucose 147 mg/dL (74-106); Potassium 3.7 mmol/L (3.5-5.1); Sodium 147 mmol/L (136-145)
== END 2020-07-10 14:42 | disposition home or self-care (01) ==
LOC: LBN 14:41
PROVIDERS: PCP Family Medicine; Visit Provider Family Medicine
DX: I50.9 Heart failure, unspecified (principal); K92.2 Gastrointestinal hemorrhage, unspecified; I27.20 Pulmonary hypertension, unspecified; J18.9 Pneumonia, unspecified organism; E66.01 Morbid (severe) obesity due to excess calories
CPT/HCPCS: 80048; 85025

== ENCOUNTER 2020-07-13 13:58 | Outpatient (REF) | payer MEDICARE, MEDICAID, SELFPAY ==
[2020-07-13 14:19] LABS: Abs Immature Grans 0.05 10^3/uL (0.0-0.06); Absolute Basophil Count 0.08 10^3/uL (0.0-0.2); Absolute Eosinophil Count 0.38 10^3/uL (0.0-0.7); Absolute Lymphocyte Count 2.06 10^3/uL (1.2-3.4); Absolute Monocyte Count 1.01 10^3/uL (0.1-0.8); Basophils % 0.7; Eosinophils % 3.5; HCT 34.7 % (36.0-46.0); HGB 9.9 g/dL (11.2-15.7); Immature Grans % 0.5; Lymphocytes % 18.9; MCH 30.1 pg (27.0-33.0); MCHC 28.5 % (32.0-36.0); MCV 105.5 fL (80-95); MPV 11.8 fL (8.0-11.0); Monocytes % 9.3; Neutrophils % 67.1; Platelet Count 278 10^3/uL (130-400); RBC 3.29 10^6/uL (3.93-5.22); RDW 16.3 % (11.7-14.6); RDW-SD 62.4 fL; WBC 10.88 10^3/uL (4.4-10.8)
[2020-07-13 14:24] LABS: Anion Gap 3.6 mmol/L (3-11); BUN 20 mg/dL (7-18); CO2 38.4 mmol/L (21.0-32.0); CREATININE 1.3 mg/dL (0.55-1.02); Calcium 9.7 mg/dL (8.5-10.1); Chloride 106 mmol/L (98-107); Estimated GFR 40.38 (mL/min/1.73m2); Glucose 155 mg/dL (74-106); Potassium 3.8 mmol/L (3.5-5.1); Sodium 148 mmol/L (136-145)
[2020-07-13 14:39] LABS: Nucleated RBC 0 %
[2020-07-13 14:40] LABS: Anisocytosis 1+; Diff Comment Agrees w/ Instrument; Macrocytosis 2+; Polychromasia Present
[2020-07-13 14:41] LABS: Poikilocytes 2+
== END 2020-07-13 13:59 | disposition home or self-care (01) ==
LOC: LBN 13:58
PROVIDERS: PCP Family Medicine; Visit Provider Family Medicine
DX: I50.9 Heart failure, unspecified (principal); I50.30 Unspecified diastolic (congestive) heart failure; J44.1 Chronic obstructive pulmonary disease with (acute) exacerbation
CPT/HCPCS: 80048; 85025

== ENCOUNTER 2020-07-17 17:07 | Inpatient (IN) | payer MEDICARE, MEDICAID, SELFPAY ==
[2020-07-17] VITALS (50 sets, daily range): BP systolic 101–141; BP diastolic 62–107; PULSE 70–95; RESP 8–31; TEMP 36.6–36.7; O2SAT 81–97
--- NOTE | 2020-07-17 17:00 | DI.RAD_ITS ---
EXAM: XR PORTABLE CHEST AP CLINICAL HISTORY: sob, hypoxia, r/o pneumonia. TECHNIQUE: 2D digital imaging was performed. COMPARISON: CR XR CHEST 2V PA LATERAL from 07/09/2020 FINDINGS: Chest leads in place. Suboptimal inspiratory effort. Cardiomegaly noted. Elevated right hemidiaphragm. There is persistent infiltrate in the left lower lobe although with some improvement. However, there is increased infiltrate in the right lung base. Probable small bilateral pleural effusions. Platel sidney atelectasis in the mid right lung field. No pneumothorax. Dysplastic humeral heads-glenohumeral joints again noted. IMPRESSION: Bilateral infiltrates. Suboptimal inspiratory effort. Probable small bilateral pleural effusions. DATA REPOSITORY: RADIATION DOSE DELIVERED:
--- NOTE | 2020-07-17 17:00 | RT.EKG_ITS ---
APPROVED REPORT Exam: Resting ECG Patient Location: E HR:76 bpm ECG Measurements Heart Rate 76 AXIS IL 274 P 91 QRSd 101 QRS -21 QT 430 T 86 QTc 483 Conclusion Sinus rhythm...normal P axis, V-rate 60- 99 Aberrant conduction of SV complex(es)...aberrant shape, IL 80-220 Prolonged IL interval...IL >220, V-rate 50- 90 LVH with secondary repolarization abnormality...multi-LVH criteria, abnrm ST-T. Limited due to pt movement. No STEMI. I have reviewed and interpreted ECG and agree with software generated interpretation.
--- NOTE | 2020-07-17 17:04 | ED.GENADUL_ITS ---
Discharge Plan Disposition Patient Disposition: [facility] INPATIENT Condition: Serious Discharge Details Clinical Impression: Acute exacerbation of chronic obstructive pulmonary disease, Multifocal pneumonia, Elevated troponin Admit Date/Time: 07/17/20 19:51 Admit Provider: Caesar Morales Attending Provider: Caesar Morales Primary Care Provider: Lucia Mckeon ED Provider: Louann Fishman Medical Decision Making 1725 -- 69-year-old female with a history of morbid obesity, COPD chronically on 4 L nasal cannula oxygen, lymphedema, bedbound who presents from the [facility] for shortness of breath and hypoxia over the past 2 days. Oxygen saturation 80s on 5 L, increased to 92% on nonrebreather per EMS. Patient placed on BiPAP shortly after arrival which she is tolerating well. She initially presented in respiratory distress per nursing but upon my evaluation appears to be improving. Oxygen saturation 94%. She has diminished breath sounds throughout. She has chronic bilateral lower extremity lymphedema. Differential diagnosis includes pneumonia including hospital-acquired considering her recent hospital admission, COPD exacerbation, acute CHF, etc. Will obtain screening labs, ABG, portable chest x-ray. Do not clinically suspect PE as she has a normal heart rate and has diminished breath sounds with wheezing. Will give a DuoNeb, IV steroids and reassess. 1805 -- Labs reviewed. Rapid Covid negative. White blood cell count 11.34. Hemoglobin 10. ABG notes a pH of 7.34, PCO2 88 higher than her usual baseline high 60s to low 70s, PO2 76, bicarb 47. She appears to have compensated respiratory acidosis. Troponin 0.21. She has had chronically elevated troponin over the last few months, baseline at 0.2. Repeat troponin downtrending to 0.18. Chest x-ray notes a multifocal pneumonia. As patient was admitted here earlier this month for pneumonia, will treat with broad-spectrum antibiotics for suspected hospital-acquired pneumonia. Her BNP is improved and she has no crackles on exam so not convinced this is solely CHF. Her lactate is normal and she has no fever or tachycardia so unclear if this is solely pneumonia as well. Presentation could be a combination of COPD, CHF and pneumonia. Patient reassessed and doing well on BiPAP. She is breathing at a normal rate with no signs of respiratory distress. Oxygen saturation 96%. Review of records note that patient was evaluated by Dr. Christensen last month and there was discussion of patient being DNR/DNI but her COLST form notes she is a full code. Discussed with patient at bedside and she is able to state her name and that she is in the emergency department. She states she would want intubation and CPR. 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 1899 -- Case discussed with hospitalist who accepts patient for admission. Just prior to transfer to floor, patient was downgraded to facemask and is doing well. Medical Records Medical records reviewed: Yes I reviewed the patient's medical records. Imaging Data Radiologic Study: Radiologist's impression: XR Chest Exam date and time: 07/17/2020 7:01 PM Age: 69 years old Clinical indication: Shortness of breath and other: Hypoxia; Patient HX: SOB, hypoxia; Additional info: R/O pneumonia TECHNIQUE: Imaging protocol: XR of the chest Views: 1 view. COMPARISON: CR XR CHEST 2V PA LATERAL 07/09/2020 10:42 AM FINDINGS: Lungs: Bilateral lower lobe patchy opacification. Pleural spaces: Costophrenic angles are obscured, suggesting small bilateral pleural effusions. No pneumothorax. Heart/Mediastinum: Cardiac silhouette is not well evaluated. Vasculature: Calcified atherosclerotic disease. Bones/joints: Unchanged dysplastic humeral heads. IMPRESSION: Probable multifocal pneumonia. Lab Data Lab results reviewed: Yes I reviewed the patient's lab results. Labs: 07/17/20 19:35 Blood Blood Culture - Pending 07/17/20 17:55 Blood Blood Culture - Pending Laboratory Tests Range/Units 07/17/20 07/17/20 07/17/20 17:15 17:37 17:55 WBC (4.4-10.8) 10^3/uL RBC (3.93-5.22) 10^6/uL Hgb (11.2-15.7) g/dL Hct (36.0-46.0) % MCV (80-95) fL MCH (27.0-33.0) pg MCHC (32.0-36.0) % RDW (11.7-14.6) % Plt Count (130-400) 10^3/uL MPV (8.0-11.0) fL Immature Gran % Neutrophils % Lymphocytes % Monocytes % Eosinophils % Basophils % Nucleated RBC % % Absolute Neutrophils (1.2-6.7) 10^3/uL Absolute Lymphocytes (1.2-3.4) 10^3/uL Absolute Monocytes (0.1-0.8) 10^3/uL Absolute Eosinophils (0.0-0.7) 10^3/uL Absolute Basophils (0.0-0.2) 10^3/uL RBC Morphology Macrocytosis PT (9.3-11.0) sec INR (0.9-1.1) APTT (21.0-27.5) sec ABG Sample Site Right radial ABG pH (7.35-7.45) 7.34 L ABG pCO2 (35-45) mmHg 88 H* ABG pO2 (80-105) mmHg 76 L ABG HCO3 (22-26) mmol/L 47 H ABG Total CO2 (23-27) mmol/L 45 H ABG O2 Saturation (95-98) % 95 ABG Base Excess (-2-3) mmol/L > 15 H VBG Lactate (0.6-1.4) mmol/L Oxygen Liter Flow L Bipap 14/6 FiO2 % 50 Sodium (136-145) mmol/L 148 H Potassium (3.5-5.1) mmol/L 3.7 Chloride (98-107) mmol/L 104 Carbon Dioxide (21.0-32.0) mmol/L 44.0 H Anion Gap (3-11) mmol/L 0 L BUN (7-18) mg/dL 21 H Creatinine (0.55-1.02) mg/dL 1.3 H Estimated GFR/1.73 m2 (mL/min/1.73m2) 40.38 Glucose (74-106) mg/dL 108 H Calcium (8.5-10.1) mg/dL 9.7 Magnesium (1.8-2.4) mg/dL 2.0 Total Bilirubin (0.2-1.0) mg/dL 0.3 AST (15-37) U/L 16 ALT (14-59) U/L 12 L Alkaline Phosphatase (46-116) U/L 139 H Troponin I (<0.06) ng/mL 0.21 H* NT-Pro-B Natriuret Pep (<300) pg/mL Total Protein (6.4-8.2) g/dL 7.2 Albumin (3.4-5.0) g/dL 2.4 L COVID-19 Source Nasopharyx SARS-CoV-2 (PCR) (Negative) Negative Range/Units 07/17/20 07/17/20 07/17/20 17:55 17:55 17:55 WBC (4.4-10.8) 10^3/uL 11.34 H RBC (3.93-5.22) 10^6/uL 3.33 L Hgb (11.2-15.7) g/dL 10.1 L Hct (36.0-46.0) % 35.2 L MCV (80-95) fL 105.7 H MCH (27.0-33.0) pg 30.3 MCHC (32.0-36.0) % 28.7 L RDW (11.7-14.6) % 16.2 H Plt Count (130-400) 10^3/uL 272 MPV (8.0-11.0) fL 11.7 H Immature Gran % 0.4 Neutrophils % 66.9 Lymphocytes % 18.9 Monocytes % 10.8 Eosinophils % 2.3 Basophils % 0.7 Nucleated RBC % % 1 Absolute Neutrophils (1.2-6.7) 10^3/uL 7.59 H Absolute Lymphocytes (1.2-3.4) 10^3/uL 2.14 Absolute Monocytes (0.1-0.8) 10^3/uL 1.22 H Absolute Eosinophils (0.0-0.7) 10^3/uL 0.26 Absolute Basophils (0.0-0.2) 10^3/uL 0.08 RBC Morphology See below Macrocytosis 1+ PT (9.3-11.0) sec 11.0 INR (0.9-1.1) 1.1 APTT (21.0-27.5) sec 27.5 ABG Sample Site ABG pH (7.35-7.45) ABG pCO2 (35-45) mmHg ABG pO2 (80-105) mmHg ABG HCO3 (22-26) mmol/L ABG Total CO2 (23-27) mmol/L ABG O2 Saturation (95-98) % ABG Base Excess (-2-3) mmol/L VBG Lactate (0.6-1.4) mmol/L Oxygen Liter Flow L FiO2 % Sodium (136-145) mmol/L Potassium (3.5-5.1) mmol/L Chloride (98-107) mmol/L Carbon Dioxide (21.0-32.0) mmol/L Anion Gap (3-11) mmol/L BUN (7-18) mg/dL Creatinine (0.55-1.02) mg/dL Estimated GFR/1.73 m2 (mL/min/1.73m2) Glucose (74-106) mg/dL Calcium (8.5-10.1) mg/dL Magnesium (1.8-2.4) mg/dL Total Bilirubin (0.2-1.0) mg/dL AST (15-37) U/L ALT (14-59) U/L Alkaline Phosphatase (46-116) U/L Troponin I (<0.06) ng/mL NT-Pro-B Natriuret Pep (<300) pg/mL 366 H Total Protein (6.4-8.2) g/dL Albumin (3.4-5.0) g/dL COVID-19 Source SARS-CoV-2 (PCR) (Negative) Range/Units 07/17/20 18:02 WBC (4.4-10.8) 10^3/uL RBC (3.93-5.22) 10^6/uL Hgb (11.2-15.7) g/dL Hct (36.0-46.0) % MCV (80-95) fL MCH (27.0-33.0) pg MCHC (32.0-36.0) % RDW (11.7-14.6) % Plt Count (130-400) 10^3/uL MPV (8.0-11.0) fL Immature Gran % Neutrophils % Lymphocytes % Monocytes % Eosinophils % Basophils % Nucleated RBC % % Absolute Neutrophils (1.2-6.7) 10^3/uL Absolute Lymphocytes (1.2-3.4) 10^3/uL Absolute Monocytes (0.1-0.8) 10^3/uL Absolute Eosinophils (0.0-0.7) 10^3/uL Absolute Basophils (0.0-0.2) 10^3/uL RBC Morphology Macrocytosis PT (9.3-11.0) sec INR (0.9-1.1) APTT (21.0-27.5) sec ABG Sample Site ABG pH (7.35-7.45) ABG pCO2 (35-45) mmHg ABG pO2 (80-105) mmHg ABG HCO3 (22-26) mmol/L ABG Total CO2 (23-27) mmol/L ABG O2 Saturation (95-98) % ABG Base Excess (-2-3) mmol/L VBG Lactate (0.6-1.4) mmol/L 0.7 Oxygen Liter Flow L FiO2 % Sodium (136-145) mmol/L Potassium (3.5-5.1) mmol/L Chloride (98-107) mmol/L Carbon Dioxide (21.0-32.0) mmol/L Anion Gap (3-11) mmol/L BUN (7-18) mg/dL Creatinine (0.55-1.02) mg/dL Estimated GFR/1.73 m2 (mL/min/1.73m2) Glucose (74-106) mg/dL Calcium (8.5-10.1) mg/dL Magnesium (1.8-2.4) mg/dL Total Bilirubin (0.2-1.0) mg/dL AST (15-37) U/L ALT (14-59) U/L Alkaline Phosphatase (46-116) U/L Troponin I (<0.06) ng/mL NT-Pro-B Natriuret Pep (<300) pg/mL Total Protein (6.4-8.2) g/dL Albumin (3.4-5.0) g/dL COVID-19 Source SARS-CoV-2 (PCR) (Negative) ECG Data Attestation: I personally reviewed and interpreted this ECG (s) as follows: Interpretation: Rate of 76, sinus, limited due to patient movement, no STEMI, QRS 101. QTc 483. HPI General Mode of arrival: EMS . Date/Time Provider Initiated Documentation: 07/17/20 17:45 . Limitations to Documentation: physical limitation . Information obtained by: patient . HPI Narrative: Patient is a 69-year-old female with a history of COPD chronically on 4 L nasal cannula oxygen, obesity, hypertension, hyperlipidemia and GERD presents from the [facility] for shortness of breath with hypoxia. EMS noted oxygen saturation in the 80s on nasal cannula which increased to 92% on 15 L nonrebreather. Patient was admitted earlier this month for aspiration pneumonia and COPD exacerbation treated with steroids and antibiotics. Patient states she felt better upon discharge. Patient states she has felt short of breath for the past 2 days. She states she is bedbound. She states she has had a cough with yellow sputum. She denies any known fever or chest pain. Related Data Home Medications Medication Instructions Recorded Confirmed albuterol sulfate [Ventolin HFA] 2 puff INHALATION PRN PRN 05/02/16 07/01/20 omeprazole 1 tab PO BID 05/02/16 07/17/20 simvastatin 40 mg PO HS 05/02/16 07/17/20 Lactinex 1 tab PO TID 05/21/20 07/17/20 acetaminophen 650 mg PO QID 05/21/20 07/17/20 calcium gluconate 500 mg PO DAILY 05/21/20 07/01/20 ferrous sulfate [Iron (ferrous 325 mg PO TID 05/21/20 07/01/20 sulfate)] gabapentin [Neurontin] 300 mg PO TID 05/21/20 07/17/20 ipratropium-albuterol 1 spray INHALATION QID 05/21/20 07/17/20 lidocaine 2 patch TOPICAL DAILY 05/21/20 07/17/20 mometasone 2 puff INHALATION BID 05/21/20 07/01/20 vitamin [id number]-[id number] acid 1 tab SUBLINGUAL DAILY 05/21/20 07/17/20 sucralfate 1 g PO AC & HS #120 tab 06/02/20 07/17/20 folic acid 1 mg PO DAILY 07/01/20 07/17/20 furosemide 60 mg PO DAILY 07/01/20 07/01/20 polyethylene glycol 3350 [Miralax] 17 g PO DAILY 07/01/20 07/01/20 sertraline 150 mg PO 5XW 07/01/20 07/17/20 amlodipine [Norvasc] 2.5 mg PO DAILY 07/17/20 07/17/20 potassium 20 mg PO QID 07/17/20 07/17/20 Previous Rx's Medication Instructions Recorded sucralfate 1 g PO AC & HS #120 tab 06/02/20 Allergies Allergy/AdvReac Type Severity Reaction Status Date / Time codeine Allergy Unverified 07/17/20 17:41 pentazocine AdvReac Unknown unknown Unverified 07/17/20 17:41 General TATIANA: 1 Review of Systems All systems reviewed & are unremarkable except as noted in HPI and below Constitutional Constitutional: Reports as per HPI, Denies chills and Denies fever(s) Eyes Eyes: Denies blurry vision ENT Ears, Nose, Mouth, and Throat: Denies dizziness, Denies sore throat and Denies throat swelling Cardiovascular Cardiovascular: Denies chest pain and Reports dyspnea Respiratory Respiratory: Reports cough and Reports dyspnea Gastrointestinal Gastrointestinal: Denies abdominal pain, Denies diarrhea and Denies vomiting Genitourinary Genitourinary: Denies hematuria and Denies dysuria Musculoskeletal Musculoskeletal: Denies back pain and Denies numbness Integumentary/Breasts Skin/Breast: Denies lesions and Denies rash Neurologic Neurologic: Denies dizziness, Denies localized weakness and Denies numbness Allergic/Immunologic Allergic/Immunologic: Denies throat swelling [facility] Medical History Anxiety about health Avoidance coping CKD (chronic kidney disease) stage 3, GFR 30-59 ml/min COPD (chronic obstructive pulmonary disease) Depression Diastolic dysfunction with chronic heart failure Generalized weakness Goals of care, counseling/discussion Low-level of literacy Lymphedema Morbid obesity [facility] resident Oncocytoma Palliative care patient Renal cell carcinoma Family History Son No problems noted. Son No problems noted. Son No problems noted. Mother , of ALS age 63 ALS (amyotrophic lateral sclerosis) Father , of lung cancer age 70 heavy smoker Lung cancer Smoker Sister No problems noted. Sister No problems noted. Sister No problems noted. Sister No problems noted. Sister No problems noted. Brother , older brother doesn't know how he No problems noted. Brother No problems noted. 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 Pets and animals: No Current gender identity: female What is your relationship status?: How often do you talk on the phone with friends or family?: once per week How often do you get together with friends or relatives?: never Panel score (0-1 are the most socially isolated patients): 0 What type of physical activity do you participate in: none, bed-bound, sedentary lifestyle and wheelchair-bound Special alysha needs: No Seatbelt use: always Water heater temp set <120 deg: Yes Working smoke detector in home: Yes Fire extinguisher in home: Yes Firearms in home: No Do you feel safe at home: Yes Do you feel safe in your relationship?: Yes Additional Social history: resident @ [facility]. Was living in [facility] until her legs gave out all of a sudden and I couldn't walk. [facility] was in [place], run by her son's best friend and his . Prior to living in [facility], lived on her own in [facility], where she lived for many years. She has one son in [facility], one son in [facility], and one son in [place], [place]. She tells me she knows her memory is getting worse. Sometimes I just black out. She has never filled out a COLST form. She can't tell me which of her sons is her DPOA. Exam Const General: cooperative and no acute distress Nutritional Appearance: obese morbidly obese Orientation: alert, awake and oriented x3 HENMT Head: normal to inspection Face and sinus: normal facial exam Eyes General: appearance normal, both eyes and all related structures EOM: EOM intact bilaterally Neck Neck: normal visual inspection and No submandibular swelling Lymphatic: no lymphadenopathy noted Chest Chest: normal inspection of the chest and no tenderness Resp Effort & Inspection: not able to speak in complete sentences and labored Auscultation: diminished lung sounds bilaterally throughout and wheezes scattered wheezes Cardio Rate: regular rate Rhythm: regular rhythm GI Inspection: normal to inspection Palpation: soft, not firm, not rigid and nontender Auscultation: normal bowel sounds Back/Spine/Pelvis Thoracic/Lumbar Spine: thoracic and lumbar spine normal to inspection Skin General skin exam: no rashes or lesions noted Neuro General: patient alert, patient awake and patient oriented x3 Cognition: normal cognition Speech: speech normal Motor: muscle tone normal throughout Sensory Exam: no sensory deficits noted Extrem General: normal to inspection, full ROM, capillary refill normal, no calf tenderness bilaterally and edema Laterality: bilateral (lower extremities, w/ rubor/chronic skin changes) Psych Appearance: grossly normal Mental Status: mental status grossly normal Speech and Movement: speech and movement normal Affect: normal affect Critical Care Time Critical Care Time Critical Care Time: Yes Total Critical Care Time: 20 Attestation: I spent 20 minutes of critical care time with this patient. This does not include time spent on separately reported billable procedures.
[2020-07-17] MEDS: Albuterol/Ipratropium 3 ML UPD VIAL UPD ×2 (17:34→22:05)
[2020-07-17 17:42] LABS: HCO3 47 mmol/L (22-26); pH 7.34 (7.35-7.45); pO2 76 mmHg (80-105); sO2 95 % (95-98); tCO2 45 mmol/L (23-27)
[2020-07-17 17:46] LABS: BE > 15 mmol/L (-2-3); pCO2 88 mmHg (35-45)
[2020-07-17] MEDS: methylPREDNISolone SUCC 125 MG VIAL IVP (18:02)
[2020-07-17 18:06] LABS: COVID-19 PCR Negative (Negative)
[2020-07-17 18:14] LABS: Abs Immature Grans 0.05 10^3/uL (0.0-0.06); Absolute Basophil Count 0.08 10^3/uL (0.0-0.2); Absolute Eosinophil Count 0.26 10^3/uL (0.0-0.7); Absolute Lymphocyte Count 2.14 10^3/uL (1.2-3.4); Basophils % 0.7; Eosinophils % 2.3; HCT 35.2 % (36.0-46.0); HGB 10.1 g/dL (11.2-15.7); Immature Grans % 0.4; Lymphocytes % 18.9; MCH 30.3 pg (27.0-33.0); MCHC 28.7 % (32.0-36.0); MCV 105.7 fL (80-95); MPV 11.7 fL (8.0-11.0); Monocytes % 10.8; Neutrophils % 66.9; Nucleated RBC 1 %; Platelet Count 272 10^3/uL (130-400); RBC 3.33 10^6/uL (3.93-5.22); RDW 16.2 % (11.7-14.6); RDW-SD 62.2 fL; WBC 11.34 10^3/uL (4.4-10.8)
[2020-07-17 18:15] LABS: Absolute Monocyte Count 1.22 10^3/uL (0.1-0.8); Absolute Neutrophil Count 7.59 10^3/uL (1.2-6.7)
[2020-07-17 18:17] LABS: Lactate 0.7 mmol/L (0.6-1.4)
[2020-07-17 18:18] LABS: FIO2 50 %; Site Right Radial
[2020-07-17] MEDS: Albuterol/Ipratropium 3 ML UPD VIAL (18:20)
[2020-07-17 18:28] LABS: Diff Comment RBC Morph Reviewed; Macrocytosis 1+
[2020-07-17 18:30] LABS: INR 1.1 (0.9-1.1); PTT Activated 27.5 sec (21.0-27.5)
[2020-07-17 18:37] LABS: ALT 12 U/L (14-59); AST 16 U/L (15-37); Albumin 2.4 g/dL (3.4-5.0); Alkaline Phosphatase 139 U/L (46-116); Anion Gap 0 mmol/L (3-11); BUN 21 mg/dL (7-18); Bilirubin, Total 0.3 mg/dL (0.2-1.0); CREATININE 1.3 mg/dL (0.55-1.02); Calcium 9.7 mg/dL (8.5-10.1); Chloride 104 mmol/L (98-107); Estimated GFR 40.38 (mL/min/1.73m2); Glucose 108 mg/dL (74-106); Potassium 3.7 mmol/L (3.5-5.1); Sodium 148 mmol/L (136-145); Total Protein 7.2 g/dL (6.4-8.2)
[2020-07-17 18:41] LABS: NT-proBNP 366 pg/mL (<300)
[2020-07-17 18:43] LABS: Troponin I 0.21 ng/mL (<0.06)
--- NOTE | 2020-07-17 19:22 | DI.VRAD_ITS ---
PROCEDURE INFORMATION: Exam: XR Chest Exam date and time: 07/17/2020 7:01 PM Age: 69 years old Clinical indication: Shortness of breath and other: Hypoxia; Patient HX: SOB, hypoxia; Additional info: R/O pneumonia TECHNIQUE: Imaging protocol: XR of the chest Views: 1 view. COMPARISON: CR XR CHEST 2V PA LATERAL 07/09/2020 10:42 AM FINDINGS: Lungs: Bilateral lower lobe patchy opacification. Pleural spaces: Costophrenic angles are obscured, suggesting small bilateral pleural effusions. No pneumothorax. Heart/Mediastinum: Cardiac silhouette is not well evaluated. Vasculature: Calcified atherosclerotic disease. Bones/joints: Unchanged dysplastic humeral heads. IMPRESSION: Probable multifocal pneumonia. Dictated and Authenticated by: Caesar Ribeiro MD. Ordering:DEANNE Lew MD
[2020-07-17] MEDS: Furosemide 40 MG/4 ML VIAL IVP (19:28)
[2020-07-17] MEDS: PIPERACILLIN/TAZO 3.375 GM in Normal Saline 50 ML IVPB (19:50)
--- NOTE | 2020-07-17 20:25 | W.PM.HP.N ---
Date of service: 07/17/20 Time of Service: 20:28 Assessment and Plan Assessment and plan (1) Hospital acquired PNA: Start date: 07/17/20 Status: Acute Assessment and plan: This is a 69-year-old lady who resides at the [facility] who presents with increasing dyspnea and hypoxemia and what appears to be exacerbation of chronic respiratory failure with a history of COPD and diastolic dysfunction with right-sided CHF. She also is hyponatremic indicating possible dehydration. She was found to have multifocal infiltrates by chest x-ray and was admitted for institution acquired pneumonia with vancomycin and meropenem IV initiated. She will have aggressive treatment of her COPD and continue use of BiPAP for worsening respiratory failure. She is a full code. (2) Acute and chronic respiratory failure with hypoxia: Start date: 07/17/20 Status: Acute Assessment and plan: BiPAP as needed with recheck of venous blood gas to assure patient is returned to baseline PCO2 around 70. Long-term patient's CODE STATUS should be reviewed. She does have obstructive sleep apnea and COPD and does wear BiPAP nightly at her care center. (3) Acute exacerbation of chronic obstructive pulmonary disease: Start date: 07/17/20 Status: Acute Assessment and plan: Aggressive nebulizer treatments and Solu-Medrol IV with continued positive pressure airway management. (4) Acute hypernatremia: Start date: 07/17/20 Status: Acute Assessment and plan: D5W with rate of 125 mL/h overnight with recheck lab in the morning. Watch closely for fluid overload with patient's history of CHF. (5) Diastolic dysfunction with chronic heart failure: Status: Chronic Assessment and plan: Monitor closely for exacerbation with fluid resuscitation. Patient BNP actually has been decreasing. She does have a positive troponin which remains elevated chronically and does not likely represent acute cardiac ischemia. Trend troponins overnight. Continue diuretics long-term. (6) CKD (chronic kidney disease) stage 3, GFR 30-59 ml/min: Status: Chronic Assessment and plan: Monitor lab with IV fluids. This appears to be an advancing disease and as stated the troponin levels never normalized probably secondary to CKD. Qualifiers: Chronic kidney disease stage 3 subtype: stage 3b (GFR 30-44) Qualified Code(s): N18.32 - Chronic kidney disease, stage 3b History of Present Illness History of Present Illness Chief Complaint: Dyspnea with hypoxemia for 2 days Narrative: This is a 69-year-old female patient who resides at the [facility] most recently moved to this facility who presents with recurrent worsening dyspnea and hypoxemia. She does have CHF with a preserved left ventricular ejection fraction but diastolic dysfunction and right-sided heart failure. She chronically is on diuretics and is bedbound with morbid obesity. She also has lymphedema. She was recently hospitalized with CHF and has had no fever or chills and presented to the ED for evaluation with response to BiPAP for her hypercarbia with chronic respiratory failure exacerbated and treatment of COPD exacerbation. She was found to have multifocal infiltrates on her chest x-ray and was admitted for treatment of institution acquired pneumonia. She did test negative for COVID-19. She does have a coarse cough and slowed mentation. She is a full code. Palliative care consultation has been done recently with patient thinking of DNR/DNI status but not at that point. She does have multisystem failure with CKD and chronic anemia, chronic respiratory failure as stated and immobility with morbid obesity being bedbound with pressure sores over her sacrum. Review of Systems Narrative: 13 point review of systems otherwise unrevealing or stable. [facility] Medical History Anxiety about health Avoidance coping CKD (chronic kidney disease) stage 3, GFR 30-59 ml/min COPD (chronic obstructive pulmonary disease) Depression Diastolic dysfunction with chronic heart failure Generalized weakness Goals of care, counseling/discussion Low-level of literacy Lymphedema Morbid obesity [facility] Oncocytoma Palliative care patient Renal cell carcinoma Family History Son No problems noted. Son No problems noted. Son No problems noted. Mother , of ALS age 63 ALS (amyotrophic lateral sclerosis) Father , of lung cancer age 70 heavy smoker Lung cancer Smoker Sister No problems noted. Sister No problems noted. Sister No problems noted. Sister No problems noted. Sister No problems noted. Brother , older brother doesn't know how he No problems noted. Brother No problems noted. 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 Pets and animals: No Current gender identity: female What is your relationship status?: How often do you talk on the phone with friends or family?: once per week How often do you get together with friends or relatives?: never Panel score (0-1 are the most socially isolated patients): 0 What type of physical activity do you participate in: none, bed-bound, sedentary lifestyle and wheelchair-bound Special alysha needs: No Seatbelt use: always Water heater temp set <120 deg: Yes Working smoke detector in home: Yes Fire extinguisher in home: Yes Firearms in home: No Do you feel safe at home: Yes Do you feel safe in your relationship?: Yes Additional Social history: resident @ [facility]. Was living [facility] until her legs gave out all of a sudden and I couldn't walk. [facility] was in [place], run by her son's best friend and his . Prior to living in [facility], lived on her own in [facility], where she lived for many years. She has one son in [facility], one son in [facility], and one son in [place], [place]. She tells me she knows her memory is getting worse. Sometimes I just black out. She has never filled out a COLST form. She can't tell me which of her sons is her DPOA. Meds Home Medications and Allergies Allergies Allergy/AdvReac Type Severity Reaction Status Date / Time codeine Allergy Unverified 07/17/20 17:41 pentazocine AdvReac Unknown unknown Unverified 07/17/20 17:41 Home Medications Medication Instructions Recorded Confirmed Type albuterol sulfate [Ventolin HFA] 2 puff INHALATION PRN PRN 05/02/16 07/01/20 History omeprazole 1 tab PO BID 05/02/16 07/17/20 History simvastatin 40 mg PO HS 05/02/16 07/17/20 History Lactinex 1 tab PO TID 05/21/20 07/17/20 History acetaminophen 650 mg PO QID 05/21/20 07/17/20 History calcium gluconate 500 mg PO DAILY 05/21/20 07/01/20 History ferrous sulfate [Iron (ferrous 325 mg PO TID 05/21/20 07/01/20 History sulfate)] gabapentin [Neurontin] 300 mg PO TID 05/21/20 07/17/20 History ipratropium-albuterol 1 spray INHALATION QID 05/21/20 07/17/20 History lidocaine 2 patch TOPICAL DAILY 05/21/20 07/17/20 History mometasone 2 puff INHALATION BID 05/21/20 07/01/20 History vitamin Y15-mhwsc acid 1 tab SUBLINGUAL DAILY 05/21/20 07/17/20 History sucralfate 1 g PO AC & HS #120 tab 06/02/20 07/17/20 Rx folic acid 1 mg PO DAILY 07/01/20 07/17/20 History furosemide 60 mg PO DAILY 07/01/20 07/01/20 History polyethylene glycol 3350 [Miralax] 17 g PO DAILY 07/01/20 07/01/20 History sertraline 150 mg PO 5XW 07/01/20 07/17/20 History amlodipine [Norvasc] 2.5 mg PO DAILY 07/17/20 07/17/20 History potassium 20 mg PO QID 07/17/20 07/17/20 History Exam Narrative Exam Narrative: General: Morbidly obese mildly obtunded and appearing older than stated age. Patient is alert and oriented at least to person and place. She appears to be in no acute distress and demanding actions from the nurse. HEENT: Normocephalic, face with coarsened features but no edema, eyes with pupils equal and react to light symmetrically, extraocular movement tact and sclera anicteric. Oropharynx with slightly dry mucosa and patient is edentulous. Neck: Supple without JVD. Back: Stooped posture with no CVA tenderness. Lungs: Diffusely decreased aeration with bronchovesicular breath sounds diffusely and increased inspiratory to expiratory phase ratio. Expiratory wheeze diffusely. Coarse crackles diffusely without focalizing rhonchi with partial clearing when patient coughs. Heart: Regular rate and rhythm with S4 gallop and no appreciable murmurs or rubs. Breast: Exam deferred. Abdomen: Grossly obese with large pannus, soft and nontender to palpation with no appreciable hepatosplenomegaly. Bowel sounds positive in all quadrants. Genitalia/rectal: Exam deferred. Patient does have Mittal catheter in place. Extremities: Gross obesity over lower extremities with 4+ heart edema without pitting over both lower extremities. Cap refill fair. No clubbing or cyanosis. Patient appears to have decreased range of motion of most joints. Skin: Pale, warm and dry. Stage II decubitus ulcers over sacral area. No drainage. Neuro: Cranial nerves II through XII grossly intact, no focal neurological deficits. Psych: Slowed mentation, flattened affect with little variation. Mood appears normal with no abnormal thought processes. Remote memory intact. Recent memory appears to be less intact with patient being a poor historian. Results Imaging Imaging Studies: Exam: XR Chest Exam date and time: 07/17/2020 7:01 PM Age: 69 years old Clinical indication: Shortness of breath and other: Hypoxia; Patient HX: SOB, hypoxia; Additional info: R/O pneumonia TECHNIQUE: Imaging protocol: XR of the chest Views: 1 view. COMPARISON: CR XR CHEST 2V PA LATERAL 07/09/2020 10:42 AM FINDINGS: Lungs: Bilateral lower lobe patchy opacification. Pleural spaces: Costophrenic angles are obscured, suggesting small bilateral pleural effusions. No pneumothorax. Heart/Mediastinum: Cardiac silhouette is not well evaluated. Vasculature: Calcified atherosclerotic disease. Bones/joints: Unchanged dysplastic humeral heads. IMPRESSION: Probable multifocal pneumonia. Dictated and Authenticated by: Caesar Ribeiro MD. EXAM: Comprehensive 2D, Doppler, and color-flow Echocardiogram Patient Location: In-Patient Room/Bed: [facility] Charge Machine Operator: Elizabet Medina RDCS (AE) Indications: CHF Other Information Study Quality: Fair. Technically limited study due to body habitus, inability to position patient. Conclusion This is a technically limited study due to body habitus. Left Ventricle : The left ventricle is normal size. The left ventricular systolic function is normal. The left ventricular ejection fraction is within the normal range. Mild concentric left ventricular hypertrophy. There is discrete upper septal wall thickening. There appears to be a slight increase in the LVOT gradient beyond what was measured. Valsalva was not done. There is normal LV segmental wall motion. Diastolic function is indeterminate. LVEF is 60%. The LV appears to be hyperdynamic with total obliteration of the cavity during systole. Right Ventricle : Right ventricle is not well visualized. Right ventricular systolic function could not be assessed. The RVSP is 30.9mmHg. Atria : The left atrium size is normal. Right atrium is not well visualized. Mitral Valve : Moderate mitral annular calcification. Mild mitral regurgitation. No evidence of mitral valve stenosis. Great Vessels : The aortic root is normal in size. The ascending aorta is mildly dilated. Aortic arch is not well visualized. IVC is normal in size and collapses >50% with inspiration. Compared to study at [facility] from 05/21/2018, the estimated PA pressure has decreased slightly. Dictated By: Caesar Patino M.D. 05/25/20 1147 Labs Result diagrams: 07/18/20 05:37 07/18/20 05:37 Labs: Laboratory Results - last 24 hr 07/17/20 07/17/20 07/17/20 17:15 17:37 17:55 WBC RBC Hgb Hct MCV MCH MCHC RDW Plt Count MPV Immature Gran % Neutrophils % Lymphocytes % Monocytes % Eosinophils % Basophils % Nucleated RBC % Absolute Neutrophils Absolute Lymphocytes Absolute Monocytes Absolute Eosinophils Absolute Basophils RBC Morphology Macrocytosis PT INR APTT ABG Sample Site Right radial ABG pH 7.34 L ABG pCO2 88 H* ABG pO2 76 L ABG HCO3 47 H ABG Total CO2 45 H ABG O2 Saturation 95 ABG Base Excess > 15 H VBG Lactate Oxygen Liter Flow Bipap 14/6 FiO2 50 Sodium 148 H Potassium 3.7 Chloride 104 Carbon Dioxide 44.0 H Anion Gap 0 L BUN 21 H Creatinine 1.3 H Estimated GFR/1.73 m2 40.38 Glucose 108 H Calcium 9.7 Magnesium 2.0 Total Bilirubin 0.3 AST 16 ALT 12 L Alkaline Phosphatase 139 H Troponin I 0.21 H* NT-Pro-B Natriuret Pep Total Protein 7.2 Albumin 2.4 L COVID-19 Source Nasopharyx SARS-CoV-2 (PCR) Negative 07/17/20 07/17/20 07/17/20 17:55 17:55 17:55 WBC 11.34 H RBC 3.33 L Hgb 10.1 L Hct 35.2 L MCV 105.7 H MCH 30.3 MCHC 28.7 L RDW 16.2 H Plt Count 272 MPV 11.7 H Immature Gran % 0.4 Neutrophils % 66.9 Lymphocytes % 18.9 Monocytes % 10.8 Eosinophils % 2.3 Basophils % 0.7 Nucleated RBC % 1 Absolute Neutrophils 7.59 H Absolute Lymphocytes 2.14 Absolute Monocytes 1.22 H Absolute Eosinophils 0.26 Absolute Basophils 0.08 RBC Morphology See below Macrocytosis 1+ PT 11.0 INR 1.1 APTT 27.5 ABG Sample Site ABG pH ABG pCO2 ABG pO2 ABG HCO3 ABG Total CO2 ABG O2 Saturation ABG Base Excess VBG Lactate Oxygen Liter Flow FiO2 Sodium Potassium Chloride Carbon Dioxide Anion Gap BUN Creatinine Estimated GFR/1.73 m2 Glucose Calcium Magnesium Total Bilirubin AST ALT Alkaline Phosphatase Troponin I NT-Pro-B Natriuret Pep 366 H Total Protein Albumin COVID-19 Source SARS-CoV-2 (PCR) 07/17/20 18:02 WBC RBC Hgb Hct MCV MCH MCHC RDW Plt Count MPV Immature Gran % Neutrophils % Lymphocytes % Monocytes % Eosinophils % Basophils % Nucleated RBC % Absolute Neutrophils Absolute Lymphocytes Absolute Monocytes Absolute Eosinophils Absolute Basophils RBC Morphology Macrocytosis PT INR APTT ABG Sample Site ABG pH ABG pCO2 ABG pO2 ABG HCO3 ABG Total CO2 ABG O2 Saturation ABG Base Excess VBG Lactate 0.7 Oxygen Liter Flow FiO2 Sodium Potassium Chloride Carbon Dioxide Anion Gap BUN Creatinine Estimated GFR/1.73 m2 Glucose Calcium Magnesium Total Bilirubin AST ALT Alkaline Phosphatase Troponin I NT-Pro-B Natriuret Pep Total Protein Albumin COVID-19 Source SARS-CoV-2 (PCR) Last Vital Signs Temp 36.7 C 07/17/20 17:16 Pulse 81 07/17/20 19:46 Resp 14 07/17/20 19:50 BP 127/74 07/17/20 19:46 Pulse Ox 94 07/17/20 19:50 COVID-19 Screening Have you, or household traveled for leisure in last 14 days?: No
[2020-07-17 21:21] LABS: Troponin I 0.18 ng/mL (<0.06)
[2020-07-17 21:39] LABS: TSH (W/Ref FT4) 2.86 uIU/mL (0.36-3.74)
[2020-07-17] MEDS: Sucralfate 1 GM TAB PO (22:05)
[2020-07-17] MEDS: Heparin 5,000 UNITS/ML VIAL 5000 UNITS SC (22:05)
[2020-07-17] MEDS: Simvastatin 20 MG TAB 40 MG PO (22:05)
[2020-07-17] MEDS: Normal Saline Flush 10 ML SYR IVP ×2 (22:06→23:40)
[2020-07-17] MEDS: DEXTROSE 5%-WATER 1,000 ML 125 ML IV (22:06)
[2020-07-17] MEDS: Normal Saline 500 ML 30 ML IV (22:16)
[2020-07-17] MEDS: methylPREDNISolone SUCC 125 MG VIAL 80 MG IVP (23:40)
[2020-07-17] MEDS: MEROPENEM 1 GM in Normal Saline 100 ML IVPB (23:41)
[2020-07-18] VITALS (49 sets, daily range): BP systolic 102–152; BP diastolic 55–80; PULSE 66–97; RESP 8–28; TEMP 36–37.6; O2SAT 71–98
[2020-07-18 00:31] LABS: HCO3 (Venous) 42 mmol/L (23-28); O2 Sat (Venous) 64 %; TCO2 (Venous) 39 mmol/L (24-29); pH (Venous) 7.38 (7.31-7.41); pO2 (Venous) 36 mmHg
[2020-07-18 00:35] LABS: BE (Venous) > 15 mmol/L (-2-3); pCO2 (Venous) 71 mmHg (41-51)
[2020-07-18 00:56] LABS: Anion Gap 3.8 mmol/L (3-11); BUN 23 mg/dL (7-18); CO2 40.2 mmol/L (21.0-32.0); CREATININE 1.5 mg/dL (0.55-1.02); Calcium 10.1 mg/dL (8.5-10.1); Chloride 103 mmol/L (98-107); Estimated GFR 34.23 (mL/min/1.73m2); Glucose 238 mg/dL (74-106); Potassium 3.5 mmol/L (3.5-5.1); Sodium 147 mmol/L (136-145)
[2020-07-18] MEDS: VANCOMYCIN 2,000 MG in Normal Saline 500 ML 250 MG IV (01:55)
[2020-07-18] MEDS: Heparin 5,000 UNITS/ML VIAL 5000 UNITS SC ×3 (05:25→22:10)
[2020-07-18] MEDS: Albuterol/Ipratropium 3 ML UPD VIAL UPD ×3 (05:26→18:28)
[2020-07-18 05:47] LABS: Abs Immature Grans 0.11 10^3/uL (0.0-0.06); Absolute Basophil Count 0.03 10^3/uL (0.0-0.2); Absolute Lymphocyte Count 0.76 10^3/uL (1.2-3.4); Absolute Monocyte Count 0.34 10^3/uL (0.1-0.8); Absolute Neutrophil Count 10.06 10^3/uL (1.2-6.7); Basophils % 0.3; HCT 32.9 % (36.0-46.0); HGB 9.6 g/dL (11.2-15.7); Lymphocytes % 6.7; MCH 30.3 pg (27.0-33.0); MCHC 29.2 % (32.0-36.0); MCV 103.8 fL (80-95); MPV 11.6 fL (8.0-11.0); Nucleated RBC 1 %; Platelet Count 236 10^3/uL (130-400); RBC 3.17 10^6/uL (3.93-5.22); RDW 16.1 % (11.7-14.6); RDW-SD 61.7 fL
[2020-07-18 05:57] LABS: ALT 8 U/L (14-59); AST 10 U/L (15-37); Albumin 2.2 g/dL (3.4-5.0); Alkaline Phosphatase 127 U/L (46-116); Anion Gap 2.4 mmol/L (3-11); BUN 24 mg/dL (7-18); Bilirubin, Total 0.4 mg/dL (0.2-1.0); CO2 40.6 mmol/L (21.0-32.0); CREATININE 1.6 mg/dL (0.55-1.02); Calcium 9.5 mg/dL (8.5-10.1); Chloride 102 mmol/L (98-107); Estimated GFR 31.78 (mL/min/1.73m2); Glucose 255 mg/dL (74-106); Potassium 3.4 mmol/L (3.5-5.1); Sodium 145 mmol/L (136-145); Total Protein 6.5 g/dL (6.4-8.2)
[2020-07-18 06:03] LABS: Troponin I 0.19 ng/mL (<0.06)
--- NOTE | 2020-07-18 08:10 | INITIAL_ITS ---
- If Service Date Differs Date of service: 07/18/20 Time of Service: 08:12 Care Management Initial Assess REASON FOR HOSPITALIZATION:: HAP, Respiratory failure PAST MEDICAL HISTORY/PAST SURGICAL HISTORY:: Anxiety about Health, Avoidance coping, COPD, depression, generalized weakness, low level of literacy, lymphedema, morbid obesity, oncocytoma, Palliative Care patient, renal cell carcinoma, TRINH, left renal mass, heart failure with preserved EF, pulmonary hypertension, GI bleed, aspiration pneumonia, CHF, ZUHAIR, UTIs, DVT prophylaxis PREVIOUS FUNCTIONAL STATUS/SOCIAL/FAMILY SUPPORTS:: Michelle was placed at the [facility] recently from [facility] for rehabiliation. This is her second admission at [facility] this year. CURRENT FUNCTIONAL STATUS:: Michelle remains on bedrest, she is utilizing her BIPAP when CM attempts to meet with her. She continues to be closely monitored and treated and followed by Respiratory at this time. CM continues to follow. ADVANCE DIRECTIVES:: COLST on file. Has patient been provided with info about the portal/API?: No Did the patient sign up for the portal?: No CODE STATUS:: Full Code INSURANCE COVERAGE / FINANCIAL ISSUES:: Medicare. Medicaid CURRENT HOME/COMMUNITY SERVICES/EQUIPMENT:: Resident at [facility], 2L O2 at base line. CPAP. [facility] reports Michelle had skilled RN services prior to her admission to the [facility]. PRIMARY CARE PHYSICIAN:: Lucia Mckeon POTENTIAL DISCHARGE NEEDS:: Coordinated return to the [facility]. PATIENT/FAMILY EDUCATION NEEDS:: Review of discharge instructions, discuss Ask Me Three. ANTICIPATED BARRIERS TO DISCHARGE:: None identified. TRANSPORTATION:: Via RCT due to lack of transportation at the [facility]. PLAN:: Michelle continues to be closely monitored and treated. She will return to the [facility] once medically stable via RCT. CM continues to follow.
--- NOTE | 2020-07-18 08:24 | W.PM.PROGNOT ---
Date of Service Date of service: 07/18/20 Time of Service: 11:38 Assessment and Plan Assessment and plan (1) Acute on chronic respiratory failure with hypoxia and hypercapnia: Status: Acute Assessment and plan: Multifactorial: due to acute exacerbation of COPD in setting of likely aspiration pneumonia, as well as OHS/TRINH, pulmonary hypertension, HFpEF. Improved - back to baseline O2 requirement. Continue to treat pneumonia - in this case, most likely to be due to aspiration. Start to wean down steroids. Continue nebs. BiPAP HS and with naps. (2) Multifocal pneumonia: Status: Acute Assessment and plan: Present on admission. Likely due to aspiration. Await cultures, but if negative for MRSA/negative in general, would d/c vancomycin tomorrow. Continue meropenem. Obtain sputum sample. Await swallow eval. Modify diet. (3) Acute exacerbation of chronic obstructive pulmonary disease: Status: Acute Assessment and plan: As above (4) Dysphagia: Status: Acute Assessment and plan: As above (5) UTI (urinary tract infection): Status: Acute Assessment and plan: Present on admission. D/c Mittal as soon as able - hopefully as early as tomorrow. Continue vanco/meropenem; await cultures. (6) Acute hypernatremia: Status: Resolved Assessment and plan: Resume lasix (7) (HFpEF) heart failure with preserved ejection fraction: Status: Acute Assessment and plan: Slight fluid overload. Will give lasix IV today, but plan to switch to PO tomorrow. Monitor Cr, I/O, daily weights. (8) Pulmonary hypertension: Status: Acute Assessment and plan: Careful monitoring of volume status. Continue O2 supplementation/BiPAP. (9) Chronic anemia: Status: Acute Assessment and plan: H/o GI bleeding, folate, B12, and iron deficiency. Also, h/o renal cell ca. On PPI and carafate. Monitor H/H while on heparin SC - low threshold to d/c. (10) Renal cell carcinoma: Status: Acute Assessment and plan: Follow up as outpatient. Palliative care consult (11) TRINH (obstructive sleep apnea): Status: Chronic Assessment and plan: Continue BiPAP HS/with naps (12) Obesity hypoventilation syndrome: Status: Chronic Assessment and plan: As above (13) DVT prophylaxis: Status: Acute Assessment and plan: sc heparin (14) Discharge planning issues: Status: Acute Assessment and plan: Full code Palliaitve care consult PT consult Subjective Subjective Interval history since last seen: Ms Lindsay states that she is feeling a little bit better. Specifically, her legs feel better and her breathing is a bit better. On BiPAP all night (our bipap). Denies dizziness, chest pain (except for when I press on it), nausea. Nursing witnessed a choking episode on minced/moist diet. The impression is that the patient does better with bigger chunks. The patient stated that she has 2-3 choking episodes weekly at the [facility]. Speech therapy consult is pending. Afebrile. Down to 4L by oxymask (mouth breathing). gluteal fold with starting wounds - mepilex recommended by nursing. Exam Narrative Exam Narrative: General: Obese female with pursed lip breathing on oxymask; appears slightly sleepier than her baseline, able to answer all questions, follows commands. HEENT: EOMI, MMM Heart: RRR, very TTP R chest wall Lungs: crackles R lung base >L; coarse quiet expiratory wheezing bilaterally Abdomen: soft, nontender, nondistended Skin: perirectal/buttock erythema and small skin defects. Extremities: chronic BLE lymphedema and chronic venous stasis dermatitis; no evidence of cellulitis Objective Last Vital Signs Temp 36.4 C L 07/18/20 03:28 Pulse 78 07/18/20 06:02 Resp 24 07/18/20 06:02 BP 148/72 H 07/18/20 06:02 Pulse Ox 90 L 07/18/20 07:20 Laboratory Results - last 24 hr 07/17/20 07/17/20 07/17/20 17:15 17:37 17:55 WBC RBC Hgb Hct MCV MCH MCHC RDW Plt Count MPV Immature Gran % Neutrophils % Lymphocytes % Monocytes % Eosinophils % Basophils % Nucleated RBC % Absolute Neutrophils Absolute Lymphocytes Absolute Monocytes Absolute Eosinophils Absolute Basophils RBC Morphology Macrocytosis PT INR APTT ABG Sample Site Right radial ABG pH 7.34 L ABG pCO2 88 H* ABG pO2 76 L ABG HCO3 47 H ABG Total CO2 45 H ABG O2 Saturation 95 ABG Base Excess > 15 H VBG pH VBG pCO2 VBG pO2 VBG HCO3 VBG Total CO2 VBG O2 Saturation VBG Base Excess VBG Lactate Oxygen Liter Flow Bipap 14/6 FiO2 50 Sodium 148 H Potassium 3.7 Chloride 104 Carbon Dioxide 44.0 H Anion Gap 0 L BUN 21 H Creatinine 1.3 H Estimated GFR/1.73 m2 40.38 Glucose 108 H Calcium 9.7 Magnesium 2.0 Total Bilirubin 0.3 AST 16 ALT 12 L Alkaline Phosphatase 139 H Troponin I 0.21 H* NT-Pro-B Natriuret Pep Total Protein 7.2 Albumin 2.4 L TSH COVID-19 Source Nasopharyx SARS-CoV-2 (PCR) Negative 07/17/20 07/17/20 07/17/20 17:55 17:55 17:55 WBC 11.34 H RBC 3.33 L Hgb 10.1 L Hct 35.2 L MCV 105.7 H MCH 30.3 MCHC 28.7 L RDW 16.2 H Plt Count 272 MPV 11.7 H Immature Gran % 0.4 Neutrophils % 66.9 Lymphocytes % 18.9 Monocytes % 10.8 Eosinophils % 2.3 Basophils % 0.7 Nucleated RBC % 1 Absolute Neutrophils 7.59 H Absolute Lymphocytes 2.14 Absolute Monocytes 1.22 H Absolute Eosinophils 0.26 Absolute Basophils 0.08 RBC Morphology See below Macrocytosis 1+ PT 11.0 INR 1.1 APTT 27.5 ABG Sample Site ABG pH ABG pCO2 ABG pO2 ABG HCO3 ABG Total CO2 ABG O2 Saturation ABG Base Excess VBG pH VBG pCO2 VBG pO2 VBG HCO3 VBG Total CO2 VBG O2 Saturation VBG Base Excess VBG Lactate Oxygen Liter Flow FiO2 Sodium Potassium Chloride Carbon Dioxide Anion Gap BUN Creatinine Estimated GFR/1.73 m2 Glucose Calcium Magnesium Total Bilirubin AST ALT Alkaline Phosphatase Troponin I NT-Pro-B Natriuret Pep 366 H Total Protein Albumin TSH COVID-19 Source SARS-CoV-2 (PCR) 07/17/20 07/17/20 07/17/20 18:02 20:50 20:50 WBC RBC Hgb Hct MCV MCH MCHC RDW Plt Count MPV Immature Gran % Neutrophils % Lymphocytes % Monocytes % Eosinophils % Basophils % Nucleated RBC % Absolute Neutrophils Absolute Lymphocytes Absolute Monocytes Absolute Eosinophils Absolute Basophils RBC Morphology Macrocytosis PT INR APTT ABG Sample Site ABG pH ABG pCO2 ABG pO2 ABG HCO3 ABG Total CO2 ABG O2 Saturation ABG Base Excess VBG pH VBG pCO2 VBG pO2 VBG HCO3 VBG Total CO2 VBG O2 Saturation VBG Base Excess VBG Lactate 0.7 Oxygen Liter Flow FiO2 Sodium Potassium Chloride Carbon Dioxide Anion Gap BUN Creatinine Estimated GFR/1.73 m2 Glucose Calcium Magnesium Total Bilirubin AST ALT Alkaline Phosphatase Troponin I 0.18 H* NT-Pro-B Natriuret Pep Total Protein Albumin TSH 2.86 COVID-19 Source SARS-CoV-2 (PCR) 07/18/20 07/18/20 07/18/20 00:25 00:25 05:37 WBC RBC Hgb Hct MCV MCH MCHC RDW Plt Count MPV Immature Gran % Neutrophils % Lymphocytes % Monocytes % Eosinophils % Basophils % Nucleated RBC % Absolute Neutrophils Absolute Lymphocytes Absolute Monocytes Absolute Eosinophils Absolute Basophils RBC Morphology Macrocytosis PT INR APTT ABG Sample Site ABG pH ABG pCO2 ABG pO2 ABG HCO3 ABG Total CO2 ABG O2 Saturation ABG Base Excess VBG pH 7.38 VBG pCO2 71 H* VBG pO2 36 VBG HCO3 42 H VBG Total CO2 39 H VBG O2 Saturation 64 VBG Base Excess > 15 H VBG Lactate Oxygen Liter Flow FiO2 Sodium 147 H Potassium 3.5 Chloride 103 Carbon Dioxide 40.2 H Anion Gap 3.8 BUN 23 H Creatinine 1.5 H Estimated GFR/1.73 m2 34.23 Glucose 238 H D Calcium 10.1 Magnesium Total Bilirubin AST ALT Alkaline Phosphatase Troponin I 0.19 H* NT-Pro-B Natriuret Pep Total Protein Albumin TSH COVID-19 Source SARS-CoV-2 (PCR) 07/18/20 07/18/20 05:37 05:37 WBC 11.30 H RBC 3.17 L Hgb 9.6 L Hct 32.9 L MCV 103.8 H MCH 30.3 MCHC 29.2 L RDW 16.1 H Plt Count 236 MPV 11.6 H Immature Gran % 1.0 Neutrophils % 89.0 Lymphocytes % 6.7 Monocytes % 3.0 Eosinophils % 0.0 Basophils % 0.3 Nucleated RBC % 1 Absolute Neutrophils 10.06 H Absolute Lymphocytes 0.76 L Absolute Monocytes 0.34 Absolute Eosinophils 0.00 Absolute Basophils 0.03 RBC Morphology Macrocytosis PT INR APTT ABG Sample Site ABG pH ABG pCO2 ABG pO2 ABG HCO3 ABG Total CO2 ABG O2 Saturation ABG Base Excess VBG pH VBG pCO2 VBG pO2 VBG HCO3 VBG Total CO2 VBG O2 Saturation VBG Base Excess VBG Lactate Oxygen Liter Flow FiO2 Sodium 145 Potassium 3.4 L Chloride 102 Carbon Dioxide 40.6 H Anion Gap 2.4 L BUN 24 H Creatinine 1.6 H Estimated GFR/1.73 m2 31.78 Glucose 255 H Calcium 9.5 Magnesium Total Bilirubin 0.4 AST 10 L ALT 8 L Alkaline Phosphatase 127 H Troponin I NT-Pro-B Natriuret Pep Total Protein 6.5 Albumin 2.2 L TSH COVID-19 Source SARS-CoV-2 (PCR)
[2020-07-18] MEDS: Potassium Chloride 20 MEQ TABCR 40 MEQ PO (08:45)
[2020-07-18] MEDS: methylPREDNISolone SUCC 125 MG VIAL 80 MG IVP (08:46)
[2020-07-18] MEDS: Normal Saline Flush 10 ML SYR IVP ×2 (08:47→23:49)
[2020-07-18] MEDS: amLODIPine 2.5 MG TAB PO (08:47)
[2020-07-18] MEDS: Lidocaine 5% Patch 2 PATCH TP (08:47)
[2020-07-18] MEDS: Potassium Chloride 20 MEQ TABCR PO ×4 (08:48→20:19)
[2020-07-18] MEDS: Sertraline 50 MG TAB 150 MG PO (08:48)
[2020-07-18] MEDS: Omeprazole 20 MG CAPCR PO ×2 (08:49→20:21)
[2020-07-18] MEDS: Gabapentin 100 MG CAP 300 MG PO (08:49)
[2020-07-18] MEDS: Sucralfate 1 GM TAB PO ×4 (08:49→22:07)
[2020-07-18] MEDS: Insulin Aspart 300 UNITS/3 ML PEN SC ×4 (09:54→22:03)
[2020-07-18 10:12] LABS: Bilirubin Negative (Negative); Blood Moderate (Negative); Clarity Cloudy (Clear); Glucose Negative (Negative); Ketones Negative (Negative); Leukocyte Esterase Small (Negative); Nitrite Negative (Negative); Urobilinogen 0.2 EU/dL (Up TO 0.2); pH 5.5 (5-8)
[2020-07-18 10:25] LABS: WBC >50 HPF (0-5)
[2020-07-18 10:30] LABS: Bacteria Moderate HPF (Negative); C & S Indicated? C&S Done As Ordered
--- NOTE | 2020-07-18 12:00 | NUR.NOTE ---
The patient was eating breakfast and began coughing and choking. She was sitting upright at 90 degrees. She was able to cough up a glob of her mushy Raisin Bran she was eating. The patient has difficulty coughing strongly. Her 02 sat was 70s-80s but this is consistent with what she has been while on the nasal cannula only. I placed her on her oxy mask and she returned to low 90s. Dr. Curtis was notified. The patient reports that she coughs/gags several times a week at the [facility][1]. The patient states that the type of food always varies. I noted that the patient seems to do better with solid chunks instead of mashed/soft. Patient did well eating banana chunks. She is able to take pills whole with water and has no problem swallowing several at a time. In the room monitoring patient while she eats. Patient had small coughing episode while eating lunch but cleared quickly. Nursing Note:
--- NOTE | 2020-07-18 12:50 | IN_ITS ---
Date of service: 07/18/20 Time of Service: 12:35 PT Notes Visit Reasons: HOSPITAL AQUIRED PNEUMONIA, RESPIRATORY FAILURE, H Inpatient Physical Therapy Evaluation Date: 07/18/20 Referring Doctor: Rosa Elena Curtis MD PT Orders: PT CONSULT: Limited ability Precautions: Standard Patient Profile/Admitting Diagnosis: Patient presented to ER on 07/18/2019 from [facility] with shortness of breath and hypoxia, admitted due to severity of condition in the setting of CHF and morbid obesity. Baseline is 4 L of O2, which she remains on during her hospitalization. Bedbound x2 months PMHX: Medical History Anxiety about health Avoidance coping CKD (chronic kidney disease) stage 3, GFR 30-59 ml/min COPD (chronic obstructive pulmonary disease) Depression Diastolic dysfunction with chronic heart failure Generalized weakness Goals of care, counseling/discussion Low-level of literacy Lymphedema Morbid obesity [facility] resident Oncocytoma Palliative care patient Renal cell carcinoma Social History/Home Situation: Resident at the [facility]. She is nonambulatory, she has been bedbound x2 months. States around the time of March she was able to stand and take 2 or 3 steps. Current Functional Limitations: Nonambulatory, bedbound Equipment Owned/DME: Not reported Subjective: Denies any pain, complains of shortness of breath. She is too weak and short of breath to attempt sitting edge of bed or any type of mobility today. Objective: General Observation: Lying in hospital bed at 45 degrees HOB, nasal cannula in place, telemetry, Mittal, IV access Mental Status: A&O x3 Pain: 5/10 bilateral knees Vital Signs: O2 saturation 71 on 4 L of O2, decreasing to 60% saturation when speaking with me and eating at the same time. ROM: Right Upper Extremity: Active flexion of approximately 120 degrees, elbow and wrist are grossly WNL. Passive motion of right shoulder is 145 degrees flexion in scapular plane. Left Upper Extremity: Active motion unable at the left shoulder due to pain and weakness, left elbow wrist and digits are WNL. Passive left shoulder flexion reaches about 90 degrees with severe pain. Right Lower Extremity: Active assisted range of motion allows for 90 degrees of right knee flexion, 0 degrees knee extension, 0 degrees dorsiflexion, plantarflexion 20 degrees, minimal inversion and eversion of the ankle, hip flexion of only about 45 degrees. Left Lower Extremity: Active assisted range of motion allows for 45 degrees of left knee flexion, 0 degrees extension, 0 degrees dorsiflexion, plantar flexion 20 degrees, minimal inversion eversion of the ankle, hip flexion of only about 30 degrees. Strength: Right Upper Extremity: Grossly 3/5 within available ROM Left Upper Extremity: Left shoulder 1/5 into flexion and abduction, elbow is 3/5 into flexion, 3+/5 extension, wrist 3/5, senior architect is weak Right Lower Extremity: Hip flexion 2/5, knee extension 2+/5, knee flexion 2+/5, DF/PF 3/5 Left Lower Extremity: Hip flexion 2/5, knee extension 2+/5, knee flexion 2+/5, DF/PF 3/5 Sensation: Intact bilateral upper and lower extremity symmetrically to light touch Bed Mobility/Transfers: Patient attempts bed mobility today only able to do quarter roll bilaterally with use of rail She is unable to attempt sitting up She cannot complete any transfers otherwise. Gait: Unable Balance: Unable to assess Static Sitting: [] Dynamic Sitting: [] Static Standing: [] Dynamic Standing: [] Special Tests: Mobility Limitations Standardized Measure [facility] 6 clicks Basic Mobility Inpatient Short Form: 100% disability Informed Consent/Education: Patient instructed in purpose of PT consult and plan of care. Assessment: Patient is a 69 year old female referred to physical therapy services with the diagnosis of pneumonia CHF in the setting of morbid obesity and multiple comorbidities as listed above. Patient presents with clinical signs and symptoms consistent with pneumonia shortness of breath and cardiac heart failure, she has been bedbound x2 months and essentially nonambulatory for at least 6 months, but this is unclear. Her morbid obesity and medical condition contributes to impairment level findings of: Global weakness, SOB, poor oxygen saturation, and limited active range of motion and motor control. Impairments are contributing to the following functional limitations: Inability to perform bed mobility, transfers, or ambulate. AMPAC score 100% disability. This time patient is not appropriate for physical therapy service, she will be placed on hold until her oxygen level and breathing become more stabilized, is just simple activities such as talking and eating bilateral remarkable O2 saturation decreased to 60% today. Will continue to touch base with nursing staff and MD in regards to patient's medical status, and initiate mobility and transfer activities at a more appropriate time. Patient is assessed as a High 09691 complexity based on the following: History: See above comorbidities Examination: See impairment functional imitations Presentation: Complicated Decision Making: Difficult, SM at 100% disability Goals: Goals X1 week 1. Supine-Sit max assist x2 2. Sit-Supine max assist x2 3. Sit-Stand with lift 4. Stand-Sit with lift 5. Bed-Chair with lift 6. Chair-Bed with lift Plan of Care/Treatment Plan: 1-2x/day, 7 days/week x 1 week. Patient will remain on hold until her medical condition stabilizes, to be more appropriate for PT strain. We will continue to touch base with patient's case and reinitiate PT services when appropriate. Plan of care has been reviewed with the [employer]ACH[employer] WORKER providing the service under Physical Therapy direction. Initiate Physical Therapy intervention for strengthening, bed mobility, transfers, gait, stairs, balance training, use of assistive device. DISCHARGE RECOMMENDATIONS: Return to [facility] TREATMENT CODE/TIME: 15 minutes, [id number], 12:35-12:50 Thank you for this referral Documented with Wizeline voice recognition software.
[2020-07-18] MEDS: MEROPENEM 1 GM in Normal Saline 100 ML IVPB ×2 (13:30→23:50)
[2020-07-18] MEDS: Ferrous Sulfate 325 MG TAB PO ×2 (14:31→20:19)
[2020-07-18] MEDS: Gabapentin 300 MG CAP PO ×2 (14:32→20:19)
[2020-07-18] MEDS: Lactobacillus Acidophilus CAP 1 CAP PO ×2 (15:20→20:18)
[2020-07-18] MEDS: Furosemide 20 MG/2 ML VIAL IVP (15:20)
[2020-07-18] MEDS: methylPREDNISolone SUCC 125 MG VIAL 60 MG IVP ×2 (15:21→23:49)
[2020-07-18] MEDS: Lidocaine Patch Removal 2 EACH TD (20:21)
[2020-07-18] MEDS: Mometasone 220 MCG 14 DOSE INHALER 2 PUFF IH (20:32)
[2020-07-18] MEDS: Simvastatin 20 MG TAB 40 MG PO (22:06)
[2020-07-18] MEDS: Normal Saline 500 ML 30 ML IV (23:51)
[2020-07-19] VITALS (31 sets, daily range): BP systolic 127–149; BP diastolic 64–108; PULSE 68–94; RESP 2–22; TEMP 36.1–36.9; O2SAT 83–96
[2020-07-19] MEDS: Albuterol/Ipratropium 3 ML UPD VIAL UPD ×5 (00:10→23:51)
[2020-07-19] MEDS: VANCOMYCIN/WATER (PEG) 1.25 GM/250 ML BAG IV (00:23)
[2020-07-19] MEDS: Heparin 5,000 UNITS/ML VIAL 5000 UNITS SC ×3 (06:10→21:11)
[2020-07-19] MEDS: Mometasone 220 MCG 14 DOSE INHALER 2 PUFF IH ×2 (07:28→19:10)
[2020-07-19 07:30] LABS: Abs Immature Grans 0.06 10^3/uL (0.0-0.06); Absolute Basophil Count 0.01 10^3/uL (0.0-0.2); Absolute Lymphocyte Count 0.89 10^3/uL (1.2-3.4); Absolute Monocyte Count 0.63 10^3/uL (0.1-0.8); Absolute Neutrophil Count 10.08 10^3/uL (1.2-6.7); Basophils % 0.1; HCT 33.1 % (36.0-46.0); HGB 9.7 g/dL (11.2-15.7); Immature Grans % 0.5; Lymphocytes % 7.6; MCH 29.8 pg (27.0-33.0); MCHC 29.3 % (32.0-36.0); MCV 101.8 fL (80-95); Monocytes % 5.4; Neutrophils % 86.4; Nucleated RBC 1 %; Platelet Count 252 10^3/uL (130-400); RBC 3.25 10^6/uL (3.93-5.22); RDW 16.4 % (11.7-14.6); RDW-SD 61.2 fL; WBC 11.67 10^3/uL (4.4-10.8)
[2020-07-19 07:43] LABS: Anion Gap 1.5 mmol/L (3-11); BUN 26 mg/dL (7-18); CO2 40.5 mmol/L (21.0-32.0); CREATININE 1.5 mg/dL (0.55-1.02); Calcium 9.6 mg/dL (8.5-10.1); Chloride 104 mmol/L (98-107); Estimated GFR 34.23 (mL/min/1.73m2); Glucose 177 mg/dL (74-106); Magnesium 2.1 mg/dL (1.8-2.4); Potassium 4.7 mmol/L (3.5-5.1); Sodium 146 mmol/L (136-145)
[2020-07-19] MEDS: Normal Saline Flush 10 ML SYR IVP ×3 (08:02→23:52)
[2020-07-19] MEDS: methylPREDNISolone SUCC 125 MG VIAL 60 MG IVP (08:03)
[2020-07-19] MEDS: Furosemide 20 MG/2 ML VIAL IVP (08:03)
[2020-07-19] MEDS: Insulin Aspart 300 UNITS/3 ML PEN SC ×4 (08:03→21:16)
[2020-07-19] MEDS: Lidocaine 5% Patch 2 PATCH TP (08:04)
[2020-07-19] MEDS: Omeprazole 20 MG CAPCR PO ×2 (08:04→19:10)
[2020-07-19] MEDS: Potassium Chloride 20 MEQ TABCR PO ×4 (08:05→19:10)
[2020-07-19] MEDS: amLODIPine 2.5 MG TAB PO (08:05)
[2020-07-19] MEDS: Folic Acid 1 MG TAB PO (08:06)
[2020-07-19] MEDS: Sertraline 50 MG TAB 150 MG PO (08:06)
[2020-07-19] MEDS: Sucralfate 1 GM TAB PO ×4 (08:06→21:12)
[2020-07-19] MEDS: Ferrous Sulfate 325 MG TAB PO ×3 (08:06→19:10)
[2020-07-19] MEDS: Lactobacillus Acidophilus CAP 1 CAP PO ×3 (08:06→19:10)
[2020-07-19] MEDS: Gabapentin 300 MG CAP PO ×3 (08:07→19:10)
--- NOTE | 2020-07-19 08:23 | W.PM.PROGNOT ---
Date of Service Date of service: 07/19/20 Time of Service: 10:32 Assessment and Plan Assessment and plan (1) Acute on chronic respiratory failure with hypoxia and hypercapnia: Status: Acute Assessment and plan: Multifactorial: due to acute exacerbation of COPD in setting of likely aspiration pneumonia, as well as OHS/TRINH, pulmonary hypertension, HFpEF. Improved. O2 requirement at baseline. Continue to treat aspiration pneumonia. Decrease solumedrol to 40 mg IV TID. Continue nebs. BiPAP HS and with naps. (2) Multifocal pneumonia: Status: Acute Assessment and plan: Present on admission. Likely due to aspiration. D/c vancomycin. Continue meropenem. Await swallow eval and modified diet. (3) Acute exacerbation of chronic obstructive pulmonary disease: Status: Acute Assessment and plan: As above (4) Dysphagia: Status: Acute Assessment and plan: The patient does not have dentures (as in, they do not exist; they were never made) and seems to desat more while eating. As above (5) UTI (urinary tract infection): Status: Acute Assessment and plan: Present on admission. Urine C&S pending. D/c sen. Continue meropenem; await cultures. (6) Acute hypernatremia: Status: Resolved Assessment and plan: switch lasix to PO and monitor Na. (7) (HFpEF) heart failure with preserved ejection fraction: Status: Chronic Assessment and plan: Euvolemic. Convert to PO lasix. (8) Pulmonary hypertension: Status: Acute Assessment and plan: Careful monitoring of volume status. Continue O2 supplementation/BiPAP. (9) Chronic anemia: Status: Acute Assessment and plan: H/o GI bleeding, folate, B12, and iron deficiency. Also, h/o renal cell ca. On PPI and carafate. Monitor H/H while on heparin SC - low threshold to d/c. (10) Renal cell carcinoma: Status: Acute Assessment and plan: Follow up as outpatient. Palliative care consult (11) TRINH (obstructive sleep apnea): Status: Chronic Assessment and plan: Continue BiPAP HS/with naps (12) Obesity hypoventilation syndrome: Status: Chronic Assessment and plan: As above (13) DVT prophylaxis: Status: Acute Assessment and plan: sc heparin (14) Discharge planning issues: Status: Acute Assessment and plan: Full code Palliaitve care consult PT consult Subjective Subjective Interval history since last seen: Michelle states she is feeling so so. Her breathing is so so. Denies dizziness, chest pain, nausea. Per nursing, she continues to have cough with eating, noted with fluids as well as 5 minutes after eating. Evidently, Michelle never finished the process of getting dentures, so she does not have them. Remains on 4L - does better with oxymask than with NC. Refuses IS, likes acapella. Spent the night on BiPAP. On BiPAP and napping this morning when I came to evaluate her and woke her up. Desats while eating (60s and 70s) with NC on. HR ok. BP 130s-140s. Heme negative BM this am. BM last night. UOP 625 in 8 hrs. Sen is coming out today. Leg pain/sensitivity. Exam Narrative Exam Narrative: General: Obese female laying in bed, BiPAP on, napping, wakes easily, answers appropriately, no evidence of respiratory distress HEENT: EOMI, MMM Heart: RRR Lungs: very diminished at B bases, which improves after a couple of deep breaths; CTAB otherwise. Abdomen: soft, nontender, nondistended Extremities: chronic BLE lymphedema and chronic venous stasis dermatitis; no evidence of cellulitis Objective Last Vital Signs Temp 36.1 C L 07/19/20 03:35 Pulse 85 07/19/20 06:39 Resp 12 07/19/20 05:37 BP 127/108 H 07/19/20 06:01 Pulse Ox 88 L 07/19/20 06:39 Laboratory Results - last 24 hr 07/18/20 07/19/20 07/19/20 09:55 06:08 06:08 WBC 11.67 H RBC 3.25 L Hgb 9.7 L Hct 33.1 L MCV 101.8 H MCH 29.8 MCHC 29.3 L RDW 16.4 H Plt Count 252 MPV 12.0 H Immature Gran % 0.5 Neutrophils % 86.4 Lymphocytes % 7.6 Monocytes % 5.4 Eosinophils % 0.0 Basophils % 0.1 Nucleated RBC % 1 Absolute Neutrophils 10.08 H Absolute Lymphocytes 0.89 L Absolute Monocytes 0.63 Absolute Eosinophils 0.00 Absolute Basophils 0.01 Sodium 146 H Potassium 4.7 D Chloride 104 Carbon Dioxide 40.5 H Anion Gap 1.5 L BUN 26 H Creatinine 1.5 H Estimated GFR/1.73 m2 34.23 Glucose 177 H D Calcium 9.6 Magnesium 2.1 Urine Color Yellow Urine Clarity Cloudy Urine pH 5.5 Ur Specific [place] 1.020 Urine Protein 100 H Urine Ketones Negative Urine Blood Moderate H Urine Nitrite Negative Urine Bilirubin Negative Urine Urobilinogen 0.2 Ur Leukocyte Esterase Small H Urine RBC Not Applicable Urine WBC >50 H Ur Epithelial Cells Urine Crystals Not Applicable Urine Bacteria Moderate Urine Mucus Not Applicable Urine Other Many yeast Ur Culture Indicated? C&s done as ordered Urine Glucose Negative
--- NOTE | 2020-07-19 09:08 | NUR.NOTE ---
Worked with patient on swallowing techniques (don't mix food and liquid, tip chin down, etc.) Patient made it through eating raising bran with no choking today. She did choke/cough some while drinking coffee despite being able to drink thin liquids well for her medications earlier. Pt finishied her meal and had an approximately 3-5 min coughing episode after completing eating. Nursing Note:
--- NOTE | 2020-07-19 09:59 | CMPROGNOTE_ITS ---
- If Service Date Differs Date of service: 07/19/20 Time of Service: 10:00 Care Management Progress Note S/O:Michelle was lying in bed when CM met with her. She was having difficulty breathing and therefore was not inclined to talk. Her oxygen saturation was at 89% but according to her nurse, it drops into the 60's and 70's when eating or moving much.She remains afebrile and her blood pressures are stable. A: Michelle is a 69 year old woman admitted on07/17/20 with Pneumonia and respiratory failure P: Michelle continues to be closely monitored and treated in the ICU. She will return to the [facility] once medically stable via RCT. CM continues to support patient and her discharge planning needs.
[2020-07-19] MEDS: Acetaminophen 325 MG TAB 650 MG PO (10:51)
[2020-07-19] MEDS: Calcium Carbonate *TUMS* 500 MG CHEW PO (10:51)
[2020-07-19] MEDS: MEROPENEM 1 GM in Normal Saline 100 ML IVPB ×2 (12:31→23:00)
[2020-07-19] MEDS: Furosemide 40 MG TAB PO (16:47)
[2020-07-19] MEDS: methylPREDNISolone SUCC 40 MG VIAL IVP ×2 (16:48→23:52)
[2020-07-19] MEDS: Lidocaine Patch Removal 2 EACH TD (19:11)
[2020-07-19] MEDS: Docusate Sodium 100 MG CAP PO (19:17)
[2020-07-19] MEDS: Simvastatin 20 MG TAB 40 MG PO (21:12)
[2020-07-20] VITALS (24 sets, daily range): BP systolic 118–156; BP diastolic 67–93; PULSE 7–98; RESP 1–24; TEMP 36.2–37.1; O2SAT 88–95
[2020-07-20] MEDS: Heparin 5,000 UNITS/ML VIAL 5000 UNITS SC ×3 (05:10→21:02)
[2020-07-20] MEDS: Albuterol/Ipratropium 3 ML UPD VIAL UPD ×4 (05:10→23:22)
[2020-07-20 05:26] LABS: Vitamin D 25 Total 19.1 ng/ml (30-100)
[2020-07-20 07:03] LABS: Abs Immature Grans 0.07 10^3/uL (0.0-0.06); Absolute Basophil Count 0.01 10^3/uL (0.0-0.2); Absolute Lymphocyte Count 0.86 10^3/uL (1.2-3.4); Absolute Monocyte Count 0.75 10^3/uL (0.1-0.8); Basophils % 0.1; HCT 34.6 % (36.0-46.0); HGB 10.1 g/dL (11.2-15.7); Immature Grans % 0.6; Lymphocytes % 7.7; MCHC 29.2 % (32.0-36.0); MCV 102.7 fL (80-95); MPV 12.1 fL (8.0-11.0); Monocytes % 6.7; Neutrophils % 84.9; Nucleated RBC 1 %; Platelet Count 254 10^3/uL (130-400); RBC 3.37 10^6/uL (3.93-5.22); RDW 16.5 % (11.7-14.6); RDW-SD 60.8 fL; WBC 11.14 10^3/uL (4.4-10.8)
[2020-07-20 07:09] LABS: Anion Gap 0.8 mmol/L (3-11); BUN 30 mg/dL (7-18); CO2 40.2 mmol/L (21.0-32.0); CREATININE 1.4 mg/dL (0.55-1.02); Chloride 105 mmol/L (98-107); Estimated GFR 37.07 (mL/min/1.73m2); Glucose 187 mg/dL (74-106); Magnesium 2.2 mg/dL (1.8-2.4); Potassium 4.8 mmol/L (3.5-5.1); Sodium 146 mmol/L (136-145)
[2020-07-20 07:10] LABS: Absolute Neutrophil Count 9.46 10^3/uL (1.2-6.7)
[2020-07-20] MEDS: Potassium Chloride 20 MEQ TABCR PO ×2 (07:51→19:53)
[2020-07-20] MEDS: Sucralfate 1 GM TAB PO ×4 (07:51→21:03)
[2020-07-20] MEDS: Furosemide 40 MG TAB PO ×2 (07:51→16:34)
[2020-07-20] MEDS: Sertraline 50 MG TAB 150 MG PO (07:51)
[2020-07-20] MEDS: amLODIPine 2.5 MG TAB PO (07:51)
[2020-07-20] MEDS: Lactobacillus Acidophilus CAP 1 CAP PO ×3 (07:51→19:54)
[2020-07-20] MEDS: Lidocaine 5% Patch 2 PATCH TP (07:52)
[2020-07-20] MEDS: Omeprazole 20 MG CAPCR PO ×2 (07:52→19:54)
[2020-07-20] MEDS: Gabapentin 300 MG CAP PO ×3 (07:52→19:54)
[2020-07-20] MEDS: Polyethylene Glycol 3350 17 GM PACKET PO (07:52)
[2020-07-20] MEDS: Folic Acid 1 MG TAB PO (07:52)
[2020-07-20] MEDS: methylPREDNISolone SUCC 40 MG VIAL IVP ×3 (07:53→23:23)
[2020-07-20] MEDS: Insulin Aspart 300 UNITS/3 ML PEN SC ×4 (07:55→21:00)
[2020-07-20] MEDS: Mometasone 220 MCG 14 DOSE INHALER 2 PUFF IH ×2 (07:57→21:05)
--- NOTE | 2020-07-20 08:21 | W.PM.PROGNOT ---
Date of Service Date of service: 07/20/20 Time of Service: 11:57 Assessment and Plan Assessment and plan (1) Acute on chronic respiratory failure with hypoxia and hypercapnia: Status: Acute Assessment and plan: Multifactorial: due to acute exacerbation of COPD in setting of likely aspiration pneumonia, as well as OHS/TRINH, pulmonary hypertension, HFpEF. Improved. O2 requirement at baseline. Continue to treat aspiration pneumonia. Continue solumedrol at 40 mg IV TID today. Continue nebs. BiPAP HS and with naps. (2) Multifocal pneumonia: Status: Acute Assessment and plan: Present on admission. Likely due to aspiration. Continue meropenem. Await swallow eval and continue modified diet. (3) Acute exacerbation of chronic obstructive pulmonary disease: Status: Acute Assessment and plan: As above (4) Dysphagia: Status: Acute Assessment and plan: The patient does not have dentures (as in, they do not exist; they were never made) and seems to desat more while eating. As above (5) UTI (urinary tract infection): Status: Acute Assessment and plan: Present on admission. Urine C&S with gram positive reji and GNR, contaminated. Continue meropenem empirically. (6) Acute hypernatremia: Status: Resolved Assessment and plan: Continue PO lasix. Na stable. (7) (HFpEF) heart failure with preserved ejection fraction: Status: Chronic Assessment and plan: Euvolemic. Continue PO lasix. Monitor I/O's, daily weights. (8) Pulmonary hypertension: Status: Chronic Assessment and plan: Careful monitoring of volume status. Continue O2 supplementation/BiPAP. (9) Chronic anemia: Status: Acute Assessment and plan: H/o GI bleeding, folate, B12, and iron deficiency. Also, h/o renal cell ca. On PPI and carafate. Monitor H/H while on heparin SC - low threshold to d/c. (10) Renal cell carcinoma: Status: Acute Assessment and plan: Follow up as outpatient. Palliative care consult (11) TRINH (obstructive sleep apnea): Status: Chronic Assessment and plan: Continue BiPAP HS/with naps (12) Obesity hypoventilation syndrome: Status: Chronic Assessment and plan: As above (13) DVT prophylaxis: Status: Acute Assessment and plan: sc heparin (14) Discharge planning issues: Status: Acute Assessment and plan: Full code Palliaitve care consult PT consult Speech therapy consult Subjective Subjective Interval history since last seen: Ms Lindsay describes an episode of shortness of breath while sitting up this morning, not while eating. She did not let nurses know but just let time take care of it. She does feel better now. Denies dizziness, chest pain, nausea. Wore BiPAP overnight. Oxymask 4L now. Crackles in midlobes noted by nursing. Afebrile. We have clarified with the [facility]: the patient does get speech therapy there as well as supervised feedings. She is described to be shoveling food when beginning to cough at which point the food gets moved to the side. Exam Narrative Exam Narrative: General: Obese female laying in bed, awake and alert, very interactive, wearing an oxymask; answers appropriately, no evidence of respiratory distress HEENT: EOMI, MMM Heart: RRR Lungs: very diminished at B bases Abdomen: soft, nontender, nondistended Extremities: chronic BLE lymphedema and chronic venous stasis dermatitis; no evidence of cellulitis, TTP feet and legs (chronic) Objective Last Vital Signs Temp 36.4 C 07/20/20 07:30 Pulse 89 07/20/20 07:30 Resp 20 07/20/20 04:00 BP 151/83 H 07/20/20 07:30 Pulse Ox 91 L 07/20/20 07:30 Laboratory Results - last 24 hr 07/19/20 07/20/20 07/20/20 06:08 06:10 06:10 WBC 11.14 H RBC 3.37 L Hgb 10.1 L Hct 34.6 L MCV 102.7 H MCH 30.0 MCHC 29.2 L RDW 16.5 H Plt Count 254 MPV 12.1 H Immature Gran % 0.6 Neutrophils % 84.9 Lymphocytes % 7.7 Monocytes % 6.7 Eosinophils % 0.0 Basophils % 0.1 Nucleated RBC % 1 Absolute Neutrophils 9.46 H Absolute Lymphocytes 0.86 L Absolute Monocytes 0.75 Absolute Eosinophils 0.00 Absolute Basophils 0.01 Sodium 146 H Potassium 4.8 Chloride 105 Carbon Dioxide 40.2 H Anion Gap 0.8 L BUN 30 H Creatinine 1.4 H Estimated GFR/1.73 m2 37.07 Glucose 187 H Calcium 10.0 Magnesium 2.2 25-OH Vitamin D Total 19.1 L
[2020-07-20] MEDS: Acetaminophen 325 MG TAB 650 MG PO ×2 (10:53→16:33)
[2020-07-20] MEDS: Calcium Carbonate *TUMS* 500 MG CHEW PO (10:54)
--- NOTE | 2020-07-20 11:45 | PDOC.CMPRO ---
Care Management Progress Note S/O: Michelle was lying in bed when CM met with her. At MD request, CM spoke with Natividad; flight control specialist at the [facility]. Natividad informed this tag writer that Michelle does currently have speech therapy with recommendations of supervised feeds with directions to move her food to the side when she begins to cough. Natividad stated that Michelle tends to shovel her food and there is concerns that she is regurgitating and then aspirating as well as aspirating when swallowing. GABE reviewed MD-RT recommendations for utilizing an Oxy mask at baseline and nasal cannula during transitions; including when eating. Natividad also reported a family meeting took place last and the family continues to want heroic measures and made statements central to believing Michelle continues to fail because she is not seeing her family; not because of her disease process. CM continues to follow. A: Michelle is a 69 year old woman admitted on07/17/20 with Pneumonia and respiratory failure P: Michelle continues to be closely monitored and treated at a M/S level of care in the ICU. She will return to the [facility] once medically stable via RCT. CM continues to support patient and her discharge planning needs.
[2020-07-20] MEDS: MEROPENEM 1 GM in Normal Saline 100 ML IVPB ×2 (12:09→23:22)
--- NOTE | 2020-07-20 12:45 | DM INPTCON_ITS ---
Date of service: 07/20/20 Time of Service: 12:46 Diabetes Inpatient Consult DESCRIPTION/ASSESSMENT: 69 year old female, [facility] resident, admitted with PNA, respiratory failure with hx of morbid obesity, anemia and dsyphagia. Dm consult and CEMENT FINISHER HELPER consult ordered. Meds include sublingual B12, folic acid and FeSo4. No dx of diabetes, however, receiving insulin to control blood sugars while on high doses of steriods for respiratory failure. Labs indicate depleted Vit D. Following diabetes low sodium diet with excellent intake. Not at nutritional risk. Does not warrant diabetes education at this time as blood sugars will normalize once off steriods. INTERVENTION: start vitamin D for repletion PLAN: continue diabetic diet, will continue to monitor po intake, labs and weight. Time Spent in Nutritional Counseling and Treatment: 5 min
[2020-07-20] MEDS: Ferrous Sulfate 325 MG TAB PO ×2 (14:44→19:53)
--- NOTE | 2020-07-20 16:10 | PT.INTREAT ---
Date of service: 07/20/20 Time of Service: 16:10 PT Notes Visit Reasons: HOSPITAL AQUIRED PNEUMONIA, RESPIRATORY FAILURE, H Inpatient Physical Therapy Treatment Note [facility] Date: PRECAUTIONS: Non-ambulatory. SUBJECTIVE: When asked whether she would be willing to work with PT about training in standing, she responded that she would think about it. Indicated that they tried to work on her standing at the SNF but did not work well. She reports pain in the L knee at 6/10 with exercise initiation while in bed, 4-5/10 pain in the R knee. Nurse Heidi fenton. OBJECTIVE: Oxygen supplementation on. PAIN: 6/10 in the L knee, 4-5/10 in the R BED MOBILITY/TRANSFERS Rolling L/R: moderate assist of 2 Supine-sit: moderate assist of 2 Sit-supine: not attempted today Sit-stand: not attempted today Stand-sit: not attempted today Bed-Chair: not attempted today GAIT N/A. Patient non-ambulatory. THEREX: Initiated active assistive hip/knee flexion /extension x10, active assistve hip abduction, ankle DF/PF x 20 ASSESSMENT: Goal setting is unclear at this time as patient remains undecided about initiating standing exercises using the STEDY lift. She is anxious about increasing pain in B knees with weigh-bearing. Her chronic obesity, limited endurance, pain complaint in B knees, and lack of motivation are barriers to goal setting st this time. Will plan on continuing to work with patient to establish realistic and achievable goals while on admission at this hospital. PLAN: Will revisit patient's goal regarding increasing sitting and standing tolerance/balance tomorrow morning. TREATMENT CODE/TIME: 22120 x 15 minutes beginning at 16:10 PM.
[2020-07-20] MEDS: Normal Saline Flush 10 ML SYR IVP ×2 (16:35→23:23)
--- NOTE | 2020-07-20 18:55 | SP_ITS ---
Date of service: 07/20/20 Time of Service: 14:55 Objective Objective Clinical (Bedside) Swallow Evaluation Speech Language Pathology Date of Evaluation: 07/20/20 Referring Provider: Rosa Elena Curtis MD CENTRAL STORES ATTENDANT Orders: dysphagia, recurrent pna Precautions: Full code / Palliative Care Patient Patient Profile/Admitting Diagnosis: Patient is a current resident at [facility], presented to ER on 07/18/2019 with shortness of breath and hypoxia, admitted due to severity of condition in the setting of CHF and morbid obesity. Baseline is 4 L of O2, which she remains on during her hospitalization. Bedbound x2 months, currently nonambulatory. PMHx is significant for acute respiratory failure, hypoxia, CHF, COPD, cellulitis of left thigh, lymphedema, morbid obesity with UTI. Patient had previous episode of difficulty with mixed consistency/large ?chunk? of food; previous hospital stays, patient has been observed tilting head posteriorly when during PO intake/self-feeding with rapid ingestion. When alert, seated upright, and provided verbal cues for aspiration risk man agement, pt has been tolerating IDDSI Level 6 - soft&bite-sized solids and 0 - thin liquids with excellent intake, and (-) overt s/sx aspiration; overt s/sx of aspiration occur when patient?s 02 levels are noted to desaturate below 87%. PMHX: Medical History Anxiety about health Avoidance coping CKD (chronic kidney disease) stage 3, GFR 30-59 ml/min COPD (chronic obstructive pulmonary disease) Depression Diastolic dysfunction with chronic heart failure Generalized weakness Goals of care, counseling/discussion Low-level of literacy Lymphedema Morbid obesity residential resident Oncocytoma Palliative care patient Renal cell carcinoma Social History/Home Situation: Resident at [facility]. SUBJECTIVE: Patient received alert, seated upright, agreeable to evaluation, able to communicate wants/needs effectively; able to demonstrate comprehension of recommendations for safe p.o. intake while on unit and agreeable to assist with feeding given instability in hands, demonstrates independent use of hospital bed to raise self to upright position without need for verbal cues. Patient does require frequent counseling / verbal cues for recall of risk management strategies as po intake continues. Per Dr. Curtis, pt has had difficult time with following instructions for safe PO intake since last admission / evaluation by CENTRAL STORES ATTENDANT at [facility], and continues to demonstrate ?difficult behaviors? while at the [facility] as well. During assessment today, pt demonstrates pleasant demeanor and is able to ?joke? about cheesecake between offers of additional bites/sips of PO textures/consistencies; please see impressions for further motivational interview/education with CENTRAL STORES ATTENDANT, patient?s verbalized wishes, and recommendations. OBJECTIVE: Predisposing dysphagia risk factors: CHF, COPD, edentulous status Clinical signs of possible chronic dysphagia: cough, increased RR, desaturation with po intake Precipitating dysphagia risk factors / triggering event: dyspnea, hypoxia in setting of progressing CHF and morbid obesity Temp: 97.9 F Sp02: 91 % RR: 20-25 / 4L oxygen Cranial nerve exam / Oral Motor: CN V: facial sensation intact to LT; labial protrusion - symmetrical; labial coordination/ROM - WFL CN VII: WFL CN IX/X: palatal elevation - symmetrical; VQ WFL CN XII: Intact b/l Dentition/Oral Structures/Hygiene: edentulous; oral hygiene appears fair Language: verbal expression/fluency, naming, repetition, and auditory comprehension WFL Hearing: WFL Mental Status: AAOx3, recall of current events intact; some concerns with recent changes in memory/overall cognitive functioning per staff interview Speech: WFL Laryngeal function exam: Secretions: WFL Vocal quality: WFL MPT: DNT S/Z ratio: DNT Pitch range: WFL Cough: (volitional) perceptually WFL PO intake IDDSI 0: thin liquids via cup sip and straw (overt s/s + with straw, - with instruction to take small sips via straw) IDDSI 6: soft & bite-sized solids (ie ~ size of a dime / 15 mm x 15 mm per IDDSI guidelines) [place] Swallow Protocol: (+) overt s.s aspiration / fail IMPRESSIONS: Patient is at significantly heightened risk for aspiration-related pulmonary complication, given progressive COPD, CHF, question of changes in cognitive status, hx of recurrent pna, & presumed reduced immunocompetence; improvements in physical mobility, overall pulmonary function, and adherence to risk management as outlined below likely to further reduce this risk, however unclear how risk management will be received/comprehended by patient while on unit and/or over time upon d/c to SNF setting; intermittent 02 desaturation also complicates prognosis and does heighten risk for aspiration-related pulmonary complications. Pt was provided further education re: anatomy/physiology of swallowing mechanism, overt s/sx to monitor for re: likelihood of aspiration of food/liquids when ingesting food/liquids rapidly and/or not allowing time for RR recovery, continued recommendations for improved oral care to reduce likelihood of recurrent pna (ie, frequent oral care, with toothbrush), relationship between reduced respiratory function and deglutition, and heightened risk of recurrent aspiration pna which may eventually lead to . Discussed options for enteral nutrition per request from Dr. Curtis, to which patient replied ?that?s a hard no, I saw my mother have a feeding tube, I don?t want that?. PLAN: CENTRAL STORES ATTENDANT to follow for skilled treatment/counseling, 2x/week or PRN. Instrumentation: N/A at this time (May consider FEES pending further patient counseling and availability; given morbid obesity, patient is not candidate for local VFSE/MBSS) Diet recommendation: IDDSI Level 6-Soft & Bite Sized / Level 0 - thin liquids via cup sip and/or small volumes via straw May consider small, more frequent meals vs large portion sizes which require longer time to eat; per RD, patient is not currently at nutritional risk. Please see [email or web address] for further details re: IDDSI guidelines for Level 6 soft and bite sized solids Risk management: Supervision and assist with feeding. Oral hygiene before/after po intake as outlined, every 4 hours as tolerated while on unit, using friction with toothbrush on all oral structures as tolerated, will likely require assist from caregiver for recall and thorough cleaning. Frequent verbal cues for reduced volume/rate of intake, and pausing after every swallow to utilize breathing strategy (ie ?breath in through your nose, out with pursed lips 4-5x until 02 saturation is above 87%) HOB upright for all PO intake; Encourage physical mobility as tolerated, use of techniques to support respiratory health as tolerated. Specialist referrals: Continued palliative consultation given patient?s verbalized wishes and question of comprehension level / change in cognitive abilities from baseline Ancillary tests: N/A Therapy: Patient to participate in CENTRAL STORES ATTENDANT treatment 1-2x/week while on unit to further address counseling/management of likely dysphagia in context of COPD/CHF and compromised swallow-breath coordination within 1-2 weeks. Goal: Patient to participate in CENTRAL STORES ATTENDANT treatment 1-2x/week while on unit to further address counseling/management of likely dysphagia in context of COPD/CHF and effects of compromised swallow-breath coordination within 1-2 weeks. Patient will verbalize comprehension of reviewed risk management techniques as outlined given min-mod visual+verbal cues and demonstrate use of techniques with caregivers present within 1-2 weeks. Please feel free to contact me with any questions. Cintia Feng MA CCC-CENTRAL STORES ATTENDANT [phone] CENTRAL STORES ATTENDANT CPT Code: 61996 Clinical Swallowing Evaluation
[2020-07-20] MEDS: Lidocaine Patch Removal 2 EACH TD (19:54)
[2020-07-20] MEDS: Simvastatin 20 MG TAB 40 MG PO (21:02)
[2020-07-21] VITALS (57 sets, daily range): BP systolic 134–194; BP diastolic 66–109; PULSE 68–107; RESP 1–90; TEMP 36.7–37.2; O2SAT 78–95
[2020-07-21] MEDS: Heparin 5,000 UNITS/ML VIAL 5000 UNITS SC ×3 (05:51→21:11)
[2020-07-21] MEDS: Albuterol/Ipratropium 3 ML UPD VIAL UPD ×4 (05:51→23:54)
[2020-07-21 06:36] LABS: Abs Immature Grans 0.03 10^3/uL (0.0-0.06); Absolute Basophil Count 0.01 10^3/uL (0.0-0.2); Absolute Lymphocyte Count 0.72 10^3/uL (1.2-3.4); Absolute Monocyte Count 0.63 10^3/uL (0.1-0.8); Absolute Neutrophil Count 7.44 10^3/uL (1.2-6.7); Basophils % 0.1; HCT 34.5 % (36.0-46.0); Immature Grans % 0.3; Lymphocytes % 8.2; MCV 103.6 fL (80-95); Monocytes % 7.1; Neutrophils % 84.3; Nucleated RBC 1 %; Platelet Count 233 10^3/uL (130-400); RBC 3.33 10^6/uL (3.93-5.22); RDW 16.5 % (11.7-14.6); RDW-SD 62.4 fL; WBC 8.83 10^3/uL (4.4-10.8)
[2020-07-21 06:46] LABS: Anion Gap 0.1 mmol/L (3-11); BUN 36 mg/dL (7-18); CO2 41.9 mmol/L (21.0-32.0); CREATININE 1.3 mg/dL (0.55-1.02); Calcium 10.7 mg/dL (8.5-10.1); Chloride 105 mmol/L (98-107); Estimated GFR 40.38 (mL/min/1.73m2); Glucose 183 mg/dL (74-106); Magnesium 2.2 mg/dL (1.8-2.4); Potassium 5.3 mmol/L (3.5-5.1); Sodium 147 mmol/L (136-145)
[2020-07-21] MEDS: methylPREDNISolone SUCC 40 MG VIAL IVP ×3 (07:17→23:54)
[2020-07-21] MEDS: Sucralfate 1 GM TAB PO ×3 (07:17→21:09)
[2020-07-21] MEDS: Omeprazole 20 MG CAPCR PO ×2 (07:17→19:54)
--- NOTE | 2020-07-21 07:30 | RT.EKG_ITS ---
APPROVED REPORT Exam: Resting ECG Patient Location: I HR:84 bpm ECG Measurements Heart Rate 84 AXIS ND 204 P 79 QRSd 94 QRS -10 QT 375 T 76 QTc 442 Conclusion Sinus rhythm...normal P axis, V-rate 60- 99
[2020-07-21] MEDS: Mometasone 220 MCG 14 DOSE INHALER 2 PUFF IH ×2 (07:37→19:55)
--- NOTE | 2020-07-21 08:12 | PGE_ITS ---
Date of Service Date of service: 07/21/20 Time of Service: 08:13 Assessment and Plan Assessment and plan (1) Acute on chronic respiratory failure with hypoxia and hypercapnia: Status: Acute Assessment and plan: Multifactorial: due to acute exacerbation of COPD in setting of likely aspiration pneumonia, as well as OHS/TRINH, pulmonary hypertension, HFpEF. Clearly worse today. Exam and imaging c/w pulmonary edema. However, labs and oral mucosa show that the patient is dehydrated. Given acute worsening of respiratory status, we will give lasix 20 mg IV x 1. (Consider overlapping this with D5W while continuing diuresis to ensure that the hypernatremia does not worsen). Also, consider PE - patient is high risk given her size, nonambulatory status, underlying malignancy. If lasix ineffective, obtain CTA. Continue to treat aspiration pneumonia. Continue solumedrol at 40 mg IV TID. Continue nebs. BiPAP HS and with naps. COnsider ABG and upgrade to ICU if lasix ineffective. (2) Multifocal pneumonia: Status: Acute Assessment and plan: Aspiration pneumonia, Present on admission. Per CXR read today, this is better. Continue meropenem. I doubt that the positive blood culture reported last night is reflective of disease process, but we are repeating them today. The patient can have safe swallowing if she follows instructions, but, unfortunately, historically, she does not follow them consistently, resulting in recurrent aspiration events. Unless she does this, the patient is at an extremely high risk of recurrent aspiration events, requiring possible intubation, and given her OHS/TRINH/COPD/pulm. HTN/high baseline O2 requirement, the chances of her getting successfully extubated are low. COLST form reviewed: the patient had stated that she did not want a feeding tube. Palliative care is consulted to review goals of care because another aspiration event is viewed as inevitable. (3) Acute exacerbation of chronic obstructive pulmonary disease: Status: Acute Assessment and plan: As above (4) Dysphagia: Status: Acute Assessment and plan: See discussion above. Palliative care consulted. (5) UTI (urinary tract infection): Status: Acute Assessment and plan: Present on admission. Urine C&S with gram positive reji and GNR, contaminated. Continue meropenem empirically. (6) Acute hypernatremia: Status: Resolved Assessment and plan: Continue PO lasix. Na stable. (7) (HFpEF) heart failure with preserved ejection fraction: Status: Chronic Assessment and plan: Clinically is fluid overloaded today. About to rec eive a trial of IV lasix. Monitor I/O's, daily weights. (8) Pulmonary hypertension: Status: Chronic Assessment and plan: Careful monitoring of volume status. Continue O2 supplementation/BiPAP. (9) Chronic anemia: Status: Acute Assessment and plan: H/o GI bleeding, folate, B12, and iron deficiency. Also, h/o renal cell ca. On PPI and carafate. Monitor H/H while on heparin SC - low threshold to d/c. (10) Renal cell carcinoma: Status: Chronic Assessment and plan: Follow up as outpatient. Palliative care consult (11) TRINH (obstructive sleep apnea): Status: Chronic Assessment and plan: Continue BiPAP HS/with naps (12) Obesity hypoventilation syndrome: Status: Chronic Assessment and plan: As above (13) DVT prophylaxis: Status: Acute Assessment and plan: sc heparin (14) Discharge planning issues: Status: Acute Assessment and plan: Full code Palliaitve care consult PT consult Speech therapy consult Total Critical Care Time 45 minutes. Transfer to ICU. Subjective Subjective Interval history since last seen: Patient mouthed through BiPAP mask: can I have something to eat and drink? Increased work of breathing while awake this morning on oxymask; O2 sat 76-86 on oxymask 4L; working to breathe. Cyanotic. Put on BiPAP - helping. Spent the night on BiPAP. 1 bottle out of 4 blood cx + for GPCs. Exam Narrative Exam Narrative: General: Obese female laying in bed, tachypneic on BiPAP while asleep, less tachypneic when she wakes up, A&Ox3. HEENT: EOMI, MMM Heart: RRR Lungs: very diminished at B bases Abdomen: soft, nontender, nondistended Extremities: chronic BLE lymphedema and chronic venous stasis dermatitis; no evidence of cellulitis, TTP feet and legs (chronic) Objective Last Vital Signs Temp 37.2 C 07/21/20 07:25 Pulse 79 07/21/20 08:00 Resp 20 07/21/20 08:00 BP 134/68 07/21/20 04:11 Pulse Ox 94 07/21/20 08:00 Laboratory Results - last 24 hr 07/21/20 07/21/20 06:15 06:15 WBC 8.83 RBC 3.33 L Hgb 10.0 L Hct 34.5 L MCV 103.6 H MCH 30.0 MCHC 29.0 L RDW 16.5 H Plt Count 233 MPV 12.0 H Immature Gran % 0.3 Neutrophils % 84.3 Lymphocytes % 8.2 Monocytes % 7.1 Eosinophils % 0.0 Basophils % 0.1 Nucleated RBC % 1 Absolute Neutrophils 7.44 H Absolute Lymphocytes 0.72 L Absolute Monocytes 0.63 Absolute Eosinophils 0.00 Absolute Basophils 0.01 Sodium 147 H Potassium 5.3 H Chloride 105 Carbon Dioxide 41.9 H Anion Gap 0.1 L BUN 36 H Creatinine 1.3 H Estimated GFR/1.73 m2 40.38 Glucose 183 H Calcium 10.7 H Magnesium 2.2
--- NOTE | 2020-07-21 08:33 | DI.RAD_ITS ---
EXAM: XR PORTABLE CHEST AP CLINICAL HISTORY: follow up pneumonia TECHNIQUE: 2D digital imaging was performed. COMPARISON: CR,XR XR PORTABLE CHEST AP from 07/17/2020 FINDINGS: MEDIASTINUM: Normal. HEART: Stable. PULMONARY VASCULATURE: Normal. LUNGS: There does appear to be some clearing of the bilateral infiltrates compared to the prior exami nation. Plate atelectasis is again seen in the mid lungs. PLEURAL SPACE: No pneumothorax. BONE:There is inferior subluxation of the right humeral head. Marked deformity and degenerative bell ges are seen at the left glenohumeral joint. Degenerative changes are seen in the spine. OTHER FINDINGS:Unchanged elevation of the right hemidiaphragm. IMPRESSION: Some interval clearing of the bilateral infiltrates since 07/17/2020. DATA REPOSITORY: RADIATION DOSE DELIVERED:
[2020-07-21] MEDS: Albuterol 2.5 MG/3 ML INH SOLN VIAL UPD (08:37)
--- NOTE | 2020-07-21 08:42 | CMPROGNOTE_ITS ---
Care Management Progress Note S/O: Michelle experienced respiratory distress this morning per MD. She required increased oxygen and will have repeat CXR and Chest CT today. She remains on BIPAP. MD requested Palliative Consult be prioritized and family contact be offered. GABE had long discussion with son, Bruce who expressed interest in a tele-visit with his mother. He reported he and his brother Delores have not seen her for four months. GABE is awaiting phone call from Bruce advising email or number for facetime. Michelle had a Palliative Consult with Dr. Christensen and reported she wanted to review decisions with her son, Dr. Christensen attempted to outreach but he did not answer. CM continues to follow. A: Michelle is a 69 year old woman admitted on 07/17/20 with Pneumonia and respiratory failure P: Michelle continues to be closely monitored and treated at a M/S level of care in the ICU. She will return to the [facility] once medically stable via RCT. CM continues to support patient and her discharge planning needs.
[2020-07-21] MEDS: Gabapentin 300 MG CAP PO ×3 (08:51→19:54)
[2020-07-21] MEDS: Folic Acid 1 MG TAB PO (08:51)
[2020-07-21] MEDS: Polyethylene Glycol 3350 17 GM PACKET PO (08:51)
[2020-07-21] MEDS: amLODIPine 2.5 MG TAB PO (08:52)
[2020-07-21] MEDS: Ferrous Sulfate 325 MG TAB PO ×3 (08:52→19:54)
[2020-07-21] MEDS: Lidocaine 5% Patch 2 PATCH TP (08:52)
[2020-07-21] MEDS: Lactobacillus Acidophilus CAP 1 CAP PO ×3 (08:52→19:54)
[2020-07-21] MEDS: Sertraline 50 MG TAB 150 MG PO (08:52)
[2020-07-21] MEDS: Insulin Aspart 300 UNITS/3 ML PEN SC ×4 (08:54→21:10)
[2020-07-21] MEDS: Furosemide 20 MG/2 ML VIAL IVP (10:12)
--- NOTE | 2020-07-21 10:15 | DI.CT_ITS ---
EXAM: CT CHEST PE CTA CLINICAL HISTORY: worsening respiratory failure, concern for a PE. TECHNIQUE: Imaging Protocol: Axial CT angiography was performed with multi-slice acquisition and mu lti-planar and/or 3D reconstructions. CONTRAST MATERIAL: Intravenous: Omnipaque 350 Contrast volume:Infiltration of the patient's IV. Analia ble to gain IV access. Noncontrast examination was performed. COMPARISON: CT CT CHEST PE ABD PELVIS W from 07/01/2020 FINDINGS: The examination is limited due to patient motion artifact. Tracheobronchial tree: Patent where visualized. Pulmonary parenchyma: Multifocal opacities involving all 5 lobes. No architectural distortion. Pulmonary Arteries: The examination is nondiagnostic for evaluation of pulmonary embolic disease. Th ere does appear to be enlargement of the pulmonary arteries concerning for pulmonary artery hypertens ion. Mediastinum and Katerina: No dominant adenopathy or fluid collection. Visualized thyroid gland: Unremarkable. Pleura: No effusion or pneumothorax. Heart: Cardiomegaly. [id number] coronary artery calcification. No pericardial effusion. Aorta: Thoracic aorta non-dilated. Mild atherosclerosis. Upper abdomen: Unremarkable. Soft tissues: Unremarkable. Bones: Degenerative changes in the spine. IMPRESSION: 1. Examination nondiagnostic for pulmonary artery embolus or thoracic aortic dissection secondary to IV infiltration and lack of IV access. 2. Multifocal pulmonary opacities. This may represent multifocal pneumonia. Please correlate clinic ally. 3. Cardiomegaly. RADIATION DOSE DELIVERED: 701.19mGy.cm Total DLP DATA REPOSITORY: All CT scans at this facility are submitted to the National Radiology Data Registry (NRDR) Dose Index Registry (DIR) with the [employer] (ACR). RADIATION OPTIMIZATION: All CT scans at this facility use at least one of these dose optimization te chniques: automated exposure control; mA and/or kV adjustment per patient size (includes targeted exa ms where dose is matched to clinical indication); or iterative reconstruction.
[2020-07-21] MEDS: Normal Saline 10 ML VIAL UD (12:43)
[2020-07-21] MEDS: MEROPENEM 1 GM in Normal Saline 100 ML IVPB ×2 (12:43→23:54)
[2020-07-21] MEDS: Hyaluronidase 150 UNITS VIAL IJ (12:51)
[2020-07-21 13:01] LABS: Anion Gap 2.1 mmol/L (3-11); BUN 37 mg/dL (7-18); CO2 40.9 mmol/L (21.0-32.0); CREATININE 1.2 mg/dL (0.55-1.02); Chloride 105 mmol/L (98-107); Estimated GFR 44.29 (mL/min/1.73m2); Glucose 157 mg/dL (74-106); Potassium 4.8 mmol/L (3.5-5.1); Sodium 148 mmol/L (136-145)
--- NOTE | 2020-07-21 14:47 | DI.CT_ITS ---
EXAM: CT CHEST PE CTA CLINICAL HISTORY: worsening Respiratory failure concern for PE. TECHNIQUE: Imaging Protocol: Axial CT angiography was performed with multi-slice acquisition and mu lti-planar and/or 3D reconstructions. CONTRAST MATERIAL: Intravenous: Omnipaque 350 Contrast volume:100 mL COMPARISON: CT CT CHEST PE CTA from 07/21/2020 FINDINGS: The examination is limited due to patient motion artifact. Tracheobronchial tree: Patent where visualized. Pulmonary parenchyma: There again seen multifocal opacities involving all 5 lobes. Findings are susp icious for multifocal pneumonia. Please correlate clinically. Pulmonary Arteries: No evidence of filling defect to suggest pulmonary emboli. There is prominence of the pulmonary artery suggesting pulmonary artery hypertension. Mediastinum and Katerina: No dominant adenopathy or fluid collection. Visualized thyroid gland: Unremarkable. Pleura: Small left pleural effusion. No significant right pleural effusion. No pneumothorax. Heart: Cardiomegaly. Coronary artery calcification. No pericardial effusion. Aorta: Thoracic aorta non-dilated. Atherosclerosis. No evidence of dissection. Upper abdomen: Moderate hiatal hernia. Soft tissues: Unremarkable. Bones: Degenerative changes in the thoracic spine. IMPRESSION: 1. No evidence of pulmonary embolism, thoracic aortic dissection or aneurysm. 2. Multifocal pulmonary opacities suspicious for pneumonia. Please correlate clinically. 3. Small left pleural effusion. RADIATION DOSE DELIVERED: 758.69mGy.cm Total DLP DATA REPOSITORY: All CT scans at this facility are submitted to the National Radiology Data Registry (NRDR) Dose Index Registry (DIR) with the [employer] (ACR). RADIATION OPTIMIZATION: All CT scans at this facility use at least one of these dose optimization te chniques: automated exposure control; mA and/or kV adjustment per patient size (includes targeted exa ms where dose is matched to clinical indication); or iterative reconstruction.
--- NOTE | 2020-07-21 15:28 | CHAPLAIN ---
Antonioanadinorah was in bed when I visited, wearing an oxygen mask. She said is sad that she can't see her family, and wasn't able to see them while she was at the [facility]. (I spoke with Journalism Teacher, Mely Negro, who will see if the family can participate in Facetime call at some point. Michelle remains pleasant and asked me how I was doing. Dr. Christensen is expected in this afternoon to have a Palliative consult with Alexa.
[2020-07-21] MEDS: Normal Saline Flush 10 ML SYR IVP (15:38)
--- NOTE | 2020-07-21 17:37 | SPP_ITS ---
Date of Service July 21, 2020 Subjective Covering CLOTH TESTER QUALITY contacted ICU to follow-up on pt status today. Nursing unable to provide full report due to attending to acute pt needs at the time of CLOTH TESTER QUALITY call, however, nursing stated that speech therapy needs to be held today in the setting of pt declined status and requested CLOTH TESTER QUALITY department check back in tomorrow. Per CLOTH TESTER QUALITY consultation with PT today, pt has been on BiPAP for most of the day. CLOTH TESTER QUALITY has communicated update to primary CLOTH TESTER QUALITY for follow-up tomorrow. No Charge Coding
--- NOTE | 2020-07-21 17:37 | AMB.SPSTP ---
Date of Service July 21, 2020 Subjective Covering INFORMATION SECURITY DIRECTOR contacted ICU to follow-up on pt status today. Nursing unable to provide full report due to attending to acute pt needs at the time of INFORMATION SECURITY DIRECTOR call, however, nursing stated that speech therapy needs to be held today in the setting of pt declined status and requested INFORMATION SECURITY DIRECTOR department check back in tomorrow. Per INFORMATION SECURITY DIRECTOR consultation with PT today, pt has been on BiPAP for most of the day. INFORMATION SECURITY DIRECTOR has communicated update to primary INFORMATION SECURITY DIRECTOR for follow-up tomorrow. No Charge Coding
[2020-07-21] MEDS: Normal Saline Flush 10 ML SYR 20 ML IVP (19:54)
--- NOTE | 2020-07-21 20:51 | PCNE_ITS ---
Date of service: 07/21/20 Time of Service: 16:33 History of Present Illness History of Present Illness Chief Complaint: recurrent aspiration, acute on chronic resp failure, RCC Narrative: I have met with Michelle on previous admissions. She has twice before verbally said she was DNR/DNI but has not signed her paperwork/COLST form indicating this. She says she has to talk to her son(s) before she signs. I tried to reach her older son, Bruce, today. He was supposed to call in to talk to his mom about 4- 4:30. I was present at this time, but he did not slat pickler when called. I asked Michelle if she could have 3 wishes, what would she ask for: she said 1. I wish I could breathe better. 2. I wish I could get better. and 3. I wish I could see my family. We discussed ways we could get wishes # 1 and #3 answered. I told her that we could not fulfill wish #2. We talked about her first admission, when she had to go to the [facility] for Rehab. She thought she would get stronger, strong enough that she could leave the [facility] and return to her community [facility], or find a new community [facility] near her son. She admits that she had not gotten stronger. In fact, she has grown weaker over time. She had a swallow evaluation that showed she constantly aspirates. She was changed from acute status to ICU status early today after experiencing an episode of acute respiratory distress. She went from using 4L/min of oxygen to 6 L/min. She also stated I didn't get nothing to eat today. I ran around the hospital all day. I reminded her that she needed to do this in order to have testing. I offered her the choice to forgo testing and stay in bed and focus on comfort. She wants input from her son before making this decision. Consults Consult date: 07/21/20 Requesting physician: Rosa Elena Curtis Assessment and Plan Assessment and plan (1) Goals of care, counseling/discussion: Status: Acute Assessment and plan: She is clear that she wants her breathing to be better controlled and she wants to see her family. She also wants to get better enough so she can live in the community once again. I told her the latter is unlikely. She does want CM or the [facility] to look for placement closer to her son in [place], [place]. I would start using low-dose liquid morphine, at 5 mg doses, q 1 hr prn dyspnea. 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 She would qualify for hospice, if she were so inclined. (2) Palliative care patient: Status: Chronic Assessment and plan: Will continue to follow. Suggest other Pall Care team members to be involved too, if crisis develops. (3) Aspiration pneumonia of both lungs: Status: Chronic Assessment and plan: Has had multiple bouts of asp pneumonia. Doesn't swallow well. Not a tube feeding candidate. Likely will from this (or her CHF or her COPD or her RCC) (4) Pulmonary hypertension: Status: Chronic Assessment and plan: Due to years of chronic lung disease. (5) Acute exacerbation of chronic obstructive pulmonary disease (COPD): Status: Acute (6) Diastolic dysfunction with chronic heart failure: Status: Chronic (7) Acute on chronic respiratory failure: Status: Acute Assessment and plan: Was using a face mask during my visit, not in resp distress. . I asked her how she would feel if she ended up being intubated, and her son, Bruce had to make the same difficult decision for her to come off a ventilator as she had to make for her own mother. She said she would want the same thing her mother wanted, to come off. I asked whether it made more sense then for her to never be intubated. She said she wanted to talk to Bruce. I am not sure how to help her make consistent decisions without input from her son. Will ask CM to make a set time for a phone meeting with him. (8) Anxiety about health: Status: Chronic (9) Avoidance coping: Status: Chronic (10) Morbid obesity: Status: Chronic Review of Systems All systems reviewed & are unremarkable except as noted in HPI and below Constitutional Constitutional: Reports as per HPI, Denies chills and Denies fever(s) Eyes Eyes: Denies blurry vision ENT Ears, Nose, Mouth, and Throat: Denies dizziness, Denies sore throat and Denies throat swelling Cardiovascular Cardiovascular: Denies chest pain and Reports dyspnea Respiratory Respiratory: Reports cough and Reports dyspnea Gastrointestinal Gastrointestinal: Denies abdominal pain, Denies diarrhea and Denies vomiting Genitourinary Genitourinary: Denies hematuria and Denies dysuria Musculoskeletal Musculoskeletal: Denies back pain and Denies numbness Integumentary/Breasts Skin/Breast: Denies lesions and Denies rash Neurologic Neurologic: Denies dizziness, Denies localized weakness and Denies numbness Allergic/Immunologic Allergic/Immunologic: Denies throat swelling [facility] Medical History Acute on chronic respiratory failure Anxiety about health Avoidance coping CKD (chronic kidney disease) stage 3, GFR 30-59 ml/min COPD (chronic obstructive pulmonary disease) Depression Diastolic dysfunction with chronic heart failure Generalized weakness Goals of care, counseling/discussion Low-level of literacy Lymphedema Morbid obesity assisted resident Oncocytoma Palliative care patient Renal cell carcinoma Family History Son No problems noted. Son No problems noted. Son No problems noted. Mother , of ALS age 63 ALS (amyotrophic lateral sclerosis) Father , of lung cancer age 70 heavy smoker Lung cancer Smoker Sister No problems noted. Sister No problems noted. Sister No problems noted. Sister No problems noted. Sister No problems noted. Brother , older brother doesn't know how he No problems noted. Brother No problems noted. 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 Pets and animals: No Current gender identity: female What is your relationship status?: How often do you talk on the phone with friends or family?: once per week How often do you get together with friends or relatives?: never Panel score (0-1 are the most socially isolated patients): 0 What type of physical activity do you participate in: none, bed-bound, sedentary lifestyle and wheelchair-bound Special alysha needs: No Seatbelt use: always Water heater temp set <120 deg: Yes Working smoke detector in home: Yes Fire extinguisher in home: Yes Firearms in home: No Do you feel safe at home: Yes Do you feel safe in your relationship?: Yes Additional Social history: resident @ [facility] Was living in community [facility] until her legs gave out all of a sudden and I couldn't walk. [facility] was in [place], run by her son's best friend and his . Prior to living in [facility], lived on her own in [facility], where she lived for many years. She has one son in [facility], one son in [facility], and one son in [place], [place]. She tells me she knows her memory is getting worse. Sometimes I just black out. She has never filled out a COLST form. She can't tell me which of her sons is her DPOA. Exam Narrative Exam Narrative: General: Obese female laying in bed, awake and alert, interactive, wearing an oxymask; answers appropriately, no evidence of respiratory distress Skin: multiple bruises from IV sticks, dry, hair thin Neck: no LAD, no JVD Eyes: anicteric, non-injected HEENT: facial mask in place, somewhat dry MM, hearing decreased Heart: RRR, no obvious murmur, regular rate Lungs: very diminished at B bases Abdomen: soft, nontender, nondistended, morbidly obese Extremities: chronic BLE lymphedema and chronic venous stasis dermatitis Psych: demonstrates poor insight, avoidance behavior Results Last Vital Signs Temp 98.6 F 07/21/20 19:08 Pulse 100 H 07/21/20 19:08 Resp 22 07/21/20 19:08 BP 178/99 H 07/21/20 19:08 Pulse Ox 90 L 07/21/20 19:08 Labs Result diagrams: 07/21/20 06:15 07/21/20 12:25 Labs: Laboratory Results - last 24 hr 07/21/20 07/21/20 07/21/20 06:15 06:15 12:25 WBC 8.83 RBC 3.33 L Hgb 10.0 L Hct 34.5 L MCV 103.6 H MCH 30.0 MCHC 29.0 L RDW 16.5 H Plt Count 233 MPV 12.0 H Immature Gran % 0.3 Neutrophils % 84.3 Lymphocytes % 8.2 Monocytes % 7.1 Eosinophils % 0.0 Basophils % 0.1 Nucleated RBC % 1 Absolute Neutrophils 7.44 H Absolute Lymphocytes 0.72 L Absolute Monocytes 0.63 Absolute Eosinophils 0.00 Absolute Basophils 0.01 Sodium 147 H 148 H Potassium 5.3 H 4.8 Chloride 105 105 Carbon Dioxide 41.9 H 40.9 H Anion Gap 0.1 L 2.1 L BUN 36 H 37 H Creatinine 1.3 H 1.2 H Estimated GFR/1.73 m2 40.38 44.29 Glucose 183 H 157 H Calcium 10.7 H 11.0 H Magnesium 2.2
[2020-07-21] MEDS: Simvastatin 20 MG TAB 40 MG PO (21:08)
[2020-07-21] MEDS: Lidocaine Patch Removal 2 EACH TD (21:11)
[2020-07-22] VITALS (42 sets, daily range): BP systolic 136–191; BP diastolic 77–107; PULSE 81–107; RESP 3–26; TEMP 36.8–37.3; O2SAT 85–94
--- NOTE | 2020-07-22 | DI.US_ITS ---
EXAM: US UPPER EXTREMITY VENOUS LT CLINICAL HISTORY: edema LUE TECHNIQUE: GRAYSCALE, COLOR, DOPPLER IMAGING OF THE VENOUS SYSTEM OF THE UPPER EXTREMITY-LEFT COMPARISON: None FINDINGS: Basilic vein: Patent. Normal color-flow and normal compression and augmentation properties. Brachial vein(s):Patent. Normal color flow. Normal compression and augmentation properties. Cephalic vein:Patent. Normal color flow. Normal compression and augmentation properties. Axillary vein: Patent. Normal color flow. Normal compression and augmentation properties. Visualized subclavian vein: Patent. No obvious intraluminal thrombus. IMPRESSION: 1. No evidence of venous thrombosis in the left upper extremity, at and above the antecubital fossa. DATA REPOSITORY:
[2020-07-22] MEDS: Albuterol/Ipratropium 3 ML UPD VIAL UPD ×4 (06:04→23:16)
[2020-07-22] MEDS: Heparin 5,000 UNITS/ML VIAL 5000 UNITS SC ×3 (06:05→21:37)
[2020-07-22] MEDS: Normal Saline Flush 10 ML SYR 20 ML IVP ×2 (06:07→19:37)
[2020-07-22 07:05] LABS: Anion Gap -1.1 mmol/L (3-11); BUN 37 mg/dL (7-18); CO2 43.1 mmol/L (21.0-32.0); CREATININE 1.2 mg/dL (0.55-1.02); Calcium 11.2 mg/dL (8.5-10.1); Chloride 106 mmol/L (98-107); Estimated GFR 44.29 (mL/min/1.73m2); Glucose 175 mg/dL (74-106); Magnesium 2.3 mg/dL (1.8-2.4); Potassium 4.8 mmol/L (3.5-5.1); Sodium 148 mmol/L (136-145)
[2020-07-22] MEDS: Mometasone 220 MCG 14 DOSE INHALER 2 PUFF IH ×2 (07:50→19:36)
[2020-07-22] MEDS: Insulin Aspart 300 UNITS/3 ML PEN SC ×4 (08:00→21:38)
[2020-07-22 08:10] LABS: NT-proBNP 727 pg/mL (<300)
--- NOTE | 2020-07-22 08:17 | W.PM.PROGNOT ---
Date of Service Date of service: 07/22/20 Time of Service: 10:29 Assessment and Plan Assessment and plan (1) Acute on chronic respiratory failure with hypoxia and hypercapnia: Status: Acute Assessment and plan: Multifactorial: due to acute exacerbation of COPD in setting of likely aspiration pneumonia, as well as OHS/TRINH, pulmonary hypertension, HFpEF. Slight improvement from yesterday. I suspect another aspiration event had happened. PE has been ruled out. I do think she is fluid overloaded, even though at first glance her labs would suggest otherwise. Exam and imaging c/w pulmonary edema. However, labs and oral mucosa show that the patient is dehydrated. The patient is requesting BiPAP during the day on her own - which demonstrates insight. Intensify diuresis. Patient agrees to sen catheter. It will be important to ensure the patient does not become more hypernatremic - will combine with gentle D5W. Continue to treat aspiration pneumonia. Continue solumedrol at 40 mg IV TID. Continue nebs. BiPAP HS and with naps. (2) Multifocal pneumonia: Status: Acute Assessment and plan: Aspiration pneumonia, Present on admission. Aspiration events are frequent, including the one this morning. Goals of care discussion is progress with palliative care - family meeting hopefully to happen today. Continue meropenem. The patient is at an extremely high risk (not theoretical; this is being proven daily) of recurrent aspiration events, requiring possible intubation, and given her OHS/TRINH/COPD/pulm. HTN/high baseline O2 requirement, the chances of her getting successfully extubated are low. She was being considered for intubation yesterday with her event, for example, so the urgence of this discussion cannot be overemphasized. COLST form reviewed: the patient had stated that she did not want a feeding tube. Palliative care attempting to have a family meeting today. (3) Acute exacerbation of chronic obstructive pulmonary disease: Status: Acute Assessment and plan: As above (4) Dysphagia: Status: Acute Assessment and plan: See discussion above. Palliative care and speech therapy following. (5) UTI (urinary tract infection): Status: Acute Assessment and plan: Present on admission. Urine C&S with gram positive reji and GNR, contaminated. Continue meropenem empirically. (6) Acute hypernatremia: Status: Acute Assessment and plan: Combining IV lasix with D5W. The hope is that diuresis will be greater than the D5W input and the patient's sodium will get somewhat diluted without fluid overloading the patient. (7) (HFpEF) heart failure with preserved ejection fraction: Status: Chronic Assessment and plan: As above Monitor I/O's, daily weights. (8) Pulmonary hypertension: Status: Chronic Assessment and plan: Careful monitoring of volume status. Continue O2 supplementation/BiPAP. (9) Chronic anemia: Status: Acute Assessment and plan: H/o GI bleeding, folate, B12, and iron deficiency. Also, h/o renal cell ca. On PPI and carafate. Monitor H/H while on heparin SC - low threshold to d/c. (10) Renal cell carcinoma: Status: Chronic Assessment and plan: Follow up as outpatient. Palliative care consult (11) TRINH (obstructive sleep apnea): Status: Chronic Assessment and plan: Continue BiPAP HS/with naps (12) Obesity hypoventilation syndrome: Status: Chronic Assessment and plan: As above (13) DVT prophylaxis: Status: Acute Assessment and plan: sc heparin (14) Discharge planning issues: Status: Acute Assessment and plan: Full code Goals of care discussion ongoing - Family meeting to be had today. Total Critical Care Time 45 minutes. Subjective Subjective Interval history since last seen: Transferred to ICU level of care yesterday. Requests to have BiPAP put on her when I came to see her this morning. Thinks she feels a little better today than yesterday. Denies dizziness, chest pain, nausea. Nursing describes her choking on her breakfast. We do not know right now what her breakfast was. Wore BiPAP all night. Afebrile. Nursing concerned about worsening LUE edema since extravasation of the IV yesterday. Oxymask 5 L - 88-93%. Desatted with being turned in bed. Incontinent of large amount of urine. Agrees to sen catheter. BPs 130/78 overnight. BPs hard to get. Met with palliative care yesteday. Family meeting is planned for today. Exam Narrative Exam Narrative: General: Obese female laying in bed, was napping without BiPAP on, woke up, requested bipap; no visible tachypnea/dyspnea today, looks better. Not stacking breaths like she was yesterday. HEENT: EOMI, MMM Heart: RRR Lungs: crackles at B bases, L>R Abdomen: soft, nontender, nondistended Extremities: chronic BLE lymphedema and chronic venous stasis dermatitis; possibly slight worsening of erythema of the venous stasis areas today, but still no sunny cellulitis; LUE edema - LUE propped up on pillows Objective Last Vital Signs Temp 36.8 C 07/22/20 03:25 Pulse 89 07/22/20 04:01 Resp 15 07/22/20 04:01 BP 156/86 H 07/22/20 04:01 Pulse Ox 86 L 07/22/20 08:15 Laboratory Results - last 24 hr 07/21/20 07/22/20 12:25 06:10 Sodium 148 H 148 H Potassium 4.8 4.8 Chloride 105 106 Carbon Dioxide 40.9 H 43.1 H Anion Gap 2.1 L -1.1 L BUN 37 H 37 H Creatinine 1.2 H 1.2 H Estimated GFR/1.73 m2 44.29 44.29 Glucose 157 H 175 H Calcium 11.0 H 11.2 H Magnesium 2.3 NT-Pro-B Natriuret Pep 727 H CTA chest: 1. No evidence of pulmonary embolism, thoracic aortic dissection or aneurysm. 2. Multifocal pulmonary opacities suspicious for pneumonia. Please correlate clinically. 3. Small left pleural effusion.
--- NOTE | 2020-07-22 08:42 | CMPROGNOTE_ITS ---
Care Management Progress Note S/O: Michelle continues to be closely monitored and treated in the ICU. CM spoke with her son, Bruce and connected him with the ICU who connected Bruce with his mother over the phone. Bruce's email is [email or web address] he was unable to connect again today but is hopeful he can get the family together tomorrow for a family zoom meeting. CM continues to follow. A: Michelle is a 69 year old woman admitted on 07/17/20 with Pneumonia and respiratory failure P: Michelle continues to be closely monitored and treated at a M/S level of care in the ICU. She will return to the [facility] once medically stable via RCT. CM continues to support patient and her discharge planning needs.
[2020-07-22] MEDS: Sertraline 50 MG TAB 150 MG PO (08:45)
[2020-07-22] MEDS: Folic Acid 1 MG TAB PO (08:45)
[2020-07-22] MEDS: Lactobacillus Acidophilus CAP 1 CAP PO ×3 (08:45→19:35)
[2020-07-22] MEDS: amLODIPine 2.5 MG TAB PO (08:45)
[2020-07-22] MEDS: Cyanocobalamin 500 MCG TAB 1000 MCG PO (08:46)
[2020-07-22] MEDS: Lidocaine 5% Patch 2 PATCH TP (08:46)
[2020-07-22] MEDS: Sucralfate 1 GM TAB PO ×4 (08:46→21:38)
[2020-07-22] MEDS: Omeprazole 20 MG CAPCR PO ×2 (08:46→19:35)
[2020-07-22] MEDS: Gabapentin 300 MG CAP PO ×3 (08:46→19:35)
[2020-07-22] MEDS: Ferrous Sulfate 325 MG TAB PO ×3 (08:46→19:35)
[2020-07-22] MEDS: methylPREDNISolone SUCC 40 MG VIAL IVP ×3 (08:47→23:17)
[2020-07-22] MEDS: Polyethylene Glycol 3350 17 GM PACKET PO (08:47)
[2020-07-22] MEDS: DEXTROSE 5%-WATER 1,000 ML 50 ML IV (09:16)
[2020-07-22] MEDS: Furosemide 40 MG/4 ML VIAL IVP ×2 (11:04→15:35)
--- NOTE | 2020-07-22 11:31 | PHA.REVIEW ---
Pharmacy Admission Review - Admission Clinical Review (Last Reviewed 07/21/20 @ 21:01 by Rocio Christensen MD) Acute on chronic respiratory failure (Acute) UTI (urinary tract infection) (Acute) Dysphagia (Acute) Chronic anemia (Acute) Discharge planning issues (Acute) DVT prophylaxis (Acute) Acute on chronic respiratory failure with hypoxia and hypercapnia (Acute) Multifocal pneumonia (Acute) Elevated troponin (Acute) Acute hypernatremia (Acute) Hospital acquired PNA (Acute) Acute exacerbation of chronic obstructive pulmonary disease (Acute) Acute exacerbation of chronic obstructive pulmonary disease (COPD) (Acute) Goals of care, counseling/discussion (Acute) Acute and chronic respiratory failure with hypoxia (Acute) codeine Allergy (Unverified 07/17/20 17:41) pentazocine Adverse Reaction (Unknown, Unverified 07/17/20 17:41) unknown Height 5 ft 4 in Weight 144.5 kg HAP, respiratory failure - Comments Comments/Follow Ups: [place] [facility], COPD exacerbation in addition to likely Asp.Pneumonia, Pulmonary HTN. PE ruled out, some fluid overload-on Lasix. Watch weight, I/O. IVF's changed to D5W @ 50ml/hr to prevent hypernatremia, watch Na++. Meropenem is renally adjusted, today is day#5. Family meeting to discuss palliative care. Had previous admission ~2 weeks ago - Renal Dosing Renal Dosing: BUN 37 mg/dL (7-18) H 07/22/20 06:10 Creatinine 1.2 mg/dL (0.55-1.02) H 07/22/20 06:10 Medications needing adjustments: Reviewed (CrCl~37ml/min) List of meds needing interventions: Meropenem is renally adjusted to Q12h, Gabapentin suggested renal max is 900mg/day which the patient is currently taking - Anticoagulation Anticoagulation: Hgb 10.0 g/dL (11.2-15.7) L 07/21/20 06:15 Hct 34.5 % (36.0-46.0) L 07/21/20 06:15 Plt Count 233 10^3/uL (130-400) 07/21/20 06:15 INR 1.1 (0.9-1.1) 07/17/20 17:55 Creatinine 1.2 mg/dL (0.55-1.02) H 07/22/20 06:10 DVT Prohphylaxis: Reviewed Medications: Heparin - Opiate Usage Evaluate Pain Scale/Pains Meds: N/A - Relevant Labs Sodium 148 mmol/L (136-145) H 07/22/20 06:10 Potassium 4.8 mmol/L (3.5-5.1) 07/22/20 06:10 Chloride 106 mmol/L (98-107) 07/22/20 06:10 Magnesium 2.3 mg/dL (1.8-2.4) 07/22/20 06:10 Electrolytes, C-Reactive P, ESR: Reviewed (Vitd D low 19.1, Chronic anemia (H/H 10.0/34.5-Ferrous Sulfate ordered), Na++ creaping up) - DM Control DM Control: Glucose 175 mg/dL (74-106) H 07/22/20 06:10 Finger Stick Blood Glucose 158 Finger Stick Blood Glucose 158 Finger Stick Blood Glucose 158 Insulin Dosing: Reviewed (Novolog scale) - Heart Failure/PR Heart Failure/PR: Troponin I 0.19 ng/mL (<0.06) H* 07/18/20 05:37 NT-Pro-B Natriuret Pep 727 pg/mL (<300) H 07/22/20 06:10 EF%, GUY's, B-Blockers, Diuretics: Reviewed (Lasix, Amlodipine) - BP Control BP Control: Blood Pressure [Right Arm] 191/101 Blood Pressure 173/93 Blood Pressure 191/101 Blood Pressure 156/86 Blood Pressure 136/78 Blood Pressure 136/77 If elevated: Reviewed - Qtc Review If Elevated: Reviewed (QTC 483, then second EKG 442-normal sinus rhythm) - IV to PO Switch IV Medications: Reviewed (Lasix oral is on hold, while the IVP order is active, IV steroids) - Home Meds Home Med List reviewed: Reviewed - Current meds Current Medication Order Review: Reviewed (Dose of Simvastatin metabolism may be blocked by Amldopine, will recommend to MD to reduce Simvastatin to 20mg or less to avoid potential Rhabdo, although patient has been on this dose simulataneously [place] [facility] Antibiotic Activity - Pharmacy Antibiotic Review Pharmacy Antibiotic Activity: Reviewed, no change (Meropenem day#5 for Aspiration Pneumonia) - Antibiotic Information Antibiotic Review Info: Meropenem day#5 for Aspiration Pneumonia
[2020-07-22] MEDS: MEROPENEM 1 GM in Normal Saline 100 ML IVPB ×2 (11:38→23:18)
--- NOTE | 2020-07-22 14:12 | CHAPLAIN ---
I visited today while Michelle was having some Jell-O and later ice cream to help her deal with her mask while she took bites. She talked some more about her three sons. The oldest one, Bruce called and spoke with Michelle and a Facetime call is planned for 4 p.m. today. Michelle told her nurse, Alana Dumont RN, and me that she didn't want the doctor to talk with Bruce because all she talked about yesterday was , , . (Yesterday Dr. Christensen spoke with Michelle for a Palliative Care consult.)
--- NOTE | 2020-07-22 18:04 | STREC_ITS ---
Date of service: 07/22/20 Time of Service: 18:04 Speech Therapy Recommendations Report ST Recommendations: APPLICATION PACKAGING CONSULTANT Non-Treatment Note APPLICATION PACKAGING CONSULTANT briefly spoke with Marii in Nursing re: patient's willingness to utilize risk management strategies for po intake during evening meal and level of appropriateness for APPLICATION PACKAGING CONSULTANT treatment; will plan to assess patient in AM hopefully for breakfast meal to further address patient/caregiver training, behavioral a pproaches, and overall dysphagia risk management in context of respiratory difficulties and use of nasal canula, etc. Continue to recommend assist with feeding and frequent verbal cueing/check-ins w ith patient re: use of outlined strategies. Cintia Feng MA CCC-APPLICATION PACKAGING CONSULTANT Speech-Language Pathologist [place]#[phone]
--- NOTE | 2020-07-22 18:04 | PDOC.STREC ---
Date of service: 07/22/20 Time of Service: 18:04 Speech Therapy Recommendations Report ST Recommendations: EXPEDITION SUPERVISOR Non-Treatment Note EXPEDITION SUPERVISOR briefly spoke with Marii in Nursing re: patient's willingness to utilize risk management strategies for po intake during evening meal and level of appropriateness for EXPEDITION SUPERVISOR treatment; will plan to assess patient in AM hopefully for breakfast meal to further address patient/caregiver training, behavioral approaches, and overall dysphagia risk management in context of respiratory difficulties and use of nasal canula, etc. Continue to recommend assist with feeding and frequent verbal cueing/check-ins with patient re: use of outlined strategies. Cintia Feng MA CCC-EXPEDITION SUPERVISOR Speech-Language Pathologist [place]#[phone]
[2020-07-22] MEDS: Lidocaine Patch Removal 2 EACH TD (21:00)
[2020-07-22] MEDS: Simvastatin 20 MG TAB 40 MG PO (21:38)
[2020-07-23] VITALS (38 sets, daily range): BP systolic 118–174; BP diastolic 60–98; PULSE 75–103; RESP 1–30; TEMP 36.8–37.5; O2SAT 84–98
[2020-07-23] MEDS: Albuterol/Ipratropium 3 ML UPD VIAL UPD ×3 (05:13→17:43)
[2020-07-23] MEDS: Heparin 5,000 UNITS/ML VIAL 5000 UNITS SC ×3 (05:14→21:50)
[2020-07-23] MEDS: DEXTROSE 5%-WATER 1,000 ML 50 ML IV (05:27)
[2020-07-23] MEDS: Normal Saline Flush 10 ML SYR 20 ML IVP ×2 (06:25→20:15)
[2020-07-23 06:46] LABS: Abs Immature Grans 0.07 10^3/uL (0.0-0.06); Absolute Lymphocyte Count 0.53 10^3/uL (1.2-3.4); Absolute Monocyte Count 0.68 10^3/uL (0.1-0.8); Absolute Neutrophil Count 6.03 10^3/uL (1.2-6.7); HCT 34.9 % (36.0-46.0); HGB 10.4 g/dL (11.2-15.7); Lymphocytes % 7.3; MCHC 29.8 % (32.0-36.0); MCV 100.6 fL (80-95); Monocytes % 9.3; Neutrophils % 82.4; Nucleated RBC 1 %; Platelet Count 228 10^3/uL (130-400); RBC 3.47 10^6/uL (3.93-5.22); RDW 16.8 % (11.7-14.6); RDW-SD 61.4 fL; WBC 7.31 10^3/uL (4.4-10.8)
[2020-07-23 06:57] LABS: Anion Gap -1.3 mmol/L (3-11); BUN 36 mg/dL (7-18); CO2 43.3 mmol/L (21.0-32.0); CREATININE 1.3 mg/dL (0.55-1.02); Calcium 10.7 mg/dL (8.5-10.1); Chloride 102 mmol/L (98-107); Estimated GFR 40.38 (mL/min/1.73m2); Glucose 218 mg/dL (74-106); Magnesium 2.4 mg/dL (1.8-2.4); Potassium 4.6 mmol/L (3.5-5.1); Sodium 144 mmol/L (136-145)
[2020-07-23] MEDS: Mometasone 220 MCG 14 DOSE INHALER 2 PUFF IH ×2 (07:53→20:15)
--- NOTE | 2020-07-23 08:31 | PGE_ITS ---
Date of Service Date of service: 07/23/20 Time of Service: 13:54 Assessment and Plan Assessment and plan (1) Acute on chronic respiratory failure with hypoxia and hypercapnia: Status: Acute Assessment and plan: Multifactorial: due to acute exacerbation of COPD in setting of aspiration pneumonia, as well as OHS/TRINH, pulmonary hypertension, HFpEF. I do not see any improvement from yesterday and resting O2 requirement this morning on oxymask was very worrisome. Fluid overload is a concern as well. Continue diuresis monitoring Cr and I/Os. Unfortunately, cannot get a weight today due to bed scale not working. Nursing is looking for a different bed. Continue to treat aspiration pneumonia. Continue solumedrol at 40 mg IV TID. Continue nebs. BiPAP HS and with naps. (2) Multifocal pneumonia: Status: Acute Assessment and plan: Aspiration pneumonia, Present on admission. Aspiration events are frequent, and another one is inevitable. Goals of care discussion is progress with palliative care - family meeting still being organized. Continue meropenem. The patient is at an extremely high risk (not theoretical; this is being proven daily) of recurrent aspiration events, requiring possible intubation, and given her OHS/TRINH/COPD/pulm. HTN/high baseline O2 requirement, the chances of her getting successfully extubated are low. Urgency of this discussion cannot be overemphasized. COLST form reviewed: the patient had stated that she did not want a feeding tube. (3) Acute exacerbation of chronic obstructive pulmonary disease: Status: Acute Assessment and plan: As above (4) Dysphagia: Status: Acute Assessment and plan: See discussion above. Palliative care and speech therapy following. (5) UTI (urinary tract infection): Status: Acute Assessment and plan: Present on admission. Urine C&S with gram positive reji and GNR, contaminated. Continue meropenem empirically. (6) Acute hypernatremia: Status: Resolved Assessment and plan: Combining IV lasix with D5W, which we might be able to d/c today. (7) (HFpEF) heart failure with preserved ejection fraction: Status: Chronic Assessment and plan: As above, in acute exacerbation. Continue diuresis, Monitor I/O's, daily weights. (8) Pulmonary hypertension: Status: Chronic Assessment and plan: Careful monitoring of volume status. Continue O2 supplementation/BiPAP. (9) Chronic anemia: Status: Acute Assessment and plan: H/o GI bleeding, folate, B12, and iron deficiency. Also, h/o renal cell ca. On PPI and carafate. Monitor H/H while on heparin SC - low threshold to d/c. (10) Renal cell carcinoma: Status: Chronic Assessment and plan: Follow up as outpatient. Palliative care consulted (11) TRINH (obstructive sleep apnea): Status: Chronic Assessment and plan: Continue BiPAP HS/with naps (12) Obesity hypoventilation syndrome: Status: Chronic Assessment and plan: As above (13) DVT prophylaxis: Status: Acute Assessment and plan: sc heparin (14) Discharge planning issues: Status: Acute Assessment and plan: Full code Goals of care discussion ongoing - Family meeting to be had today. I have spoken with Michelle - she expresses that she is not sure what she wants to do with her goals of care. She thinks it will depend on where she ends up because she does not like being at the [facility]. I have asked lpn care manager to talk to Michelle about her concerns and also to arrange a facetime conversation with her son. Total Critical Care Time 45 minutes. Subjective Subjective Interval history since last seen: Michelle was able to talk to her son last night, but had not yet had a chance to see him via ipad when I spoke to her. She states her breathing is good this morning. Denies dizziness, chest pain, nausea. In actuality, this morning she was found on oxymask - 13-15L saturating in the 90s. Required NC 6L now while eating. Nursing had to call or contact centre coach her to take small slow bites and to breathe in between because the patient is still not doing it safely on her own. Spent the night on BiPAP @ FiO 35%. Did not sleep well. Went back on BiPAP after breakfast. Nursing notes PAREKH. HR in the 90s. BP 152/93. O2 sat 88%. Bedscale not working. 1100 cc out in 12 hrs. Exam Narrative Exam Narrative: General: Obese female laying in bed, on BiPAP, arouses easily. A&Ox3, able to have a conversation about her son. HEENT: EOMI, MMM Heart: RRR Lungs: Diminished breath sounds B anteriorly Abdomen: soft, nontender, nondistended Extremities: chronic BLE lymphedema, this looks about the same, and chronic venous stasis dermatitis;unchanged mild erythema of BLE's; LUE edema is a little better. Objective Last Vital Signs Temp 37.5 C 07/23/20 04:31 Pulse 97 H 07/23/20 06:00 Resp 14 07/23/20 06:00 BP 167/89 H 07/23/20 06:00 Pulse Ox 98 07/23/20 07:56 Laboratory Results - last 24 hr 07/23/20 07/23/20 06:25 06:25 WBC 7.31 RBC 3.47 L Hgb 10.4 L Hct 34.9 L MCV 100.6 H MCH 30.0 MCHC 29.8 L RDW 16.8 H Plt Count 228 MPV 12.0 H Immature Gran % 1.0 Neutrophils % 82.4 Lymphocytes % 7.3 Monocytes % 9.3 Eosinophils % 0.0 Basophils % 0.0 Nucleated RBC % 1 Absolute Neutrophils 6.03 Absolute Lymphocytes 0.53 L Absolute Monocytes 0.68 Absolute Eosinophils 0.00 Absolute Basophils 0.00 Sodium 144 Potassium 4.6 Chloride 102 Carbon Dioxide 43.3 H Anion Gap -1.3 L BUN 36 H Creatinine 1.3 H Estimated GFR/1.73 m2 40.38 Glucose 218 H Calcium 10.7 H Magnesium 2.4
[2020-07-23] MEDS: Folic Acid 1 MG TAB PO (08:56)
[2020-07-23] MEDS: Lactobacillus Acidophilus CAP 1 CAP PO ×3 (08:56→20:06)
[2020-07-23] MEDS: Sucralfate 1 GM TAB PO ×4 (08:56→21:50)
[2020-07-23] MEDS: Gabapentin 300 MG CAP PO ×3 (08:57→20:14)
[2020-07-23] MEDS: Cyanocobalamin 500 MCG TAB 1000 MCG PO (08:57)
[2020-07-23] MEDS: Omeprazole 20 MG CAPCR PO ×2 (08:57→20:06)
[2020-07-23] MEDS: Ferrous Sulfate 325 MG TAB PO ×3 (08:57→20:15)
[2020-07-23] MEDS: amLODIPine 2.5 MG TAB PO (08:58)
--- NOTE | 2020-07-23 09:06 | CMPROGNOTE_ITS ---
Care Management Progress Note S/O: Michelle continues to be closely monitored and treated in the ICU. CM spoke with her son, Bruce and coordinated tele-visit with his Mom, who was happy to see him. CM also wroter Michelle's other son's number on the board to outreach via [employer]. Bruce's email is [email or web address] but he uses his phone number in the chart for [employer] as well. CM spoke at length with Bruce about his mother's respiratory status. He reported feeling she would likely pass away soon, but that she was not realistic about her current prognosis. He stated I can't let my mom suffocate, with further cueing Bruce explained his fears around how his mom could , and experience her own . CM discussed with Dr. Christensen; agreement for [facility] to consult with the family to discuss what comfort care could look like in Michelle's situation. Bruce was open to changing the conversation from a CODE STATUS discussion to educating around what may be beneficial with Zairas respiratory status to ensure she would be comfortable when the time comes. CM continues to follow. A: Michelle is a 69 year old woman admitted on 07/17/20 with Pneumonia and respiratory failure P: Michelle continues to be closely monitored and treated at a M/S level of care in the ICU. She will return to the [facility] once medically stable via RCT. CM continues to support patient and her discharge planning needs.
[2020-07-23] MEDS: Sertraline 50 MG TAB 150 MG PO (09:08)
[2020-07-23] MEDS: Insulin Aspart 300 UNITS/3 ML PEN SC ×3 (09:09→21:50)
[2020-07-23] MEDS: methylPREDNISolone SUCC 40 MG VIAL IVP ×2 (09:10→16:54)
[2020-07-23] MEDS: Furosemide 40 MG/4 ML VIAL IVP ×2 (09:11→16:55)
[2020-07-23] MEDS: Normal Saline Flush 10 ML SYR IVP (09:12)
[2020-07-23] MEDS: Lidocaine 5% Patch 2 PATCH TP (09:15)
[2020-07-23] MEDS: Polyethylene Glycol 3350 17 GM PACKET PO (09:20)
[2020-07-23] MEDS: MEROPENEM 1 GM in Normal Saline 100 ML IVPB (12:17)
[2020-07-23] MEDS: Normal Saline 500 ML IV (12:19)
--- NOTE | 2020-07-23 14:02 | W.SPSTP ---
Date of service: 07/23/20 Time of Service: 14:02 Subjective Patient assessed during lunch meal (level 6 soft&bite sized and level 4 puree solids, level 0 thin liquids), in good spirits. Pt able to speak with her son Manoj via [email or web address] today. On NC 6L 02 for feeding/po intake with COMMERCIAL PRINT SALESMAN and RN; towards end of meal (approx 40 minutes), overt s/sx aspiration are noted with po intake of pudding, patient appears to become very fatigued and requests to have bed repositioned so she can recline slightly. COMMERCIAL PRINT SALESMAN encouraged patient to continue coughing, then breathe through nose/NC followed by re-swallow prior to having HOB adjusted, which patient was agreeable to. Patient reports that after coughing today, her throat does begin to hurt. Objective/Assessment/Plan Objective Treatment Techniques &Outcomes: Max verbal cues for use of risk management techniques required throughout lunch meal today, more so as meal progressed. Patient does follow instruction with max cues, benefits from verbal cues to specifically breathe in through the nose, out through your lips, as patient does tend to become confused and/or only revert to breathing through mouth during which her 02 will drop to 78%; able to improve 02 sat to 90-91% with frequent verbal cueing for breathing technique t/o meal. Patient able to tolerate soft&bite sized textures today, as well as thin liquids, with use of strategies for about 20-25 minutes until overt s/sx aspiration were observed with puree texture (patient appears to utilize incredible amount of energy when breathing, which is only compounded by energy required for breath-swallow coordination) Counseling and techniques used: motivational interview, use of visual aids, verbal review and teachback Patient/Caregiver/Staff Education:: Copied printed outline of risk management strategies from patient's chart to be hung on white board, in addition to large font print for patient to visualize during mealtimes. Highly encouraged reducing rate of intake, auditory/visual distractions (ie TV off) and emphasis on need for consistent maximal cueing (breathe in through your nose, out through your mouth) with constant monitoring of 02 levels prior to offer of subsequent bite or sip. Assessment Patient continues to remain at heightened risk of recurrent pulmonary compromise at this time; overt s/sx aspiration do not appear to be texture-specific and/or related to edentulous status, but caution should still be used with all po intake, with emphasis on risk management as reviewed with staff/caregivers/patient. Patient does show indication of increased comprehension of some risk management strategies, but will continue to require assist and cueing at this time (eg, able to demonstrate understanding of upright seated position for po intake, however observed to reach for water while reclined after meal today; able to self-advocate for having her food cut into small pieces when interviewed for food preferences, but reports 'bite-sized' as size of quarter, vs recommended 1.5cm/size of a dime which is recommended currently). Despite ongoing counseling/education re: risk management in context of likely aspiration events (unable to objectively assess at this time without imaging but patient is certainly at heightened risk given TRINH/COPD/pulm HTN/high baseline O2 requirement and observed difficulties with swallow-breath coordination), patient observed to reach for food items without consideration for trained respiratory recovery techniques in between bites; continues to require consistent, maximal verbal cueing and assist for feeding due to this. Plan COMMERCIAL PRINT SALESMAN to follow while on unit. Recommendations Other: Continue current diet order, IDDSI Level 6- Soft & Bite Sized solids, 0 - thin liquids, with use of assist for feeding and risk management as outlined in patient's chart, initial evaluation, and currently located on white board in patient's room. Strategies/Adaptions: Upright and out of bed in a chair for all meals/snacks, Use supports to ensure upright/midline posture, Pace rate of intake, Small bites, Small sips, Foods cut small (15mm x 15mm), Alternate liquids and solids, Ensure complete mastication & swallow before next bite, Check oral cavity frequently, Feed in low-stimulation environment, Small meals per day (May consider spacing meals with shorter length t/o day to reduce fatigue across po intake), Upright for at least 30 minutes after meal and Other (Thorough, consistent oral care at least 4x/day) Supervision: Direct supervision via of [facility] staff, assist w/feeding (Monitor 02 stats (do not feed if below 87%)) Additional Notes: Please Note Guidelines for Level 6 Soft & Bite-Sized Solids: Solid texture IDDSI Tests: - Bite Size: No bigger than 1.5cm x 1.5cm, which is about the width of a standard dinner fork / size of dime. - Soft: press down on the fork until the thumbnail blanches to white, then lift the fork to see that the food is completely squashed and does not regain its shape - No bread due to heightened choking risk - If meat is unable to pass above tests, prepare as Level 5 Minced and Moist COMMERCIAL PRINT SALESMAN contacted dietary dept to discuss details of current diet texture modification per IDDSI guidelines; please see following link for further info: [email or web address] COMMERCIAL PRINT SALESMAN Codin Swallowing / Oral Function Treatment Total Time Spent: 60 minutes
--- NOTE | 2020-07-23 16:28 | W.SPSTP ---
Date of service: 07/23/20 Time of Service: 16:37 Objective/Assessment/Plan Recommendations Additional Notes: MANAGER ENVIRONMENTAL HEALTH AND SAFETY Non-Treatment Note: Attempted to contact patient's son with number listed in patient's chart, phone went to . Plan to communicate to covering MANAGER ENVIRONMENTAL HEALTH AND SAFETY for tomorrow re: potential for scheduled care plan / family meeting possibly tomorrow and recommendations for risk management to date. Impressions / Plan: Encourage continued palliative care involvement as well as continued family conversations re: outcomes if patient continues to demonstrate overt s/sx aspiration with po intake and 02 desaturation. Patient will require frequent caregiver assistance and verbal cueing to ensure risk management is followed and also understood; recommend continued motivational interviewing with patient re: her comfort preferences in context of heightened risk of pulmonary compromise. Cintia Feng MA CCC-MANAGER ENVIRONMENTAL HEALTH AND SAFETY Speech-Language Pathologist [place]#[phone]
[2020-07-23] MEDS: Lidocaine Patch Removal 2 EACH TD (20:16)
[2020-07-23] MEDS: Insulin Glargine 300 UNITS/3 ML PEN SC (21:50)
[2020-07-23] MEDS: Simvastatin 20 MG TAB 40 MG PO (21:50)
[2020-07-24] VITALS (34 sets, daily range): BP systolic 131–164; BP diastolic 59–96; PULSE 73–110; RESP 2–26; TEMP 36.5–37; O2SAT 87–98
[2020-07-24] MEDS: methylPREDNISolone SUCC 40 MG VIAL IVP ×3 (00:18→19:20)
[2020-07-24] MEDS: MEROPENEM 1 GM in Normal Saline 100 ML IVPB ×3 (00:18→23:51)
[2020-07-24] MEDS: Albuterol/Ipratropium 3 ML UPD VIAL UPD ×5 (00:20→23:51)
[2020-07-24] MEDS: Furosemide 40 MG/4 ML VIAL IVP (00:20)
[2020-07-24] MEDS: DEXTROSE 5%-WATER 1,000 ML 50 ML IV (00:25)
[2020-07-24] MEDS: Heparin 5,000 UNITS/ML VIAL 5000 UNITS SC ×3 (06:21→21:11)
[2020-07-24 07:26] LABS: Abs Immature Grans 0.04 10^3/uL (0.0-0.06); Absolute Lymphocyte Count 0.54 10^3/uL (1.2-3.4); Absolute Monocyte Count 0.56 10^3/uL (0.1-0.8); Absolute Neutrophil Count 5.28 10^3/uL (1.2-6.7); HCT 33.5 % (36.0-46.0); HGB 10.1 g/dL (11.2-15.7); Immature Grans % 0.6; Lymphocytes % 8.4; MCH 30.1 pg (27.0-33.0); MCHC 30.1 % (32.0-36.0); MPV 12.6 fL (8.0-11.0); Monocytes % 8.7; Neutrophils % 82.3; Nucleated RBC 1 %; Platelet Count 215 10^3/uL (130-400); RBC 3.35 10^6/uL (3.93-5.22); RDW 16.7 % (11.7-14.6); RDW-SD 60.2 fL; WBC 6.42 10^3/uL (4.4-10.8)
[2020-07-24 07:34] LABS: BUN 35 mg/dL (7-18); CREATININE 1.2 mg/dL (0.55-1.02); Calcium 10.3 mg/dL (8.5-10.1); Chloride 102 mmol/L (98-107); Estimated GFR 44.29 (mL/min/1.73m2); Glucose 191 mg/dL (74-106); Magnesium 2.2 mg/dL (1.8-2.4); Potassium 4.2 mmol/L (3.5-5.1); Sodium 144 mmol/L (136-145)
[2020-07-24 07:36] LABS: Anion Gap -3.00001 mmol/L (3-11); CO2 > 45.0 mmol/L (21.0-32.0)
--- NOTE | 2020-07-24 08:24 | W.PM.PROGNOT ---
Date of Service Date of service: 07/24/20 Time of Service: 11:29 Assessment and Plan Assessment and plan (1) Acute on chronic respiratory failure with hypoxia and hypercapnia: Status: Acute Assessment and plan: Multifactorial: due to acute exacerbation of COPD in setting of aspiration pneumonia and recurrent aspiration events, as well as OHS/TRINH, pulmonary hypertension, HFpEF. No improvement. I think that we have reached the limit of diuresis based on patient's contraction alkalosis, which at this point could be contributing to CO2 retention. Continue to treat aspiration pneumonia. Will taper steroids - no wheezing and is aerating. Continue nebs. IS/acapella BiPAP HS and with naps. (2) Multifocal pneumonia: Status: Acute Assessment and plan: Aspiration pneumonia, Present on admission. Aspiration events are frequent, and another one is inevitable. See speech therapy notes. Goals of care discussion is progress with palliative care - family meeting hopefully to happen today. Continue meropenem. The patient is at an extremely high risk (not theoretical; this is being proven daily) of recurrent aspiration events, requiring possible intubation, and given her OHS/TRINH/COPD/pulm. HTN/high baseline O2 requirement, the chances of her getting successfully extubated are low. Urgency of this discussion cannot be overemphasized. COLST form reviewed: the patient had stated that she did not want a feeding tube. (3) Acute exacerbation of chronic obstructive pulmonary disease: Status: Acute Assessment and plan: As above (4) Dysphagia: Status: Acute Assessment and plan: See discussion above. Palliative care and speech therapy following. (5) UTI (urinary tract infection): Status: Acute Assessment and plan: Present on admission. Urine C&S with gram positive reji and GNR, contaminated. At this point, will have completed abx today (still being continued for pneumonia). (6) Acute hypernatremia: Status: Resolved Assessment and plan: D/c both lasix and D5W. (7) (HFpEF) heart failure with preserved ejection fraction: Status: Chronic Assessment and plan: As above, in acute exacerbation. Continue diuresis, Monitor I/O's, daily weights. (8) Pulmonary hypertension: Status: Chronic Assessment and plan: Careful monitoring of volume status. Continue O2 supplementation/BiPAP. (9) Chronic anemia: Status: Chronic Assessment and plan: H/o GI bleeding, folate, B12, and iron deficiency. Also, h/o renal cell ca. On PPI and carafate. Monitor H/H while on heparin SC - low threshold to d/c. (10) Renal cell carcinoma: Status: Chronic Assessment and plan: Follow up as outpatient. Palliative care consulted (11) TRINH (obstructive sleep apnea): Status: Chronic Assessment and plan: Continue BiPAP HS/with naps (12) Obesity hypoventilation syndrome: Status: Chronic Assessment and plan: As above (13) DVT prophylaxis: Status: Acute Assessment and plan: sc heparin (14) Discharge planning issues: Status: Acute Assessment and plan: Full code Goals of care discussion ongoing. Awaiting palliative care conversation. Keep in ICU. Total Critical Care Time 45 minutes. Subjective Subjective Interval history since last seen: Ms Lindsay states she is thirsty. She denies dizziness, chest pain, states she does not feel short of breath, denies nausea. She is about to have breakfast and just got taken off of BiPAP for that. Slept with BiPAP on. 6L of O2 by NC for breakfast. UOP -2.7 L. O2 sat 92%, RR 15 on BiPAP. Sleepy this am and yesterday afternoon, per nursing. ?Palliative care meeting today. She did talk to her son with an ipad. No conversation about code status happened in that conversation with the son, per nursing. Exam Narrative Exam Narrative: General: Obese female sitting up in bed, mildly dyspneic on nasal canula, A&Ox3 HEENT: EOMI, MMM Heart: RRR, +JUDY - heard much better in a sitting position Lungs: Crackles R midlung and R base. Abdomen: soft, nontender, nondistended Extremities: chronic BLE lymphedema, this looks about the same, and chronic venous stasis dermatitis;unchanged mild erythema of BLE's; LUE edema is a little better. Objective Last Vital Signs Temp 36.7 C 07/24/20 04:00 Pulse 81 07/24/20 06:00 Resp 15 07/24/20 06:01 BP 144/82 H 07/24/20 06:00 Pulse Ox 96 07/24/20 06:01 Laboratory Results - last 24 hr 07/24/20 07/24/20 06:25 06:25 WBC 6.42 RBC 3.35 L Hgb 10.1 L Hct 33.5 L MCV 100.0 H MCH 30.1 MCHC 30.1 L RDW 16.7 H Plt Count 215 MPV 12.6 H Immature Gran % 0.6 Neutrophils % 82.3 Lymphocytes % 8.4 Monocytes % 8.7 Eosinophils % 0.0 Basophils % 0.0 Nucleated RBC % 1 Absolute Neutrophils 5.28 Absolute Lymphocytes 0.54 L Absolute Monocytes 0.56 Absolute Eosinophils 0.00 Absolute Basophils 0.00 Sodium 144 Potassium 4.2 Chloride 102 Carbon Dioxide > 45.0 H Anion Gap -3.44493 L BUN 35 H Creatinine 1.2 H Estimated GFR/1.73 m2 44.29 Glucose 191 H Calcium 10.3 H Magnesium 2.2
[2020-07-24 09:14] LABS: HCO3 (Venous) 46 mmol/L (23-28); O2 Sat (Venous) 98 %; TCO2 (Venous) 43 mmol/L (24-29); pH (Venous) 7.46 (7.31-7.41); pO2 (Venous) 91 mmHg
[2020-07-24 09:16] LABS: BE (Venous) > 15 mmol/L (-2-3)
[2020-07-24 09:17] LABS: pCO2 (Venous) 65 mmHg (41-51)
[2020-07-24] MEDS: Mometasone 220 MCG 14 DOSE INHALER 2 PUFF IH ×2 (09:50→21:30)
[2020-07-24] MEDS: Sertraline 50 MG TAB 150 MG PO (09:56)
[2020-07-24] MEDS: Gabapentin 300 MG CAP PO ×3 (09:56→19:21)
[2020-07-24] MEDS: Ferrous Sulfate 325 MG TAB PO ×3 (09:56→19:21)
[2020-07-24] MEDS: Omeprazole 20 MG CAPCR PO ×2 (09:56→19:21)
[2020-07-24] MEDS: amLODIPine 2.5 MG TAB PO (09:56)
[2020-07-24] MEDS: Lactobacillus Acidophilus CAP 1 CAP PO ×3 (09:56→19:21)
[2020-07-24] MEDS: Sucralfate 1 GM TAB PO ×4 (09:56→21:11)
[2020-07-24] MEDS: Folic Acid 1 MG TAB PO (09:57)
[2020-07-24] MEDS: Polyethylene Glycol 3350 17 GM PACKET PO (10:07)
[2020-07-24] MEDS: Cyanocobalamin 500 MCG TAB 1000 MCG PO (10:07)
[2020-07-24] MEDS: Lidocaine 5% Patch 2 PATCH TP (10:08)
[2020-07-24] MEDS: Insulin Aspart 300 UNITS/3 ML PEN SC ×2 (10:14→21:31)
--- NOTE | 2020-07-24 12:04 | PDOC.CMPRO ---
Care Management Progress Note S/O: Michelle continues to be closely monitored and treated in the ICU. CM continues to follow. 0830 Dr. Curtis shares concerns for Michelle's current respiratory status and possible need for intubation, she requests PC consult GINA. CM notified provider and Palliative via IM. 0915 CM left VM for Bruce outlining recommendations that he discuss next steps with PC provider, Tenisha. Specific to process of intubation, extubation and what comfort care would entail, as Bruce shared concerns about his mother being in distress and suffocating. 1140 MARTIN Jordan phoned this internal communications writer reporting Bruce spoke to his mother over the phone aroudn 1030; uncertain of details of conversation. 1200 CM left another VM for Bruce re: anticipated arrival of PC provider, notifying that Tenisha will likely try to outreach to Bruce when speaking with Michelle. 1230 Tenisha arrived and met with Michelle and spoke with her family, completed COLST form which was process and added to electronic chart. A: Michelle is a 69 year old woman admitted on 07/17/20 with Pneumonia and respiratory failure P: Michelle continues to be closely monitored and treated at a M/S level of care in the ICU. She will return to the [facility] once medically stable via RCT. CM continues to support patient and her discharge planning needs.
--- NOTE | 2020-07-24 12:40 | W.PALLCONSUL ---
Date of service: 07/24/20 Time of Service: 12:30 History of Present Illness Narrative: Michelle is a very pleasant 69 year old female with a past medical history significant for TRINH, morbid obesity, CHF, chronic respiratory failure, left renal mass, CKD, currently being treated for aspiration PNA. There was concern earlier today that she may require intubation and there is question of if she would survive extubation. At the time of the Palliative consultation she was a FULL code and had completed a COLST form in May, at the [facility], however, after extensive discussion about her code status, she has decided that she does not want to be intubated. Michelle continues to want resuscitation at this point. She has named her son, Bruce Hoskins to be her decision maker, she also would like Delores to be consulted if there are decisions to be made. She is clear that if she becomes unresponsive, she wants her care to be comfort-focused and she would want her code status to be changed to DNR at that time. Alexa wants her sons to be involved in all decision making, Bruce was called while I was in the room with Alexa. He will be updated again after the visit. Abimbola expressed multiple times that she is afraid of . She has seen the operational trainer, Sera before and felt that it was helpful, she would like to see her again. She also wants to talk to her son, Mikhail Bianchi, who is in [facility] [place], [place]. She has not seen him in 4 years, she has not spoken to him in almost a year. Assessment and Plan Assessment and plan (1) Obesity hypoventilation syndrome: Status: Chronic (2) Dysphagia: Status: Acute (3) Acute on chronic respiratory failure with hypoxia and hypercapnia: Status: Acute (4) Multifocal pneumonia: Status: Acute (5) Diastolic dysfunction with chronic heart failure: Status: Chronic (6) CKD (chronic kidney disease) stage 3, GFR 30-59 ml/min: Status: Chronic Qualifiers: Chronic kidney disease stage 3 subtype: stage 3b (GFR 30-44) Qualified Code(s): N18.32 - Chronic kidney disease, stage 3b (7) Acute exacerbation of chronic obstructive pulmonary disease: Status: Acute (8) Pulmonary hypertension: Status: Chronic (9) Shortness of breath: Status: Acute (10) DNI (do not intubate): Status: Acute (11) Goals of care, counseling/discussion: Status: Acute Assessment and plan: Michelle is a very pleasant 69 year old female with a past medical history significant for TRINH, morbid obesity, CHF, chronic respiratory failure, left renal mass, CKD, currently being treated for aspiration PNA. There was concern earlier today that she may require intubation and there is question of if she would survive extubation. At the time of the Palliative consultation she was a FULL code and had completed a COLST form in May, at the [facility], however, after extensive discussion about her code status, she has decided that she does not want to be intubated. Michelle continues to want resuscitation at this point. She has named her son, Bruce Hoskins to be her decision maker, she also would like Delores to be consulted if there are decisions to be made. She is clear that if she becomes unresponsive, she wants her care to be comfort-focused and she would want her code status to be changed to DNR at that time. A colst form was updated to reflect her wishes. She verbalized that she is afraid to . She is agreeable to seeing Chaplain Sera again, she feels that her visits are helpful. She would benefit from ongoing palliative visits. 159 minutes was spent reviewing the chart, seeing the patient, coordinating care and documentation. Review of Systems Narrative: Alexa reports that her breathing is feeling better than when she presented to the hospital. She is eating and drinking and tolerating her diet. She denies any other concerns. [facility] Medical History Acute on chronic respiratory failure Anxiety about health Avoidance coping CKD (chronic kidney disease) stage 3, GFR 30-59 ml/min COPD (chronic obstructive pulmonary disease) Depression Diastolic dysfunction with chronic heart failure Generalized weakness Goals of care, counseling/discussion Low-level of literacy Lymphedema Morbid obesity [facility] resident Oncocytoma Palliative care patient Renal cell carcinoma Family History Son No problems noted. Son No problems noted. Son No problems noted. Mother , of ALS age 63 ALS (amyotrophic lateral sclerosis) Father , of lung cancer age 70 heavy smoker Lung cancer Smoker Sister No problems noted. Sister No problems noted. Sister No problems noted. Sister No problems noted. Sister No problems noted. Brother , older brother doesn't know how he No problems noted. Brother No problems noted. 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 Pets and animals: No Current gender identity: female What is your relationship status?: How often do you talk on the phone with friends or family?: once per week How often do you get together with friends or relatives?: never Panel score (0-1 are the most socially isolated patients): 0 What type of physical activity do you participate in: none, bed-bound, sedentary lifestyle and wheelchair-bound Special alysha needs: No Seatbelt use: always Water heater temp set <120 deg: Yes Working smoke detector in home: Yes Fire extinguisher in home: Yes Firearms in home: No Do you feel safe at home: Yes Do you feel safe in your relationship?: Yes Additional Social history: resident @ [facility]. Was living in [facility] nursing until her legs gave out all of a sudden and I couldn't walk. [facility] was in [place], run by her son's best friend and his . Prior to living in [facility], lived on her own in [facility], where she lived for many years. She has one son in [facility], one son in [facility], and one son in [place], [place]. She tells me she knows her memory is getting worse. Sometimes I just black out. She has never filled out a COLST form. She can't tell me which of her sons is her DPOA. Exam Narrative Exam Narrative: General: elderly, obese female, laying in bed with HOB elevated, SOB while talking. Alert and oriented, answers questions appropriately. HEENT: normocephalic, atraumatic, glasses on, makes good eye contact, mucous membranes slightly dry. Neck: supple Cardiovascular: heart sounds regular, tachycardic, +murmur. Respiratory: appears SOB with talking, lungs are diminished throughout, rales to right base. GI: +BS, soft, nontender on palpation, nondistended. Extremities: +edema to BLEs. Results Last Vital Signs Temp 36.7 C 07/24/20 04:00 Pulse 88 07/24/20 10:00 Resp 21 07/24/20 10:00 BP 159/86 H 07/24/20 10:00 Pulse Ox 93 07/24/20 10:00 Labs Result diagrams: 07/24/20 06:25 07/24/20 06:25 Labs: Laboratory Results - last 24 hr 07/24/20 07/24/20 07/24/20 06:25 06:25 09:05 WBC 6.42 RBC 3.35 L Hgb 10.1 L Hct 33.5 L MCV 100.0 H MCH 30.1 MCHC 30.1 L RDW 16.7 H Plt Count 215 MPV 12.6 H Immature Gran % 0.6 Neutrophils % 82.3 Lymphocytes % 8.4 Monocytes % 8.7 Eosinophils % 0.0 Basophils % 0.0 Nucleated RBC % 1 Absolute Neutrophils 5.28 Absolute Lymphocytes 0.54 L Absolute Monocytes 0.56 Absolute Eosinophils 0.00 Absolute Basophils 0.00 VBG pH 7.46 H VBG pCO2 65 H* VBG pO2 91 VBG HCO3 46 H VBG Total CO2 43 H VBG O2 Saturation 98 VBG Base Excess > 15 H Sodium 144 Potassium 4.2 Chloride 102 Carbon Dioxide > 45.0 H Anion Gap -3.63943 L BUN 35 H Creatinine 1.2 H Estimated GFR/1.73 m2 44.29 Glucose 191 H Calcium 10.3 H Magnesium 2.2
--- NOTE | 2020-07-24 13:40 | NUR.NOTE ---
Nursing Note: Tenisha DOZIER from palliative care is in room with patient at this time.
[2020-07-24] MEDS: Normal Saline Flush 10 ML SYR 20 ML IVP ×2 (14:53→19:21)
--- NOTE | 2020-07-24 15:51 | CHAPLAIN ---
I was asked to meet with Michelle after her palliative consult. Thanked Michelle for discussing her goals of care with Tenisha Ovalle, JACOBY, as that's a difficult conversation to have, but we would want to know what her wishes are for medical care, if she can speak for herself. Alexa said she doesn't want a feeding tube, but that she told Tenisha she'd take a tube for breathing. Michelle was very upfront about being afraid of dying, because she said she doesn't know what happens after we . She said her sister, one of whom had a son who , have been to mediums and heard from family members who have . Michelle was quite clear that she's not afraid of pain while dying, just of dying. We talked about how most deaths are very peaceful and pain free. Michelle said she would miss her babies, he sons and grandchildren. One grandson is breaking my heart, she said, as she hasn't seen or heard from him for a while. I asked if her son Bruce, who has called here, could arrange for her grandson to call Michelle here. I also offered to help her write letters to people if she'd like to do that. Michelle said he son suggested that if she get outside and into some fresh, and Michelle mentioned that she'd like to get a motorized wheelchair to be more mobile outside. I don't believe these are realistic expectations. I suggested that she plan and hope for the best, but continue to make decisions to take of care of things if the best doesn't happen.
[2020-07-24] MEDS: Simvastatin 20 MG TAB 40 MG PO (21:10)
[2020-07-24] MEDS: Insulin Glargine 300 UNITS/3 ML PEN SC (21:32)
[2020-07-24] MEDS: Lidocaine Patch Removal 2 EACH TD (21:41)
[2020-07-25] VITALS (28 sets, daily range): BP systolic 91–172; BP diastolic 30–100; PULSE 71–109; RESP 4–26; TEMP 36.4–37.1; O2SAT 80–97
[2020-07-25] MEDS: Albuterol/Ipratropium 3 ML UPD VIAL UPD ×3 (06:19→17:17)
[2020-07-25] MEDS: Heparin 5,000 UNITS/ML VIAL 5000 UNITS SC ×3 (06:20→21:17)
[2020-07-25 06:29] LABS: Abs Immature Grans 0.03 10^3/uL (0.0-0.06); Absolute Lymphocyte Count 0.68 10^3/uL (1.2-3.4); Absolute Monocyte Count 0.93 10^3/uL (0.1-0.8); Absolute Neutrophil Count 5.79 10^3/uL (1.2-6.7); HCT 34.3 % (36.0-46.0); HGB 10.2 g/dL (11.2-15.7); Immature Grans % 0.4; Lymphocytes % 9.2; MCH 29.7 pg (27.0-33.0); MCHC 29.7 % (32.0-36.0); MPV 12.1 fL (8.0-11.0); Monocytes % 12.5; Neutrophils % 77.9; Nucleated RBC 0 %; Platelet Count 209 10^3/uL (130-400); RBC 3.43 10^6/uL (3.93-5.22); RDW 16.5 % (11.7-14.6); RDW-SD 60.2 fL; WBC 7.43 10^3/uL (4.4-10.8)
[2020-07-25 06:41] LABS: BUN 32 mg/dL (7-18); CREATININE 1.1 mg/dL (0.55-1.02); Calcium 10.9 mg/dL (8.5-10.1); Chloride 104 mmol/L (98-107); Estimated GFR 48.96 (mL/min/1.73m2); Glucose 141 mg/dL (74-106); Magnesium 2.3 mg/dL (1.8-2.4); Sodium 145 mmol/L (136-145)
[2020-07-25 06:46] LABS: Anion Gap -4.00001 mmol/L (3-11)
[2020-07-25 06:47] LABS: CO2 > 45.0 mmol/L (21.0-32.0)
[2020-07-25] MEDS: Polyethylene Glycol 3350 17 GM PACKET PO (08:48)
[2020-07-25] MEDS: Sertraline 50 MG TAB 150 MG PO (08:49)
[2020-07-25] MEDS: Normal Saline Flush 10 ML SYR 20 ML IVP ×2 (08:49→20:24)
[2020-07-25] MEDS: methylPREDNISolone SUCC 40 MG VIAL IVP (08:49)
[2020-07-25] MEDS: Omeprazole 20 MG CAPCR PO ×2 (08:50→20:24)
[2020-07-25] MEDS: Ferrous Sulfate 325 MG TAB PO ×3 (08:50→20:24)
[2020-07-25] MEDS: Lactobacillus Acidophilus CAP 1 CAP PO ×3 (08:50→20:24)
[2020-07-25] MEDS: Sucralfate 1 GM TAB PO ×4 (08:50→21:17)
[2020-07-25] MEDS: amLODIPine 2.5 MG TAB PO (08:50)
[2020-07-25] MEDS: Gabapentin 300 MG CAP PO ×3 (08:50→20:24)
[2020-07-25] MEDS: Cyanocobalamin 500 MCG TAB 1000 MCG PO (08:50)
[2020-07-25] MEDS: Folic Acid 1 MG TAB PO (08:50)
--- NOTE | 2020-07-25 09:02 | CMPROGNOTE_ITS ---
- If Service Date Differs Date of service: 07/25/20 Time of Service: 09:02 Care Management Progress Note S/O: Michelle was lying in bed when CM met with her. She asked about her lunch when CM approached her, stating that she was told she would eat at noon. It was about 11 am at that time, which CM informed her. Her RN entered the room, and re iterated that her lunch will be brought up at noon, at which time staff will assist her with eating. Michelle will remain at [facility] until she is medically cleared to return to the [facility]. CM will continue to follow. A: Michelle is a 69 year old woman admitted on 07/17/20 with Pneumonia and respiratory failure P: Michelle continues to be closely monitored and treated at a M/S level of care in the ICU. She will return to the [facility] once medically stable via RCT. CM continues to support patient and her discharge planning needs.
--- NOTE | 2020-07-25 09:02 | PGE_ITS ---
Date of Service Date of service: 07/25/20 Time of Service: 09:03 Assessment and Plan Assessment and plan (1) Acute on chronic respiratory failure with hypoxia and hypercapnia: Status: Acute Assessment and plan: Multifactorial: due to acute exacerbation of COPD in setting of aspiration pneumonia and recurrent aspiration events, as well as OHS/TRINH, pulmonary hypertension, HFpEF. No improvement. I agree with Dr. Curtis that patient is showing signs of metabolic alkalosis from diuresis and she does not appear to be in acute congestive failure therefore does not need further IV diuretics. I would agree with continued pulmonary toiletry with incentive spirometry and Acapella devices along with aerosolized bronchodilators. I would begin to taper her steroids and switch her from IV Solu-Medrol to oral prednisone to avoid the excess IV fluids. Continue use of CPAP or BiPAP at night. The crux of the problem will be dealing with her chronic dysphagia. (2) Multifocal pneumonia: Status: Acute Assessment and plan: Patient does not want a feeding tube therefore we have no alternative way of treating her dysphagia. Today is day #8 of meropenem and she is afebrile and not having a leukocytosis I will treat 2 more days for total of 10 days but at that point I think we should discontinue all IV antibiotics. I think the patient needs to discuss further with palliative care moving her goals more towards comfort and not towards active treatment of acute respiratory problems because she does not want to seek definitive treatment for her underlying dysphagia and repeated treatments with IV antibiotics will be futile. (3) Dysphagia: Status: Acute Assessment and plan: See discussion above. Palliative care and speech therapy following. (4) Acute exacerbation of chronic obstructive pulmonary disease: Status: Acute Assessment and plan: DC IV Solu-Medrol switch to prednisone. Continue aerosolized bronchodilators. Continue pulmonary toiletry. Finish out full 10 days of antibiotics then discontinue antibiotics. (5) Obesity hypoventilation syndrome: Status: Chronic Assessment and plan: As above (6) Diastolic dysfunction with chronic heart failure: Status: Chronic Assessment and plan: Monitor closely for exacerbation with fluid resuscitation. Patient BNP actually has been decreasing. She does have a positive troponin which remains elevated chronically and does not likely represent acute cardiac ischemia. Trend troponins overnight. Continue diuretics long-term. (7) CKD (chronic kidney disease) stage 3, GFR 30-59 ml/min: Status: Chronic Assessment and plan: Monitor lab with IV fluids. This appears to be an advancing disease and as stated the troponin levels never normalized probably secondary to CKD. Qualifiers: Chronic kidney disease stage 3 subtype: stage 3b (GFR 30-44) Qualified Code(s): N18.32 - Chronic kidney disease, stage 3b (8) Pulmonary hypertension: Status: Chronic Assessment and plan: Careful monitoring of volume status. Continue O2 supplementation/BiPAP. (9) DNI (do not intubate): Status: Acute (10) Goals of care, counseling/discussion: Status: Acute Assessment and plan: I think that patient should continue to work w/ palliative care to discuss her goals of care. I think that it is not reasonable for her to expect continued aggressive treatments yet not consider PEG tube to provide a safe alternative form of feedings to prevent aspirations. She will continue to aspirate unless she can adequately swallow in a safe manner. We continue to respect her wishes for continued aggressive treatments short of intubation (which she agreed to a DNI order and her COLST was updated by Palliative medicine). I think that once she completes her antibiotic treatment she should return to the [facility] but should not be readmitted for recurrent aspiration events. Subjective Subjective Interval history since last seen: Patient was observed to have choking spells while eating breakfast this morning. After prolonged period of coughing she was able to clear her secretions. She then resumed eating. Patient is under treatment for dysphagia and has been seen multiple times by speech therapy both here as an inpatient as well as at the [facility]. Part of her dysphagia is a cognitive process. She tends to eat her foods too quickly and too big of bites and has a tendency to not sit upright and not fall adequate swallowing safety techniques such as alternating liquids and solids and eating smaller bites and completely masticating and swallowing the food prior to the next bite. She is also been advised to do a chin tuck and head turn to facilitate swallowing and prevent aspiration. She is currently on treatment for aspiration pneumonitis and is receiving meropenem which was also prescribed for UTI. Her blood culture showed no growth from July 21, 2020. However previous blood cultures from July 17, 2020 demonstrated 1 out of 2 sets positive for 2 different gram- positive species that probably represent contaminant. Urine culture grew mixed gram-positive reji and less than 10,000 colonies of gram-negative rods. Prior to that she had an E. coli urinary tract infection in early June that was resistant to multiple antibiotics but sensitive to imipenem. At this point patient is afebrile and has no leukocytosis. I have ordered a CRP and a procalcitonin level. Patient is now on day #8 of meropenem. I think at this point antibiotics can be discontinued recognizing that she is going to continue to have aspiration events but as she has been afebrile and no leukocytosis I see no need to continue antibiotic treatment for an indefinite period. I think solution to her dysphagia would be to have a PEG tube which she does not want. Exam Narrative Exam Narrative: Obese female alert and oriented and answering questions appropriately. During the immediate period after aspirating during breakfast she became very cyanotic and her oxygen saturation dropped down into the 70s but with prolonged coughing she was able to clear her secretions and did not require suctioning. Her O2 saturation responded to high flow oxygen facemask along with right lateral decubitus positioning. Oxygen saturation came up into the 90s after which she was able to resume her meal. Lungs are fairly clear on the right side with the exception of the right base where she has bronchovesicular sounds. Left lung base with rales and rhonchi. Heart is irregularly irregular but a controlled rate Abdomen is obese soft nontender Lower extremities with 1+ pitting edema Objective Last Vital Signs Temp 37.1 C 07/25/20 04:00 Pulse 73 07/25/20 06:00 Resp 13 07/25/20 06:00 BP 150/79 H 07/25/20 06:00 Pulse Ox 91 L 07/25/20 08:28 Laboratory Results - last 24 hr 07/24/20 07/25/20 07/25/20 09:05 06:15 06:15 WBC 7.43 RBC 3.43 L Hgb 10.2 L Hct 34.3 L MCV 100.0 H MCH 29.7 MCHC 29.7 L RDW 16.5 H Plt Count 209 MPV 12.1 H Immature Gran % 0.4 Neutrophils % 77.9 Lymphocytes % 9.2 Monocytes % 12.5 Eosinophils % 0.0 Basophils % 0.0 Nucleated RBC % 0 Absolute Neutrophils 5.79 Absolute Lymphocytes 0.68 L Absolute Monocytes 0.93 H Absolute Eosinophils 0.00 Absolute Basophils 0.00 VBG pH 7.46 H VBG pCO2 65 H* VBG pO2 91 VBG HCO3 46 H VBG Total CO2 43 H VBG O2 Saturation 98 VBG Base Excess > 15 H Sodium 145 Potassium 4.0 Chloride 104 Carbon Dioxide > 45.0 H Anion Gap -4.30362 L BUN 32 H Creatinine 1.1 H Estimated GFR/1.73 m2 48.96 Glucose 141 H Calcium 10.9 H Magnesium 2.3
[2020-07-25] MEDS: Lidocaine 5% Patch 2 PATCH TP (09:35)
[2020-07-25 09:58] LABS: C-Reactive Protein 0.05 mg/dL (0.0-0.3)
[2020-07-25] MEDS: Mometasone 220 MCG 14 DOSE INHALER 2 PUFF IH ×2 (10:27→20:24)
[2020-07-25] MEDS: MEROPENEM 1 GM in Normal Saline 100 ML IVPB (11:34)
[2020-07-25 12:36] LABS: Procalcitonin 0.1 ng/mL
[2020-07-25] MEDS: predniSONE 20 MG TAB 40 MG PO (13:45)
[2020-07-25] MEDS: Insulin Aspart 300 UNITS/3 ML PEN SC ×2 (17:16→21:50)
[2020-07-25] MEDS: Lidocaine Patch Removal 2 EACH TD (20:26)
[2020-07-25] MEDS: Simvastatin 20 MG TAB 40 MG PO (21:17)
[2020-07-25] MEDS: Insulin Glargine 300 UNITS/3 ML PEN SC (21:51)
[2020-07-26] VITALS (25 sets, daily range): BP systolic 116–174; BP diastolic 59–100; PULSE 68–107; RESP 1–27; TEMP 35.9–36.6; O2SAT 87–95
[2020-07-26] MEDS: Albuterol/Ipratropium 3 ML UPD VIAL UPD ×4 (00:03→17:57)
[2020-07-26] MEDS: Heparin 5,000 UNITS/ML VIAL 5000 UNITS SC ×3 (05:44→21:50)
--- NOTE | 2020-07-26 08:22 | DI.RAD_ITS ---
EXAM: XR PORTABLE CHEST AP CLINICAL HISTORY: follow up pneumonia. TECHNIQUE: 2D digital imaging was performed. COMPARISON: CR XR PORTABLE CHEST AP from 07/21/[address] CHEST PE CTA from 07/21/2020 FINDINGS: Heart size is unchanged. Extensive infiltrate in the left lower lobe with some increase from previous chest x-ray 07/21/2020. Also infiltrate in the right lung base. Pleural effusions bilaterally. No pneumothorax. IMPRESSION: Increasing left lower lobe infiltrate. Right lung base infiltrate. Pleural effusions First read by [facility] Final court called by myself to ICU nurse Monday07/26/2020 4:39 p.m. DATA REPOSITORY: RADIATION DOSE DELIVERED: All CT scans at this facility use at least one of these dose optimization techniques: automated exposure control; mA and/or kV adjustment per patient size (includes targeted e xams where dose is matched to clinical indication); or iterative reconstruction.
[2020-07-26] MEDS: Normal Saline Flush 10 ML SYR 20 ML IVP ×2 (08:30→21:50)
--- NOTE | 2020-07-26 08:35 | DI.VRAD_ITS ---
PROCEDURE INFORMATION: Exam: XR Chest Exam date and time: 07/26/2020 8:11 AM Age: 69 years old Clinical indication: Condition or disease; Other: Pneumonia TECHNIQUE: Imaging protocol: XR of the chest Views: 1 view. COMPARISON: CR XR PORTABLE CHEST AP 07/21/2020 8:27 AM FINDINGS: Lungs: Prominent nonspecific interstitial markings. Pleural spaces: Small pleural effusion suspected. Heart/Mediastinum: Unremarkable. No cardiomegaly. Bones/joints: Unremarkable. IMPRESSION: 1. Prominent nonspecific interstitial markings. 2. Small pleural effusion suspected. Dictated and Authenticated by: Mitch Plummer MD. Ordering:[facility] Gordo Chan MD
[2020-07-26] MEDS: Mometasone 220 MCG 14 DOSE INHALER 2 PUFF IH ×2 (08:36→21:50)
[2020-07-26] MEDS: predniSONE 20 MG TAB 40 MG PO (09:03)
[2020-07-26] MEDS: Sertraline 50 MG TAB 150 MG PO (09:03)
[2020-07-26] MEDS: Omeprazole 20 MG CAPCR PO ×2 (09:04→21:50)
[2020-07-26] MEDS: Cyanocobalamin 500 MCG TAB 1000 MCG PO (09:04)
[2020-07-26] MEDS: amLODIPine 2.5 MG TAB PO (09:04)
[2020-07-26] MEDS: Lactobacillus Acidophilus CAP 1 CAP PO ×3 (09:04→21:49)
[2020-07-26] MEDS: Gabapentin 300 MG CAP PO ×3 (09:04→21:49)
[2020-07-26] MEDS: Ferrous Sulfate 325 MG TAB PO ×3 (09:04→21:49)
[2020-07-26] MEDS: Sucralfate 1 GM TAB PO ×4 (09:04→21:51)
[2020-07-26] MEDS: Folic Acid 1 MG TAB PO (09:04)
[2020-07-26] MEDS: Lidocaine 5% Patch 2 PATCH TP (09:05)
[2020-07-26 11:08] LABS: Abs Immature Grans 0.04 10^3/uL (0.0-0.06); Absolute Eosinophil Count 0.05 10^3/uL (0.0-0.7); Absolute Lymphocyte Count 0.75 10^3/uL (1.2-3.4); Absolute Monocyte Count 1.18 10^3/uL (0.1-0.8); Absolute Neutrophil Count 6.87 10^3/uL (1.2-6.7); Eosinophils % 0.6; Immature Grans % 0.4; Lymphocytes % 8.4; MCH 29.9 pg (27.0-33.0); MCHC 29.7 % (32.0-36.0); MCV 100.5 fL (80-95); MPV 12.8 fL (8.0-11.0); Monocytes % 13.3; Neutrophils % 77.3; Nucleated RBC 0 %; Platelet Count 211 10^3/uL (130-400); RBC 3.68 10^6/uL (3.93-5.22); RDW 16.6 % (11.7-14.6); RDW-SD 60.8 fL; WBC 8.89 10^3/uL (4.4-10.8)
[2020-07-26 11:17] LABS: Anion Gap -1.1 mmol/L (3-11); BUN 32 mg/dL (7-18); C-Reactive Protein < 0.05 mg/dL (0.0-0.3); CO2 44.1 mmol/L (21.0-32.0); CREATININE 0.9 mg/dL (0.55-1.02); Calcium 11.3 mg/dL (8.5-10.1); Chloride 102 mmol/L (98-107); Glucose 123 mg/dL (74-106); Potassium 3.8 mmol/L (3.5-5.1); Sodium 145 mmol/L (136-145)
--- NOTE | 2020-07-26 11:18 | CMPROGNOTE_ITS ---
- If Service Date Differs Date of service: 07/26/20 Time of Service: 11:18 Care Management Progress Note S/O: Michelle continues to be monitored at ICU level of care, although the MD plans to step her down to M/S today if she continues to improve. MD has changed her diet order to minced and moistened meats with thin liquids. She is to have meals supervised for cues to swallow appropriately in order to avoid aspiration. She will work with PT prior to returning to the [facility]. CM will continue to follow. A: Michelle is a 69 year old woman admitted on 07/17/20 with Pneumonia and respiratory failure P: Michelle continues to be closely monitored and treated at a M/S level of care in the ICU. She will return to the [facility] once medically stable via RCT. CM continues to support patient and her discharge planning needs.
--- NOTE | 2020-07-26 12:03 | W.PM.PROGNOT ---
Date of Service Date of service: 07/26/20 Time of Service: 12:03 Assessment and Plan Assessment and plan (1) Acute on chronic respiratory failure with hypoxia and hypercapnia: Status: Acute Assessment and plan: Multifactorial: due to acute exacerbation of COPD in setting of aspiration pneumonia and recurrent aspiration events, as well as OHS/TRINH, pulmonary hypertension, HFpEF. Continue treatment of her underlying condition including her OHS/TRINH with use of BiPAP and supplemental oxygen. Use bronchodilators as needed for acute wheezing. Encourage use of incentive spirometry and Acapella device. (2) Multifocal pneumonia: Status: Acute Assessment and plan: Her pneumonia was secondary to aspiration however at this time she is not showing any infectious process and that she has no fever no leukocytosis and her C-reactive protein level is normal at less than 0.05. Chest x-ray is shown diffuse interstitial process. She has atelectasis and pleural effusions. This time she needs good pulmonary toiletry with incentive spirometry and mobilization by getting her out of bed. (3) Dysphagia: Status: Acute Assessment and plan: I modified her diet to moisten and minced foods with thin liquids and supervised diet. Patient does not want a feeding tube. (4) Acute exacerbation of chronic obstructive pulmonary disease: Status: Acute Assessment and plan: DC IV Solu-Medrol switch to prednisone. Continue aerosolized bronchodilators. Continue pulmonary toiletry. Meropenem discontinued yesterday. We will monitor her for today and if she has no aspiration events and no fevers overnight I think she can be discharged to the intermediate tomorrow. (5) Obesity hypoventilation syndrome: Status: Chronic Assessment and plan: As above (6) Diastolic dysfunction with chronic heart failure: Status: Chronic Assessment and plan: I agree with Dr. Curtis that at this point she appears to been adequately diuresed and that she was showing metabolic alkalosis on her BMP. That metabolic alkalosis is improving however her furosemide will have to be resumed upon discharge. PCP will need to closely monitor her BMP. Her metabolic alkalosis is probably a combination of the diuretic therapy she was receiving in addition to a compensatory response to her chronic respiratory acidosis. (7) CKD (chronic kidney disease) stage 3, GFR 30-59 ml/min: Status: Chronic Assessment and plan: While she has chronic kidney disease her creatinine has certainly improved over the last few days. Creatinine is down to 0.9 and her BUN is down to 32. This will need to be closely monitor once she is restarted on her diuretics. Qualifiers: Chronic kidney disease stage 3 subtype: stage 3b (GFR 30-44) Qualified Code(s): N18.32 - Chronic kidney disease, stage 3b (8) Pulmonary hypertension: Status: Chronic Assessment and plan: Careful monitoring of volume status. Continue O2 supplementation/BiPAP. (9) DNI (do not intubate): Status: Acute (10) Goals of care, counseling/discussion: Status: Acute Assessment and plan: I think that patient should continue to work w/ palliative care to discuss her goals of care. I think that it is not reasonable for her to expect continued aggressive treatments yet not consider PEG tube to provide a safe alternative form of feedings to prevent aspirations. She will continue to aspirate unless she can adequately swallow in a safe manner. We continue to respect her wishes for continued aggressive treatments short of intubation (which she agreed to a DNI order and her COLST was updated by Palliative medicine). I think that once she completes her antibiotic treatment she should return to the [facility] but should not be readmitted for recurrent aspiration events. Subjective Subjective Interval history since last seen: Alexa Eaton is having a better day today. She states that she ate dinner last night and breakfast this morning without any choking spells. I modified her diet yesterday to minced and moistened meats with thin liquids. I have reinforced with nursing staff that she needs all of her meals to be supervised with instructions for the patient to do double swallows with each bite or sip and to do a chin tuck head turn maneuver and she needs to be fully upright for all meals. Susi from RT is been weaning down patient's oxygen FiO2. Patient is on 4 L oxygen mask while awake. She does use BiPAP at night. I discontinued her meropenem yesterday as clinically she is not showing any evidence for infection at present time. No fever and no leukocytosis. CRP is normal. Repeat chest x-ray shows nonspecific bilateral interstitial lung markings and small pleural effusions. At this point I think that she is doing well enough that she can be transferred out of the intensive care unit to a medical/surgical floor. She will need ongoing physical therapy before returning to intermediate. Diuretics on hold right now as she was demonstrating on her labs a metabolic alkalosis which is improving. Her creatinine is returned to normal. Exam Narrative Exam Narrative: Obese female sitting up in bed eating her lunch. Nursing staff is supervising her feedings. She does not appear to be having a choking spells Heart is regular rate and rhythm Lungs she has diminished breath sounds at the right base left base with fine rales no rhonchi no wheezing. Abdomen is obese soft nontender Mittal is draining clear yellow urine Lower extremities with 1+ pitting edema. Objective Last Vital Signs Temp 36.4 C L 07/26/20 08:30 Pulse 85 07/26/20 10:00 Resp 23 07/26/20 10:00 BP 157/75 H 07/26/20 10:00 Pulse Ox 94 07/26/20 10:00 Laboratory Results - last 24 hr 07/25/20 07/26/20 07/26/20 06:15 11:00 11:00 WBC 8.89 RBC 3.68 L Hgb 11.0 L Hct 37.0 MCV 100.5 H MCH 29.9 MCHC 29.7 L RDW 16.6 H Plt Count 211 MPV 12.8 H Immature Gran % 0.4 Neutrophils % 77.3 Lymphocytes % 8.4 Monocytes % 13.3 Eosinophils % 0.6 Basophils % 0.0 Nucleated RBC % 0 Absolute Neutrophils 6.87 H Absolute Lymphocytes 0.75 L Absolute Monocytes 1.18 H Absolute Eosinophils 0.05 Absolute Basophils 0.00 Sodium 145 Potassium 3.8 Chloride 102 Carbon Dioxide 44.1 H Anion Gap -1.1 L BUN 32 H Creatinine 0.9 Estimated GFR/1.73 m2 >= 60.00 Glucose 123 H Calcium 11.3 H C-Reactive Protein < 0.05 Procalcitonin 0.1
[2020-07-26] MEDS: Insulin Aspart 300 UNITS/3 ML PEN SC ×2 (16:43→22:00)
[2020-07-26] MEDS: Lidocaine Patch Removal 2 EACH TD (21:50)
[2020-07-26] MEDS: Simvastatin 20 MG TAB 40 MG PO (21:51)
[2020-07-26] MEDS: Insulin Glargine 300 UNITS/3 ML PEN SC (22:00)
[2020-07-27] VITALS (28 sets, daily range): BP systolic 134–163; BP diastolic 77–95; PULSE 79–909; RESP 1–26; TEMP 36.2–36.3; O2SAT 82–96
[2020-07-27] MEDS: Albuterol/Ipratropium 3 ML UPD VIAL UPD ×5 (00:11→23:16)
[2020-07-27] MEDS: Heparin 5,000 UNITS/ML VIAL 5000 UNITS SC ×3 (05:41→21:18)
[2020-07-27 06:46] LABS: Abs Immature Grans 0.06 10^3/uL (0.0-0.06); Absolute Eosinophil Count 0.09 10^3/uL (0.0-0.7); Absolute Lymphocyte Count 1.46 10^3/uL (1.2-3.4); Absolute Monocyte Count 1.27 10^3/uL (0.1-0.8); HCT 33.7 % (36.0-46.0); HGB 10.1 g/dL (11.2-15.7); Immature Grans % 0.7; Lymphocytes % 15.9; MPV 12.4 fL (8.0-11.0); Monocytes % 13.8; Neutrophils % 68.6; Nucleated RBC 0 %; Platelet Count 203 10^3/uL (130-400); RBC 3.37 10^6/uL (3.93-5.22); RDW 16.9 % (11.7-14.6); RDW-SD 61.8 fL; WBC 9.18 10^3/uL (4.4-10.8)
[2020-07-27 06:56] LABS: BUN 32 mg/dL (7-18); CREATININE 0.8 mg/dL (0.55-1.02); Calcium 11.1 mg/dL (8.5-10.1); Chloride 104 mmol/L (98-107); Glucose 97 mg/dL (74-106); Potassium 3.9 mmol/L (3.5-5.1); Sodium 147 mmol/L (136-145)
[2020-07-27 07:00] LABS: Anion Gap -2 mmol/L (3-11); CO2 > 45.0 mmol/L (21.0-32.0)
[2020-07-27] MEDS: Mometasone 220 MCG 14 DOSE INHALER 2 PUFF IH ×2 (08:08→19:37)
[2020-07-27] MEDS: Normal Saline Flush 10 ML SYR 20 ML IVP ×2 (09:05→19:37)
[2020-07-27] MEDS: Lidocaine 5% Patch 2 PATCH TP (09:05)
[2020-07-27] MEDS: Folic Acid 1 MG TAB PO (09:06)
[2020-07-27] MEDS: Sertraline 50 MG TAB 150 MG PO (09:06)
[2020-07-27] MEDS: Polyethylene Glycol 3350 17 GM PACKET PO (09:06)
[2020-07-27] MEDS: Gabapentin 300 MG CAP PO ×3 (09:06→19:36)
[2020-07-27] MEDS: Sucralfate 1 GM TAB PO ×4 (09:07→21:20)
[2020-07-27] MEDS: Ferrous Sulfate 325 MG TAB PO ×3 (09:07→19:36)
[2020-07-27] MEDS: Lactobacillus Acidophilus CAP 1 CAP PO ×3 (09:07→19:36)
[2020-07-27] MEDS: Omeprazole 20 MG CAPCR PO ×2 (09:07→19:36)
[2020-07-27] MEDS: Cyanocobalamin 500 MCG TAB 1000 MCG PO (09:07)
[2020-07-27] MEDS: amLODIPine 2.5 MG TAB PO (09:07)
[2020-07-27] MEDS: predniSONE 20 MG TAB 40 MG PO (09:07)
--- NOTE | 2020-07-27 11:39 | PGE_ITS ---
Date of Service Date of service: 07/27/20 Time of Service: 11:39 Assessment and Plan Assessment and plan (1) Acute on chronic respiratory failure with hypoxia and hypercapnia: Status: Acute Assessment and plan: Multifactorial including obstructive sleep apnea and hypoventilation syndrome along with aspiration pneumonitis. Despite the radiologist reading her x-ray as showing worsening infiltrates I do not feel that this is a pneumonic process at this point. She completed a 9-day course of meropenem and she has had no fever and no leukocytosis in spite of being off antibiotics now for over 24 hours. She does have diastolic heart failure and pulmonary hypertension and has been off her diuretics now for 3 days. I think it is time to restart her diuretics. I did a [id number] ultrasound of her lungs that she has diffuse interstitial pattern in all lung gaam consistent with lung edema. (2) Multifocal pneumonia: Status: Resolved Assessment and plan: Her pneumonia was secondary to aspiration however at this time she is not showing any infectious process and that she has no fever no leukocytosis and her C-reactive protein level is normal at less than 0.05. Chest x-ray is shown diffuse interstitial process. She has atelectasis and pleural effusions. This time she needs good pulmonary toiletry with incentive spirometry and mobilization by getting her out of bed. (3) Dysphagia: Status: Acute Assessment and plan: I modified her diet to moisten and minced foods with thin liquids and supervised diet. Patient does not want a feeding tube. (4) Acute exacerbation of chronic obstructive pulmonary disease: Status: Acute Assessment and plan: Continue prednisone 40 mg/day for 1 more day. I will start her on Spiriva and Symbicort and discontinue the Asmanex. (5) Obesity hypoventilation syndrome: Status: Chronic Assessment and plan: As above (6) Diastolic dysfunction with chronic heart failure: Status: Chronic Assessment and plan: I will put the patient on a furosemide drip and diurese her overnight and monitor urine output repeat her BMP and proBNP in the morning. In the morning we will switch her over to her maintenance Lasix. (7) CKD (chronic kidney disease) stage 3, GFR 30-59 ml/min: Status: Chronic Assessment and plan: While she has chronic kidney disease her creatinine has certainly improved over the last few days. Creatinine is down to 0.9 and her BUN is down to 32. This will need to be closely monitor once she is restarted on her diuretics. Qualifiers: Chronic kidney disease stage 3 subtype: stage 3b (GFR 30-44) Qualified Code(s): N18.32 - Chronic kidney disease, stage 3b (8) Pulmonary hypertension: Status: Chronic Assessment and plan: Careful monitoring of volume status. Continue O2 supplementation/BiPAP. (9) DNI (do not intubate): Status: Acute (10) Goals of care, counseling/discussion: Status: Acute Assessment and plan: I think that patient should continue to work w/ palliative care to discuss her goals of care. I think that it is not reasonable for her to expect continued aggressive treatments yet not consider PEG tube to provide a safe alternative form of feedings to prevent aspirations. She will continue to aspirate unless she can adequately swallow in a safe manner. We continue to respect her wishes for continued aggressive treatments short of intubation (which she agreed to a DNI order and her COLST was updated by Palliative medicine). I think that once she completes her antibiotic treatment she should return to the [facility] but should not be readmitted for recurrent aspiration events. Subjective Subjective Interval history since last seen: Patient reportedly is doing better with her eating. She has been undergoing supervised feedings with a modified dysphagia diet. Her oxygen needs have not worsened. She is on 4 L oxygen mask. Her nurse is reporting 3+ pitting edema of her legs and increased rales. Patient has no sputum production no cough and no fever. She does not feel short of breath. Exam Narrative Exam Narrative: Obese female lying in bed in semifowler position wearing an oxygen mask at 4 L/min. No acute respiratory distress. Lungs with diffuse bilateral rales no rhonchi or wheezes. Heart is regular with a harsh systolic murmur. Abdomen is obese soft and nondistended nontender. Lower extremities with 2+ pitting edema of her pretibial surfaces and her feet and ankles. Objective Last Vital Signs Temp 36.2 C L 07/27/20 04:09 Pulse 909 H 07/27/20 11:34 Resp 20 07/27/20 11:34 BP 163/95 H 07/27/20 08:00 Pulse Ox 93 07/27/20 08:10 Laboratory Results - last 24 hr 07/27/20 07/27/20 06:20 06:20 WBC 9.18 RBC 3.37 L Hgb 10.1 L Hct 33.7 L MCV 100.0 H MCH 30.0 MCHC 30.0 L RDW 16.9 H Plt Count 203 MPV 12.4 H Immature Gran % 0.7 Neutrophils % 68.6 Lymphocytes % 15.9 Monocytes % 13.8 Eosinophils % 1.0 Basophils % 0.0 Nucleated RBC % 0 Absolute Neutrophils 6.30 Absolute Lymphocytes 1.46 Absolute Monocytes 1.27 H Absolute Eosinophils 0.09 Absolute Basophils 0.00 Sodium 147 H Potassium 3.9 Chloride 104 Carbon Dioxide > 45.0 H Anion Gap -2 L BUN 32 H Creatinine 0.8 Estimated GFR/1.73 m2 >= 60.00 Glucose 97 Calcium 11.1 H Objective Narrative Objective Narrative: [id number] ultrasound of her lungs was performed and demonstrated diffuse bilateral interstitial pattern
[2020-07-27] MEDS: Furosemide 40 MG/4 ML VIAL IVP (13:26)
[2020-07-27] MEDS: Potassium Chloride 10 MEQ CAPCR 20 MEQ PO ×2 (13:27→19:36)
--- NOTE | 2020-07-27 16:01 | PDOC.CMPRO ---
Care Management Progress Note S/O: Michelle continues to be monitored and treated. She continues to have meals supervised for cues to swallow appropriately in order to avoid aspiration. She continues to work with PT and is being well monitored by RT as well. CM attempted coordination of care team meeting with [facility] staff; anticipated for 07/29/20 afternoon. CM will continue to follow. A: Michelle is a 69 year old woman admitted on 07/17/20 with Pneumonia and respiratory failure P: Michelle continues to be closely monitored and treated at a M/S level of care in the ICU. She will return to the [facility] once medically stable via RCT. CM continues to support patient and her discharge planning needs.
[2020-07-27] MEDS: Insulin Aspart 300 UNITS/3 ML PEN SC ×2 (17:24→21:19)
--- NOTE | 2020-07-27 17:59 | SPP_ITS ---
Date of service: 07/27/20 Time of Service: 17:59 Subjective Michelle was alert/oriented and able to follow directions appropriately today for dinner meal (IDDSI level 5 minced & moist, 0 thin liquids) and stated she had been practicing her breathing strategies all weekend. Objective/Assessment/Plan Objective Treatment Techniques &Outcomes: Min-mod verbal cues for use of risk management techniques required throughout dinner meal today, faded to min cues as meal progressed. RT increased 02 to 5L via NC midway through meal. Patient able to state: Slow down - independently Small sips / bites - independently Breathe between bites - independently Turn the TV off (reduce distractions) - mod cues Breathe through nose, out through mouth - mod cues Benefits from strategy and model to breathe in through the nose *with lips closed* then, out through your lips, in between bites, with 02 ranging between 85-91% throughout meal. Patient able to tolerate minced and moist solid textures today, as well as thin liquids, with use of strategies for about 35 minutes until overt s/sx aspiration were observed. Patient agreeable to rest break at that time and also able to demonstration comprehension of need for RR recovery prior to continuing meal. Counseling and techniques used: motivational interview, use of visual aids, verbal review and teachback Patient/Caregiver/Staff Education:: Continue to encourage patient to reduce rate of intake, adjust auditory/visual distractions (ie TV off) and utilize verbal cues with constant monitoring of 02 levels prior to offer of subsequent bite or sip. Assessment Improvement in level of cueing required for return demonstration of safe swallowing and swallow-breath coordination strategies this evening. Discussed po tential for use of RMST (EMST-75 device is currently covered by Medicare) and will need MD approval for use to address cough strength given intermittent overt s/sx aspiration and benefits of RMST in context of COPD. Plan SENIOR MANAGEMENT CONSULTANT to follow while on unit. Recommendations Other: Continue use of strategies as outlined. Additional Notes: N/A Cintia Feng MA CCC-SENIOR MANAGEMENT CONSULTANT Speech-Language Pathologist [place]#[phone] Total Time Spent: 60 SENIOR MANAGEMENT CONSULTANT Service Code: 30087 Treatment of swallowing dysfunction and/or oral function for feeding
[2020-07-27] MEDS: Lidocaine Patch Removal 2 EACH TD (19:37)
[2020-07-27] MEDS: Insulin Glargine 300 UNITS/3 ML PEN SC (21:18)
[2020-07-27] MEDS: Simvastatin 20 MG TAB 40 MG PO (21:20)
[2020-07-28] VITALS (18 sets, daily range): BP systolic 78–155; BP diastolic 59–80; PULSE 73–96; RESP 2–28; TEMP 36.3; O2SAT 84–94
--- NOTE | 2020-07-28 | DI.RAD_ITS ---
EXAM: XR PORTABLE CHEST AP CLINICAL HISTORY: follow up CHF TECHNIQUE: 2D digital imaging was performed. COMPARISON: CT CT CHEST PE CTA from 07/21/[address] CHEST PE CTA from 07/21/2020 CR,XR XR PORTABLE CHEST AP from 07/26/2020 CR,XR XR PORTABLE CHEST AP from 07/26/2020 FINDINGS: The exam is limited by patient body habitus and portable technique. Leads overlie the chest. The arvin ng bases are not well evaluated. The right diaphragm is again noted to be elevated. Bibasilar atele ctasis versus infiltrates. There may be small bilateral pleural effusions. The heart appears enlarg ed. IMPRESSION: Severely limited exam. Question of small bilateral pleural effusions. Bibasilar infiltrates versus atelectasis. Stable elevated right diaphragm.
[2020-07-28] MEDS: Heparin 5,000 UNITS/ML VIAL 5000 UNITS SC ×3 (05:45→22:45)
[2020-07-28] MEDS: Albuterol/Ipratropium 3 ML UPD VIAL UPD ×2 (05:45→11:54)
[2020-07-28 06:50] LABS: Abs Immature Grans 0.08 10^3/uL (0.0-0.06); Absolute Eosinophil Count 0.19 10^3/uL (0.0-0.7); Absolute Lymphocyte Count 1.42 10^3/uL (1.2-3.4); Absolute Monocyte Count 1.19 10^3/uL (0.1-0.8); Absolute Neutrophil Count 5.26 10^3/uL (1.2-6.7); Eosinophils % 2.3; HCT 35.1 % (36.0-46.0); HGB 10.4 g/dL (11.2-15.7); Lymphocytes % 17.4; MCH 29.7 pg (27.0-33.0); MCHC 29.6 % (32.0-36.0); MCV 100.3 fL (80-95); MPV 12.6 fL (8.0-11.0); Monocytes % 14.6; Neutrophils % 64.7; Nucleated RBC 0 %; Platelet Count 202 10^3/uL (130-400); RDW 17.2 % (11.7-14.6); RDW-SD 62.1 fL; WBC 8.14 10^3/uL (4.4-10.8)
[2020-07-28 07:16] LABS: BUN 30 mg/dL (7-18); Calcium 10.6 mg/dL (8.5-10.1); Chloride 103 mmol/L (98-107); Estimated GFR 54.66 (mL/min/1.73m2); Glucose 100 mg/dL (74-106); NT-proBNP 887 pg/mL (<300); Potassium 3.8 mmol/L (3.5-5.1); Sodium 146 mmol/L (136-145)
[2020-07-28 07:24] LABS: CO2 > 45.0 mmol/L (21.0-32.0)
[2020-07-28] MEDS: Mometasone 220 MCG 14 DOSE INHALER 2 PUFF IH (08:26)
[2020-07-28] MEDS: Omeprazole 20 MG CAPCR PO ×2 (08:45→20:14)
[2020-07-28] MEDS: amLODIPine 2.5 MG TAB PO (08:45)
[2020-07-28] MEDS: Lactobacillus Acidophilus CAP 1 CAP PO ×3 (08:45→20:14)
[2020-07-28] MEDS: Sertraline 50 MG TAB 150 MG PO (08:45)
[2020-07-28] MEDS: predniSONE 20 MG TAB 40 MG PO (08:46)
[2020-07-28] MEDS: Cyanocobalamin 500 MCG TAB 1000 MCG PO (08:46)
[2020-07-28] MEDS: Ferrous Sulfate 325 MG TAB PO ×3 (08:46→20:14)
[2020-07-28] MEDS: Folic Acid 1 MG TAB PO (08:47)
[2020-07-28] MEDS: Potassium Chloride 10 MEQ CAPCR 20 MEQ PO ×3 (08:47→20:13)
[2020-07-28] MEDS: Gabapentin 300 MG CAP PO ×3 (08:47→20:12)
[2020-07-28] MEDS: Polyethylene Glycol 3350 17 GM PACKET PO (08:47)
[2020-07-28] MEDS: Sucralfate 1 GM TAB PO ×4 (08:47→22:31)
[2020-07-28] MEDS: Normal Saline Flush 10 ML SYR 20 ML IVP ×2 (08:48→20:15)
[2020-07-28] MEDS: Lidocaine 5% Patch 2 PATCH TP (08:48)
--- NOTE | 2020-07-28 08:58 | PDOC.CMPRO ---
Care Management Progress Note S/O: Michelle continues to be monitored and treated. She continues to have meals supervised for cues to swallow appropriately in order to avoid aspiration. She continues to work with PT and is being well monitored by RT as well. CM attempted coordination of care team meeting with [facility] staff; anticipated for 07/29/20 @1330; awaiting confirmation. reported Michelle was discharge ready today; [facility] did not have accepting provider available. Anticipate she will discharge tomorrow. CM will continue to follow. A: Michelle is a 69 year old woman admitted on 07/17/20 with Pneumonia and respiratory failure P: Michelle continues to be closely monitored and treated at a M/S level of care in the ICU. She will return to the [facility] once medically stable via [facility]. CM continues to support patient and her discharge planning needs.
--- NOTE | 2020-07-28 11:06 | PGE_ITS ---
Date of Service Date of service: 07/28/20 Time of Service: 11:06 Assessment and Plan Assessment and plan (1) Acute on chronic respiratory failure with hypoxia and hypercapnia: Status: Acute Assessment and plan: Multifactorial including chronic aspiration d/t dysphagia; COPD, TRINH, hypoventilation syndrome. She chronically requires oxygen and uses BIPAP when asleep. She would benefit from Trilogy ventilatory assist device. is going to set up a team meeting tomorrow between the hospitalist team and Dr. Lucia Sanders, medical operations supervisor at [facility] so we can strategize on preventing recurrent admissions. I think this strategy should include maximizing her swallowing techniques and supervised feedings to prevent aspiration; treat any GERD; ventilatory assistance w/ Trilogy. I will start her on Spiriva and Symbicort for her COPD. (2) Dysphagia: Status: Acute Assessment and plan: I modified her diet to moisten and minced foods with thin liquids and supervised diet. She seems to be tolerating this. Patient does not want a feeding tube. (3) Acute exacerbation of chronic obstructive pulmonary disease: Status: Acute Assessment and plan: I will start to taper her prednisone. I will start her on Spiriva and Symbicort and discontinue the Asmanex. (4) Obesity hypoventilation syndrome: Status: Chronic Assessment and plan: As above (5) Diastolic dysfunction with chronic heart failure: Status: Chronic Assessment and plan: dc lasix drip and resume oral lasix and add acetazolamide. (6) CKD (chronic kidney disease) stage 3, GFR 30-59 ml/min: Status: Chronic Assessment and plan: While she has chronic kidney disease her creatinine has certainly improved over the last few days. Creatinine is down to 0.9 and her BUN is down to 32. This will need to be closely monitor once she is restarted on her diuretics. Qualifiers: Chronic kidney disease stage 3 subtype: stage 3b (GFR 30-44) Qualified Code(s): N18.32 - Chronic kidney disease, stage 3b (7) Pulmonary hypertension: Status: Chronic Assessment and plan: Careful monitoring of volume status. Continue O2 supplementation/BiPAP. (8) DNI (do not intubate): Status: Acute (9) Goals of care, counseling/discussion: Status: Acute Assessment and plan: I think that patient should continue to work w/ palliative care to discuss her goals of care. I think that it is not reasonable for her to expect continued aggressive treatments yet not consider PEG tube to provide a safe alternative form of feedings to prevent aspirations. She will continue to aspirate unless she can adequately swallow in a safe manner. We continue to respect her wishes for continued aggressive treatments short of intubation (which she agreed to a DNI order and her COLST was updated by Palliative medicine). I think that once she completes her antibiotic treatment she should return to the [facility] but should not be readmitted for recurrent aspiration events. (10) Discharge planning issues: Status: Acute Assessment and plan: Patient is medically stable and I feel that she is at her baseline. She could return to [facility] today but the nursing staff is refusing to accept the patient until tomorrow. Subjective Subjective Interval history since last seen: Patient has no new complaints. She denies any dyspnea or discomfort. She is wearing her oxygen mask at 4 to 6 L. At night she wears her BiPAP. She diuresed over 5 L yesterday with the Lasix drip which I have since discontinued. She remains afebrile. With no leukocytosis. She has a stable chronic anemia with a hemoglobin of 10 g. BUN and creatinine are stable at 30 and 1.0. This point I think she is back to her baseline and can be transferred back to the [facility]. Speech therapy needs to work with the nursing staff at the [facility] regarding her feedings. She should remain on a dysphagia diet with minced foods along with thin liquids. She should have all of her feeding supervised and needs to be sitting upright at a 90 degree position using a chin tuck head turn method when swallowing and taking single bites and alternating single bites with single sips of liquid. From a CHF standpoint and pulmonary hypertension standpoint I think she has been adequately diuresed. I will resume her previous dose of furosemide 60 mg daily. I will start the patient on acetazolamide 250 mg p.o. daily to correct for her chronic metabolic alkalosis and hypercapnic COPD. She will need to have a follow-up BMP within a week. Exam Narrative Exam Narrative: Patient is alert/oriented, watching TV, no respiratory distress. She denies any CP or dyspnea Lungs w/ decr. BS at R. base, upper field is clear; L. base w/ rales; upper field is clear Cor: RRR, harsh systolic murmur along LLSB Legs: 2+ edema and stasis skin changes. no ulceration. Objective Last Vital Signs Temp 36.3 C L 07/27/20 21:38 Pulse 86 07/28/20 08:10 Resp 14 07/28/20 04:00 BP 155/80 H 07/28/20 08:10 Pulse Ox 88 L 07/28/20 08:36 Laboratory Results - last 24 hr 07/28/20 07/28/20 06:25 06:25 WBC 8.14 RBC 3.50 L Hgb 10.4 L Hct 35.1 L MCV 100.3 H MCH 29.7 MCHC 29.6 L RDW 17.2 H Plt Count 202 MPV 12.6 H Immature Gran % 1.0 Neutrophils % 64.7 Lymphocytes % 17.4 Monocytes % 14.6 Eosinophils % 2.3 Basophils % 0.0 Nucleated RBC % 0 Absolute Neutrophils 5.26 Absolute Lymphocytes 1.42 Absolute Monocytes 1.19 H Absolute Eosinophils 0.19 Absolute Basophils 0.00 Sodium 146 H Potassium 3.8 Chloride 103 Carbon Dioxide > 45.0 H Anion Gap BUN 30 H Creatinine 1.0 Estimated GFR/1.73 m2 54.66 Glucose 100 Calcium 10.6 H NT-Pro-B Natriuret Pep 887 H
[2020-07-28] MEDS: Insulin Aspart 300 UNITS/3 ML PEN SC ×2 (12:24→17:20)
--- NOTE | 2020-07-28 13:33 | CHAPLAIN ---
Michelle was watching tv when I visited this morning. She seemed much more alert than when I visited with her on 07/26 and she was having trouble keeping her oxygen levels up. She said she has not heard anything about returning to the [facility], but at morning meeting, the hospitalist and care management talked about Michelle returning today or tomorrow.
[2020-07-28] MEDS: acetaZOLAMIDE 250 MG TAB PO (14:01)
--- NOTE | 2020-07-28 14:55 | PT.INIE ---
Date of service: 07/28/20 Time of Service: 14:55 PT Notes Visit Reasons: HOSPITAL AQUIRED PNEUMONIA, RESPIRATORY FAILURE, H Inpatient Physical Therapy Evaluation Date: 07/28/20 Referring Doctor: Dustin Caro MD PT Orders: PT CONSULT: Limited ability Precautions: Standard. Non-ambulatory x 2-3 months. Patient Profile/Admitting Diagnosis: Michelle is a 69-year-old female with diagnosis of acute on chronic respiratory failure with hypoxia and hyper, dysphagia, COPD exacerbation, and multifocal pneumonia (now resolved). PMHX: Medical History Anxiety about health Avoidance coping CKD (chronic kidney disease) stage 3, GFR 30-59 ml/min COPD (chronic obstructive pulmonary disease) Depression Diastolic dysfunction with chronic heart failure Generalized weakness Goals of care, counseling/discussion Low-level of literacy Lymphedema Morbid obesity [facility] resident Oncocytoma Palliative care patient Renal cell carcinoma Social History/Home Situation: Resident at the [facility]. She is non-ambulatory and has been bed-bound for 2?3 months now. States that at the [facility] he tried to stand her home but was not able to continue with it due to chronic bilateral knee pain. Equipment Owned/DME: Not reported Subjective: Patient refused any out of bed activities today and was only agreeable to bed level range of motion exercises. She does not believe that attempting to stand up will be fruitful and consistent. Objective: General Observation: Supine in bed. Mittal catheter in place. Telemetry monitoring in place. Oxygen supplementation via NC. Bilateral legs look significantly better with decreased swelling and redness seen from last month. Mental Status: Alert and oriented x4 Pain: Complained of discomfort in bilateral knees with [id number] exercises ROM: Right Upper Extremity: Active flexion of approximately 160 degrees with shoulder abduction up to 80 degrees. Elbow and wrist are grossly WNL. Left Upper Extremity: Active motion unable at the left shoulder due to pain and weakness, left elbow wrist and digits are WNL. Passive left shoulder flexion reaches about 90 degrees. Right Lower Extremity: Hip flexion of only about 45 degrees. Allows for 45 degrees of right knee flexion, 0 degrees knee extension, 10 degrees dorsiflexion, plantarflexion 20 degrees, minimal inversion and eversion of the ankle. Left Lower Extremity: Hip flexion of only about 45 degrees. Allows for 45 degrees of right knee flexion, 0 degrees knee extension, 10 degrees dorsiflexion, plantarflexion 20 degrees, minimal inversion and eversion of the ankle. Strength: Right Upper Extremity: Grossly 4-/5 Left Upper Extremity: Left shoulder 1/5 into flexion and abduction. Elbow is 3-/5 into flexion, 3-/5 extension, wrist 3/5. Investment Executive is weak. Right Lower Extremity: Hip flexion 3-/5, knee extension 3-/5, knee flexion 3-/5, DF/PF 3-/5 Left Lower Extremity: Hip flexion 3-/5, knee extension 3-/5, knee flexion 3-/5, DF/PF 3-/5 Sensation: Intact in bilateral upper and lower extremity symmetrically to light touch Bed Mobility/Transfers: Refused getting out of bed for this assessment Gait: Unable Balance: Static Sitting: Unable to assess Dynamic Sitting: Unable to assess Static Standing: Unable to assess Dynamic Standing: Unable to assess Special Tests: Mobility Limitations Standardized Measure [facility] AM-PAC 6 clicks Basic Mobility Inpatient Short Form: 100% disability Informed Consent/Education: Patient was instructed in purpose of PT consult and plan of care. Assessment: Michelle appears to be content with staying in bed and does not want to pursue any out of bed activities at this time. She hopes to return to the [facility] at baseline mobility level of moderate assist of 2 for all bed mobility and total assistance for all transfer tasks using a mechanical lift. Patient however is agreeable to performing bed level range of motion exercises progressing to supine strengthening exercises as tolerated while on admission. Patient presents with clinical signs and symptoms consistent with current/admitting diagnoses that have resulted to mobility limitations, gait instability, generalized weakness, and impairment of motor control as demonstrated by the following impairment level findings: 1. Decreased strength to B LE major muscle groups 2. Impaired sitting/standing balance 3. Impaired activity tolerance 4. Limitation of joint range of motion in BUE/LE 5. Obesity hypoventilation syndrome Impairments are contributing to the following functional limitations: 1. Dependent bed mobility skills 2. Total assist with transfers Patient is assessed as a 30181 high complexity based on the following: History: Michelle is a 69-year-old female with medical history as listed above Examination:Demonstrable impairment in strength, balance, and range of motion with underlying impairments and functional limitations as documented above Presentation: Stable Decision Makin high complexity Goals: 1. Patient will maintain range of motion in B UE/LE with AROM exercise program that can be carried on by nursing staff upon return to SNF. Plan of Care/Treatment Plan: 1-2x/day, 7 days/week x 1 week. Patient will remain on hold until her medical condition stabilizes, to be more appropriate for PT strain. Plan of care has been reviewed with the MANAGER NEW PRODUCT providing the service under Physical Therapy direction. Initiate Physical Therapy intervention for strengthening, bed mobility, transfers, gait, stairs, balance training, use of assistive device. DISCHARGE RECOMMENDATIONS: Return to SNF when medically cleared. Continue with AROM exercise program to maintain joint mobility and prevent contractures. TREATMENT CODE/TIME: 9716 3 x 25 minutes, 17985 x 14 minutes beginning at 14:55 PM. Thank you for the opportunity to participate in the care of this patient. Karuna Chilel PT, DPT, CLT [facility] [place], [place]
[2020-07-28] MEDS: Budesonide/Formoterol 160/4.5 6 GM 60 PUFF INH IH (20:16)
[2020-07-28] MEDS: Lidocaine Patch Removal 2 EACH TD (20:17)
[2020-07-28] MEDS: Simvastatin 20 MG TAB 40 MG PO (22:30)
[2020-07-28] MEDS: Insulin Glargine 300 UNITS/3 ML PEN SC (22:45)
[2020-07-29] VITALS (9 sets, daily range): BP systolic 138–159; BP diastolic 71–82; PULSE 72–91; RESP 10–22; TEMP 36.5; O2SAT 83–94
[2020-07-29] MEDS: Heparin 5,000 UNITS/ML VIAL 5000 UNITS SC (05:47)
[2020-07-29 06:56] LABS: Anion Gap -2.8 mmol/L (3-11); BUN 27 mg/dL (7-18); CO2 43.8 mmol/L (21.0-32.0); Calcium 10.9 mg/dL (8.5-10.1); Chloride 104 mmol/L (98-107); Estimated GFR 54.66 (mL/min/1.73m2); Glucose 97 mg/dL (74-106); Potassium 4.1 mmol/L (3.5-5.1); Sodium 145 mmol/L (136-145)
--- NOTE | 2020-07-29 07:56 | CMDISCH_ITS ---
- If Service Date Differs Date of service: 07/29/20 Time of Service: 12:06 LACE Index Scoring Tool - Questions: Length of Stay (in days): 7 - 13 Acuity (Admit via E.D.?): Yes Comorbidities: Chronic Pulmonary Disease, Any Tumor, Liver or Renal Disease E.D. Visits: 3 - Answers: Total Score: 16 Risk of Readmission: High Risk Care Management Discharge Reason for Hospitalization: HAP, Respiratory failure Discharge Plan: Michelle will return to the [facility] once medically stable via EMS[facility]. CM coordinated care coordination meeting with MD, ST, RT and [facility] staff including professor of social work, RN director, INDUSTRIAL COMMERCIAL GROUNDSKEEPER and MD. Susi GOODMAN provided signed MD orders and care recommendations re: daily management and RT needs, which CM faxed with the DC summary to the [facility]. CM coordinated transport via [facility]. Patient/Family Education Needs: Review discharge instructions, discuss Ask Me Three. Services Needed at Discharge: Half-Way Facility (Return to previous placement. ), Transportation (EMS)
[2020-07-29] MEDS: Tiotropium Bromide-Respimat 10 PUFF INH 2 PUFF IH (08:00)
[2020-07-29] MEDS: Budesonide/Formoterol 160/4.5 6 GM 60 PUFF INH IH (08:05)
[2020-07-29] MEDS: Lidocaine 5% Patch 2 PATCH TP (08:15)
[2020-07-29] MEDS: predniSONE 10 MG, predniSONE 20 MG 30 MG PO (08:16)
[2020-07-29] MEDS: acetaZOLAMIDE 250 MG TAB PO (08:16)
[2020-07-29] MEDS: Omeprazole 20 MG CAPCR PO (08:16)
[2020-07-29] MEDS: Folic Acid 1 MG TAB PO (08:16)
[2020-07-29] MEDS: amLODIPine 2.5 MG TAB PO (08:16)
[2020-07-29] MEDS: Gabapentin 300 MG CAP PO (08:16)
[2020-07-29] MEDS: Sucralfate 1 GM TAB PO (08:16)
[2020-07-29] MEDS: Cyanocobalamin 500 MCG TAB 1000 MCG PO (08:16)
[2020-07-29] MEDS: Ferrous Sulfate 325 MG TAB PO (08:16)
[2020-07-29] MEDS: Lactobacillus Acidophilus CAP 1 CAP PO (08:16)
[2020-07-29] MEDS: Sertraline 50 MG TAB 150 MG PO (08:17)
[2020-07-29] MEDS: Furosemide 80 MG TAB PO (08:17)
[2020-07-29] MEDS: Potassium Chloride 10 MEQ CAPCR 20 MEQ PO (08:17)
--- NOTE | 2020-07-29 11:39 | DSE_ITS ---
Date of service: 07/29/20 Time of Service: 11:39 DS: Diagnosis Discharge Diagnosis (1) Acute on chronic respiratory failure with hypoxia and hypercapnia: Status: Acute Asessment and Plan: Patient was treated for aspiration pneumonia with 9- day course of meropenem which was completed on 07/27/2020. Since discontinuation she has had no fevers nor leukocytosis. Patient continues to demonstrate intermittent choking spells with meals however she has done better since her diet was modified to moisten and minced solids along with thin liquids. Her acute on chronic respiratory failure is multifactorial and felt to be due to aspiration pneumonia superimposed upon COPD and obstructive sleep apnea and hypoventilation syndrome in addition to her diastolic heart failure and pulmonary hypertension. In addition to antibiotic treatment she required IV corticosteroids and subsequently was switched to prednisone. She is currently on prednisone 30 mg daily which needs to be tapered over the next week. It is recommended that the patient be evaluated and prescribed a Trilogy BiPAP device for respiratory support to prevent acute exacerbations of her chronic lung disease. In the interim the patient should wear a BiPAP device whenever she is asleep including during naps during the day as well as throughout the night. If she gets into acute respiratory distress BiPAP device should be applied in the pressure settings and FiO2 should be adjusted to maintain her oxygen saturation greater than 88%. Please follow [facility] respiratory care written guidelines for management of the patient's oxygen needs. (2) Dysphagia: Status: Chronic Asessment and Plan: Please have speech therapy continue to follow patient and work with her dysphagia symptoms. All feedings are to be supervised by nursing staff and the patient is to have moisten and minced solid foods along with thin liquids. Patient is to take single bites with double swallows with each bite or sip of liquids. During swallowing patient is to perform a chin tuck head turn maneuver to facilitate swallowing and to minimize aspiration risk. Patient is to be sitting upright at 90 degrees throughout her meals and for 30 minutes after meals and for 15 minutes after medications. (3) Acute exacerbation of chronic obstructive pulmonary disease: Status: Acute Asessment and Plan: Patient was treated for acute exacerbation of her COPD with IV corticosteroids and subsequently placed on oral prednisone. Please taper the prednisone over the next week starting with 30 mg of prednisone a day for 3 days then decreasing to 20 mg daily for 3 days then 10 mg daily for 3 days and then off. Patient's Asmanex has been replaced with Symbicort and the patient has been started on Spiriva. Discontinue DuoNeb and replace this with albuterol nebulizers which can be given on an as-needed basis for acute wheezing or dyspnea. (4) Obesity hypoventilation syndrome: Status: Chronic Asessment and Plan: Patient to wear her BiPAP whenever she is asleep including during naps during the day and throughout the night. BiPAP may be taken off when she is fully awake and oxygen facemask at 4 to 6 L should be applied to maintain her oxygen saturation of 88% or higher. Please evaluate the patient for a prescription for a Trilogy BiPAP ventilatory device. (5) Diastolic dysfunction with chronic heart failure: Status: Chronic Asessment and Plan: Patient has heart failure with preserved ejection fraction. LVEF is 60% as of May 25, 2020. (6) CKD (chronic kidney disease) stage 3, GFR 30-59 ml/min: Status: Chronic Asessment and Plan: Admission BUN and creatinine were elevated at 21 and 1.3 and peaked to a level of 36 and 1.5. At the time of discharge her BUN was down to 27 and creatinine was 1.0. Estimated GFR 54.66 mL/min per 1.73 m?. Patient will be resumed on her usual dose of furosemide 60 mg daily and Diamox 250 mg twice a day was added to help control her metabolic alkalosis. Repeat BMP should be performed within a week. (7) Pulmonary hypertension: Status: Chronic (8) DNI (do not intubate): Status: Chronic Asessment and Plan: Patient is indicated that she does not want a feeding tube. She still wants full medical treatment of her medical conditions but does not want to be intubated in the event of respiratory arrest. (See Tenisha Verduzco's consult note dated July 24, 2020) Dr. Rocio Christensen saw the patient for the palliative care team for consultation July 21, 2020. Please see her note for details. She recommended using low-dose liquid morphine 5 mg every hour as needed severe dyspnea. She indicated that the patient's chronic lung conditions and heart conditions would qualify her for hospice should patient were to choose to do so. She also indicated the patient would like to look at snf placement closer to her son in [facility]. (9) Goals of care, counseling/discussion: Status: Chronic Asessment and Plan: See notes above under DNI. Please see palliative care consultation notes dated July 21, 2020 as well as July 24, 2020. (10) Discharge planning issues: Status: Resolved Asessment and Plan: Discharged to the [facility] for continued speech therapy. Discharge Plan Disposition Patient Disposition: SNF (LEVEL 1) [facility] Condition: Improving Discharge Details Reason For Visit: HOSPITAL AQUIRED PNEUMONIA, RESPIRATORY FAILURE, H Admit Date/Time: 07/17/20 19:51 Admit Provider: Caesar Morales Attending Provider: Caesar Morales Primary Care Provider: Lucia Mckeon Hospital Course Hospital Course: This is a 69-year-old female patient who resides at the [facility] most recently moved to this facility who presents with recurrent worsening dyspnea and hypoxemia. She does have CHF with a preserved left ventricular ejection fraction but diastolic dysfunction and right-sided heart failure. She chronically is on diuretics and is bedbound with morbid obesity. She also has lymphedema. She was recently hospitalized with CHF and has had no fever or chills and presented to the ED for evaluation with response to BiPAP for her hypercarbia with chronic respiratory failure exacerbated and treatment of COPD exacerbation. She was found to have multifocal infiltrates on her chest x-ray and was admitted for treatment of institution acquired pneumonia. She did test negative for COVID-19. She does have a coarse cough and slowed mentation. She is a full code. Palliative care consultation has been done recently with patient thinking of DNR/DNI status but not at that point. She does have multisystem failure with CKD and chronic anemia, chronic respiratory failure as stated and immobility with morbid obesity being bedbound with pressure sores over her sacrum. Patient's acute on chronic respiratory failure with hypoxia and hypercapnia were felt to be multifactorial including aspiration pneumonia as well as exacerbation of her COPD in the setting of obstructive sleep apnea and obesity/hypoventilation syndrome along with heart failure with preserved ejection fraction. Her pneumonia was treated with meropenem for 9 days. Blood cultures on admission from July 17, 2020 had no growth in 1 set of blood cultures but the second set of blood cultures grew 2 different species of gram- positive cocci isolated from the aerobic bottle felt to be possible contaminants. Anaerobic bottle remain no growth after 5 days. He has had a blood culture showed no growth and repeat blood cultures obtained on July 21, 2020 also showed no growth. Her urine culture grew greater than 100,000 colonies of gram-positive reji mixed reji and less than 10,000 colonies of gram-negative reji also mixed reji. After 9 days the meropenem was discontinued. Her initial leukocytosis on admission of 11,340 resolved July 21 and was down to 8830. And even after discontinuation of her meropenem her leukocytosis remained within the normal range. Patient was found to have a stable chronic anemia with a hemoglobin of 10 g which was unchanged throughout her hospital course. Patient ABG demonstrated hypercarbia with a PCO2 of 88 with a partially compensated pH of 7.34. Blood gas on admission showed a normal blood lactate level of 0.7. Procalcitonin was not checked on admission but prior to discontinuation of her meropenem it was checked and found to be normal at 0.1. CRP was not checked on admission but was checked at the time her meropenem was discontinued and was found to be less than 0.05 which is within normal limits. Patient had a mild troponin rise of 0.21 on admission with repeat levels of 0.18 and 0.19. This was not associated with any chest discomfort. TSH was checked and found to be normal at 2.86. 25 hydroxy vitamin D level was low at 19.1. Patient was found to have chronic renal insufficiency and on admission her BUN and creatinine were mildly elevated at 21 and 1.3 but peaked with a creatinine of 1.6 and a BUN of 36 before finally settling down at the time of discharge it had normalized to a BUN of 27 and creatinine 1.0. Patient is acute respiratory failure was treated with IV corticosteroids which was subsequently transferred to prednisone 40 mg daily and then taper down to 30 mg daily at the time of discharge. Her prednisone should be tapered over the next week decreasing by 10 mg/day every 3 days until she is off prednisone. She was treated with DuoNeb aerosol treatments and as needed albuterol treatments. She was subsequently started on Spiriva and Symbicort and DuoNeb treatments were discontinued. She should continue to have albuterol treatments on an as-needed basis every 2 hours for acute wheezing. BiPAP was applied at night and during the day whenever she was napping. BiPAP was also used as rescue support during periods when her oxygen status could not be maintained with an oxygen facemask. Patient did not do well with high flow nasal cannula because she is a mouth breather. She did better with the high flow oxygen facemask. Most of the time her oxygen saturation can be maintained above 90% with the application of 4 to 6 L of oxygen via facemask. Patient required IV Lasix including furosemide drip that was given couple days prior to discharge because of volume overload. At the time of discharge her proBNP was 887 and her weight at discharge was 144.5 kg. At the time of discharge her BUN was down to 27 creatinine down to 1.0. Sodium was 145 and potassium was 4.1 and her measured carbon dioxide was down to 43.8. Of note in addition to restarting her oral Lasix she was started on Diamox 250 mg p.o. twice daily. Repeat BMP should be followed within a week. As far as her diet goes speech therapy did a consultation his diet was adjusted to moisten and minced solid textures along with thin liquids along with a swallowing strategy. Please see speech therapist consultation notes for details. Speech therapist is recommending a potential use of a device to address the patient's cough strength. Devices abbreviated RMST, please discuss this w/ the speech pathologist for details. RJenniferT. wrote up suggested guidelines for evaluation and treatment of patient's intermittent dyspneic spells which occur after meals. Please see R.T. written guidelines for details on management of acute hypxemia and acute dyspnea spells including use of oxy mask, BIPAP and aerosol treatments. Home Meds and New Rx's Prescriptions: New albuterol sulfate 2.5 mg /3 mL (0.083 %) Solution For Nebulization 2.5 mg UPD Q2H PRN PRNQty: 90 RF: 0 acetazolamide 250 mg Tablet 250 mg PO BID Qty: 60 RF: 0 budesonide-formoterol [Symbicort] 160-4.5 mcg/actuation Hfa Aerosol Inhaler 2 puff inhalation BID Qty: 10.2 RF: 0 Js Protect Cream 1 applic topical BID PRN (Reason: skin irritation) Qty: 684 RF: 0 potassium chloride 10 mEq Capsule, Extended Release 20 meq PO TID Qty: 90 RF: 0 prednisone 10 mg Tablet 30 mg PO DAILY Qty: 18 RF: 0 Spiriva Respimat 2.5 mcg/actuation Mist 2 puff inhalation DAILY Qty: 4 RF: 0 Continued simvastatin 20 MG tablet 40 mg PO HS RF: 0 albuterol sulfate [Ventolin HFA] 60 PUFF HFA aerosol inhaler 2 puff Inhalation PRN PRNRF: 0 acetaminophen 325 mg Tablet 650 mg PO QID RF: 0 ferrous sulfate [Iron (ferrous sulfate)] 325 mg (65 mg iron) Tablet 325 mg PO TID RF: 0 lidocaine 5 % Adhesive Patch,Medicated 2 patch TOPICAL DAILY RF: 0 gabapentin [Neurontin] 100 mg Capsule 300 mg PO TID RF: 0 calcium gluconate 500 mg Tablet 500 mg PO DAILY RF: 0 Lactinex 1 million cell Tablet,Chewable 1 tab PO TID RF: 0 vitamin D00-ioqjd acid 1,000-400 mcg Tablet, Sublingual 1 tab SUBLINGUAL DAILY RF: 0 sucralfate 1 gram Tablet 1 g PO AC & HS Qty: 120 RF: 0 sertraline 100 mg tablet 150 mg PO 5XW RF: 0 folic acid 1 mg Tablet 1 mg PO DAILY RF: 0 furosemide 20 mg tablet 60 mg PO DAILY RF: 0 polyethylene glycol 3350 [Miralax] 17 gram/dose Powder 17 g PO DAILY RF: 0 amlodipine [Norvasc] 2.5 mg Tablet 2.5 mg PO DAILY RF: 0 Changed omeprazole 40 MG capsule,delayed release(DR/EC) 1 tab PO DAILY Qty: 0 RF: 0 Discontinued ipratropium-albuterol 18-103 mcg/actuation Aerosol 1 spray INHALATION QID RF: 0 mometasone 100 mcg/actuation Hfa Aerosol Inhaler 2 puff INHALATION BID RF: 0 potassium 20 mg Tablet,Chewable 20 mg PO QID RF: 0 Discharge Instructions Instructions: Heart Failure (DC), Chronic Dysphagia (DC), Aspiration Precautions (DC) Additional Instructions: Please have the patient follow-up with speech therapy regarding her dysphagia. Diet is to be moistened and minced solids along with thin liquids. Patient is to be 90 degrees upright for 30 minutes after meals and for 15 minutes after medications. Patient is to perform a double swallow with each bite or sip. She is to alternate between small bites and sips of liquids. Patient is to perform a chin tuck and head turn maneuver during feedings and all feedings are to be supervised by nursing staff. Follow-up labs to be included in 1 week including a BMP and a CBC. Please follow respiratory care's recommendations regarding management of exacerbations of her hypoxemia. Patient is to wear her BiPAP whenever she is asleep including naps during the day or throughout the night. It is highly recommend that the patient be qualified for a Trilogy BiPAP respirator to prevent acute respiratory failure and treat her chronic respiratory failure. A follow up w/ Palliativer care medicine is recommended to assist the patient in setting and keeping quality of life decisions. Activity:: Activity as Tolerated Equipment/Supplies:: No Equipment Needed Diet:: diet as above Discharge Orders Discharge Orders: Discharge Order (Routine); Ordered 07/29/20 Ordered By: Dustin Caro Other Ambulatory Orders: Complete Blood Count w/Diff (Routine) Timeframe: 1 Week Facility: [facility] - Location: Laboratory Outpatient Ordered By: Dustin Caro Basic Metabolic Panel (Routine) Location: None Selected Ordered By: Dustin Caro DS: Summary Time Spent with Patient providing and/or coordinating discharge services: Greater than 30 minutes Status at Discharge Functional status at discharge: bed bound Overall status at discharge: patient is back to baseline Mental Status: mental status grossly normal Speech and Movement: speech and movement normal Mood: congruent mood Affect: normal affect Exam Narrative Exam Narrative: Patient is alert/oriented, watching TV, no respiratory distress. She denies any CP or dyspnea Lungs w/ decr. BS at R. base, upper field is clear; L. base w/ rales; upper field is clear Cor: RRR, harsh systolic murmur along LLSB Legs: 2+ edema and stasis skin changes. no ulceration. Psych Mental Status: mental status grossly normal Speech and Movement: speech and movement normal Mood: congruent mood Affect: normal affect DS: Data Vitals/I&O Vitals and I&O: Vital Signs Temperature 36.5 C 07/29/20 03:00 Temperature Source Temporal Artery Scan 07/29/20 03:00 Pulse 79 07/29/20 08:49 Pulse Rhythm Regular 07/29/20 08:49 Pulse 73 07/29/20 04:00 Respiratory Rate 15 07/29/20 10:32 Respiratory Effort 07/29/20 08:49 Respiratory Depth Normal 07/29/20 08:49 Respiratory Pattern Normal 07/29/20 08:49 Blood Pressure 152/76 H 07/29/20 08:49 Blood Pressure Mean 93 07/29/20 08:49 Blood Pressure Position Supine 07/26/20 02:00 Pulse Oximetry 93 07/29/20 10:32 Oxygen Delivery Method Bi-pap 07/29/20 03:00 Oxygen Flow Rate 5 07/28/20 19:52 Fraction of Inspired Oxygen (FIO2) 40 07/29/20 10:32 Pain Level 0 07/29/20 03:00 Comment 07/21/20 00:25 Intake & Output 07/28/20 07/28/20 07/29/20 11:59 23:59 11:59 Intake Total 334.67 / 1024.67 690 / 1024.67 Output Total 3200 / 4150 950 / 4150 1425 / 1425 Balance -2865.33 / -3125.33 -260 / -3125.33 -1425 / -1425 Weight 143.5 kg 144.5 kg Intake: IV 94.67 / 94.67 Oral 240 / 930 690 / 930 Output: Urine 3200 / 4150 950 / 4150 1425 / 1425 Other: Urine Color Yellow Yellow Yellow Urine Appearance Clear Clear Clear Stool Occult Blood Negative Stool Size Small Small Large Stool Characteristics Soft Soft Soft Liquid Brown Brown Brown Black Black Data Completed and Pending Labs on day of discharge: Labs from last 24 hours 07/29/20 06:35 Sodium 145 Potassium 4.1 Chloride 104 Carbon Dioxide 43.8 H Anion Gap -2.8 L BUN 27 H Creatinine 1.0 Estimated GFR/1.73 m2 54.66 Glucose 97 Calcium 10.9 H [facility] Medical History (Updated 07/29/20 @ 12:26 by Dustin Caro) Acute on chronic respiratory failure Anxiety about health Avoidance coping CKD (chronic kidney disease) stage 3, GFR 30-59 ml/min COPD (chronic obstructive pulmonary disease) Depression Diastolic dysfunction with chronic heart failure DNI (do not intubate) Generalized weakness Goals of care, counseling/discussion Low-level of literacy Lymphedema Morbid obesity care home resident Oncocytoma Palliative care patient Renal cell carcinoma Family History Son No problems noted. Son No problems noted. Son No problems noted. Mother , of ALS age 63 ALS (amyotrophic lateral sclerosis) Father , of lung cancer age 70 heavy smoker Lung cancer Smoker Sister No problems noted. Sister No problems noted. Sister No problems noted. Sister No problems noted. Sister No problems noted. Brother , older brother doesn't know how he No problems noted. Brother No problems noted. 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 Pets and animals: No Current gender identity: female What is your relationship status?: How often do you talk on the phone with friends or family?: once per week How often do you get together with friends or relatives?: never Panel score (0-1 are the most socially isolated patients): 0 What type of physical activity do you participate in: none, bed-bound, sedentary lifestyle and wheelchair-bound Special alysha needs: No Seatbelt use: always Water heater temp set <120 deg: Yes Working smoke detector in home: Yes Fire extinguisher in home: Yes Firearms in home: No Do you feel safe at home: Yes Do you feel safe in your relationship?: Yes Additional Social history: resident @ [facility]. Was living in [facility] term until her legs gave out all of a sudden and I couldn't walk. [facility] was in [place], run by her son's best friend and his . Prior to living in [facility], lived on her own in [facility], where she lived for many years. She has one son in [facility], one son in [facility], and one son in [place], [place]. She tells me she knows her memory is getting worse. Sometimes I just black out. She has never filled out a COLST form. She can't tell me which of her sons is her DPOA.
--- NOTE | 2020-07-31 13:09 | INDS_ITS ---
Date of service: 07/31/20 PT Notes Visit Reasons: HOSPITAL AQUIRED PNEUMONIA, RESPIRATORY FAILURE, H Physical Therapy Inpatient Discharge Summary Date: 07/31/20 Dates of service: 07/28/2020 only This is a clinical summary of care provided on the duration of dates listed abo ve. No charge was made in the completion of this documentation. Referring Doctor: Dustin Caro MD PT Orders: PT CONSULT: Limited ability Precautions: Standard. Non-ambulatory x 2-3 months. Patient Profile/Admitting Diagnosis: Michelle is a 69-year-old female with diagnosis of acute on chronic respiratory failure with hypoxia and hyper, dysphagia, COPD exacerbation, and multifocal pneumonia (now resolved). PMHX: Medical History Anxiety about health Avoidance coping CKD (chronic kidney disease) stage 3, GFR 30-59 ml/min COPD (chronic obstructive pulmonary disease) Depression Diastolic dysfunction with chronic heart failure Generalized weakness Goals of care, counseling/discussion Low-level of literacy Lymphedema Morbid obesity longterm resident Oncocytoma Palliative care patient Renal cell carcinoma Social History/Home Situation: Resident at the [facility]. She is non-ambulatory and has been bed-bound for 2?3 months now. States that at the [facility] he tried to stand her home but was not able to continue with it due to chronic bilateral knee pain. Equipment Owned/DME: Not reported Subjective: NT. See most recent [employer] notes. Objective: General Observation: NT. See most recent [employer] notes. Mental Status: NT. See most recent [employer] notes. Pain: NT. See most recent [employer] notes. ROM: Right Upper Extremity: Active flexion of approximately 160 degrees with shoulder abduction up to 80 degrees. Elbow and wrist are grossly WNL. Left Upper Extremity: Active motion unable at the left shoulder due to pain and weakness, left elbow wrist and digits are WNL. Passive left shoulder flexion reaches about 90 degrees. Right Lower Extremity: Hip flexion of only about 45 degrees. Allows for 45 degrees of right knee flexion, 0 degrees knee extension, 10 degrees dorsiflexion, plantarflexion 20 degrees, minimal inversion and eversion of the ankle. Left Lower Extremity: Hip flexion of only about 45 degrees. Allows for 45 degrees of right knee flexion, 0 degrees knee extension, 10 degrees dorsiflexion, plantarflexion 20 degrees, minimal inversion and eversion of the ankle. Strength: Right Upper Extremity: Grossly 4-/5 Left Upper Extremity: Left shoulder 1/5 into flexion and abduction. Elbow is 3- /5 into flexion, 3-/5 extension, wrist 3/5. Scientific Illustrator is weak. Right Lower Extremity: Hip flexion 3-/5, knee extension 3-/5, knee flexion 3-/5, DF/PF 3-/5 Left Lower Extremity: Hip flexion 3-/5, knee extension 3-/5, knee flexion 3-/5, DF/PF 3-/5 Sensation: Intact in bilateral upper and lower extremity symmetrically to light touch Bed Mobility/Transfers: Refused getting out of bed for this assessment Gait: Unable Balance: Static Sitting: Unable to assess Dynamic Sitting: Unable to assess Static Standing: Unable to assess Dynamic Standing: Unable to assess Assessment: Michelle appears to be content with staying in bed and does not want to pursue any out of bed activities at this time. She hopes to return to the [facility] at baseline mobility level of moderate assist of 2 for all bed mobility and total assistance for all transfer tasks using a mechanical lift. Patient continues to present with clinical signs and symptoms consistent with current/admitting diagnoses that have resulted to mobility limitations, gait instability, generalized weakness, and impairment of motor control as demonstrated by the following impairment level findings: 1. Decreased strength to B LE major muscle groups 2. Impaired sitting/standing balance 3. Impaired activity tolerance 4. Limitation of joint range of motion in BUE/LE 5. Obesity hypoventilation syndrome Impairments are continuing to contribute to the following functional limitations: 1. Dependent bed mobility skills 2. Total assist with transfers Goals: 1. Patient will maintain range of motion in B UE/LE with AROM exercise program that can be carried on by nursing staff upon return to SNF. MET DISCHARGE RECOMMENDATIONS: Return to SNF when medically cleared. Continue with AROM exercise program to maintain joint mobility and prevent contractures. TREATMENT CODE/TIME: [place] Thank you for the opportunity to participate in the care of this patient. Karuna Chilel PT, DPT, CLT [facility] [place], [place]
== END 2020-07-29 12:15 | disposition skilled nursing facility (03) | DRG 189 ==
LOC: ER 21:33 → ICU 21:38
PROVIDERS: Internal Medicine; Admitting Provider Family Medicine; Emergency Provider Physician Assistant; PCP Family Medicine; Visit Provider Family Medicine
DX: J96.21 Acute and chronic respiratory failure with hypoxia (principal); J69.0 Pneumonitis due to inhalation of food and vomit; J44.1 Chronic obstructive pulmonary disease with (acute) exacerbation; Z68.43 Body mass index [BMI] 50.0-59.9, adult; I50.32 Chronic diastolic (congestive) heart failure; C64.9 Malignant neoplasm of unspecified kidney, except renal pelvis; N39.0 Urinary tract infection, site not specified; E66.2 Morbid (severe) obesity with alveolar hypoventilation; E87.3 Alkalosis; E87.0 Hyperosmolality and hypernatremia; J96.22 Acute and chronic respiratory failure with hypercapnia; Z99.81 Dependence on supplemental oxygen; I89.0 Lymphedema, not elsewhere classified; Z20.822 Contact with and (suspected) exposure to COVID-19; R74.8 Abnormal levels of other serum enzymes; N18.32 Chronic kidney disease, stage 3b; F32.9 Major depressive disorder, single episode, unspecified; R53.1 Weakness; Z55.0 Illiteracy and low-level literacy; I27.20 Pulmonary hypertension, unspecified; R13.10 Dysphagia, unspecified; D50.0 Iron deficiency anemia secondary to blood loss (chronic)
CPT/HCPCS: 36410; 36415; 36592; 71275; 80048; 80053; 82306; 82805; 84145; 87040; 87635; 92526; 92610; 93005; 94640; 96365; 96375; 97110; 97163; 97530; 99223; 99232; 99233; 99239; 99254; 99255; 99285; 99291; 36600; 71045; 81003; 81015; 83605; 83735; 83880; 84443; 84484; 85025; 85610; 85730; 86140; 87086; 93010; 93971; 94660; 94668; J1644; J1940; J1941; J2543; J2930; J3470; J3490; J7060; J7512; J7613; J7620

== ENCOUNTER 2020-08-03 13:34 | Outpatient (REF) | payer MEDICARE, MEDICAID, SELFPAY ==
[2020-08-03 14:40] LABS: Absolute Basophil Count 0.02 10^3/uL (0.0-0.2); Basophils % 0.2; MCV 103.3 fL (80-95); Nucleated RBC 0 %
[2020-08-03 14:52] LABS: BUN 32 mg/dL (7-18); CREATININE 1.3 mg/dL (0.55-1.02); Calculated LDL 124 mg/dL (<100); Chloride 111 mmol/L (98-107); Cholesterol 233 mg/dL (<200); Estimated GFR 40.38 (mL/min/1.73m2); Glucose 111 mg/dL (74-106); HDL Cholesterol 85 mg/dL (40-60); Potassium 3.4 mmol/L (3.5-5.1); Sodium 152 mmol/L (136-145); Triglyceride 120 mg/dL (<150)
[2020-08-03 15:29] LABS: Abs Immature Grans 0.04 10^3/uL (0.0-0.06); Absolute Eosinophil Count 0.16 10^3/uL (0.0-0.7); Absolute Lymphocyte Count 1.19 10^3/uL (1.2-3.4); Absolute Monocyte Count 0.99 10^3/uL (0.1-0.8); Eosinophils % 1.9; HCT 43.4 % (36.0-46.0); HGB 12.6 g/dL (11.2-15.7); Immature Grans % 0.5; Lymphocytes % 14.2; MPV 13.8 fL (8.0-11.0); Monocytes % 11.8; Neutrophils % 71.4; Platelet Count 169 10^3/uL (130-400); RDW 18.7 % (11.7-14.6); RDW-SD 69.9 fL
[2020-08-11 08:02] LABS: Calcium 11.7 mg/dL (8.5-10.1)
== END 2020-08-03 13:35 | disposition home or self-care (01) ==
LOC: LBN 13:34
PROVIDERS: PCP Family Medicine; Visit Provider Family Medicine
DX: D50.0 Iron deficiency anemia secondary to blood loss (chronic) (principal); N18.32 Chronic kidney disease, stage 3b; I50.32 Chronic diastolic (congestive) heart failure; J44.1 Chronic obstructive pulmonary disease with (acute) exacerbation; J69.0 Pneumonitis due to inhalation of food and vomit; E66.2 Morbid (severe) obesity with alveolar hypoventilation; R79.89 Other specified abnormal findings of blood chemistry
CPT/HCPCS: 80048; 80061; 85025

== ENCOUNTER 2020-08-04 11:02 | Outpatient (REF) | payer MEDICARE, MEDICAID, SELFPAY ==
[2020-08-04 11:25] LABS: Anion Gap 5.1 mmol/L (3-11); BUN 36 mg/dL (7-18); CO2 36.9 mmol/L (21.0-32.0); CREATININE 1.4 mg/dL (0.55-1.02); Chloride 111 mmol/L (98-107); Estimated GFR 37.07 (mL/min/1.73m2); Glucose 85 mg/dL (74-106); Potassium 3.6 mmol/L (3.5-5.1); Sodium 153 mmol/L (136-145)
[2020-08-05 09:59] LABS: Parathyroid Hormone,Intact 123 pg/mL (19-88)
== END 2020-08-04 11:03 | disposition home or self-care (01) ==
LOC: LBN 11:02
PROVIDERS: PCP Family Medicine; Visit Provider Family Medicine
DX: E83.52 Hypercalcemia (principal); E87.8 Other disorders of electrolyte and fluid balance, not elsewhere classified
CPT/HCPCS: 80048; 83970

== ENCOUNTER 2020-08-04 14:44 | Inpatient (IN) | payer MEDICARE, MEDICAID, SELFPAY ==
[2020-08-04] VITALS (55 sets, daily range): BP systolic 108–172; BP diastolic 41–114; PULSE 62–149; RESP 11–23; TEMP 35.7–36.4; O2SAT 79–98
--- NOTE | 2020-08-04 14:30 | RT.EKG_ITS ---
APPROVED REPORT Exam: Resting ECG Patient Location: E HR:82 bpm ECG Measurements Heart Rate 82 AXIS LA 256 P 27 QRSd 107 QRS -36 QT 407 T 79 QTc 476 Conclusion Sinus rhythm Prolonged LA interval.. Left ventricular hypertrophy Lateral infarct, old
[2020-08-04 15:29] LABS: Lactate 0.9 mmol/L (0.6-1.4)
[2020-08-04 15:31] LABS: BE (Venous) 11 mmol/L (-2-3); HCO3 (Venous) 37 mmol/L (23-28); O2 Sat (Venous) 86 %; TCO2 (Venous) 35 mmol/L (24-29); pH (Venous) 7.29 (7.31-7.41); pO2 (Venous) 55 mmHg
[2020-08-04 15:32] LABS: Abs Immature Grans 0.03 10^3/uL (0.0-0.06); Absolute Basophil Count 0.02 10^3/uL (0.0-0.2); Absolute Eosinophil Count 0.13 10^3/uL (0.0-0.7); Absolute Lymphocyte Count 1.15 10^3/uL (1.2-3.4); Absolute Monocyte Count 0.87 10^3/uL (0.1-0.8); Absolute Neutrophil Count 6.64 10^3/uL (1.2-6.7); Basophils % 0.2; Eosinophils % 1.5; HCT 42.9 % (36.0-46.0); HGB 12.4 g/dL (11.2-15.7); Immature Grans % 0.3; MCH 30.2 pg (27.0-33.0); MCHC 28.9 % (32.0-36.0); MCV 104.4 fL (80-95); MPV 12.1 fL (8.0-11.0); Monocytes % 9.8; Neutrophils % 75.2; Nucleated RBC 0 %; Platelet Count 152 10^3/uL (130-400); RBC 4.11 10^6/uL (3.93-5.22); RDW 18.7 % (11.7-14.6); RDW-SD 70.1 fL; WBC 8.84 10^3/uL (4.4-10.8)
[2020-08-04 15:44] LABS: pCO2 (Venous) 79 mmHg (41-51)
[2020-08-04 15:47] LABS: Bilirubin Negative (Negative); Blood Negative (Negative); Clarity Clear (Clear); Glucose Negative (Negative); Ketones Negative (Negative); Leukocyte Esterase Small (Negative); Nitrite Positive (Negative); Specific Gravity 1.015 (1.005-1.025); Urobilinogen 0.2 EU/dL (Up TO 0.2); pH 5.5 (5-8)
[2020-08-04 15:55] LABS: Ammonia 39 umol/L (11-32)
[2020-08-04 16:02] LABS: INR 1.1 (0.9-1.1); PTT Activated 21.8 sec (21.0-27.5); Prothrombin Time 10.8 sec (9.3-11.0)
[2020-08-04 16:05] LABS: ALT 19 U/L (14-59); AST 11 U/L (15-37); Albumin 2.9 g/dL (3.4-5.0); Alkaline Phosphatase 99 U/L (46-116); Anion Gap 2.3 mmol/L (3-11); BUN 34 mg/dL (7-18); Bilirubin, Total 0.5 mg/dL (0.2-1.0); CO2 38.7 mmol/L (21.0-32.0); CREATININE 1.5 mg/dL (0.55-1.02); Chloride 111 mmol/L (98-107); Estimated GFR 34.23 (mL/min/1.73m2); Glucose 139 mg/dL (74-106); NT-proBNP 208 pg/mL (<300); Potassium 3.7 mmol/L (3.5-5.1); Sodium 152 mmol/L (136-145); TSH (W/Ref FT4) 2.51 uIU/mL (0.36-3.74); Total Protein 6.5 g/dL (6.4-8.2)
[2020-08-04 16:06] LABS: Bacteria Moderate HPF (Negative); Casts Negative LPF (Negative); Crystals Negative HPF (Negative); Epithelial Cells Negative HPF (Negative); Mucus Negative (Negative); Other Cells Negative (Negative); RBC Negative HPF (0-2); WBC >50 HPF (0-5)
[2020-08-04 16:07] LABS: C & S Indicated? Yes
[2020-08-04 16:09] LABS: Calcium 11.8 mg/dL (8.5-10.1); ETHANOL BLOOD < 3.0 mg/dL (<3)
[2020-08-04 16:10] LABS: Troponin I 0.23 ng/mL (<0.06)
[2020-08-04] MEDS: PIPERACILLIN/TAZO 3.375 GM in Normal Saline 50 ML IVPB (16:15)
--- NOTE | 2020-08-04 16:21 | ED.GENADUL_ITS ---
Discharge Plan Disposition Patient Disposition: [facility] INPATIENT Condition: Serious Discharge Details Clinical Impression: Encephalopathy, Urinary tract infection, Hypercarbia, Hypercalcemia, Acute hypernatremia, Pneumonia Primary Care Provider: Lucia Mckeon ED Provider: John Gómez Home Meds and New Rx's Prescriptions: No Action simvastatin 20 MG tablet 40 mg PO HS RF: 0 albuterol sulfate [Ventolin HFA] 60 PUFF HFA aerosol inhaler 2 puff Inhalation PRN PRNRF: 0 acetaminophen 325 mg Tablet 650 mg PO QID RF: 0 ferrous sulfate [Iron (ferrous sulfate)] 325 mg (65 mg iron) Tablet 325 mg PO TID RF: 0 lidocaine 5 % Adhesive Patch,Medicated 2 patch TOPICAL DAILY RF: 0 gabapentin [Neurontin] 100 mg Capsule 300 mg PO TID RF: 0 calcium gluconate 500 mg Tablet 500 mg PO DAILY RF: 0 Lactinex 1 million cell Tablet,Chewable 1 tab PO TID RF: 0 vitamin F25-wlcqf acid 1,000-400 mcg Tablet, Sublingual 1 tab SUBLINGUAL DAILY RF: 0 sucralfate 1 gram Tablet 1 g PO AC & HS Qty: 120 RF: 0 sertraline 100 mg tablet 150 mg PO 5XW RF: 0 folic acid 1 mg Tablet 1 mg PO DAILY RF: 0 furosemide 20 mg tablet 60 mg PO DAILY RF: 0 polyethylene glycol 3350 [Miralax] 17 gram/dose Powder 17 g PO DAILY RF: 0 amlodipine [Norvasc] 2.5 mg Tablet 2.5 mg PO DAILY RF: 0 albuterol sulfate 2.5 mg /3 mL (0.083 %) Solution For Nebulization 2.5 mg UPD Q2H PRN PRNQty: 90 RF: 0 acetazolamide 250 mg Tablet 250 mg PO BID Qty: 60 RF: 0 budesonide-formoterol [Symbicort] 160-4.5 mcg/actuation Hfa Aerosol Inhaler 2 puff inhalation BID Qty: 10.2 RF: 0 Js Protect Cream 1 applic topical BID PRN (Reason: skin irritation) Qty: 684 RF: 0 potassium chloride 10 mEq Capsule, Extended Release 20 meq PO TID Qty: 90 RF: 0 prednisone 10 mg Tablet 30 mg PO DAILY Qty: 18 RF: 0 Spiriva Respimat 2.5 mcg/actuation Mist 2 puff inhalation DAILY Qty: 4 RF: 0 omeprazole 40 MG capsule,delayed release(DR/EC) 1 tab PO DAILY Qty: 0 RF: 0 Medical Decision Making This is a 69-year-old female with a past medical history of chronic kidney disease, congestive heart failure, COPD, previous renal cell carcinoma, who resides at the [facility], who presents today for evaluation of altered mental status. Patient is unable to provide any history, but patient was noted to have a decreased mental status at the [facility] which is why she was sent in via EMS. No other historical components can be provided by patient or EMS at this time. No other known modifying factors. No history of recent falls. Physical exam demonstrates an altered female with a GCS of 11, crackles in the bases. She is on 5 L of oxygen. No meningeal signs. No other focal neurologic deficits. Differential is notably broad, but includes metabolic encephalopathy, infectious etiology, intercranial etiology. Patient's altered mental status has been going on for certainly greater than the last few hours, she is not a candidate for TPA. Will evaluate for life-threatening etiologies, monitor closely and reassess. 4:41 PM Laboratory work-up is returning, the patient demonstrates a pH of 7.29, PCO2 of 79, normal lactate. Electrolytes demonstrates sodium of 152, normal potassium. Calcium is notably elevated at 11.8, troponin is elevated at 0.23, EKG was read by Dr. Treviño, no STEMI. Review of previous troponins demonstrate that this is her normal. Ammonia level is slightly elevated at 39, thyroid function normal. Urinalysis shows positive nitrites, notably elevated urine WBCs, concern for n otable UTI. Pending Covid screen. Pending chest x-ray and CT head. Zosyn will be started for urinary component, patient was placed on BiPAP for the elevated PCO2. I did contact the patient's son Bruce Lawson, who is the medical power of managing attorney, and he has made it clear that the patient is not to be intubated, but we are to continue all treatment otherwise. We did discuss if the patient would want major surgeries or cardiac catheterization, and he does not feel that that should be addressed at this time. 4:[address] of the head is negative for acute process. Chest x-ray shows evidence of pneumonia. There is started broad-spectrum antibiotics of vancomycin and Zosyn and doxycycline. Patient has tolerated BiPAP well while here. Patient is notable difficulty assess patient, and because of this we decided to electively place a right-sided central line in the right IJ for good vascular access and management. This was placed without complication. I discussed the case with [facility] hospitalist Dr. Morales, he agrees with the assessment and plan. I did confirm with the son that the patient is not to be intubated he does want her to still receive treatment otherwise. He does not want any heroic or surgical efforts. Patient will be admitted to [facility]. I have extensively reviewed the treatment plan with the patient. I have addressed all patient concerns at this time. I have also discussed the plan with the admitting physician and they agree with the current assessment and plan and have agreed to assume responsibility for the patient. All parties demonstrate verbal understanding and agreement with our assessment and plan at this time. The documentation in this chart was dictated using [employer] dictation software. Please excuse any dictation errors. FINDINGS: Brain: There is brain parenchymal atrophy. No intracranial hemorrhage is seen. No acute arterial territory stroke is noted. There is nonspecific white matter disease, likely related to chronic ischemic demyelination. Cerebral ventricles: No ventriculomegaly. Bones/joints: Unremarkable. No acute fracture. Paranasal sinuses: Visualized sinuses are unremarkable. No fluid levels. Mastoid air cells: Visualized mastoid air cells are well aerated. Soft tissues: Unremarkable. IMPRESSION: No acute finding. Thank you for allowing us to participate in the care of your patient. IMPRESSION: Bilateral pulmonary infiltrates, slightly worsened. Elevation of the right hemidiaphragm. Degenerative changes in the spine. Cardiomegaly. Atherosclerosis. Severe degenerative changes in the left shoulder joint. There may have been a prior fracture in this location. Thank you for allowing us to participate in the care of your patient. Dictated and Authenticated by: Rl Gomez MD 08/04/2020 4:43 PM Eastern Time ([place] & [place]) FINDINGS: Tubes, catheters and devices: EKG leads overlie the chest. Interval placement of a right IJ central venous catheter with the tip in the SVC/RA junction. Lungs: A there is dense opacification of the inferior half of the right hemithorax consistent with a right pleural effusion and or consolidation. Patchy linear densities of the left lung base appears somewhat improved since the prior study. Linear densities of the right upper lobe appear not significantly changed. Pleural spaces: See Lungs finding. Heart/Mediastinum: Cardiomegaly is again noted. Vasculature: The aorta demonstrates mild atherosclerotic calcification. Diaphragm: Elevation of the right hemidiaphragm may also be present. Bones/joints: Chronic degenerative changes of the spine are present. IMPRESSION: 1. Interval placement of a right IJ central venous catheter. 2. Persistent dense opacification at the right lung base consistent with a right pleural effusion and/or consolidation/mass. 3. Partial clearance of left basilar consolidation/atelectasis HPI General Date/Time Provider Initiated Documentation: 08/04/20 14:53 . HPI Narrative: This is a 69-year-old female with a past medical history of chronic kidney disease, congestive heart failure, COPD, previous renal cell carcinoma, who resides at the [facility], who presents today for evaluation of altered mental status. Patient is unable to provide any history, but patient was noted to have a decreased mental status at the [facility] which is why she was sent in via EMS. No other historical components can be provided by patient or EMS at this time. No other known modifying factors. No history of recent falls. Related Data Home Medications Medication Instructions Recorded Confirmed albuterol sulfate [Ventolin HFA] 2 puff INHALATION PRN PRN 05/02/16 07/01/20 simvastatin 40 mg PO HS 05/02/16 07/17/20 Lactinex 1 tab PO TID 05/21/20 07/17/20 acetaminophen 650 mg PO QID 05/21/20 07/17/20 calcium gluconate 500 mg PO DAILY 05/21/20 07/01/20 ferrous sulfate [Iron (ferrous 325 mg PO TID 05/21/20 07/01/20 sulfate)] gabapentin [Neurontin] 300 mg PO TID 05/21/20 07/17/20 lidocaine 2 patch TOPICAL DAILY 05/21/20 07/17/20 vitamin P55-octta acid 1 tab SUBLINGUAL DAILY 05/21/20 07/17/20 sucralfate 1 g PO AC & HS #120 tab 06/02/20 07/17/20 folic acid 1 mg PO DAILY 07/01/20 07/17/20 furosemide 60 mg PO DAILY 07/01/20 07/01/20 polyethylene glycol 3350 [Miralax] 17 g PO DAILY 07/01/20 07/01/20 sertraline 150 mg PO 5XW 07/01/20 07/17/20 amlodipine [Norvasc] 2.5 mg PO DAILY 07/17/20 07/17/20 acetazolamide 250 mg PO BID #60 tab 07/29/20 albuterol sulfate 2.5 mg UPD Q2H PRN PRN #90 ml 07/29/20 budesonide-formoterol [Symbicort] 2 puff INHALATION BID #10.2 g 07/29/20 dimethicone-zinc oxide [Js 1 applic TOPICAL BID PRN #684 g 07/29/20 Protect] omeprazole 1 tab PO DAILY #0 cap 07/29/20 07/17/20 potassium chloride 20 meq PO TID #90 cap 07/29/20 prednisone 30 mg PO DAILY #18 tab 07/29/20 tiotropium bromide [Spiriva 2 puff INHALATION DAILY #4 g 07/29/20 Respimat] Previous Rx's Medication Instructions Recorded sucralfate 1 g PO AC & HS #120 tab 06/02/20 acetazolamide 250 mg PO BID #60 tab 07/29/20 albuterol sulfate 2.5 mg UPD Q2H PRN PRN #90 ml 07/29/20 budesonide-formoterol [Symbicort] 2 puff INHALATION BID #10.2 g 07/29/20 dimethicone-zinc oxide [Js 1 applic TOPICAL BID PRN #684 g 07/29/20 Protect] omeprazole 1 tab PO DAILY #0 cap 07/29/20 potassium chloride 20 meq PO TID #90 cap 07/29/20 prednisone 30 mg PO DAILY #18 tab 07/29/20 tiotropium bromide [Spiriva 2 puff INHALATION DAILY #4 g 07/29/20 Respimat] Allergies Allergy/AdvReac Type Severity Reaction Status Date / Time codeine Allergy Unverified 07/17/20 17:41 pentazocine AdvReac Unknown unknown Unverified 07/17/20 17:41 General Stated Complaint: RespSymp TATIANA: 2 Review of Systems All systems reviewed & are unremarkable except as noted in HPI and below PFSH Medical History Acute on chronic respiratory failure Anxiety about health Avoidance coping CKD (chronic kidney disease) stage 3, GFR 30-59 ml/min COPD (chronic obstructive pulmonary disease) Depression Diastolic dysfunction with chronic heart failure DNI (do not intubate) Generalized weakness Goals of care, counseling/discussion Low-level of literacy Lymphedema Morbid obesity alf resident Oncocytoma Palliative care patient Renal cell carcinoma Family History Son No problems noted. Son No problems noted. Son No problems noted. Mother , of ALS age 63 ALS (amyotrophic lateral sclerosis) Father , of lung cancer age 70 heavy smoker Lung cancer Smoker Sister No problems noted. Sister No problems noted. Sister No problems noted. Sister No problems noted. Sister No problems noted. Brother , older brother doesn't know how he No problems noted. Brother No problems noted. 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 Pets and animals: No Current gender identity: female What is your relationship status?: How often do you talk on the phone with friends or family?: once per week How often do you get together with friends or relatives?: never Panel score (0-1 are the most socially isolated patients): 0 What type of physical activity do you participate in: none, bed-bound, sedentary lifestyle and wheelchair-bound Special alysha needs: No Seatbelt use: always Water heater temp set <120 deg: Yes Working smoke detector in home: Yes Fire extinguisher in home: Yes Firearms in home: No Do you feel safe at home: Yes Do you feel safe in your relationship?: Yes Additional Social history: resident @ [facility]. Was living in [facility] long-term until her legs gave out all of a sudden and I couldn't walk. [facility] was in [place], run by her son's best friend and his . Prior to living in [facility], lived on her own in [facility], where she lived for many years. She has one son in [facility], one son in [facility], and one son in [place], [place]. She tells me she knows her memory is getting worse. Sometimes I just black out. She has never filled out a COLST form. She can't tell me which of her sons is her DPOA. Exam Narrative Exam Narrative: 1.Const: Obese 2.Eyes: PERRL, no conjunctival injection, and symmetrical lids. 3.ENT: Atraumatic external nose and ears. Moist MM. Neck: Symmetric, trachea midline, No thyromegaly. 4.CVS: +S1/S2, notable murmur. Peripheral pulses 2+ and equal in all extremities. Brisk capillary refill in all extremities. 5.RESP: Mildly labored respiratory effort. Crackles at the bases. No wheezes or rhonchi. 6.GI: Soft, Nontender/Nondistended, No hepatosplenomegaly. No guarding or rebound. 7.MSK: Normocephalic/Atraumatic, Extremities w/o deformity or ttp No cyanosis or clubbing, Normal movement of all extremities. +1 to +2 pitting edema of the lower extremities bilaterally. 8.Skin: Warm, Dry. No rashes or lesions. 9.Neuro: Patient moves all extremities. No nuchal rigidity. No meningeal signs. 10.Psych: Notably altered, speaks occasional intermittent mumbled sounds but responds to questions with incoherent speech. GCS is 11 Course Vital Signs Vital signs: Vital Signs Temperature 36.4 C L 08/04/20 14:43 Pulse 83 08/04/20 14:43 Respiratory Rate 18 08/04/20 14:43 Blood Pressure 134/85 08/04/20 14:43 Pulse Oximetry 94 08/04/20 14:43 Temperature 36.4 C L 08/04/20 14:43 Temperature Source Skin 08/04/20 14:43 Pulse 82 08/04/20 16:04 Respiratory Rate 21 08/04/20 16:04 Respiratory Effort Non-Labored 08/04/20 15:04 Respiratory Depth Normal 08/04/20 15:04 Blood Pressure 134/85 08/04/20 14:43 Pulse Oximetry 89 L 08/04/20 16:04 Oxygen Delivery Method OxyMask 08/04/20 14:49 Oxygen Flow Rate 15 08/04/20 14:43 Fraction of Inspired Oxygen (FIO2) 30 08/04/20 16:04 Pain Level 0 08/04/20 14:43 Comment 08/04/20 14:49 Lab/Test Results Lab/Test Results: 08/04/20 15:36 Urine - Reflex from Ua Urine Culture - Pending 08/04/20 15:20 Blood Blood Culture - Pending 08/04/20 15:07 Blood Blood Culture - Pending Laboratory Tests Range/Units 08/04/20 08/04/20 08/04/20 15:20 15:20 15:20 WBC (4.4-10.8) 10^3/uL RBC (3.93-5.22) 10^6/uL Hgb (11.2-15.7) g/dL Hct (36.0-46.0) % MCV (80-95) fL MCH (27.0-33.0) pg MCHC (32.0-36.0) % RDW (11.7-14.6) % Plt Count (130-400) 10^3/uL MPV (8.0-11.0) fL Immature Gran % Neutrophils % Lymphocytes % Monocytes % Eosinophils % Basophils % Nucleated RBC % % Absolute Neutrophils (1.2-6.7) 10^3/uL Absolute Lymphocytes (1.2-3.4) 10^3/uL Absolute Monocytes (0.1-0.8) 10^3/uL Absolute Eosinophils (0.0-0.7) 10^3/uL Absolute Basophils (0.0-0.2) 10^3/uL VBG pH (7.31-7.41) VBG pCO2 (41-51) mmHg VBG pO2 mmHg VBG HCO3 (23-28) mmol/L VBG Total CO2 (24-29) mmol/L VBG O2 Saturation % VBG Base Excess (-2-3) mmol/L VBG Lactate (0.6-1.4) mmol/L 0.9 Sodium (136-145) mmol/L 152 H Potassium (3.5-5.1) mmol/L 3.7 Chloride (98-107) mmol/L 111 H Carbon Dioxide (21.0-32.0) mmol/L 38.7 H Anion Gap (3-11) mmol/L 2.3 L BUN (7-18) mg/dL 34 H Creatinine (0.55-1.02) mg/dL 1.5 H Estimated GFR/1.73 m2 (mL/min/1.73m2) 34.23 Glucose (74-106) mg/dL 139 H Calcium (8.5-10.1) mg/dL 11.8 H* Total Bilirubin (0.2-1.0) mg/dL 0.5 AST (15-37) U/L 11 L ALT (14-59) U/L 19 Alkaline Phosphatase (46-116) U/L 99 Ammonia (11-32) umol/L 39 H Troponin I (<0.06) ng/mL 0.23 H* NT-Pro-B Natriuret Pep (<300) pg/mL 208 Total Protein (6.4-8.2) g/dL 6.5 Albumin (3.4-5.0) g/dL 2.9 L TSH (0.36-3.74) uIU/mL 2.51 Urine Color (Yellow) Urine Clarity (Clear) Urine pH (5-8) Ur Specific [place] (1.005-1.025) Urine Protein (Negative) mg/dL Urine Ketones (Negative) mg/dL Urine Blood (Negative) Urine Nitrite (Negative) Urine Bilirubin (Negative) Urine Urobilinogen (Up TO 0.2) EU/dL Ur Leukocyte Esterase (Negative) Urine RBC (0-2) HPF Urine WBC (0-5) HPF Ur Epithelial Cells (Negative) HPF Urine Crystals (Negative) HPF Urine Bacteria (Negative) HPF Urine Casts (Negative) LPF Urine Mucus (Negative) Urine Other (Negative) Ur Culture Indicated? Urine Glucose (Negative) mg/dL Ethyl Alcohol (<3) mg/dL < 3.0 Range/Units 08/04/20 08/04/20 08/04/20 15:20 15:20 15:36 WBC (4.4-10.8) 10^3/uL 8.84 RBC (3.93-5.22) 10^6/uL 4.11 Hgb (11.2-15.7) g/dL 12.4 Hct (36.0-46.0) % 42.9 MCV (80-95) fL 104.4 H MCH (27.0-33.0) pg 30.2 MCHC (32.0-36.0) % 28.9 L RDW (11.7-14.6) % 18.7 H Plt Count (130-400) 10^3/uL 152 MPV (8.0-11.0) fL 12.1 H Immature Gran % 0.3 Neutrophils % 75.2 Lymphocytes % 13.0 Monocytes % 9.8 Eosinophils % 1.5 Basophils % 0.2 Nucleated RBC % % 0 Absolute Neutrophils (1.2-6.7) 10^3/uL 6.64 Absolute Lymphocytes (1.2-3.4) 10^3/uL 1.15 L Absolute Monocytes (0.1-0.8) 10^3/uL 0.87 H Absolute Eosinophils (0.0-0.7) 10^3/uL 0.13 Absolute Basophils (0.0-0.2) 10^3/uL 0.02 VBG pH (7.31-7.41) 7.29 L VBG pCO2 (41-51) mmHg 79 H* VBG pO2 mmHg 55 VBG HCO3 (23-28) mmol/L 37 H VBG Total CO2 (24-29) mmol/L 35 H VBG O2 Saturation % 86 VBG Base Excess (-2-3) mmol/L 11 H VBG Lactate (0.6-1.4) mmol/L Sodium (136-145) mmol/L Potassium (3.5-5.1) mmol/L Chloride (98-107) mmol/L Carbon Dioxide (21.0-32.0) mmol/L Anion Gap (3-11) mmol/L BUN (7-18) mg/dL Creatinine (0.55-1.02) mg/dL Estimated GFR/1.73 m2 (mL/min/1.73m2) Glucose (74-106) mg/dL Calcium (8.5-10.1) mg/dL Total Bilirubin (0.2-1.0) mg/dL AST (15-37) U/L ALT (14-59) U/L Alkaline Phosphatase (46-116) U/L Ammonia (11-32) umol/L Troponin I (<0.06) ng/mL NT-Pro-B Natriuret Pep (<300) pg/mL Total Protein (6.4-8.2) g/dL Albumin (3.4-5.0) g/dL TSH (0.36-3.74) uIU/mL Urine Color (Yellow) Yellow Urine Clarity (Clear) Clear Urine pH (5-8) 5.5 Ur Specific [place] (1.005-1.025) 1.015 Urine Protein (Negative) mg/dL Negative Urine Ketones (Negative) mg/dL Negative Urine Blood (Negative) Negative Urine Nitrite (Negative) Positive H Urine Bilirubin (Negative) Negative Urine Urobilinogen (Up TO 0.2) EU/dL 0.2 Ur Leukocyte Esterase (Negative) Small H Urine RBC (0-2) HPF Negative Urine WBC (0-5) HPF >50 H Ur Epithelial Cells (Negative) HPF Negative Urine Crystals (Negative) HPF Negative Urine Bacteria (Negative) HPF Moderate Urine Casts (Negative) LPF Negative Urine Mucus (Negative) Negative Urine Other (Negative) Negative Ur Culture Indicated? Yes Urine Glucose (Negative) mg/dL Negative Ethyl Alcohol (<3) mg/dL Procedures Central Line Placement Right IJ: Time Out Performed: Yes Patient Placed on Monitor/Pulse Ox: Yes MD Prep: mask, gown and gloves Central Line Prep: Chlorhexidine scrub Local Anesthetic: Lidocaine 1% Amount of anesthesia used (mL): 3 Ultrasound Used for Placement: Yes Central Line Lumen Inserted: triple Post Procedure: good blood return, all ports aspirated, flushed, capped and sutured in place with 3-0 nylon Post Procedure X-Ray: tip of catheter in good position Patient Tolerated Procedure: well Complications: none
--- NOTE | 2020-08-04 16:30 | DI.RAD_ITS ---
EXAM: XR PORTABLE CHEST AP CLINICAL HISTORY: sob, altered TECHNIQUE: 2D digital imaging was performed. COMPARISON: CR XR PORTABLE CHEST AP from 07/28/2020 FINDINGS: The exam is limited by patient body habitus. Abdominal soft tissues overlie the lung bases. There i s also mild respiratory motion. There is stable elevation of the right diaphragm. The heart is enla rged. Severe deformity of the left shoulder is again noted. IMPRESSION: Severely limited exam. Lower lobe infiltrates or small effusions are not excluded.
--- NOTE | 2020-08-04 16:38 | DI.CT_ITS ---
EXAM: CT HEAD WO CLINICAL HISTORY: altered, r/o stroke. TECHNIQUE: Imaging Protocol: Axial computed tomography images with coronal and sagittal reformatted images were created and reviewed COMPARISON: CT HEAD WITHOUT CONTRAST from 05/02/2016 FINDINGS: Ventricles and Extra axial spaces: Normal in size and morphology for the patient's age. Hemorrhage: None. Cerebral parenchyma: Atrophy and white matter changes of small vessel disease. Midline shift: None. Brainstem/Cerebellum: Normal. Calvarium: Normal. Visualized Paranasal sinuses/Mastoids: Clear. Soft Tissues: Unremarkable. IMPRESSION: No acute intracranial process. RADIATION DOSE DELIVERED: 740.64mGy.cm Total DLP DATA REPOSITORY: All CT scans at this facility are submitted to the National Radiology Data Registry (NRDR) Dose Index Registry (DIR) with the [employer] (A[employer]). RADIATION OPTIMIZATION: All CT scans at this facility use at least one of these dose optimization te chniques: automated exposure control; mA and/or kV adjustment per patient size (includes targeted exa ms where dose is matched to clinical indication); or iterative reconstruction.
--- NOTE | 2020-08-04 16:43 | DI.VRAD_ITS ---
PROCEDURE INFORMATION: Exam: XR Chest Exam date and time: 08/04/2020 3:08 PM Age: 69 years old Clinical indication: Shortness of breath; Additional info: SOB, altered TECHNIQUE: Imaging protocol: XR of the chest Views: 1 view. COMPARISON: CR XR PORTABLE CHEST AP 07/28/2020 1:59 PM FINDINGS: Lungs: Bilateral pulmonary infiltrates, slightly worsened. Pleural spaces: Unremarkable. No pleural effusion. No pneumothorax. Heart/Mediastinum: Cardiomegaly. Vasculature: Atherosclerosis. Diaphragm: Elevation of the right hemidiaphragm. Bones/joints: Degenerative changes in the spine. Severe degenerative changes in the left shoulder joint. There may have been a prior fracture in this location. IMPRESSION: Bilateral pulmonary infiltrates, slightly worsened. Elevation of the right hemidiaphragm. Degenerative changes in the spine. Cardiomegaly. Atherosclerosis. Severe degenerative changes in the left shoulder joint. There may have been a prior fracture in this location. Dictated and Authenticated by: Rl Gomez MD. Ordering:KEN Lopez MD
--- NOTE | 2020-08-04 16:44 | DI.VRAD_ITS ---
PROCEDURE INFORMATION: Exam: CT Head Without Contrast Exam date and time: 08/04/2020 3:08 PM Age: 69 years old Clinical indication: Altered mental status/memory loss; Additional info: Altered, R/O stroke TECHNIQUE: Imaging protocol: Computed tomography of the head without contrast. Radiation optimization: All CT scans at this facility use at least one of these dose optimization techniques: automated exposure control; mA and/or kV adjustment per patient size (includes targeted exams where dose is matched to clinical indication); or iterative reconstruction. COMPARISON: CT HEAD WITHOUT CONTRAST 05/02/2016 2:56 PM FINDINGS: Brain: There is brain parenchymal atrophy. No intracranial hemorrhage is seen. No acute arterial territory stroke is noted. There is nonspecific white matter disease, likely related to chronic ischemic demyelination. Cerebral ventricles: No ventriculomegaly. Bones/joints: Unremarkable. No acute fracture. Paranasal sinuses: Visualized sinuses are unremarkable. No fluid levels. Mastoid air cells: Visualized mastoid air cells are well aerated. Soft tissues: Unremarkable. IMPRESSION: No acute finding. Dictated and Authenticated by: Rl Gomez MD. Ordering:KEN Lopez MD
[2020-08-04 17:14] LABS: COVID-19 PCR Negative (Negative)
[2020-08-04] MEDS: DOXYCYCLINE 100 MG in Normal Saline 100 ML IVPB (17:26)
--- NOTE | 2020-08-04 17:45 | DI.RAD_ITS ---
EXAM: XR PORTABLE CHEST AP POST LINE CLINICAL HISTORY: Post Central line placement TECHNIQUE: 2D digital imaging was performed. COMPARISON: CT CT CHEST PE CTA from 07/21/[address] CHEST PE CTA from 07/21/2020 CR,XR XR PORTABLE CHEST AP from 07/26/2020 CR,XR XR PORTABLE CHEST AP from 07/26/2020 CR XR PORTABLE CHEST AP from 07/28/2020 CR XR PORTABLE CHEST AP from 07/28/2020 CR,XR XR PORTABLE CHEST AP from 08/04/2020 FINDINGS: Exam is limited by semi-upright positioning and poor pulmonary inflation is well as underpenetration of the lung bases. A central venous catheter is noted with the tip in the right atrium. The right d iaphragm is again noted to be elevated. The heart is [id number] enlarged. Chronic bony defo rmities are seen involving the left shoulder. Degenerative changes are seen in the spine. IMPRESSION: Stable appearance of elevated right diaphragm. Tip of central line projects in the right atrium.
[2020-08-04] MEDS: VANCOMYCIN/WATER (PEG) 2 GM/400 ML BAG IVPB (18:01)
[2020-08-04] MEDS: Normal Saline-STERILE FIELD 0.9% 10 ML SYR (18:05)
--- NOTE | 2020-08-04 18:29 | DI.VRAD_ITS ---
PROCEDURE INFORMATION: Exam: XR Chest Exam date and time: 08/04/2020 6:03 PM Age: 69 years old Clinical indication: Other: Post central line placement TECHNIQUE: Imaging protocol: XR of the chest Views: 1 view. COMPARISON: CR XR PORTABLE CHEST AP 08/04/2020 4:27 PM FINDINGS: Tubes, catheters and devices: EKG leads overlie the chest. Interval placement of a right IJ central venous catheter with the tip in the SVC/RA junction. Lungs: A there is dense opacification of the inferior half of the right hemithorax consistent with a right pleural effusion and or consolidation. Patchy linear densities of the left lung base appears somewhat improved since the prior study. Linear densities of the right upper lobe appear not significantly changed. Pleural spaces: See Lungs finding. Heart/Mediastinum: Cardiomegaly is again noted. Vasculature: The aorta demonstrates mild atherosclerotic calcification. Diaphragm: Elevation of the right hemidiaphragm may also be present. Bones/joints: Chronic degenerative changes of the spine are present. IMPRESSION: 1. Interval placement of a right IJ central venous catheter. 2. Persistent dense opacification at the right lung base consistent with a right pleural effusion and/or consolidation/mass. 3. Partial clearance of left basilar consolidation/atelectasis. 4. No change in cardiomegaly. Dictated and Authenticated by: Andi Rivas MD. Ordering:NADIA Alvarenga MD
--- NOTE | 2020-08-04 19:06 | RESPIRATORY ---
Pt arrived here via [facility] on 15 LPM NRB saturating 98%. Pt was transitioned to 5 LPM Oxymask which is her home RX. Pt's SPO2 91% with no WOB. Pt dozing off/on placed on Cordelia Bipap per Dr. Gómez as VBG showed PCO2 79 mmhg. Pt tolerating well. Pt's detailed Resp/Dietary plan hung on whiteboard in RT Dept.
--- NOTE | 2020-08-04 19:08 | NUR.NOTE ---
Nursing Note: First contact with pt after hand off from Dagoberto SALAZAR. Pt on bipap 30%FiO2, PEEP 6 70l/min . Pt onfull cardiac monitoring. IV infusing Vancomycin see MAR for further details. GCS 11 . Awaiting bed placement to inpatient.
--- NOTE | 2020-08-04 20:05 | HPE_ITS ---
Date of service: 08/04/20 Time of Service: 20:06 Assessment and Plan Assessment and plan (1) Altered mental status: Start date: 08/04/20 Status: Acute Assessment and plan: This is a 69-year-old lady who resides at a local halfway and had recurring hospitalizations for complications of her multiple medical problems. Recently she has had hyponatremia and hypercalcemia which was not improving and reported to the ED encephalopathic. This appears to be a metabolic decompensation with patient having CKD, chronic hypercarbia with TRINH and chronic CHF now appears to have bilateral pneumonia and UTI possibly worsening her status. She does not eat or drink well and does have poor IV access now with a jugular vein central line in place for IV access. We will gently IV hydrate watching for fluid overload with cardiac monitoring patient wanting CPR though she appears to have chronic elevation of her troponins and recent decompensation overall. She appears to have improved with a small IV fluid bolus in the ED. Cultures are pending to guide antibiotic therapy for her infectious state. Qualifiers: Altered mental status type: delirium Qualified Code(s): R41.0 - Disorientation, unspecified (2) Urinary tract infection: Start date: 08/04/20 Status: Acute Assessment and plan: Patient did receive Zosyn in the ED because of her CKD and combination vancomycin, she will be converted to meropenem and vancomycin for treatment of her UTI and pneumonia. Follow-up blood and urine cultures adjusting antibiotic therapy accordingly. 5 antibiotics will be renally dosed. Qualifiers: Hematuria presence: without hematuria Urinary tract infection type: site unspecified Qualified Code(s): N39.0 - Urinary tract infection, site not specified (3) Acute hypernatremia: Start date: 08/04/20 Status: Acute Assessment and plan: IV fluid resuscitation with D5 half-normal saline with follow-up lab morning. (4) Hypercalcemia: Start date: 08/03/20 Status: Acute Assessment and plan: This is been a recent problem and thought to be secondary to medications given after last hospitalization though this is not been clearly defined. Continue IV hydration as with hypernatremia and follow-up labs. Consider more aggressive therapy if hypercalcemia is not improving overnight. She may have restrictions with IV fluid resuscitation. (5) Pneumonia: Start date: 08/04/20 Status: Acute Assessment and plan: Bilateral and worsening since last exam. IV vancomycin and meropenem with patient having a institution acquired pneumonia. Respiratory support with BiPAP. Qualifiers: Laterality: bilateral Lung location: unspecified part of lung Pneumonia type: due to unspecified organism Qualified Code(s): J18.9 - Pneumonia, unspecified organism (6) Acute on chronic respiratory failure: Start date: 08/04/20 Status: Acute Assessment and plan: Continue BiPAP and oxygen support. Follow-up VBG as needed. Qualifiers: Respiratory failure complication: hypercapnia Qualified Code(s): J96.22 - Acute and chronic respiratory failure with hypercapnia (7) Elevated troponin: Status: Chronic Assessment and plan: Patient has chronically elevated troponins with slight increase with his acute episode but no evidence of acute cardiac ischemia. Continue to monitor with trending troponins. Patient needs to rediscuss CODE STATUS as to whether she wants aggressive intervention if she does have cardiac decompensation. It appears his son is having difficulty dealing with the change in his mother's medical wellbeing and decompensation of function. It would be appropriate for the patient to be a DNR/DNI. She also should consider moving toward comfort measures only if she is not recovering from this acute hospitalization. History of Present Illness History of Present Illness Chief Complaint: Altered mental status Narrative: This is a 69-year-old female patient who resides at the [facility] and is nonambulatory chronically with a history of right-sided CHF, morbid obesity with chronic COPD and hypercarbia requiring oxygen and BiPAP, previous history of renal cell carcinoma, CKD and recently hypercalcemia presents to the ED with altered mental status and found to have hyponatremia as well. She was encephalopathic by the ED report which was metabolic and not her baseline. Her son was contacted by myself as well prior to seeing the patient and he confirmed that she did not want intubation with respiratory disease being a major problem especially with her morbid obesity and immobility with TRINH but he stated that she would not want CPR. I tried to review the rationale that with her chronic elevated troponins and cardiac compromise, CPR may not be reasonable if the patient coded. We will treat aggressively but gingerly with IV fluids with the son realizing that CPR would not probably have a good outcome. He did not sound like he has been thinking about palliative care or comfort measures only. This should be an ongoing discussion with the PCP. The patient was unable to offer history in the ED or at the time I saw the patient but she was more alert and fidgety in bed when I examined her. He does appear as if she is not ambulating chronically. The nurses aide that this is not her baseline mentation. Further history was with review of ED notes and past medical history, otherwise not obtainable. This thought that the patient simply had a UTI when she asked confused and did not seem to have a grasp of her multisystem failure which appears more chronic. She is a DNR but CPR should be administered. A central line with jugular vein was established by Dr. Gómez because of poor IV access in this patient. She was on BiPAP at the time that I examined her. Review of Systems Narrative: 13 point review of systems otherwise feeling or unobtainable with patient's mental status. [facility] Medical History Acute on chronic respiratory failure Anxiety about health Avoidance coping CKD (chronic kidney disease) stage 3, GFR 30-59 ml/min COPD (chronic obstructive pulmonary disease) Depression Diastolic dysfunction with chronic heart failure DNI (do not intubate) Generalized weakness Goals of care, counseling/discussion Low-level of literacy Lymphedema Morbid obesity [facility] resident Oncocytoma Palliative care patient Renal cell carcinoma Family History Son No problems noted. Son No problems noted. Son No problems noted. Mother , of ALS age 63 ALS (amyotrophic lateral sclerosis) Father , of lung cancer age 70 heavy smoker Lung cancer Smoker Sister No problems noted. Sister No problems noted. Sister No problems noted. Sister No problems noted. Sister No problems noted. Brother , older brother doesn't know how he No problems noted. Brother No problems noted. 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 Pets and animals: No Current gender identity: female What is your relationship status?: How often do you talk on the phone with friends or family?: once per week How often do you get together with friends or relatives?: never Panel score (0-1 are the most socially isolated patients): 0 What type of physical activity do you participate in: none, bed-bound, sedentary lifestyle and wheelchair-bound Special alysha needs: No Seatbelt use: always Water heater temp set <120 deg: Yes Working smoke detector in home: Yes Fire extinguisher in home: Yes Firearms in home: No Do you feel safe at home: Yes Do you feel safe in your relationship?: Yes Additional Social history: resident @ [facility]. Was living in [facility] longterm until her legs gave out all of a sudden and I couldn't walk. [facility] was in [place], run by her son's best friend and his . Prior to living in [facility], lived on her own in [facility], where she lived for many years. She has one son in [facility], one son in [facility], and one son in [place], [place]. She tells me she knows her memory is getting worse. Sometimes I just black out. She has never filled out a COLST form. She can't tell me which of her sons is her DPOA. Meds Home Medications and Allergies Allergies Allergy/AdvReac Type Severity Reaction Status Date / Time codeine Allergy Unverified 07/17/20 17:41 pentazocine AdvReac Unknown unknown Unverified 07/17/20 17:41 Home Medications Medication Instructions Recorded Confirmed Type albuterol sulfate [Ventolin HFA] 2 puff INHALATION PRN PRN 05/02/16 08/04/20 History simvastatin 40 mg PO HS 05/02/16 08/04/20 History Lactinex 1 tab PO TID 05/21/20 08/04/20 History acetaminophen 650 mg PO QID 05/21/20 08/04/20 History ferrous sulfate [Iron (ferrous 325 mg PO TID 05/21/20 08/04/20 History sulfate)] gabapentin [Neurontin] 300 mg PO TID 05/21/20 08/04/20 History lidocaine 2 patch TOPICAL DAILY 05/21/20 08/04/20 History vitamin H17-gbfug acid 1 tab SUBLINGUAL DAILY 05/21/20 08/04/20 History furosemide 60 mg PO DAILY 07/01/20 08/04/20 History polyethylene glycol 3350 [Miralax] 17 g PO DAILY 07/01/20 08/04/20 History sertraline 150 mg PO 5XW 07/01/20 08/04/20 History albuterol sulfate 2.5 mg UPD Q2H PRN PRN #90 ml 07/29/20 08/04/20 Rx budesonide-formoterol [Symbicort] 2 puff INHALATION BID #10.2 g 07/29/20 08/04/20 Rx dimethicone-zinc oxide [Js 1 applic TOPICAL BID PRN #684 g 07/29/20 08/04/20 Rx Protect] omeprazole 1 tab PO DAILY #0 cap 07/29/20 08/04/20 Rx potassium chloride 20 meq PO TID #90 cap 07/29/20 08/04/20 Rx prednisone 30 mg PO DAILY #18 tab 07/29/20 Rx tiotropium bromide [Spiriva 2 puff INHALATION DAILY #4 g 07/29/20 08/04/20 Rx Respimat] Exam Narrative Exam Narrative: General: Morbidly obese elderly lady who appears older than stated age. Patient is fidgety in bed and has her eyes open looking toward the examiner but not oriented to person place or time. She is in moderate distress with BiPAP in place. HEENT: Normocephalic, face with coarsened features on moderate edema without pitting, eyes with pupils equal and reactive to light symmetrically, extraocular movement intact and sclera anicteric. Oropharynx with dry mucosa. Patient is edentulous. Neck: Supple without JVD. Back: Stooped posture with no CVA tenderness. Lungs: Decreased aeration diffusely with bronchovesicular breath sounds, normal inspiratory to expiratory phase ratio and coarse crackles sparsely without focalizing and occasional rhonchi. No expiratory wheeze. Breast: Exam deferred. Heart: Regular rate and rhythm with systolic murmur left sternal border and S4 gallop. There is no appreciable rubs. Abdomen: Obese contour with large pannus, soft and nontender to palpation with no palpable hepatosplenomegaly. Bowel sounds are positive in all quadrants. Genitalia/rectal: Exam deferred. Patient has Mittal catheter in place. Extremities: Grossly obese especially over lower extremities with patient appearing not to have ambulated recently, nonpitting edema over lower extremities and upper extremities with osteoarthritic changes over most joints. Capillary refill is fair and peripheral pulses are decreased. There is no clubbing or cyanosis. Skin: Pale, warm and dry with no skin breakdown reported by nurses with patient having a history of decubitus ulcers over her sacral area. Patient is in bed most of the time. Neuro: Cranial nerves II through XII grossly intact and patient allows exam, she is not moving her left upper extremity as well as her right and appears deconditioned lying in bed with her legs moving but markedly weak. There is no facial droop. Psych: Patient is lying in bed with her head elevated fidgeting with her bedding suggest to cut herself in the not responding to conversation. She appears slightly anxious. She is not responding to conversation and appears delusional with her metabolic state. She is not oriented to person place or time. Previously when I admit this patient she appears to be a poor historian at baseline. She did have remote memory intact at that time. Nurses report that this is not her baseline. Results Imaging Imaging Studies: Exam: XR Chest Exam date and time: 08/04/2020 6:03 PM Age: 69 years old Clinical indication: Other: Post central line placement TECHNIQUE: Imaging protocol: XR of the chest Views: 1 view. COMPARISON: CR XR PORTABLE CHEST AP 08/04/2020 4:27 PM FINDINGS: Tubes, catheters and devices: EKG leads overlie the chest. Interval placement of a right IJ central venous catheter with the tip in the SVC/RA junction. Lungs: A there is dense opacification of the inferior half of the right hemithorax consistent with a right pleural effusion and or consolidation. Patchy linear densities of the left lung base appears somewhat improved since the prior study. Linear densities of the right upper lobe appear not significantly changed. Pleural spaces: See Lungs finding. Heart/Mediastinum: Cardiomegaly is again noted. Vasculature: The aorta demonstrates mild atherosclerotic calcification. Diaphragm: Elevation of the right hemidiaphragm may also be present. Bones/joints: Chronic degenerative changes of the spine are present. IMPRESSION: 1. Interval placement of a right IJ central venous catheter. 2. Persistent dense opacification at the right lung base consistent with a right pleural effusion and/or consolidation/mass. 3. Partial clearance of left basilar consolidation/atelectasis. 4. No change in cardiomegaly. xam: CT Head Without Contrast Exam date and time: 08/04/2020 3:08 PM Age: 69 years old Clinical indication: Altered mental status/memory loss; Additional info: Altered, R/O stroke TECHNIQUE: Imaging protocol: Computed tomography of the head without contrast. Radiation optimization: All CT scans at this facility use at least one of these dose optimization techniques: automated exposure control; mA and/or kV adjustment per patient size (includes targeted exams where dose is matched to clinical indication); or iterative reconstruction. COMPARISON: CT HEAD WITHOUT CONTRAST 05/02/2016 2:56 PM FINDINGS: Brain: There is brain parenchymal atrophy. No intracranial hemorrhage is seen. No acute arterial territory stroke is noted. There is nonspecific white matter disease, likely related to chronic ischemic demyelination. Cerebral ventricles: No ventriculomegaly. Bones/joints: Unremarkable. No acute fracture. Paranasal sinuses: Visualized sinuses are unremarkable. No fluid levels. Mastoid air cells: Visualized mastoid air cells are well aerated. Soft tissues: Unremarkable. IMPRESSION: No acute finding. Exam: XR Chest Exam date and time: 08/04/2020 3:08 PM Age: 69 years old Clinical indication: Shortness of breath; Additional info: SOB, altered TECHNIQUE: Imaging protocol: XR of the chest Views: 1 view. COMPARISON: CR XR PORTABLE CHEST AP 07/28/2020 1:59 PM FINDINGS: Lungs: Bilateral pulmonary infiltrates, slightly worsened. Pleural spaces: Unremarkable. No pleural effusion. No pneumothorax. Heart/Mediastinum: Cardiomegaly. Vasculature: Atherosclerosis. Diaphragm: Elevation of the right hemidiaphragm. Bones/joints: Degenerative changes in the spine. Severe degenerative changes in the left shoulder joint. There may have been a prior fracture in this location. IMPRESSION: Bilateral pulmonary infiltrates, slightly worsened. Elevation of the right hemidiaphragm. Degenerative changes in the spine. Cardiomegaly. Atherosclerosis. Severe degenerative changes in the left shoulder joint. There may have been a prior fracture in this location. Labs Result diagrams: 08/04/20 15:20 08/04/20 15:20 Labs: Laboratory Results - last 24 hr 08/04/20 08/04/20 08/04/20 15:20 15:20 15:20 WBC RBC Hgb Hct MCV MCH MCHC RDW Plt Count MPV Immature Gran % Neutrophils % Lymphocytes % Monocytes % Eosinophils % Basophils % Nucleated RBC % Absolute Neutrophils Absolute Lymphocytes Absolute Monocytes Absolute Eosinophils Absolute Basophils PT INR APTT VBG pH VBG pCO2 VBG pO2 VBG HCO3 VBG Total CO2 VBG O2 Saturation VBG Base Excess VBG Lactate 0.9 Sodium 152 H Potassium 3.7 Chloride 111 H Carbon Dioxide 38.7 H Anion Gap 2.3 L BUN 34 H Creatinine 1.5 H Estimated GFR/1.73 m2 34.23 Glucose 139 H Calcium 11.8 H* Total Bilirubin 0.5 AST 11 L ALT 19 Alkaline Phosphatase 99 Ammonia 39 H Troponin I 0.23 H* NT-Pro-B Natriuret Pep 208 Total Protein 6.5 Albumin 2.9 L TSH 2.51 Urine Color Urine Clarity Urine pH Ur Specific Pacifica Urine Protein Urine Ketones Urine Blood Urine Nitrite Urine Bilirubin Urine Urobilinogen Ur Leukocyte Esterase Urine RBC Urine WBC Ur Epithelial Cells Urine Crystals Urine Bacteria Urine Casts Urine Mucus Urine Other Ur Culture Indicated? Urine Glucose Ethyl Alcohol < 3.0 COVID-19 Source SARS-CoV-2 (PCR) 08/04/20 08/04/20 08/04/20 15:20 15:20 15:20 WBC 8.84 RBC 4.11 Hgb 12.4 Hct 42.9 MCV 104.4 H MCH 30.2 MCHC 28.9 L RDW 18.7 H Plt Count 152 MPV 12.1 H Immature Gran % 0.3 Neutrophils % 75.2 Lymphocytes % 13.0 Monocytes % 9.8 Eosinophils % 1.5 Basophils % 0.2 Nucleated RBC % 0 Absolute Neutrophils 6.64 Absolute Lymphocytes 1.15 L Absolute Monocytes 0.87 H Absolute Eosinophils 0.13 Absolute Basophils 0.02 PT 10.8 INR 1.1 APTT 21.8 VBG pH 7.29 L VBG pCO2 79 H* VBG pO2 55 VBG HCO3 37 H VBG Total CO2 35 H VBG O2 Saturation 86 VBG Base Excess 11 H VBG Lactate Sodium Potassium Chloride Carbon Dioxide Anion Gap BUN Creatinine Estimated GFR/1.73 m2 Glucose Calcium Total Bilirubin AST ALT Alkaline Phosphatase Ammonia Troponin I NT-Pro-B Natriuret Pep Total Protein Albumin TSH Urine Color Urine Clarity Urine pH Ur Specific Pacifica Urine Protein Urine Ketones Urine Blood Urine Nitrite Urine Bilirubin Urine Urobilinogen Ur Leukocyte Esterase Urine RBC Urine WBC Ur Epithelial Cells Urine Crystals Urine Bacteria Urine Casts Urine Mucus Urine Other Ur Culture Indicated? Urine Glucose Ethyl Alcohol COVID-19 Source SARS-CoV-2 (PCR) 08/04/20 08/04/20 15:36 16:20 WBC RBC Hgb Hct MCV MCH MCHC RDW Plt Count MPV Immature Gran % Neutrophils % Lymphocytes % Monocytes % Eosinophils % Basophils % Nucleated RBC % Absolute Neutrophils Absolute Lymphocytes Absolute Monocytes Absolute Eosinophils Absolute Basophils PT INR APTT VBG pH VBG pCO2 VBG pO2 VBG HCO3 VBG Total CO2 VBG O2 Saturation VBG Base Excess VBG Lactate Sodium Potassium Chloride Carbon Dioxide Anion Gap BUN Creatinine Estimated GFR/1.73 m2 Glucose Calcium Total Bilirubin AST ALT Alkaline Phosphatase Ammonia Troponin I NT-Pro-B Natriuret Pep Total Protein Albumin TSH Urine Color Yellow Urine Clarity Clear Urine pH 5.5 Ur Specific Pacifica 1.015 Urine Protein Negative Urine Ketones Negative Urine Blood Negative Urine Nitrite Positive H Urine Bilirubin Negative Urine Urobilinogen 0.2 Ur Leukocyte Esterase Small H Urine RBC Negative Urine WBC >50 H Ur Epithelial Cells Negative Urine Crystals Negative Urine Bacteria Moderate Urine Casts Negative Urine Mucus Negative Urine Other Negative Ur Culture Indicated? Yes Urine Glucose Negative Ethyl Alcohol COVID-19 Source Nasopharyx SARS-CoV-2 (PCR) Negative Last Vital Signs Temp 36.4 C L 08/04/20 14:43 Pulse 62 08/04/20 19:16 Resp 17 08/04/20 19:20 BP 168/82 H 08/04/20 19:16 Pulse Ox 95 08/04/20 19:50 COVID-19 Screening Have you, or household traveled for leisure in last 14 days?: No Had IN PERSON contact w/suspected or confirmed C-19 person: No
[2020-08-04] MEDS: DEXTROSE 5%-0.45% SALINE 1,000 ML 150 ML IV (21:42)
[2020-08-04] MEDS: Heparin 5,000 UNITS/ML VIAL 5000 UNITS SC (21:43)
[2020-08-04] MEDS: Simvastatin 20 MG TAB 40 MG PO (22:47)
[2020-08-04 23:37] LABS: Magnesium 2.2 mg/dL (1.8-2.4)
[2020-08-04 23:48] LABS: Troponin I 0.36 ng/mL (<0.06)
[2020-08-05] VITALS (14 sets, daily range): BP systolic 152–170; BP diastolic 84–113; PULSE 60–80; RESP 8–26; TEMP 36.2–36.7; O2SAT 90–98
[2020-08-05] MEDS: Hydrocortisone SOD SUC. 100 MG VIAL IVP ×3 (00:07→17:22)
[2020-08-05] MEDS: Heparin 5,000 UNITS/ML VIAL 5000 UNITS SC ×2 (04:34→12:23)
[2020-08-05] MEDS: DEXTROSE 5%-0.45% SALINE 1,000 ML 150 ML IV (04:57)
[2020-08-05] MEDS: MEROPENEM 1 GM in Normal Saline 100 ML IVPB (06:24)
[2020-08-05 07:10] LABS: Abs Immature Grans 0.03 10^3/uL (0.0-0.06); Absolute Basophil Count 0.01 10^3/uL (0.0-0.2); Absolute Eosinophil Count 0.03 10^3/uL (0.0-0.7); Absolute Lymphocyte Count 0.87 10^3/uL (1.2-3.4); Absolute Monocyte Count 0.38 10^3/uL (0.1-0.8); Absolute Neutrophil Count 5.99 10^3/uL (1.2-6.7); Basophils % 0.1; Eosinophils % 0.4; HCT 39.4 % (36.0-46.0); HGB 11.5 g/dL (11.2-15.7); Immature Grans % 0.4; Lymphocytes % 11.9; MCHC 29.2 % (32.0-36.0); MCV 102.9 fL (80-95); MPV 13.1 fL (8.0-11.0); Monocytes % 5.2; Nucleated RBC 0 %; Platelet Count 135 10^3/uL (130-400); RBC 3.83 10^6/uL (3.93-5.22); RDW 18.5 % (11.7-14.6); RDW-SD 69.6 fL; WBC 7.31 10^3/uL (4.4-10.8)
[2020-08-05 07:26] LABS: ALT 19 U/L (14-59); AST 9 U/L (15-37); Albumin 2.7 g/dL (3.4-5.0); Alkaline Phosphatase 87 U/L (46-116); Anion Gap 3.2 mmol/L (3-11); BUN 31 mg/dL (7-18); Bilirubin, Total 0.5 mg/dL (0.2-1.0); CO2 36.8 mmol/L (21.0-32.0); CREATININE 1.3 mg/dL (0.55-1.02); Calcium 11.1 mg/dL (8.5-10.1); Chloride 110 mmol/L (98-107); Estimated GFR 40.38 (mL/min/1.73m2); Glucose 197 mg/dL (74-106); Sodium 150 mmol/L (136-145); Total Protein 6.1 g/dL (6.4-8.2)
[2020-08-05 07:36] LABS: Troponin I 0.35 ng/mL (<0.06)
[2020-08-05 08:21] LABS: BE 10 mmol/L (-2-3); HCO3 36 mmol/L (22-26); pH 7.33 (7.35-7.45); pO2 63 mmHg (80-105); sO2 92 % (95-98); tCO2 34 mmol/L (23-27)
[2020-08-05 08:25] LABS: FIO2L 5 L; Site Left Radial; pCO2 69 mmHg (35-45)
[2020-08-05] MEDS: Ferrous Sulfate 325 MG TAB PO ×2 (08:46→13:46)
[2020-08-05] MEDS: Potassium Chloride 10 MEQ CAPCR 20 MEQ PO ×2 (08:46→13:46)
[2020-08-05] MEDS: Omeprazole 20 MG CAPCR 40 MG PO (08:46)
[2020-08-05] MEDS: Gabapentin 300 MG CAP PO ×2 (08:47→13:46)
[2020-08-05] MEDS: Lidocaine 5% Patch 2 PATCH TP (08:47)
[2020-08-05] MEDS: POTASSIUM CHLORIDE 20 MEQ/100 ML BAG 50 MEQ IVPB ×3 (08:48→13:46)
[2020-08-05] MEDS: Tiotropium Bromide-Respimat 10 PUFF INH IH (10:25)
[2020-08-05] MEDS: VANCOMYCIN/WATER (PEG) 1 GM/200 ML BAG IV (11:22)
[2020-08-05] MEDS: Sertraline 50 MG TAB 150 MG PO (12:22)
[2020-08-05 13:22] LABS: Anion Gap 3.4 mmol/L (3-11); BUN 29 mg/dL (7-18); CO2 35.6 mmol/L (21.0-32.0); CREATININE 1.3 mg/dL (0.55-1.02); Chloride 110 mmol/L (98-107); Estimated GFR 40.38 (mL/min/1.73m2); Glucose 146 mg/dL (74-106); Potassium 3.7 mmol/L (3.5-5.1); Sodium 149 mmol/L (136-145)
--- NOTE | 2020-08-05 16:47 | W.PM.PROGNOT ---
Date of Service Date of service: 08/05/20 Time of Service: 16:47 Assessment and Plan Assessment and plan (1) Acute on chronic respiratory failure with hypoxia and hypercapnia: Status: Acute Assessment and plan: Recheck ABG to see if hypercapnia is a part of the explanation for the patient's mental status. Continue BiPAP, adjust settings according to the ABG. Continue steroids, symbicort, bronchodialotrs (add nebs). (2) Aspiration pneumonia: Status: Acute Assessment and plan: Recurrent and unpreventable in this patient's case. Considering medical futility and strongly recommend end of life care. Palliative care consulted. Continue empiric meropenem for now. (3) UTI (urinary tract infection): Status: Acute Assessment and plan: Continue empiric meropenem. (4) Toxic metabolic encephalopathy: Status: Acute Assessment and plan: Multifactorial: CO2 narcosis, UTI, pneumonia and hyperammonemia contributing. Continue BIPAP, abx. Add lactulose. (5) Obesity hypoventilation syndrome: Status: Chronic Assessment and plan: Await ABG (6) Dysphagia: Status: Chronic Assessment and plan: Patient aspirates independent of texture - largely behavioral. The patient has continued to aspirated despite our maximum offered measures. Her admissions with aspiration pneumonias are very frequent and ultimately her quality of life is not improved by them. Medical futility declaration is being considered. Discussion re end of life care with palliative medicine planned for tomorrow. (7) Acute hypernatremia: Status: Acute Assessment and plan: Improved with D5 fliuds. Will stop these for today and recheck sodium later today. (8) Pulmonary hypertension: Status: Chronic Assessment and plan: Monitor volume status.D/c IVF. Could be contributing to worsening respiratory failure as well. (9) DVT prophylaxis: Status: Acute Assessment and plan: SC heparin (10) Discharge planning issues: Status: Acute Assessment and plan: DNI; DNR if becomes unresponsive. Palliative care consult to happen tomorrow. Futility is being considered. Prognosis poor. Subjective Subjective Interval history since last seen: PT is less interactive now than she was this morning. She denies dizziness, chest pain, shortness of breath, nausea, and knows she is in the hospital. Per her nurse, she was not breathing well this afternoon and had to go back on BiPAP after lunch. Spent the night on BIPAP. Ethics meeting today discussed how the medical team feels that the care we provide is futile and prognosis for Michelle is extremely poor. Declaration of medical futility is being strongly considered, and comfort measures are strongly recommended. The patient will meet with palliative care tomorrow. Exam Narrative Exam Narrative: General: Obese female on BiPAP, minimally verbal with me, but does nod/shake her head and is able to verbalize that she is at the hospital HEENT: EOMI, dry MM Heart: RRR Lungs: DIminished breath sounds B on BIPAP Abdomen: soft, nontender, nondistended Extremities: chronic BLE edema Objective Last Vital Signs Temp 36.7 C 08/05/20 16:31 Pulse 60 08/05/20 16:31 Resp 22 08/05/20 16:31 BP 166/100 H 08/05/20 16:31 Pulse Ox 92 08/05/20 16:31 Laboratory Results - last 24 hr 08/04/20 08/04/20 08/04/20 16:20 23:20 23:20 WBC RBC Hgb Hct MCV MCH MCHC RDW Plt Count MPV Immature Gran % Neutrophils % Lymphocytes % Monocytes % Eosinophils % Basophils % Nucleated RBC % Absolute Neutrophils Absolute Lymphocytes Absolute Monocytes Absolute Eosinophils Absolute Basophils ABG Sample Site ABG pH ABG pCO2 ABG pO2 ABG HCO3 ABG Total CO2 ABG O2 Saturation ABG Base Excess Oxygen Liter Flow Sodium Potassium Chloride Carbon Dioxide Anion Gap BUN Creatinine Estimated GFR/1.73 m2 Glucose Calcium Magnesium 2.2 Total Bilirubin AST ALT Alkaline Phosphatase Troponin I 0.36 H* Total Protein Albumin SARS-CoV-2 (PCR) Negative 08/05/20 08/05/20 08/05/20 06:35 06:35 08:15 WBC 7.31 RBC 3.83 L Hgb 11.5 Hct 39.4 MCV 102.9 H MCH 30.0 MCHC 29.2 L RDW 18.5 H Plt Count 135 MPV 13.1 H Immature Gran % 0.4 Neutrophils % 82.0 Lymphocytes % 11.9 Monocytes % 5.2 Eosinophils % 0.4 Basophils % 0.1 Nucleated RBC % 0 Absolute Neutrophils 5.99 Absolute Lymphocytes 0.87 L Absolute Monocytes 0.38 Absolute Eosinophils 0.03 Absolute Basophils 0.01 ABG Sample Site Left radial ABG pH 7.33 L ABG pCO2 69 H* ABG pO2 63 L ABG HCO3 36 H ABG Total CO2 34 H ABG O2 Saturation 92 L ABG Base Excess 10 H Oxygen Liter Flow 5 Sodium 150 H Potassium 3.0 L Chloride 110 H Carbon Dioxide 36.8 H Anion Gap 3.2 BUN 31 H Creatinine 1.3 H Estimated GFR/1.73 m2 40.38 Glucose 197 H Calcium 11.1 H Magnesium Total Bilirubin 0.5 AST 9 L ALT 19 Alkaline Phosphatase 87 Troponin I 0.35 H* Total Protein 6.1 L Albumin 2.7 L SARS-CoV-2 (PCR) 08/05/20 12:30 WBC RBC Hgb Hct MCV MCH MCHC RDW Plt Count MPV Immature Gran % Neutrophils % Lymphocytes % Monocytes % Eosinophils % Basophils % Nucleated RBC % Absolute Neutrophils Absolute Lymphocytes Absolute Monocytes Absolute Eosinophils Absolute Basophils ABG Sample Site ABG pH ABG pCO2 ABG pO2 ABG HCO3 ABG Total CO2 ABG O2 Saturation ABG Base Excess Oxygen Liter Flow Sodium 149 H Potassium 3.7 D Chloride 110 H Carbon Dioxide 35.6 H Anion Gap 3.4 BUN 29 H Creatinine 1.3 H Estimated GFR/1.73 m2 40.38 Glucose 146 H Calcium 11.0 H Magnesium Total Bilirubin AST ALT Alkaline Phosphatase Troponin I Total Protein Albumin SARS-CoV-2 (PCR)
[2020-08-05 16:57] LABS: BE 8 mmol/L (-2-3); HCO3 34 mmol/L (22-26); pH 7.34 (7.35-7.45); pO2 63 mmHg (80-105); sO2 92 % (95-98); tCO2 31 mmol/L (23-27)
[2020-08-05 17:01] LABS: pCO2 63 mmHg (35-45)
[2020-08-05 17:02] LABS: FIO2 30 %; FIO2L BiPAP 16/6 L; Site Left Radial
[2020-08-05] MEDS: Normal Saline Flush 10 ML SYR IVP (17:23)
--- NOTE | 2020-08-05 17:45 | INITIAL_ITS ---
- If Service Date Differs Date of service: 08/05/20 Time of Service: 17:46 Care Management Initial Assess REASON FOR HOSPITALIZATION:: AMS, ZUHAIR, UTI, PNA, Hypernatremis, Hypercalcemia PAST MEDICAL HISTORY/PAST SURGICAL HISTORY:: Anxiety about Health, Avoidance coping, COPD, depression, generalized weakness, low level of literacy, lymphedema, morbid obesity, oncocytoma, Palliative Care patient, renal cell carcinoma, TRINH, left renal mass, heart failure with preserved EF, pulmonary hypertension, GI bleed, aspiration pneumonia, CHF, ZUHAIR, UTIs, DVT prophylaxis PREVIOUS FUNCTIONAL STATUS/SOCIAL/FAMILY SUPPORTS:: Michelle currently resides at the [facility]. This is her fourth admission at [facility] since May due to increased care needs and recurrent aspiration pneumonia. CURRENT FUNCTIONAL STATUS:: Unable to engage with this repairer typewriter at this time. ADVANCE DIRECTIVES:: COLST on file. Has patient been provided with info about the portal/API?: No Did the patient sign up for the portal?: No CODE STATUS:: Full Code INSURANCE COVERAGE / FINANCIAL ISSUES:: Medicare. Medicaid CURRENT HOME/COMMUNITY SERVICES/EQUIPMENT:: [facility]. PRIMARY CARE PHYSICIAN:: Lucia Mckeon POTENTIAL DISCHARGE NEEDS:: Palliative discussions with Michelle and family. Determining level of care and disposition support. PATIENT/FAMILY EDUCATION NEEDS:: Review discharge instructions, discuss Ask Me Three. ANTICIPATED BARRIERS TO DISCHARGE:: None identified. TRANSPORTATION:: TBD by disposition. PLAN:: Michelle will be closely monitored and treated. CM will coordinate Palliative discussion and support family and Antonionalee in developing goals of care. CM continues to follow.
[2020-08-05] MEDS: Albuterol/Ipratropium 3 ML UPD VIAL UPD (18:55)
[2020-08-05] MEDS: Patch Removal 1 EACH TP (22:53)
[2020-08-06] VITALS (14 sets, daily range): BP systolic 111–184; BP diastolic 68–103; PULSE 74–97; RESP 8–22; TEMP 36.6–37.2; O2SAT 80–97
[2020-08-06] MEDS: VANCOMYCIN/WATER (PEG) 1 GM/200 ML BAG IV ×2 (01:33→18:13)
[2020-08-06] MEDS: Albuterol/Ipratropium 3 ML UPD VIAL UPD ×4 (01:33→18:33)
[2020-08-06] MEDS: Hydrocortisone SOD SUC. 100 MG VIAL IVP ×3 (01:33→16:08)
[2020-08-06] MEDS: Normal Saline Flush 10 ML SYR IVP ×2 (01:35→09:10)
[2020-08-06] MEDS: MEROPENEM 1 GM in Normal Saline 100 ML IVPB (05:19)
[2020-08-06] MEDS: Heparin 5,000 UNITS/ML VIAL 5000 UNITS SC ×3 (05:20→21:27)
--- NOTE | 2020-08-06 07:26 | NUR.NOTE ---
Nursing Note: 0625 Care team heard Michelle light out. Staff responded to find that Michelle had pulled out her right jugular IV access. Michelle displayed signs of increasing disorientation. Michelle had removed her nasal cannula. Michelle's O2 saturation was checked and found to be in the low 70s. The jugular site was covered with a sterile dressing. An Oxymask with 5L O2 applied to Michelle. O2 sats returned to 93%, mentation improved.
[2020-08-06] MEDS: Bacitracin 1 PACKET (07:33)
[2020-08-06] MEDS: Tiotropium Bromide-Respimat 10 PUFF INH IH (08:02)
[2020-08-06] MEDS: Potassium Chloride 10 MEQ CAPCR 20 MEQ PO ×3 (09:05→19:55)
[2020-08-06] MEDS: Acetaminophen 325 MG TAB 650 MG PO (09:06)
[2020-08-06] MEDS: Omeprazole 20 MG CAPCR 40 MG PO (09:06)
[2020-08-06] MEDS: Gabapentin 300 MG CAP PO ×3 (09:07→19:56)
[2020-08-06] MEDS: Sertraline 50 MG TAB 150 MG PO (09:08)
[2020-08-06] MEDS: Lactulose 20 GM/30 ML CUP PO ×2 (09:08→19:56)
[2020-08-06] MEDS: Ferrous Sulfate 325 MG TAB PO ×3 (09:08→19:54)
[2020-08-06] MEDS: Lidocaine 5% Patch 2 PATCH TP (09:09)
[2020-08-06 10:45] LABS: Abs Immature Grans 0.04 10^3/uL (0.0-0.06); Absolute Basophil Count 0.01 10^3/uL (0.0-0.2); Absolute Lymphocyte Count 0.51 10^3/uL (1.2-3.4); Absolute Monocyte Count 0.61 10^3/uL (0.1-0.8); Absolute Neutrophil Count 6.36 10^3/uL (1.2-6.7); Basophils % 0.1; HCT 41.8 % (36.0-46.0); HGB 12.5 g/dL (11.2-15.7); Immature Grans % 0.5; Lymphocytes % 6.8; MCHC 29.9 % (32.0-36.0); MCV 100.5 fL (80-95); Monocytes % 8.1; Neutrophils % 84.5; Nucleated RBC 0 %; RBC 4.16 10^6/uL (3.93-5.22); RDW 18.1 % (11.7-14.6); RDW-SD 65.2 fL; WBC 7.53 10^3/uL (4.4-10.8)
[2020-08-06 10:52] LABS: Anion Gap 7.2 mmol/L (3-11); BUN 27 mg/dL (7-18); CO2 34.8 mmol/L (21.0-32.0); CREATININE 1.4 mg/dL (0.55-1.02); Calcium 11.5 mg/dL (8.5-10.1); Chloride 110 mmol/L (98-107); Estimated GFR 37.07 (mL/min/1.73m2); Glucose 172 mg/dL (74-106); Magnesium 2.1 mg/dL (1.8-2.4); Potassium 3.7 mmol/L (3.5-5.1); Sodium 152 mmol/L (136-145)
[2020-08-06 10:58] LABS: Platelet Count 124 10^3/uL (130-400)
[2020-08-06 10:59] LABS: Anisocytosis 1+; Diff Comment Diff Reviewed
--- NOTE | 2020-08-06 11:24 | PCNE_ITS ---
Date of service: 08/06/20 Time of Service: 11:24 History of Present Illness History of Present Illness Chief Complaint: SOB, cough, weakness Narrative: Michelle was seen in her hospital room with Chaplain Sera and MARTIN Sales present. We discussed considering comfort-focused care due to the fact that she is clearly declining and she has had 4 acute admissions in 3 months. She has already established that she is a DNI on her last admission. Michelle was clear that she wants to transition to comfort-focused care and remain at [facility]. She was able to engage meaninfully in the conversation. She was able to repeat back, so you mean, let myself ? She nodded yes to the question of whether she believes she is nearing the end of her life. She went on to agree to stop aggressive care. Later during the visit she was asking where h er would be. She was agreeable to discuss arrangements with her sons. She is aware that she can have 2 visitors while on comfort care. I called her son, Bruce, to discuss what his mother has decided. Bruce is POA for his mother and wants to discuss this transition with his brother before allowing her to be transitioned to comfort focused care. Her medical condition was reviewed with Bruce. Bruce verbalizes understanding, however, is focused on the fact that he believes that she is not doing well due to being at the [facility]. He has not seen is mother for several months. He will discuss this all with his brother and get back in contact with the Care managers. He does not yet want her to transition to comfort care. Assessment and Plan Assessment and plan (1) Aspiration pneumonia: Status: Acute (2) Urinary tract infection: Status: Acute Qualifiers: Urinary tract infection type: site unspecified Hematuria presence: without hematuria Qualified Code(s): N39.0 - Urinary tract infection, site not specified (3) Hypercarbia: Status: Acute (4) Hypercalcemia: Status: Acute (5) DNI (do not intubate): Status: Chronic (6) Acute on chronic respiratory failure: Status: Acute Qualifiers: Respiratory failure complication: hypercapnia Qualified Code(s): J96.22 - Acute and chronic respiratory failure with hypercapnia (7) Obesity hypoventilation syndrome: Status: Chronic (8) Acute on chronic respiratory failure with hypoxia and hypercapnia: Status: Acute (9) Diastolic dysfunction with chronic heart failure: Status: Chronic (10) CKD (chronic kidney disease) stage 3, GFR 30-59 ml/min: Status: Chronic Qualifiers: Chronic kidney disease stage 3 subtype: stage 3b (GFR 30-44) Qualified Code(s): N18.32 - Chronic kidney disease, stage 3b (11) Acute exacerbation of chronic obstructive pulmonary disease: Status: Acute (12) Renal cell carcinoma: Status: Chronic (13) Pulmonary hypertension: Status: Chronic (14) Goals of care, counseling/discussion: Status: Chronic (15) Elevated troponin: Status: Chronic (16) Palliative care patient: Status: Chronic Assessment and plan: Michelle is a very pleasant 69 year old female with a past medical history significant for TRINH, morbid obesity, CHF, chronic respiratory failure, left renal mass, CKD, currently being treated for aspiration PNA and UTI. She was seen in her hospital room today with Chaplain Sera and MARTIN Sales present. We discussed considering comfort-focused care due to the fact that she is clearly declining and she has had 4 acute admissions in 3 months. She has multisystem organ failure. She has already established that she is a DNI on her last admission. During her visit today, she was clear that she would like to transition to comfort focused care here at [facility]. She was able to repeat back during the discussion and asked about arrangements, indicating that she understood the conversation. When this was discussed with her son and health care agent, Bruce, he asked that we do not transition her to comfort care yet, as he would like to discuss everything with his brother. Bruce will call her medicare contact specialist after talking to his brother. At this point, we are respecting the families need to discuss and consider transitioning to comfort care, however, she has clearly stated what her wishes are and demonstrated understanding of those wishes. She agrees that comfort focused care is in line with her goals of care. We will await a call from her son for now. She very likely may on this admission. Review of Systems Narrative: She is SOB, +cough, mouth feels dry. She is weak and fatigued. [facility] Medical History Acute on chronic respiratory failure Anxiety about health Avoidance coping CKD (chronic kidney disease) stage 3, GFR 30-59 ml/min COPD (chronic obstructive pulmonary disease) Depression Diastolic dysfunction with chronic heart failure DNI (do not intubate) Generalized weakness Goals of care, counseling/discussion Low-level of literacy Lymphedema Morbid obesity [facility] resident Oncocytoma Palliative care patient Renal cell carcinoma Family History Son No problems noted. Son No problems noted. Son No problems noted. Mother , of ALS age 63 ALS (amyotrophic lateral sclerosis) Father , of lung cancer age 70 heavy smoker Lung cancer Smoker Sister No problems noted. Sister No problems noted. Sister No problems noted. Sister No problems noted. Sister No problems noted. Brother , older brother doesn't know how he No problems noted. Brother No problems noted. 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 Pets and animals: No Current gender identity: female What is your relationship status?: How often do you talk on the phone with friends or family?: once per week How often do you get together with friends or relatives?: never Panel score (0-1 are the most socially isolated patients): 0 What type of physical activity do you participate in: none, bed-bound, sedentary lifestyle and wheelchair-bound Special alysha needs: No Seatbelt use: always Water heater temp set <120 deg: Yes Working smoke detector in home: Yes Fire extinguisher in home: Yes Firearms in home: No Do you feel safe at home: Yes Do you feel safe in your relationship?: Yes Additional Social history: resident @ [facility]. Was living in community [facility] until her legs gave out all of a sudden and I couldn't walk. [facility] was in [place], run by her son's best friend and his . Prior to living in [facility], lived on her own in [place], where she lived for many years. She has one son in [place], one son in [place] [facility], and one son in [place], [place]. She tells me she knows her memory is getting worse. Sometimes I just black out. She has never filled out a COLST form. She can't tell me which of her sons is her DPOA. Exam Narrative Exam Narrative: General: elderly, obese female, laying in bed with HOB elevated, SOB while talking. Had BiPAP on initially, then transitioned to mask. She is able to engage in meaningful conversation, she repeats information back, demonstrating understanding. HEENT: normocephalic, atraumatic, makes eye contact, mucous membranes very dry. Neck: supple Cardiovascular: heart sounds regular, tachycardic, +murmur. Respiratory: appears SOB with talking, lungs are diminished throughout on limited anterior and lateral exam. GI: +BS, soft, nontender on palpation, nondistended. Extremities: All 4 extremities appear wrinkled after diuresis. Results Last Vital Signs Temp 36.8 C 08/06/20 08:15 Pulse 86 08/06/20 08:15 Resp 22 08/06/20 08:15 BP 165/95 H 08/06/20 08:15 Pulse Ox 94 08/06/20 08:15 Labs Result diagrams: 08/06/20 10:35 08/06/20 10:35 Labs: Laboratory Results - last 24 hr 08/05/20 08/05/20 08/06/20 12:30 16:50 10:35 WBC RBC Hgb Hct MCV MCH MCHC RDW Plt Count MPV Immature Gran % Neutrophils % Lymphocytes % Monocytes % Eosinophils % Basophils % Nucleated RBC % Absolute Neutrophils Absolute Lymphocytes Absolute Monocytes Absolute Eosinophils Absolute Basophils RBC Morphology Anisocytosis ABG Sample Site Left radial ABG pH 7.34 L ABG pCO2 63 H* ABG pO2 63 L ABG HCO3 34 H ABG Total CO2 31 H ABG O2 Saturation 92 L ABG Base Excess 8 H Oxygen Liter Flow Bipap 16/6 FiO2 30 Sodium 149 H 152 H Potassium 3.7 D 3.7 Chloride 110 H 110 H Carbon Dioxide 35.6 H 34.8 H Anion Gap 3.4 7.2 BUN 29 H 27 H Creatinine 1.3 H 1.4 H Estimated GFR/1.73 m2 40.38 37.07 Glucose 146 H 172 H Calcium 11.0 H 11.5 H Magnesium 2.1 08/06/20 10:35 WBC 7.53 RBC 4.16 Hgb 12.5 Hct 41.8 MCV 100.5 H MCH 30.0 MCHC 29.9 L RDW 18.1 H Plt Count 124 L MPV Immature Gran % 0.5 Neutrophils % 84.5 Lymphocytes % 6.8 Monocytes % 8.1 Eosinophils % 0.0 Basophils % 0.1 Nucleated RBC % 0 Absolute Neutrophils 6.36 Absolute Lymphocytes 0.51 L Absolute Monocytes 0.61 Absolute Eosinophils 0.00 Absolute Basophils 0.01 RBC Morphology See below Anisocytosis 1+ ABG Sample Site ABG pH ABG pCO2 ABG pO2 ABG HCO3 ABG Total CO2 ABG O2 Saturation ABG Base Excess Oxygen Liter Flow FiO2 Sodium Potassium Chloride Carbon Dioxide Anion Gap BUN Creatinine Estimated GFR/1.73 m2 Glucose Calcium Magnesium
--- NOTE | 2020-08-06 13:51 | CHAPLAIN ---
Yesterday I stopped in Michelle's room a couple of times. She was not very talkative and was wearing a BiPap. She seemed to recognize who I was. We've met on several of her admissions. Yesterday afternoon we held an ethics consult, at Dr. Curtis's request as she is concerned about the futility of Michelle's more aggressive care, and her wishes to have CPR performed if her heart stops. At the end of the consult, it was planned that Tenisha Ovalle RN, from Palliative Care would visit Michelle today and talk about the option of not pursing aggressive treatments and relying on comfort care. Today when Tenisha discussed her plan of care with Michelle, Michelle was clear in saying that comfort care meant that she would naturally after Tenisha explained more aggressive care would not be beneficial, but that Michelle will be kept comfortable. And she could stay and [facility] and her sons could visit here. Michelle said she wanted to talk with her son, Bruce, she also asked to talk with him about her . Tenisha then called Michelle's son Bruce, who is her DPOA. He asked that Michelle's care not be changed to comfort measures until he can speak with his brother. Kayleedinorah was asking for vanilla ice cream when I left.
--- NOTE | 2020-08-06 15:38 | PGE_ITS ---
Date of Service Date of service: 08/06/20 Time of Service: 15:38 Assessment and Plan Assessment and plan (1) Acute on chronic respiratory failure with hypoxia and hypercapnia: Status: Acute Assessment and plan: The patient does not do well off of BiPAP for meaningful periods of time. This is multifactorial: due to aspiration pneumonia, COPD exacerbation, pulmonary hypertension, OHS. Continue BiPAP. Continue steroids, symbicort, bronchodilators, nebs. (2) Aspiration pneumonia: Status: Acute Assessment and plan: Recurrent and unpreventable in this patient's case. Considering medical futility and strongly recommend end of life care. Palliative care on board. Zoom meeting tomorrow to come to a final decision. Abx changed to imipenem/cilastin due to ESBL E.COli in the urine. (3) UTI (urinary tract infection): Status: Acute Assessment and plan: Meropenem changed to imipenem cilastin. (4) Toxic metabolic encephalopathy: Status: Acute Assessment and plan: Multifactorial: CO2 narcosis, UTI, pneumonia and hyperammonemia contributing. Continue BIPAP, abx. Continue lactulose. (5) Obesity hypoventilation syndrome: Status: Chronic Assessment and plan: As above (6) Dysphagia: Status: Chronic Assessment and plan: Patient aspirates independent of texture - largely behavioral. The patient has continued to aspirated despite our maximum offered measures. Her admissions with aspiration pneumonias are very frequent and ultimately her quality of life is not improved by them. She is not bouncing back on this admission and is essentially unable to be off of bipap for any meaningful length of time without getting hypercapnic. Medical futility declaration is being considered. Discussion re end of life care with family via zoom tomorrow. (7) Acute hypernatremia: Status: Acute Assessment and plan: Resume D5 fluids.. (8) Pulmonary hypertension: Status: Chronic Assessment and plan: Monitor volume status. (9) DVT prophylaxis: Status: Acute Assessment and plan: SC heparin (10) Discharge planning issues: Status: Acute Assessment and plan: DNI; DNR if becomes unresponsive. Patient is agreeable to comfort measures, but the son would like to have a family zoom meeting tomorrow. Prognosis poor. Subjective Subjective Interval history since last seen: The patient is asleep on BiPAP when I came to see her. She woke up but not enough to talk to me and fell promptly back asleep. She is growing ESBL E. Coli in her urine. She had met with LINING STITCHER Tenisha Sandra of palliative care to discuss her deter iorating condition. The patient was very clear that she was prepared for comfort measures. The patient's son Bruce had asked to have the opportunity to speak with his brother. There is a planned zoom meeting tomorrow morning to hopefully make a decision. Exam Narrative Exam Narrative: General: Obese female on BiPAP, arousable, but not enough to answer questions when I am in the room HEENT: EOMI, dry MM Heart: RRR Lungs: DIminished breath sounds B on BIPAP Abdomen: soft, nontender, nondistended Extremities: chronic BLE edema Objective Last Vital Signs Temp 36.8 C 08/06/20 08:15 Pulse 85 08/06/20 15:26 Resp 22 08/06/20 13:33 BP 165/95 H 08/06/20 08:15 Pulse Ox 97 08/06/20 13:33 Laboratory Results - last 24 hr 08/05/20 08/06/20 08/06/20 16:50 10:35 10:35 WBC 7.53 RBC 4.16 Hgb 12.5 Hct 41.8 MCV 100.5 H MCH 30.0 MCHC 29.9 L RDW 18.1 H Plt Count 124 L MPV Immature Gran % 0.5 Neutrophils % 84.5 Lymphocytes % 6.8 Monocytes % 8.1 Eosinophils % 0.0 Basophils % 0.1 Nucleated RBC % 0 Absolute Neutrophils 6.36 Absolute Lymphocytes 0.51 L Absolute Monocytes 0.61 Absolute Eosinophils 0.00 Absolute Basophils 0.01 RBC Morphology See below Anisocytosis 1+ ABG Sample Site Left radial ABG pH 7.34 L ABG pCO2 63 H* ABG pO2 63 L ABG HCO3 34 H ABG Total CO2 31 H ABG O2 Saturation 92 L ABG Base Excess 8 H Oxygen Liter Flow Bipap 16/6 FiO2 30 Sodium 152 H Potassium 3.7 Chloride 110 H Carbon Dioxide 34.8 H Anion Gap 7.2 BUN 27 H Creatinine 1.4 H Estimated GFR/1.73 m2 37.07 Glucose 172 H Calcium 11.5 H Magnesium 2.1
[2020-08-06] MEDS: DEXTROSE 5%-WATER 1,000 ML 75 ML IV (15:57)
--- NOTE | 2020-08-06 16:36 | CMPROGNOTE_ITS ---
- If Service Date Differs Date of service: 08/06/20 Time of Service: 16:36 Care Management Progress Note S/O: Michelle was lying in bed, with her BIPAP on, while CM met with her. Michelle had a meeting with Tenisha, Palliative care today. Chaplain Sera and MARTIN Sales, were present for the meeting. Michelle stated that she would like to be on comfort care with no further interventions to extend her life. Per Tenisha, she was alert and oriented, and asked questions regarding her service, asking for support. Tenisha discussed this with Bruce, her son and DPOA, who disagrees with this plan. CM talked to Bruce after he had an opportunity to talk to his and brother about the plan. Bruce stated that he absolutely does not agree that Michelle should be made comfort care, as he does not believe that she is of sound mind to make that decision. He feels like she is only requesting comfort in order to have family visit. CM discussed having a zoom/facetime meeting between Bruce, his brother, his , and iMchelle tomorrow (when they are all available) in order to discuss the plan in detail. Bruce will reach out to CM in the morning to schedule this. CM will continue to follow. A: Michelle is a 69 year old female admitted to [facility] on 08/04/20 with AMS, ZUHAIR, UTI, PNA, Hypernatremis, Hypercalcemia. P: Michelle and her providers are all considering comfort care for her at this time, as she continues to decline in health. Her son and DPOA, Bruce, is not in agreement, and would like to discuss this with his mother before making the decision. If she does transition to comfort measures, she will remain at [facility] for her end of life care, and will be allowed 2 continuous visitors. If she does not, she will likely return to the [facility], where she resides. She will follow up with her PCP and discharge plan of care. She will require ambulance transport upon discharge. CM will continue to support discharge planning considerations.
--- NOTE | 2020-08-06 17:51 | PHA.REVIEW ---
Pharmacy Admission Review - Admission Clinical Review (Last Reviewed 08/06/20 @ 12:27 by Tenisha Sandra NP) Discharge planning issues (Acute) Aspiration pneumonia (Acute) Toxic metabolic encephalopathy (Acute) Altered mental status (Acute) Encephalopathy (Acute) Urinary tract infection (Acute) Hypercarbia (Acute) Hypercalcemia (Acute) Acute hypernatremia (Acute) Pneumonia (Acute) Acute on chronic respiratory failure (Acute) UTI (urinary tract infection) (Acute) DVT prophylaxis (Acute) Acute on chronic respiratory failure with hypoxia and hypercapnia (Acute) Acute exacerbation of chronic obstructive pulmonary disease (Acute) codeine Allergy (Unverified 07/17/20 17:41) pentazocine Adverse Reaction (Unknown, Unverified 07/17/20 17:41) unknown Height 5 ft 2 in Weight 128.6 kg - Renal Dosing Renal Dosing: BUN 27 mg/dL (7-18) H 08/06/20 10:35 Creatinine 1.4 mg/dL (0.55-1.02) H 08/06/20 10:35 Medications needing adjustments: Reviewed List of meds needing interventions: eCrCl ~38 ml/min -- primaxin is renally adjusted - Anticoagulation Anticoagulation: Hgb 12.5 g/dL (11.2-15.7) 08/06/20 10:35 Hct 41.8 % (36.0-46.0) 08/06/20 10:35 Plt Count 124 10^3/uL (130-400) L 08/06/20 10:35 INR 1.1 (0.9-1.1) 08/04/20 15:20 Creatinine 1.4 mg/dL (0.55-1.02) H 08/06/20 10:35 Therapeutic Anticoagulation: Reviewed Medications: Heparin - Opiate Usage Evaluate Pain Scale/Pains Meds: N/A - Relevant Labs Sodium 152 mmol/L (136-145) H 08/06/20 10:35 Potassium 3.7 mmol/L (3.5-5.1) 08/06/20 10:35 Chloride 110 mmol/L (98-107) H 08/06/20 10:35 Magnesium 2.1 mg/dL (1.8-2.4) 08/06/20 10:35 Electrolytes, C-Reactive P, ESR: Reviewed - DM Control DM Control: Glucose 172 mg/dL (74-106) H 08/06/20 10:35 Insulin Dosing: Reviewed - Heart Failure/SC Heart Failure/SC: Troponin I 0.35 ng/mL (<0.06) H* 08/05/20 06:35 NT-Pro-B Natriuret Pep 208 pg/mL (<300) 08/04/20 15:20 - BP Control BP Control: Blood Pressure 111/68 Blood Pressure 165/95
[2020-08-06 18:26] LABS: Anion Gap 6.4 mmol/L (3-11); BUN 27 mg/dL (7-18); CO2 26.6 mmol/L (21.0-32.0); CREATININE 1.3 mg/dL (0.55-1.02); Calcium 11.4 mg/dL (8.5-10.1); Chloride 112 mmol/L (98-107); Estimated GFR 40.38 (mL/min/1.73m2); Glucose 213 mg/dL (74-106); Potassium 3.9 mmol/L (3.5-5.1); Sodium 145 mmol/L (136-145)
--- NOTE | 2020-08-06 18:42 | NUR.NOTE ---
Nursing Note:Pt appears to be hallucinating, stating she is seeing a little girl in her room, and in the hallway. No children in the hospital at this time. Pt also had a phone conversation with her sister Bianka, where she stated she is tired and its my time to go. 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 It's time for my
[2020-08-06] MEDS: Patch Removal 1 EACH TP (20:19)
[2020-08-06] MEDS: Simvastatin 20 MG TAB 40 MG PO (21:26)
[2020-08-07] VITALS (18 sets, daily range): BP systolic 141–159; BP diastolic 82–100; PULSE 65–110; RESP 1–24; TEMP 36.7–37; O2SAT 81–95
[2020-08-07] MEDS: Normal Saline Flush 10 ML SYR IVP ×2 (00:13→08:50)
[2020-08-07] MEDS: Albuterol/Ipratropium 3 ML UPD VIAL UPD ×3 (00:13→13:03)
[2020-08-07] MEDS: Hydrocortisone SOD SUC. 100 MG VIAL IVP ×2 (00:13→08:28)
[2020-08-07] MEDS: Heparin 5,000 UNITS/ML VIAL 5000 UNITS SC ×2 (04:28→12:59)
[2020-08-07] MEDS: Lactulose 20 GM/30 ML CUP PO (08:25)
[2020-08-07] MEDS: Omeprazole 20 MG CAPCR 40 MG PO (08:27)
[2020-08-07] MEDS: Ferrous Sulfate 325 MG TAB PO ×2 (08:27→13:41)
[2020-08-07] MEDS: Sertraline 50 MG TAB 150 MG PO (08:27)
[2020-08-07] MEDS: Gabapentin 300 MG CAP PO ×2 (08:27→13:41)
[2020-08-07] MEDS: Potassium Chloride 10 MEQ CAPCR 20 MEQ PO ×2 (08:27→13:41)
[2020-08-07] MEDS: Lidocaine 5% Patch 2 PATCH TP (08:28)
[2020-08-07] MEDS: Tiotropium Bromide-Respimat 10 PUFF INH IH (09:04)
[2020-08-07] MEDS: DEXTROSE 5%-WATER 1,000 ML 75 ML IV (10:02)
--- NOTE | 2020-08-07 10:53 | TELEFU_ITS ---
Date of service: 08/07/20 Time of Service: 10:53 Nutritional Follow up NOTE: Michelle returns from the [facility] with aspiration PNA, with obesity related hypoventilation syndrome, dysphagia, hypercarbia, UTI, morbid obesity, acute respiratory failure. Diet advanced to regular with regular texture. Michelle will aspirate independent of texture per medical notes. PO intake poor, averaging about 25-50% of meals. STUDENT MINISTRIES DIRECTOR measures considered. Will continue to follow and provide meal preferences to promote optimal nutritional intake. Time Spent in Nutritional Counseling and Treatment: 0
--- NOTE | 2020-08-07 11:43 | PDOC.CMPRO ---
Care Management Progress Note S/O: CM coordinated tele-visit with Michelle and her two sons; Bruce and Shelley. Michelle explained to her son's that she felt she should have prior to now, that she was tired and wanted to stop treatments. Her sons were notably emotional but ultimately accepting of her wishes. Michelle expressed interest in visiting with family, CM will support tele-visits with family. Anticipate Bruce and Chema will be primary visitors (two approved on comfort care) and will likely come to see Michelle this weekend. CM continues to follow. A: Michelle is a 69 year old female admitted to [facility] on 08/04/20 with AMS, ZUHAIR, UTI, PNA, Hypernatremis, Hypercalcemia. P: Michelle transitioned to comfort care this afternoon. Anticipate she will remain at [facility] for her end of life care, and be allowed 2 continuous visitors; Bruce and Chema. CM will continue to support Michelle and her sons.
[2020-08-07] MEDS: VANCOMYCIN/WATER (PEG) 1 GM/200 ML BAG IV (13:49)
--- NOTE | 2020-08-07 15:16 | PCPN_ITS ---
Date of service: 08/07/20 Time of Service: 15:16 Assessment and Plan Assessment and plan (1) Aspiration pneumonia: Status: Acute (2) Urinary tract infection: Status: Acute Qualifiers: Urinary tract infection type: site unspecified Hematuria presence: without hematuria Qualified Code(s): N39.0 - Urinary tract infection, site not specified (3) Hypercarbia: Status: Acute (4) Hypercalcemia: Status: Acute (5) DNI (do not intubate): Status: Chronic (6) Acute on chronic respiratory failure: Status: Acute Qualifiers: Respiratory failure complication: hypercapnia Qualified Code(s): J96.22 - Acute and chronic respiratory failure with hypercapnia (7) Obesity hypoventilation syndrome: Status: Chronic (8) Acute on chronic respiratory failure with hypoxia and hypercapnia: Status: Acute (9) Diastolic dysfunction with chronic heart failure: Status: Chronic (10) CKD (chronic kidney disease) stage 3, GFR 30-59 ml/min: Status: Chronic Qualifiers: Chronic kidney disease stage 3 subtype: stage 3b (GFR 30-44) Qualified Code(s): N18.32 - Chronic kidney disease, stage 3b (11) Acute exacerbation of chronic obstructive pulmonary disease: Status: Acute (12) Renal cell carcinoma: Status: Chronic (13) Pulmonary hypertension: Status: Chronic (14) Goals of care, counseling/discussion: Status: Chronic (15) Elevated troponin: Status: Chronic (16) Palliative care patient: Status: Chronic Assessment and plan: Michelle is a very pleasant 69 year old female with a past medical history significant for TRINH, morbid obesity, CHF, chronic respiratory failure, left renal mass, CKD, currently being treated for aspiration PNA and UTI. She was seen in her hospital room today with Chaplain Sera and Mely, animal care specialist present and her sons, Bruce and Shelley present via [employer]. Michelle was clear to her sons that she wants to transition to comfort focused care. Her sons will be visiting in the near future. This was discussed with Dr. Curtis who will place comfort orders for her. Palliative will continue to follow as needed. Subjective Subjective Interval history since last seen: Michelle was seen in follow up today for a family meeting to facilitate a discussion with her sons, Shelley and Bruce. Michelle was able to articulate to her sons via facetime that she does not want to continue to receive aggressive care. She wants to be kept comfortable and remain at [facility] for comfort-focused care. Her sons were tearful but understanding of their mother's wishes. It was made clear to Michelle and her sons that she will receive care to keep her comfortable. Michelle continues to cough when she drinks. She feels SOB at times. She denies pain. Exam Narrative Exam Narrative: General: elderly, obese female, laying in bed with HOB elevated, SOB while talking. She is able to articulate her feelings and engage in a meaningful conversation. HEENT: normocephalic, atraumatic, makes eye contact, mucous membranes very dry. Neck: supple Cardiovascular: heart sounds regular, tachycardic, +murmur. Respiratory: appears SOB with talking. GI: round abdomen. Extremities: All 4 extremities appear wrinkled after diuresis. Objective Last Vital Signs Temp 36.8 C 08/07/20 11:30 Pulse 88 08/07/20 13:13 Resp 20 08/07/20 13:13 BP 158/86 H 08/07/20 11:30 Pulse Ox 94 08/07/20 13:13 Laboratory Results - last 24 hr 08/06/20 18:10 Sodium 145 Potassium 3.9 Chloride 112 H Carbon Dioxide 26.6 Anion Gap 6.4 BUN 27 H Creatinine 1.3 H Estimated GFR/1.73 m2 40.38 Glucose 213 H Calcium 11.4 H
--- NOTE | 2020-08-07 15:52 | W.PM.PROGNOT ---
Date of Service Date of service: 08/07/20 Time of Service: 15:52 Assessment and Plan Assessment and plan (1) Acute on chronic respiratory failure with hypoxia and hypercapnia: Status: Acute Assessment and plan: Transition to comfort measures (2) Aspiration pneumonia: Status: Acute Assessment and plan: As above D/c abx (3) UTI (urinary tract infection): Status: Acute Assessment and plan: D/c abx (4) Toxic metabolic encephalopathy: Status: Acute Assessment and plan: The patient was consistent in her decision making today (5) Obesity hypoventilation syndrome: Status: Chronic Assessment and plan: As above (6) Dysphagia: Status: Chronic Assessment and plan: Patient aspirates independent of texture - largely behavioral. The patient has continued to aspirated despite our maximum offered measures. Comfort measures are more than reasonable. Permit comfort foods (7) Acute hypernatremia: Status: Acute Assessment and plan: D/c IVF (8) Pulmonary hypertension: Status: Chronic Assessment and plan: symptom management only (9) DVT prophylaxis: Status: Acute Assessment and plan: D/c heparin - patient on comfort care only (10) Discharge planning issues: Status: Acute Assessment and plan: DNR/DNI/comfort measures only. Subjective Subjective Interval history since last seen: Michelle has been seeing her relatives. She has met with palliative care and told ASSOCIATE BUSINESS ANALYST Tenisha Sandra that she does not want to do this anymore and that she is ready for comfort measures. She said the same to me. She said this to her sons via the zoom call. She did report feeling short of breath. Nursing reports diarrhea. Exam Narrative Exam Narrative: General: Obese female, tachypneic laying in bed on NC HEENT: EOMI, dry MM Heart: RRR Lungs: DIminished breath sounds B Abdomen: soft, nontender, nondistended Extremities: chronic BLE edema Objective Last Vital Signs Temp 36.8 C 08/07/20 11:30 Pulse 88 08/07/20 13:13 Resp 20 08/07/20 13:13 BP 158/86 H 08/07/20 11:30 Pulse Ox 91 L 08/07/20 15:30 Laboratory Results - last 24 hr 08/06/20 18:10 Sodium 145 Potassium 3.9 Chloride 112 H Carbon Dioxide 26.6 Anion Gap 6.4 BUN 27 H Creatinine 1.3 H Estimated GFR/1.73 m2 40.38 Glucose 213 H Calcium 11.4 H
[2020-08-07 16:18] LABS: C Diff PCR Negative (Negative)
--- NOTE | 2020-08-07 16:18 | CHAPLAIN ---
Michelle spoke with both her sons this afternoon, by Facetime. Right away she said, I have something to tell you, and then said I don't want to do this anymore. Her son, Bruce was concerned that his mom was giving up. Tenisha Allegra, explained that following Michelle's wishes, she will continue to received comfort care, and also oxygen and her biPap if that makes her more comfortable. She will be able to stay here at [facility] and her sons can visit her anytime. They weren't sure when they would be able to visit. At one point her younger son said we might as well bring you home if you're not going to get any treatment. Tenisha explained that they could take Michelle home and care for her but they both said they couldn't do that. Michelle seemed very pleased to see her sons and is looking forward to their visit.
[2020-08-08] MEDS: Patch Removal 1 EACH TP
[2020-08-08] MEDS: Tiotropium Bromide-Respimat 10 PUFF INH IH (08:02)
--- NOTE | 2020-08-08 08:13 | CMPROGNOTE_ITS ---
Care Management Progress Note S/O: Michelle remains on comfort care at this time. Many family members are reaching out and wanting to connect with [place]. Bruce and Delores will be primary visitors (only two approved on comfort care) and saw Michelle last evening. CM continues to follow. A: Michelle is a 69 year old female admitted to [facility] on 08/04/20 with AMS, ZUHAIR, UTI, PNA, Hypernatremis, Hypercalcemia. P: Michelle transitioned to comfort care this afternoon. Anticipate she will remain at [facility] for her end of life care, and be allowed 2 continuous visitors; Bruce and Chema. CM will continue to support Michelle and her sons. Bianka: [phone] Tenisha: H)[phone] C) [phone]-use for [employer] email: [email or web address] (zoom,etc) Delores: Csm-[phone]-facetbrayan Barrera: Son-main contact: [phone]-facetbrayan HIPPA: Bianka Barrera Kelly, Prachan, Hasmukh
--- NOTE | 2020-08-08 08:13 | PDOC.CMPRO ---
Care Management Progress Note S/O: Michelle remains on comfort care at this time. Many family members are reaching out and wanting to connect with Michelle. Bruce and Delores will be primary visitors (only two approved on comfort care) and saw Michelle last evening. CM continues to follow. A: Michelle is a 69 year old female admitted to [facility] on 08/04/20 with AMS, ZUHAIR, UTI, PNA, Hypernatremis, Hypercalcemia. P: Michelle transitioned to comfort care this afternoon. Anticipate she will remain at [facility] for her end of life care, and be allowed 2 continuous visitors; Bruce and Chema. CM will continue to support Michelle and her sons. Bianka: [phone] Tenisha: H)[phone] C) [phone]-use for [facility] email: .[employer] (zoom,etc) Delores: [phone]-facetbrayan Barrera: Son-main contact: [phone]-facetbrayan HIPPA: Bianka Barrera Kelly, Prachan, Hasmukh
[2020-08-08 08:33] VITALS: O2SAT 90
--- NOTE | 2020-08-08 11:01 | W.PM.PROGNOT ---
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 She is sleeping, apneic at times, she does wake at times per nursing she is groggy when she does. She is wearing her mask but has bipap for comfort if she asks. She was wearing her mask when I saw her. she appears comfortable, ativan scheduled to help with breathing component, along with prn. She also have sc morphine. continue to monitor comfort status. Subjective Subjective Patient reports: other Interval history since last seen: sleeping, appears comfortable, has mask overface. Mittal with little output, yellow. Will schedule ativan and prn dosing to help with breathing. Exam Narrative Exam Narrative: General: Obese female, tachypneic laying in bed on mask HEENT: EOMI, dry MM Heart: RRR Lungs: DIminished breath sounds B Abdomen: soft, nontender, nondistended Extremities: chronic BLE edema Objective Last Vital Signs Temp 37 C 08/07/20 15:53 Pulse 101 H 08/07/20 22:41 Resp 24 08/07/20 15:53 BP 146/89 H 08/07/20 15:53 Pulse Ox 90 L 08/08/20 08:33 Laboratory Results - last 24 hr 08/07/20 08/07/20 08/07/20 05:25 05:35 09:00 WBC Cancelled RBC Cancelled Hgb Cancelled Hct Cancelled MCV Cancelled MCH Cancelled MCHC Cancelled RDW Cancelled Plt Count Cancelled MPV Cancelled Sodium Cancelled Potassium Cancelled Chloride Cancelled Carbon Dioxide Cancelled Anion Gap Cancelled BUN Cancelled Creatinine Cancelled Estimated GFR/1.73 m2 Cancelled Glucose Cancelled Calcium Cancelled Magnesium Cancelled Stl C.difficile Tox PCR Vancomycin Trough Cancelled 08/07/20 14:40 WBC RBC Hgb Hct MCV MCH MCHC RDW Plt Count MPV Sodium Potassium Chloride Carbon Dioxide Anion Gap BUN Creatinine Estimated GFR/1.73 m2 Glucose Calcium Magnesium Stl C.difficile Tox PCR Negative Vancomycin Trough
[2020-08-08] MEDS: Normal Saline Flush 10 ML SYR IVP ×2 (14:18→20:06)
[2020-08-08] MEDS: LORazepam 2 MG/ML VIAL 1 MG IM/IVP ×2 (14:18→20:05)
--- NOTE | 2020-08-08 19:27 | NUR.NOTE ---
pt son Bruce [phone] called due to a change in in circulation and decreased respirations down to 10-12. At this point he would like to be notified upon any changes. Nursing Note:
--- NOTE | 2020-08-09 07:58 | PHA.REVIEW ---
Pharmacy Admission Review - Admission Clinical Review (Last Reviewed 08/06/20 @ 12:27 by Tenisha Sandra NP) Comfort measures only status (Acute) Discharge planning issues (Acute) Aspiration pneumonia (Acute) Toxic metabolic encephalopathy (Acute) Altered mental status (Acute) Encephalopathy (Acute) Urinary tract infection (Acute) Hypercarbia (Acute) Hypercalcemia (Acute) Acute hypernatremia (Acute) Pneumonia (Acute) Acute on chronic respiratory failure (Acute) UTI (urinary tract infection) (Acute) DVT prophylaxis (Acute) Acute on chronic respiratory failure with hypoxia and hypercapnia (Acute) Acute exacerbation of chronic obstructive pulmonary disease (Acute) codeine Allergy (Unverified 07/17/20 17:41) pentazocine Adverse Reaction (Unknown, Unverified 07/17/20 17:41) unknown Height 5 ft 2 in Weight 128.6 kg - Comments Comments/Follow Ups: 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 - Renal Dosing Renal Dosing: BUN Cancelled 08/07/20 05:35 Creatinine Cancelled 08/07/20 05:35 Medications needing adjustments: Reviewed (crcl ~31ml/min) - Anticoagulation Anticoagulation: Hgb Cancelled 08/07/20 05:25 Hct Cancelled 08/07/20 05:25 Plt Count Cancelled 08/07/20 05:25 INR 1.1 (0.9-1.1) 08/04/20 15:20 Creatinine Cancelled 08/07/20 05:35 DVT Prohphylaxis: N/A (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) Therapeutic Anticoagulation: N/A - Relevant Labs Sodium Cancelled 08/07/20 05:35 Potassium Cancelled 08/07/20 05:35 Chloride Cancelled 08/07/20 05:35 Magnesium Cancelled 08/07/20 05:35 - DM Control DM Control: Glucose Cancelled 08/07/20 05:35 - Heart Failure/MT Heart Failure/MT: Troponin I 0.35 ng/mL (<0.06) H* 08/05/20 06:35 NT-Pro-B Natriuret Pep 208 pg/mL (<300) 08/04/20 15:20 - Current meds Current Medication Order Review: Reviewed - Comments Comments/Follow Ups: pt has morphine CADD for comfort
--- NOTE | 2020-08-09 08:59 | NUR.NOTE ---
Nursing Note: 08/09/20 08:59 This RN walked into patient's room at approximately 07:09 where Brianna Traylor RN, was listening to patient's apical HR. Brianna reported noticing last breath at approximately 07:07, and did not hear heart sounds. This RN shut off CADD pump at 07:11, listened to apical HR for a full minute at 07:12 and did not hear heart sounds. Patient was determined to be at this time. Marcela Wagner RN, and Carmen Milligan, a nursing director, were present in room throughout this time. Charge nurse Krista Maxwell was notified.
--- NOTE | 2020-08-09 10:23 | NUR.NOTE ---
recieved call from Luis Fuquay Varina in [facility]- notified Luis's of current hold for NEOB. Nursing supervisory civil engineer notified and provided phone number to call when released. Nursing Note:
--- NOTE | 2020-08-09 14:17 | EXPE_ITS ---
Date of service: 08/09/20 Time of Service: 08:30 Discharge Sum: Prov Provider Primary care physician: Lucia Mckeon Admitting clinician: Caesar Morales Attending physician on admission: Per Mc Consults: 08/07/20 15:58 Technology Resource Teacher Consult [CONS] Routine Consultation Status:: Contact made by MD Clarification:: Manage/follow per spec. Reason for consult:: patient on comfort measures Pronouncing clinician: Per Mc Discharge Sum: Diag PCOD Cause of : Acute on chronic respiratory failure with hypercapnia Contributing Factors (1) Comfort measures only status: Contributing factors: Acute on Chronic Respiratory Failure hypercapnia, CHF, COPD Discharge Sum: Summary Date and Time Admission Date: 08/05/2103/06/21 18:55 Date of : 08/09/20 Time of : 07:07
== END 2020-08-09 09:14 | disposition expired | DRG 177 ==
LOC: ER 19:10 → MS 19:55
PROVIDERS: Internal Medicine; Admitting Provider Family Medicine; Emergency Provider Student in an Organized Health Care Education/Training Program; PCP Family Medicine; Visit Provider Family Medicine
DX: J69.0 Pneumonitis due to inhalation of food and vomit (principal); J96.22 Acute and chronic respiratory failure with hypercapnia; J96.21 Acute and chronic respiratory failure with hypoxia; G92 Toxic encephalopathy; N39.0 Urinary tract infection, site not specified; E87.0 Hyperosmolality and hypernatremia; Z68.43 Body mass index [BMI] 50.0-59.9, adult; I50.32 Chronic diastolic (congestive) heart failure; E66.2 Morbid (severe) obesity with alveolar hypoventilation; C64.2 Malignant neoplasm of left kidney, except renal pelvis; J44.1 Chronic obstructive pulmonary disease with (acute) exacerbation; Z51.5 Encounter for palliative care; E83.52 Hypercalcemia; R74.8 Abnormal levels of other serum enzymes; Z99.81 Dependence on supplemental oxygen; Z85.528 Personal history of other malignant neoplasm of kidney; F41.9 Anxiety disorder, unspecified; F32.9 Major depressive disorder, single episode, unspecified; R53.1 Weakness; I89.0 Lymphedema, not elsewhere classified; Z55.0 Illiteracy and low-level literacy; Z99.3 Dependence on wheelchair; Z87.891 Personal history of nicotine dependence; N18.32 Chronic kidney disease, stage 3b; I27.20 Pulmonary hypertension, unspecified; R13.10 Dysphagia, unspecified
CPT/HCPCS: 36415; 36556; 71045; 80048; 80053; 82805; 85027; 87040; 87077; 87493; 87635; 93005; 94640; 96365; 96367; 99223; 99232; 99233; 99255; 99285; 36600; 70450; 80202; 80320; 81003; 81015; 82140; 83605; 83735; 83880; 84443; 84484; 85025; 85610; 85730; 87086; 87186; 93010; 94660; 99238; J0743; J1644; J1720; J2060; J2543; J3480; J3490; J7060; J7620